=== PATIENT | male | born 1970 | race African-American/Black ===

== ENCOUNTER 2024-04-02 12:30 | Outpatient (RCR) | payer OTHER, MEDICAID, SELFPAY ==
--- NOTE | 2024-02-29 14:34 | OPREHPOC ---
Outpatient Therapy Plan of Care This is a Multidisciplinary Plan of Care that may contain components documented by all disciplines (PT, OT, and ST.) PT Problem 1 PT Problem #1 Knowledge Deficit PT Goal 1 Goal *pt and caregiver educated on HEP and correct transfer technique Target Visit 10 PT Problem 2 PT Problem #2 Pain PT Goal 1 Goal * monitor pain during sessions, multiple areas of pain Target Visit 10 PT Problem 3 PT Problem #3 Impaired Functional Mobility PT Goal 1 Goal 1* pt transfer w/c<> mat with minimal assist x1 2* pt transfer supine/sit with moderate assist x 1 3* pt roll R/L indep on mat 4* sitting balance at edge of mat without UE use and slight nudge without loss of balance Target Visit 10 PT Problem 4 PT Problem #4 Impaired Flexibility PT Goal 1 Goal * educate pt and caregiver on HEP for LE ROM and stretching Target Visit 10
--- NOTE | 2024-02-29 14:34 | PTOPEVAL1 ---
Assessment and note entered by Kenna Cintron PT Evaluation Information Assessment Status Evaluation Diagnosis multiple joint pain Subjective Information more issues with legs since sacral wounds and not able to stretch legs; still under wound care dr, going 2/wk for dressings; having problems getting in/out bed and in/out of car; had therapy at another facility, up to 2 weeks ago wrist, shoulder strength; car transfers, work on leg stretching at home. Activity: doing home exercises and stretching- have stretching strap; use wheel chair for mobility; have leg braces but have not used in about 2 years ; live alone with direct care worker assist; have trapeze bar on bed; have hand control car; Goal: stand with walker; Reported Pain Level Pain Score 7: Self Report Additional Pain Score Comments spine and wrists Assessment PT Clinical Summary Raphael has the diagnosis of mulitple joint pain. The history and activity history he gave was disjointed and difficult to obtain. He has a spinal cord injury and uses a wheel chair for mobility. Recently, to heal his sacral wound, he has not been able to move his hips and legs so that they are tighter. His goal is to stand with the leg braces that he has from over 2 years ago. With the evaluation: he does not have any active motion in R or L leg, with limited ROM of both hips, knees and ankles; poor transfer supine/sit and sit/w-c, with decreased sitting balance at edge of mat. Due to his changes with LE ROM, his W/C does not support him correctly. Discussed with pt to discuss the wheel chair with his provider and request a new wheel chair assessment. The current w/c is 3 years old and is from Provider [facility]. SKilled PT services are indicated to increase transfer skills, sitting balance and LE ROM, with education to pt and caregiver for HEP and correct transfer techniques. Plan of Care Interventions Neuro Re-education,Patient/Caregiver Education, Th
--- NOTE | 2024-04-04 13:03 | PCPTNOTE ---
No call no show, reason unknown. AKKim
--- NOTE | 2024-04-09 10:06 | PTOPDC ---
Assessment and note entered by Kenna Cintron, PT Discharge Report Assessment Status Discharge - Pt Not Present Diagnosis multiple joint pain Subjective Information pt called and left a message-- stated he is doing better and wants to cancel the PT appointments for now. Assessment PT Clinical Summary Raphael has received 7 PT sessions, from February 28 to April 02. He did not show for 1 appointment. Discharge PT per pt request. The goals were not assessed. Plan of Care PT Services Indicated No
== END 2024-04-09 12:44 | disposition home or self-care (01) ==
LOC: ANHPT 12:30
DX: M25.50 Pain in unspecified joint (principal)
CPT/HCPCS: 97110; 97140; 97162; 97530

== ENCOUNTER 2024-04-11 13:19 | Emergency (ER) | payer OTHER, SELFPAY ==
[2024-04-11] VITALS (10 sets, daily range): BP systolic 136–158; BP diastolic 67–94; PULSE 83–97; RESP 16–18; TEMP 36.2; O2SAT 97–100
--- NOTE | ~2024-04-11 | US_ITS ---
EXAMINATION: US venous doppler [facility] DATE: 04/11/2024 16:23 INDICATION: Left lower limb swelling TECHNIQUE: Grayscale ultrasound images without and with compression and Doppler ultrasound images of the left lower extremity veins were obtained. COMPARISON: None. FINDINGS: The visualized portions of left common femoral vein, profunda (deep) femoral vein, femoral vein, popl iteal vein, peroneal veins, posterior tibial veins, gastrocnemius vein and greater saphenous vein out flow are patent. IMPRESSION: 1. No deep venous thrombosis in the left lower limb. Reviewed, dictated and finalized at location A.
--- NOTE | ~2024-04-11 | XR_ITS ---
XR knee RT 3V 04/11/2024 14:17 Indication: Paraplegic. Patient felt a pop. Procedure: 3 views of the right knee Comparison: No prior studies Findings: There are transverse nondisplaced fractures of the proximal tibial metaphysis with mild sandy lukas angulation. There is a proximal fibular metaphyseal fracture. There is a joint effusion. There is osteoarthritis of the knee. Impression: 1: Nondisplaced fractures proximal aspect of the right tibia and fibula with mild dorsal angulation. Reviewed, dictated and finalized at location B. Impression: 1: Nondisplaced fractures proximal aspect of the right tibia and fibula with mi ld dorsal angulation.
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
[2024-04-11 16:08] LABS: Basophils Percent Auto 0.1 % (0.2-1.2); Eosinophils Percent Auto 0.4 % (0-4.4); Hematocrit 32.3 % (42.0-52.0); Hemoglobin 10.3 g/dL (14.0-18.0); Immature Granulocyte Absolute 0.04 K/mm3 (0.00-0.031); Immature Granulocyte Percent A 0.4 % (0-0.5); Lymphocytes Percent Auto 7.3 % (18.3-44.2); Mean Corpuscular HGB Conc 31.9 g/dl (32-36); Mean Corpuscular Hemoglobin 26.8 pg (26-34); Mean Corpuscular Volume 84.1 fl (80-100); Mean Platelet Volume 9.7 fl (7.4-10.4); Monocytes Absolute Auto 0.3 K/mm3 (0.1-0.6); Monocytes Percent Auto 2.8 % (2.6-8.5); Neutrophils Absolute Auto 9.7 K/mm3 (1.3-6.7); Platelet Count Result 367 k/mm3 (150-375); Red Blood Count 3.84 M/mm3 (4.6-6.20); White Blood Count 10.9 K/mm3 (4.5-10.0)
[2024-04-11 16:18] LABS: Anion Gap 10 mmol/L (4-12); Blood Urea Nitrogen 15 mg/dL (9-20); Calcium 8.9 mg/dL (8.4-10.2); Carbon Dioxide 27 mmol/L (22-30); Chloride 101 mmol/L (98-107); Estimated CRCL calculation 114 ml/min; Estimated Glomerular Filt Rate > 60; Glucose 84 mg/dL (65-110); Potassium 3.6 mmol/L (3.4-5.0); Sodium 138 mmol/L (137-145)
[2024-04-11 16:23] LABS: INR 1.1; Prothrombin Time 14.5 Seconds (11.1-14.7)
[2024-04-11 16:24] LABS: Partial Thromboplastin Time 31.4 Seconds (22.3-36.8)
[2024-04-11] MEDS: HYDROcodone/acetaminophen (*CRX) 5-325 MG TABLET 1 TAB PO (16:40)
--- NOTE | 2024-04-11 17:20 | PC.NURSE ---
care and report given to YORDAN Chawla. all questions answered.
== END 2024-04-11 18:28 | disposition home or self-care (01) ==
PROVIDERS: Emergency Provider Student in an Organized Health Care Education/Training Program
DX: S89.091A Other physeal fracture of upper end of right tibia, initial encounter for closed fracture (principal); S89.291A Other physeal fracture of upper end of right fibula, initial encounter for closed fracture; M25.461 Effusion, right knee; M17.11 Unilateral primary osteoarthritis, right knee; R22.42 Localized swelling, mass and lump, left lower limb; G82.20 Paraplegia, unspecified; S24.103S Unspecified injury at T7-T10 level of thoracic spinal cord, sequela; X58.XXXS Exposure to other specified factors, sequela; Z99.3 Dependence on wheelchair; X58.XXXA Exposure to other specified factors, initial encounter
CPT/HCPCS: 29505; 36415; 73562; 80048; 85025; 85610; 85730; 93971; 99284; A9270

== ENCOUNTER 2024-10-25 19:29 | Emergency (ER) | payer MEDICARE, MEDICAID, SELFPAY ==
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
[2024-10-25 19:33] VITALS: BP 159/84; PULSE 82; RESP 14; TEMP 36.6; O2SAT 100
--- NOTE | 2024-10-25 21:21 | PC.NURSE ---
pt here for recheck of the labs he had his primary care provider do last week. Pt is afraid that because he saw a slight amount of blood on his wound dressings, that is what is causing his iron to be low. Pt would not let this RN look at wound since you don't have the right medicine or bandages for it . All he wants is his blood work repeated.
--- OUTSIDE RECORDS SUMMARY | 2024-10-25 22:42 | XMS_ITS | Encounter Summary ---
Author Organization [facility] Address [address] [place] [address]. [place] [address] [place] [address] Care Team Providers Care [employer] Paver Name Role Phone Mary Marcus NP Primary Care Provider [phone] Lisa Ramírez [facility] Primary Care Provider + Lisa Ramírez [facility] Primary Care Provider + Jorje Ayala MD Unavailable Leroy Meraz DO Primary Care Provider + Encounter Details Date Type Department Care Team (Late st Contact Info) Description 05/31/2022 [employer] Message [facility] [address] [place] [address] Mary Marcus SELF DEFENSE INSTRUCTOR [address] [place] [address] ASKING FOR ANOTHER URINE CULTURE Social History Tobacco Use Types Packs/Day Years Used Date Smoking Tobacco: Never Smokeless Tobacco: Never Alcohol Use Standard Drinks/Week Comments Not Currently 0 (1 standard drink = 0.6 oz pur e alcohol) PHQ-2 Answer Date Recorded PHQ-2 Score - If the patient scores above 3, please move on to questions 3-9 0 05/16/2022 Sex and Gender Information Value Date Recorded Sex Assigned at Male 10/10/2024 12:08 PM SAMPLE TESTER Legal Sex Male 5:44 PM CDT Gender Identity Not on file Sexual Orientation Not on file COVID-19 Exposure Response Date Recorded In the last 10 days, have janet u been in contact with someone who was confirmed or suspected to have Coronavirus/COVID-19? No / Unsure 06/01/2022 10:32 AM CDT documented as of this encounter Functional Status * RETIRED Are you deaf or do you have serious difficulty hearing Answer Date of Assessment Author Status No 01/21/2022 2:05 PM CDT Activ e * RETIRED Are you blind or do you have serious difficulty seeing, even when wearing glasses? Answer Date of Assessment Author Status No 01/21/2022 2:05 PM CDT Activ e * Do you have serious difficulty walking or climbing stairs? Answer Date of Assessment Author Status Yes 01/21/2022 2:05 PM CDT Juliana Lewis RN Active * Do you have difficulty dressing or bathing? Answer Date of Assessment Author Status Yes 01/21/2022 2:05 PM CDT Juliana Lewis RN Active * Because of a physical, mental, or emotional condition, do you have difficulty doing errands alone such as visiting a doctor's office or shopping? Answer Date of Assessment Author Status Yes 01/21/2022 2:05 PM CDT Juliana Lewis RN Active documented as of this encounter Mental Status * Because of a physical, mental, or emotional condition, do you have serious difficulty concentrating, remembering, or making decisions? Answer Entry Date Author Status No 01/21/2022 2:05 PM CDT Juliana Lewis RN Active documented in this encounter Plan of Treatment Upcoming Encounters Date Type Department Care Team (Late st Contact Info) Description 11/11/2024 10:40 AM SAMPLE TESTER Telemedicine [facility] Family & Internal Medicine - [address] [address] Leroy Meraz DO [address] [place] [id number] documented as of this encounter Goals Goal Patient Goal Type Associated Problems Recent Progress Patient-Stated? Author Discharge ? Patient/family verbalizes understanding regarding the need for SNF placement Emilia Rivera RN Note: Pt will actively be involved in safe discharge destination plan. documented as of this encounter Visit Diagnoses Not on filedocumented in this encounter Additional Health Concerns Infection Onset Date Last Indicated Resolved Time MRSA Comment:08/18/20 Urine (SB) 11/18/2020 coccyx (KB) 11/19/2020 +MRSA Blood (MBK) 01/16/22 blood (JK) 01/16/22 left buttock wound (JK) 01/18/22 right thigh (JK) 10/04/22 urine (JK) 03/02/23 nares (JK) 03/02/23 urine (JK) 06/12/23 urine (JK) 05/29/24 left leg (JOSE) 09/02/24 Right Heel (RR) 08/24/2020 09/02/2024 MDR ? Other Comment:Added from external Infection- [facility] [employer] Collection Source- Urine 2020 06/25/2024 MDR-PATCH SANDER - Carbapenemase-Prod ucing Organisms Comment:Added from external infection. Source: [facility] [employer] Collection Source-Urine 08/04/2021 COVID-19 Rule Out 03/23/2024 03/23/2024 03/23/2024 1:17 PM CDT Assessment Noted Time PHQ-9 Depression Total Score: 0 12/04/19 1:13 PM SAMPLE TESTER documented as of this encounter Care Teams [employer] Pa[employer] Relationship Specialty Start Date End Date Mary Marcus, DONTE [address] [place] [address] PCP - General NURSE PRACTITIONER 11/30/21 08/28/22 Lisa Ramírez FNP-JUAN MANUEL [address] [place] [address] PCP - General NURSE PRACTITIONER 08/29/22 09/01/22 Lisa Ramírez FNP- [address] [place] [address] PCP - General NURSE PRACTITIONER 09/05/22 07/07/24 Leroy Meraz DO [address] [place], [place] [id number] PCP - General FAMILY PRACTICE 07/08/24 [place] [address] [phone] Surgeon SURGERY 11/03/23 documented as of this encounter
--- OUTSIDE RECORDS SUMMARY | 2024-10-25 22:43 | XMS_ITS | Patient Health Summary ---
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 This disclosure is being madepursuant to the Care Everywhere program and may not contain all information available regarding this patient. Last updated 18.[facility] Allergies * Diphenhydramine(Unknown) * Ciprofloxacin(Itching) * Diazepam(Unknown) * Zinc(Unknown) Medications * Be aware that medications may not be up to date on this document. Alwaysverify current medications with the patient. * ferrous sulfate 325 (65 FE) MG tablet Take 1 (one) tablet by mouth 2 times daily * Potassium 99 MG tablet Take 1 (one) tablet by mouth every evening * multivitamin daily tablet Take 1 (one) tablet by mouth daily with food * amLODIPine (NORVASC) 5 MG tablet(Started 05/05/2021) Take 1 (one) tablet by mouth once daily * metoprolol succinate XL 24hr (TOPROL XL) 25 MG tablet(Started 04/29/2021) Take 2 (two) tablets by mouth once daily * fluocinonide (Lidex) 0.05 % cream(Started 11/28/2022) Use as directed * lactulose (Chronulac) 10 GM/15ML solution(Started 12/08/2022) TAKE 15 ML BY MOUTH ONCE DAILY NEEDED FOR CONSTIPATION * biotin 300 MCG tablet(Started 02/04/2022) Take 1 (one) tablet by mouth at bedtime Active Problems Problem Noted Date Diagnosed Date Anemia 12/26/2020 Urinary tract infection asso ciated with indwelling urethral catheter 12/26/2020 Resolved Problems Problem Noted Date Diagnosed Date Resolved Date Fever 12/26/2020 12/27/2020 Social History Tobacco Use Types Packs/Day Years Used Date Smoking Tobacco: Never Smokeless Tobacco: Never Tobacco Cessation:Counseling Given: Not Answered Alcohol Use Standard Drinks/Week Comments Never 0 (1 standard drink = 0.6 oz pur e alcohol) AUDIT-C Answer Date Recorded Q1: How often do you have a drink containing alcohol? Never 10/07/2022 Q2: How many drinks containi ng alcohol do you have on a typical day when you are drinking? Patient does not drink Q3: How often do you have si x or more drinks on one occasion? Never 10/07/2022 Sex and Gender Information Value Date Recorded Sex Assigned at Not on file Gender Identity Not on file Sexual Orientation Not on file Last Filed Vital Signs Vital Sign Reading Time Taken Comments Blood Pressure 150/71 12/29/2022 5:29 PM CDT Pulse 80 12/29/2022 5:29 PM CDT Temperature 36.8 ??C (98.2 ??F) 12/29/2022 5:29 PM CD T Respiratory Rate 18 12/29/2022 5:29 PM CDT Oxygen Saturation 98% 12/29/2022 5:29 PM CDT Inhaled Oxygen Concentration - - Weight 63.5 kg (140 lb) 12/29/2022 3:25 PM CDT Height 198.1 cm (6' 6 ) 12/29/2022 3:25 PM CDT Body Mass Index 16.18 12/29/2022 3:25 PM CDT Procedures * URINE MICROSCOPIC ONLY(Performed 12/29/2022) * URINALYSIS REFLEX TO MICROSCOPIC NO CULTURE(Performed 12/29/2022) * CULTURE URINE(Performed 12/29/2022) * URINE MICROSCOPIC ONLY REFLEX TO CULTURE(Performed 10/07/2022) * URINALYSIS REFLEX MICROSCOPIC REFLEX CULTURE(Performed 10/07/2022) * CULTURE URINE(Performed 10/07/2022) * CT ABDOMEN PELVIS W CONTRAST(Performed 08/24/2021) Performed for Suprapubic catheter dysfunction, initial encounter (HCC), Abdominal pain, generalized * CULTURE WOUND+GRAM STAIN(Performed 08/24/2021) * URINE MICROSCOPIC ONLY REFLEX TO CULTURE(Performed 08/24/2021) * URINALYSIS REFLEX MICROSCOPIC REFLEX CULTURE(Performed 08/24/2021) * CULTURE URINE(Performed 08/24/2021) * CULTURE BLOOD(Performed 08/24/2021) * PROCALCITONIN LEVEL(Performed 08/24/2021) * COMPREHENSIVE METABOLIC PANEL(Performed 08/24/2021) * CBC W AUTO DIFFERENTIAL(Performed 08/24/2021) * LACTIC ACID BLOOD REFLEX TO REPEAT(Performed 08/24/2021) * CULTURE BLOOD(Performed 08/24/2021) * ED CRITICAL CARE(Performed 08/24/2021) Performed for Suprapubic catheter dysfunction, initial encounter (HCC), Abdominal pain, generalized * CARDIAC EKG ORDER(Performed 05/24/2021) * COMPREHENSIVE METABOLIC PANEL(Performed 05/20/2021) * CBC W AUTO DIFFERENTIAL(Performed 05/20/2021) * EKG 12-LEAD(Performed 05/20/2021) Performed for Essential hypertension * SLIDE SCAN HEMATOLOGY(Performed 12/27/2020) * CBC W AUTO DIFFERENTIAL(Performed 12/27/2020) * BASIC METABOLIC PANEL (CALCIUM TOTAL)(Performed 12/27/2020) * IRON + TRANSFERRIN PANEL(Performed 12/27/2020) * PLATELET COUNT AUTO(Performed 12/27/2020) * CREATININE BLOOD(Performed 12/27/2020) * XR CHEST 1VW PORTABLE(Performed 12/26/2020) Performed for Fever in other diseases * URINE MICROSCOPIC ONLY REFLEX TO CULTURE(Performed 12/25/2020) * URINALYSIS REFLEX MICROSCOPIC REFLEX CULTURE(Performed 12/25/2020) * CULTURE URINE(Performed 12/25/2020) * CULTURE BLOOD(Performed 12/25/2020) * CULTURE BLOOD(Performed 12/25/2020) * DIFFERENTIAL MANUAL(Performed 12/25/2020) * LACTIC ACID BLOOD REFLEX TO REPEAT(Performed 12/25/2020) * COMPREHENSIVE METABOLIC PANEL(Performed 12/25/2020) * CBC W AUTO DIFFERENTIAL(Performed 12/25/2020) * URINE MICROSCOPIC ONLY REFLEX TO CULTURE(Performed 2020) * URINALYSIS REFLEX MICROSCOPIC REFLEX CULTURE(Performed 2020) * CULTURE URINE(Performed 2020) * GROSS + MICRO EXAM(Performed 11/24/1998) Results * (ABNORMAL) URINALYSIS REFLEX TO MICROSCOPIC NO CULTURE (12/29/2022 3:36 PM CDT) Color UA Yellow Straw, Yellow, Dark Yellow 12/29/2022 4:[address] [facility] Clarity UA Slt Cloudy(A) Clear 12/29/2022 4:[address] [facility] Glucose UA Negative Negative 12/29/2022 4:[address] [facility] Bilirubin UA Negative Negative 12/29/2022 4:[address] [facility] Ketone UA 1+(A) Negative 12/29/2022 4:[address] [facility] Specific Wise UA 1.014 1.005 - 1.030 12/29/2022 4:[address] [facility] Blood UA 2+(A) Negative 12/29/2022 4:[address] [facility] pH UA 6.0 5.0 - 8.0 pH 12/29/2022 4:[address] [facility] Protein UA 2+(A) Negative 12/29/2022 4:[address] [facility] Urobilinogen UA Negative Negative mg/dL 12/29/2022 4:[address] [facility] Nitrite UA Positive(A) Negative 12/29/2022 4:[address] [facility] Leukocyte UA 3+(A) Negative 12/29/2022 4:[address] [facility] Urine Microscopy Urine microscopy to follow 12/29/2022 4:[address] [facility] Urine URINE SPECIMEN COLLECTION, CATHETERIZED / Unknown Collection / Unknown 12/29/2022 3:36 PM CDT 12/29/2022 3:[address] [facility] - 12/29/2022 4:00 PM CDT Ascorbic Acid can cause false negative urine strip tests for blood, glucose, nitrite, and bilirubin. Jessica Valles [facility] - URINALYSIS ORD ERABLES Performing Organization Address [facility] Co de Phone Number [facility] [address] * (ABNORMAL) URINE MICROSCOPIC ONLY (12/29/2022 3:36 PM CDT) RBC UA 11-20(A) 0 - 5 # /hpf 12/29/2022 4:[address] [facility] WBC UA 21-50(A) None Seen, 0-5 # /hpf 12/29/2022 4:[address] [facility] Budding Yeast Occasional (A) None seen /hpf 12/29/2022 4:[address] [facility] Hyaline Casts 0-2 None Seen, 0-2 /LPF 12/29/2022 4:[address] [facility] Bacteria UA 2+(A) None Seen 12/29/2022 4:[address] [facility] Squamous Epithelial Cells None Seen None Seen, 0-2, 3-5 /hpf 12/29/2022 4:[address] [facility] Mucus UA 1+ /LPF 12/29/2022 4:[address] [facility] Urine URINE SPECIMEN COLLECTION, CATHETERIZED / Unknown Collection / Unknown 12/29/2022 3:36 PM CDT 12/29/2022 3:[address] [facility] - 12/29/2022 4:00 PM CDT Jessica Valles [facility]ATION [facility] - URINALYSIS ORD ERABLES Performing Organization Address [facility] Co de Phone Number [facility] [address] [place] [address] * CULTURE URINE (12/29/2022 3:36 PM CDT) Only the most recent of5 resultswithin the time period is included. Culture Urine More than 2 organisms seen at >=50,000 CFU/mL. Recollect if clinically indicated. JONAS 12/31/2022 3:09 PM CDT [facility] Urine URINE SPECIMEN OBTAINED BY CLEAN CATCH PROCEDURE / Unknown Collection / Unknown 12/29/2022 3:36 PM CDT 12/29/2022 3:42 PM CDT Narrative [facility] - 12/31/2022 3:09 PM CDT Jessica BIRCH LAB - MICROBIOLOGY O RDERABLES [facility] [address] [place] [address], [facility] [phone] * (ABNORMAL) URINE MICROSCOPIC ONLY REFLEX TO CULTURE (10/07/2022 6:55 PM TOSSER) Only the most recent of4 resultswithin the time period is included. Reflex Status Culture to follow 10/07/2022 7:[address] [facility] RBC UA 11-20(A) 0 - 5 # /hpf 10/07/2022 7:11 PM [facility] WBC UA >100(A) None Seen, 0-5 # /hpf 10/07/2022 7:11 PM [facility] WBC Clumps UA Few(A) None Seen /HPF 10/07/2022 7:11 PM [facility] Bacteria UA 3+(A) None Seen 10/07/2022 7:11 PM [facility] Squamous Epithelial Cells 0-2 None Seen, 0-2, 3-5 /hpf 10/07/2022 7:11 PM [facility] Mucus UA 1+ /LPF 10/07/2022 7:11 PM [facility] Urine SUPRAPUBIC URINE SPECIMEN / Unknown Collection / Unknown 10/07/2022 6:55 PM TOSSER 10/07/2022 7:[address] [facility] - 10/07/2022 7:11 PM TOSSER Jermain Mcdaniels DO LAB - URINALYSIS ORD ERABLES [facility] [address] [address], [facility] * (ABNORMAL) URINALYSIS REFLEX MICROSCOPIC REFLEX CULTURE (10/07/2022 6:55 PM TOSSER) Only the most recent of4 resultswithin the time period is included. Color UA Yellow Straw, Yellow, Dark Yellow 10/07/2022 7:[address] [facility] Clarity UA Cloudy(A) Clear 10/07/2022 7:11 PM [facility] Glucose UA Negative Negative 10/07/2022 7:11 PM [facility] Bilirubin UA Negative Negative 10/07/2022 7:11 PM [facility] Ketone UA Trace(A) Negative 10/07/2022 7:11 PM [facility] Specific Wise UA 1.014 1.005 - 1.030 10/07/2022 7:11 PM [facility] Blood UA 1+(A) Negative 10/07/2022 7:11 PM [facility] pH UA 6.0 5.0 - 8.0 pH 10/07/2022 7:11 PM [facility] Protein UA 2+(A) Negative 10/07/2022 7:11 PM [facility] Urobilinogen UA Negative Negative mg/dL 10/07/2022 7:11 PM [facility] Nitrite UA Negative Negative 10/07/2022 7:11 PM [facility] Leukocyte UA 3+(A) Negative 10/07/2022 7:11 PM [facility] Urine Microscopy Urine microscopy to follow 10/07/2022 7:11 PM [facility] Urine SUPRAPUBIC URINE SPECIMEN / Unknown Collection / Unknown 10/07/2022 6:55 PM TOSSER 10/07/2022 7:02 PM [facility] Narrative [facility] - 10/07/2022 7:11 PM TOSSER Ascorbic Acid can cause false negative urine strip tests for blood, glucose, nitrite, and bilirubin. Jermain Mcdaniels DO LAB - URINALYSIS ORD ERABLES Performing Organization Address City/State/[facility] Co de Phone Number [facility] [address] * CT ABDOMEN AND PELVIS W IV CONTRAST [id number] (08/24/2021 12:00 PM TOSSER) Anatomical Region Laterality Modality Abdomen, Pelvis Computed Tomogra phy 08/24/2021 12:3 7 PM TOSSER Addenda Addendum by Greta Chatterjee MD on 08/24/2021 12:56 PM TOSSER Addendum should read as follows. Please disregard sentence pulmonary embolus. Instead it should read unremarkable adrenal glands. *Addending Radiologist: Greta Chatterjee on 08/24/2021 at 12:53 PM Impressions 08/24/2021 12:39 PM TOSSER As described above *Reading Radiologist: Greta Chatterjee on 08/24/2021 at 12:39 PM Narrative 08/24/2021 12:39 PM TOSSER PROCEDURE: CT ABDOMEN PELVIS W CONTRAST ??08/24/2021 12:37 PM HISTORY: Breakdown (mechanical) of cystostomy catheter, initial encounter. FINDINGS AND IMPRESSION: COMPARISON: No comparison. CONTRAST: 80 cc Isovue-300 IV. Radiation dose reduction technique was utilized. FINDINGS: Lung bases are clear. No intrahepatic ductal dilation or mass lesions. Spleen is normal. Significant cholelithiasis. Contracted gallbladder. Pulmonary embolus. Unremarkable pancreas. Redemonstration of bilateral renal cysts. Kidneys otherwise are unremarkable Catheter is noted in bladder. No free fluid or lymphadenopathy. No focal intra-abdominal pelvic mass. No evidence of small bowel obstruction. Constipation. Appendix is normal. Abdominal aortic atherosclerosis. No evidence of AAA. DJD spine. Deformities of hip joint space erosive changes. Procedure Note Greta Chatterjee MD - 08/24/2021 PROCEDURE: CT ABDOMEN PELVIS W CONTRAST 08/24/2021 12:37 PM HISTORY: Breakdown (mechanical) of cystostomy catheter, initial encounter. FINDINGS AND IMPRESSION: COMPARISON: No comparison. CONTRAST: 80 cc Isovue-300 IV. Radiation dose reduction technique was utilized. FINDINGS: Lung bases are clear. No intrahepatic ductal dilation or mass lesions. Spleen is normal. Significant cholelithiasis. Contracted gallbladder. Pulmonary embolus. Unremarkable pancreas. Redemonstration of bilateral renal cysts. Kidneys otherwise are unremarkable Catheter is noted in bladder. No free fluid or lymphadenopathy. No focal intra-abdominal pelvic mass. No evidence of small bowel obstruction. Constipation. Appendix is normal. Abdominal aortic atherosclerosis. No evidence of AAA. DJD spine. Deformities of hip joint space erosive changes. IMPRESSION As described above *Reading Radiologist: Greta Chatterjee on 08/24/2021 at 12:39 PM Helena Rosenberg MD CT ORDERABLES * (ABNORMAL) CULTURE WOUND+GRAM STAIN (08/24/2021 10:41 AM TOSSER) Culture Heavy Pseudomonas aeruginosa(A) JONAS 08/27/2021 11:11 PM TOSSER [facility] Culture Heavy Pseudomonas aeruginosa(A) JONAS 08/27/2021 11:11 PM [facility] Comment:Strain 2 Culture Heavy Klebsiella pneumoniae(A) JONAS 08/27/2021 11:11 PM [facility] Culture Heavy Corynebacterium species(A) JONAS 08/27/2021 11:11 PM [facility] Culture Moderate Staphylococcus aureus methicillin-resista nt (MRSA)(A) JONAS 08/27/2021 11:11 PM [facility] Comment:Staphylococcus aureu s methicillin-resistant (MRSA) detected by penicillin binding protein immunoassay. Contact precautions required. Conventional antibiotic susceptibility testing to follow. Gram Stain Moderate Polymorphonuclear cells 08/27/2021 11:11 PM [facility] Gram Stain Light Red blood cells 08/27/2021 11:11 PM [facility] Gram Stain Light Squamous epithelial cells 08/27/2021 11:11 PM [facility] Gram Stain Heavy Gram-positive bacilli 08/27/2021 11:11 PM [facility] Gram Stain Light Gram-positive cocci 08/27/2021 11:11 PM [facility] Microbiology ASSESSMENT OF CATHETER ENTRY SITE / Unknown Collection / Unknown 08/24/2021 10:41 AM TOSSER 08/24/2021 10:46 AM [facility] - 08/27/2021 11:11 PM [facility] Methicillin-resistant Staphylococci (MRSA) are resistant to all currently available beta-lactam antibiotics with the exception of the newer cephalosporins with anti-MRSA activity. Contact precautions required. Organism Antibiotic Method Susceptibility Pseudomonas aeruginosa Amikacin JONAS <=2 ug/mL: Susceptible Pseudomonas aeruginosa Cefepime JONAS 4 ug/mL: Susceptible Pseudomonas aeruginosa Ceftazidime JONAS 8 ug/mL: Susceptible Pseudomonas aeruginosa Ciprofloxacin JONAS 1 ug/mL: Intermediate Pseudomonas aeruginosa Gentamicin JONAS <=1 ug/mL: Susceptible Pseudomonas aeruginosa Meropenem JONAS 4 ug/mL: Intermediate Pseudomonas aeruginosa Tobramycin JONAS <=1 ug/mL: Susceptible Pseudomonas aeruginosa Piperacillin-tazobactam KB Susceptible Pseudomonas aeruginosa Amikacin JONAS <=2 ug/mL: Susceptible Pseudomonas aeruginosa Cefepime JONAS <=1 ug/mL: Susceptible Pseudomonas aeruginosa Ceftazidime JONAS 2 ug/mL: Susceptible Pseudomonas aeruginosa Ciprofloxacin JONAS 1 ug/mL: Intermediate Pseudomonas aeruginosa Gentamicin JONAS <=1 ug/mL: Susceptible Pseudomonas aeruginosa Meropenem JONAS 2 ug/mL: Susceptible Pseudomonas aeruginosa Piperacillin-tazobactam JONAS <=4 ug/mL: Susceptible Pseudomonas aeruginosa Tobramycin JONAS <=1 ug/mL: Susceptible Klebsiella pneumoniae Amikacin JONAS <=2 ug/mL: Susceptible Klebsiella pneumoniae Ampicillin-sulbactam JONAS 16 ug/mL: Intermediate Klebsiella pneumoniae Cefepime JONAS <=1 ug/mL: Susceptible Klebsiella pneumoniae Ceftriaxone JONAS <=1 ug/mL: Susceptible Klebsiella pneumoniae Ciprofloxacin JONAS 1 ug/mL: Resistant Klebsiella pneumoniae Extended-Spectrum Beta-Lactamase JONAS NEG ug/mL: Neg Klebsiella pneumoniae Gentamicin JONAS <=1 ug/mL: Susceptible Klebsiella pneumoniae Meropenem JONAS <=0.25 ug/mL: Susceptible Klebsiella pneumoniae Piperacillin-tazobactam JONAS 8 ug/mL: Susceptible Klebsiella pneumoniae Tobramycin JONAS <=1 ug/mL: Susceptible Klebsiella pneumoniae Trimethoprim-sulfa methox azole JONAS <=20 ug/mL: Susceptible Comment: Automated methods are unable to differentiate between susceptible and intermediate results for cefazolin in Enterobacteriaceae from sources other than urine. Therefore, results are only reported when resistance is detected. If cefazolin susceptibility testing is needed but not reported, please call microbiology lab to request manual [phone]. Staphylococcus aureus methicillin-resistant (MRSA) Clindamycin JONAS 0.25 ug/mL: Susceptible Staphylococcus aureus methicillin-resistant (MRSA) Doxycycline JONAS 1 ug/mL: Susceptible Staphylococcus aureus methicillin-resistant (MRSA) Gentamicin JONAS <=0.5 ug/mL: Susceptible Staphylococcus aureus methicillin-resistant (MRSA) Inducible Clindamycin Resistance JONAS NEG ug/mL: Neg Staphylococcus aureus methicillin-resistant (MRSA) Linezolid JONAS 2 ug/mL: Susceptible Staphylococcus aureus methicillin-resistant (MRSA) Oxacillin JONAS >=4 ug/mL: Resistant Staphylococcus aureus methicillin-resistant (MRSA) Tetracycline JONAS <=1 ug/mL: Susceptible Staphylococcus aureus methicillin-resistant (MRSA) Trimethoprim-sulfamethox azole JONAS <=10 ug/mL: Susceptible Staphylococcus aureus methicillin-resistant (MRSA) Vancomycin JONAS <=0.5 ug/mL: Susceptible Helena Rosenberg MD LAB - MICROBIOLOGY O RDERABLES [facility] [address] [place] [address], [facility] [phone] * CULTURE BLOOD (08/24/2021 10:36 AM TOSSER) Only the most recent of4 resultswithin the time period is included. Culture No growth day 5 JONAS 08/30/2021 12:00 AM TOSSER [facility] Blood PERIPHERAL BLOOD / Unknown Venipuncture / Unknown 08/24/2021 10:36 AM TOSSER 08/24/2021 10:46 AM TOSSER Helena Rosenberg MD LAB - MICROBIOLOGY O RDERABLES [facility] [address] [place] [address], [facility] [phone] * LACTIC ACID BLOOD REFLEX TO REPEAT (08/24/2021 10:31 AM TOSSER) Only the most recent of2 resultswithin the time period is included. Pathologist [facility] Lactic Acid 1.76 0.5 - 2 mmol/L 08/24/2021 11:[address] [facility] Comment:3+ hemolysis Blood BLOOD SPECIMEN / Unknown Venipuncture / Unknown 08/24/2021 10:31 AM TOSSER 08/24/2021 10:46 AM TOSSER Helena Rosenberg MD LAB - CHEMISTRY ORDMadison [facility] [address] * PROCALCITONIN LEVEL (08/24/2021 10:31 AM TOSSER) Procalcitonin 0.07 <=0.10 ng/mL 08/24/2021 11:[address] [facility] Comment:2+ hemolysis Blood BLOOD SPECIMEN / Unknown Venipuncture / Unknown 08/24/2021 10:31 AM TOSSER 08/24/2021 10:[address] [facility] - 08/24/2021 11:32 AM TOSSER If baseline PCT is - >2.0 ng/mL: ??A PCT level above 2.0 ng/mL on the first day of ICU admission is associated with a high risk for progression to severe sepsis and/or septic shock. - <0.5 ng/mL: ??A PCT level below 0.5 ng/mL on the first day of ICU admission is associated with a low risk for progression to severe sepsis and/or septic shock. If the Procalcitonin measurement is performed shortly after systemic infection process has started (usually less than 6 hours), these values may still be low. ??As various non-infectious conditions are known to induce procalcitonin as well, Procalcitonin levels between 0.50 ng/mL and 2.00 ng/mL should be reviewed carefully to take into account the specific clinical background and condition(s) of the individual patient. ? The change in procalcitonin (PCT) concentration over time provides support in decision making on antibiotic discontinuation for suspected or confirmed septic patients and for suspected or confirmed lower respiratory tract infection (LRTI). Follow-up samples should be tested once every 1-2 days based upon physician discretion taking into account the patient's evolution and progress. Discontinuation of antibiotic therapy may be considered ??for suspected or confirmed septic patients if the current PCT is <= 0.5 ng/mL or <= 0.25 ng/mL for confirmed LRTI. ??If the PCT delta drop is > 80% in either condition, discontinuation of antibiotic therapy may be indicated. Duration of antibiotics should not be determined solely on PCT; established guidelines for the indication should be followed. ??Results should be interpreted in the context of a patient's clinical status and other laboratory tests. ? PCT peak: ??Highest observed PCT concentration ? PCT current: ??Most recent PCT concentration ? Calculate delta PCT using the following equation: ?Delta PCT ??= ?? PCT Peak - PCT current ??X 100% ? PCT Peak The Change in Procalcitonin Calculator is available at [email or web address] ?? If clinical picture has not improved and PCT remains high, reevaluate and consider treatment failure or other causes. Helena Rosenberg MD LAB - CHEMISTRY [facility] Performing Organization Address City/State/[facility] Co de Phone Number [facility] [address] * (ABNORMAL) CBC W AUTO DIFFERENTIAL (08/24/2021 10:31 AM [facility]) Only the most recent of4 resultswithin the time period is included. [facility] Signature WBC 7.4 4.0 - 10.0 x10E9/L 08/24/2021 10:50 AM [facility] RBC 3.70(L) 4.40 - 6.10 x10E12/L 08/24/2021 10:50 AM [facility] Hemoglobin 9.6(L) 13.7 - 17.5 gm/dL 08/24/2021 10:50 AM [facility] Hematocrit 29.3(L) 40.1 - 51.0 % 08/24/2021 10:50 AM [facility] MCV 79.2 78.0 - 100.0 fl 08/24/2021 10:50 AM [facility] MCH 25.9 25.6 - 34.0 pg 08/24/2021 10:50 AM [facility] MCHC 32.8 32.3 - 36.5 gm/dL 08/24/2021 10:50 AM [facility] LABORATORY RDW 17.7(H) 11.6 - 14.4 % 08/24/2021 10:50 AM [facility] MPV 9.8 9.4 - 12.4 fl 08/24/2021 10:50 AM [facility] Platelet Count 396(H) 163 - 369 x10E9/L 08/24/2021 10:50 AM [facility] Neutrophils % 66.6 40.0 - 75.0 % 08/24/2021 10:50 AM [facility] Lymphocytes % 14.5(L) 19.3 - 53.1 % 08/24/2021 10:50 AM [facility] Monocytes % 16.5(H) 4.7 - 12.5 % 08/24/2021 10:50 AM [facility] Eosinophils % 1.8 0.7 - 7.0 % 08/24/2021 10:50 AM [facility] Basophils % 0.3 0.1 - 1.2 % 08/24/2021 10:50 AM [facility] Immature Granulocytes 0.3 0 - 0.5 % 08/24/2021 10:50 AM [facility] Neutrophil Absolute 4.94 1.56 - 6.13 x10E9/L 08/24/2021 10:50 AM [facility] Lymphocytes Absolute 1.07(L) 1.18 - 3.74 x10E9/L 08/24/2021 10:50 AM [facility] Monocytes Absolute 1.22(H) 0.24 - 0.86 x10E9/L 08/24/2021 10:50 AM [facility] Eosinophils Absolute 0.13 0.04 - 0.54 x10E9/L 08/24/2021 10:50 AM [facility] Basophils Absolute 0.02 0.01 - 0.08 x10E9/L 08/24/2021 10:50 AM [facility] Immature Granulocytes Absolute 0.02 0 - 0.03 x10E9/L 08/24/2021 10:50 AM [facility] nRBC Auto 0 <=0 /100 WBC 08/24/2021 10:50 AM [facility] nRBC Absolute 0.00 <=0 x10E9/L 08/24/2021 10:50 AM [facility] Blood BLOOD SPECIMEN / Unknown Venipuncture / Unknown 08/24/2021 10:31 AM TOSSER 08/24/2021 10:46 AM [facility] Helena Rosenberg MD LAB - HEMATOLOGY ORD ERABLES Performing Organization Address City/State/[facility] Co de Phone Number [facility] [address] * (ABNORMAL) COMPREHENSIVE METABOLIC PANEL (08/24/2021 10:31 AM [facility]) Only the most recent of3 resultswithin the time period is included. Glucose 100 70 - 125 mg/dL 08/24/2021 11:13 AM [facility] Sodium 138 136 - 145 mmol/L 08/24/2021 11:13 AM [facility] Potassium 4.0 3.4 - 4.5 mmol/L 08/24/2021 11:13 AM [facility] Comment:2+ hemolysis Chloride 104 98 - 107 mmol/L 08/24/2021 11:13 AM [facility] CO2 23 22 - 29 mmol/L 08/24/2021 11:13 AM [facility] Calcium 9.3 8.4 - 10.2 mg/dL 08/24/2021 11:13 AM [facility] Anion Gap 15 10 - 20 mmol/L 08/24/2021 11:13 AM [facility] BUN 13.1 8.4 - 25.7 mg/dL 08/24/2021 11:13 AM [facility] Creatinine 0.70(L) 0.72 - 1.25 mg/dL 08/24/2021 11:13 AM [facility] eGFR by MDRD >60 >60 mL/min/1.7 3m2 08/24/2021 11:13 AM [facility] eGFR by MDRD >60 >60 mL/min/1.7 3m2 08/24/2021 11:13 AM [facility] Alkaline Phosphatase 107 40 - 150 U/L 08/24/2021 11:13 AM [facility] ALT 14 5 - 55 U/L 08/24/2021 11:13 AM [facility] AST 27 5 - 34 U/L 08/24/2021 11:13 AM [facility] Protein Total 8.5(H) 6.4 - 8.3 gm/dL 08/24/2021 11:13 AM [facility] Albumin 2.1(L) 3.5 - 5.0 gm/dL 08/24/2021 11:13 AM [facility] Globulin Total 6.4(H) 2.6 - 4.0 gm/dL 08/24/2021 11:13 AM [facility] Albumin/Globulin Ratio 0.3(L) 0.9 - 1.6 08/24/2021 11:13 AM [facility] Bilirubin Total 0.2 0.2 - 1.2 mg/dL 08/24/2021 11:13 AM [facility] Blood BLOOD SPECIMEN / Unknown Venipuncture / Unknown 08/24/2021 10:31 AM TOSSER 08/24/2021 10:46 AM TOSSER Helena Rosenberg MD LAB - CHEMISTRY YANNA BARTLETT [facility] [address] * Critical Care (08/24/2021 9:57 AM TOSSER) Narrative Helena Rosenberg MD - 08/24/2021 9:57 AM TOSSER Helena Rosenberg MD ? 08/24/2021 ??1:09 PM Critical Care Performed by: Helena Rosenberg MD Authorized by: Helena Rosenberg MD Critical care provider statement: ??Critical care time (minutes): ??31 ??Critical care was necessary to treat or prevent imminent or life-threatening deterioration of the following conditions: ??Sepsis ??Critical care was time spent personally by me on the following activities: ??Ordering and performing treatments and interventions, ordering and review of laboratory studies, ordering and review of radiographic studies, pulse oximetry, re-evaluation of patient's condition, review of old charts, examination of patient, evaluation of patient's response to treatment, discussions with primary provider, discussions with consultants, development of treatment plan with patient or surrogate and blood draw for specimens Helena Rosenberg MD PROCEDURE/MINOR SURG ICAL ORDERABLES * CARDIAC EKG ORDER (05/24/2021 6:00 AM CDT) Narrative 05/24/2021 6:00 AM CDT Ordered by an unspecified provider. Scanned Document CARDIAC SERVICES ORD ERABLES * EKG 12-LEAD (05/20/2021 8:39 AM CDT) Ventricular Rate 62 BPM [facility] Atrial Rate 62 BPM [facility] P-R Interval 118 ms [facility] QRS Duration ms 94 ms [facility] Q-T Interval ms 412 ms [facility] QTC Calculation (Bezet) 418 ms [facility] Calculated P Kidder 49 degrees [facility] Calculated R Kidder 68 degrees [facility] Calculated T Kidder 47 degrees [facility] Interpretation EKG NORMAL SINUS RHYTHM NONSPECIFIC T WAVE ABNORMALITY ABNORMAL ECG CONFIRMED ??BY DR ARITA ON 05/20/2021 Confirmed by KARL ARITA MD ([id number]), video editor FRANKY SHRESTHA ([id number]) on 05/28/2021 9:25:[address] [facility] M[facility] 05/20/2021 8:39 AM CDT 05/28/2021 9:25 AM CDT Rae De La Paz MD ECG ORDERABLES Performing Organization Address [facility] Co de Phone Number [facility] MUSE * (ABNORMAL) SLIDE SCAN HEMATOLOGY (12/27/2020 10:33 AM CDT) Pathologist [facility] Platelet Estimation Increased( A) Normal, Adequate platelets 12/27/2020 12:[address] [facility] WBC Morph Normal 12/27/2020 12:[address] [facility] Anisocytosis 2+(A) None 12/27/2020 12:[address] [facility] Hypochromia 2+(A) None 12/27/2020 12:[address] [facility] Large Platelets 1+(A) None 12:[address] [facility] Blood BLOOD SPECIMEN / Unknown Lab Venipuncture / Unknown 12/27/2020 10:33 AM CDT 12/27/2020 10:36 AM CDT Sushma Brunson MD LAB - HEMATOLOG Y ORDERABLES Performing Organization Address City/[facility]/ZIP Co de Phone Number [facility] [address] * BASIC METABOLIC PANEL (CALCIUM TOTAL) (12/27/2020 10:33 AM CDT) Pathologist [facility] Glucose 87 70 - 125 mg/dL 12/27/2020 10:[address] [facility] Sodium 139 136 - 145 mmol/L 12/27/2020 10:[address] [facility] Potassium 3.6 3.4 - 4.5 mmol/L 12/27/2020 10:[address] [facility] Chloride 106 98 - 107 mmol/L 12/27/2020 10:[address] [facility] CO2 23 22 - 29 mmol/L 12/27/2020 10:[address] [facility] Calcium 8.5 8.4 - 10.2 mg/dL 12/27/2020 10:[address] [facility] Anion Gap 14 10 - 20 mmol/L 12/27/2020 10:[address] [facility] BUN 9.5 8.4 - 25.7 mg/dL 12/27/2020 10:[address] [facility] Creatinine 0.79 0.72 - 1.25 mg/dL 12/27/2020 10:[address] [facility] eGFR by MDRD >60 >60 mL/min/1.7 3m2 12/27/2020 10:[address] [facility] eGFR by MDRD >60 >60 mL/min/1.7 3m2 12/27/2020 10:[address] [facility] Blood BLOOD SPECIMEN / Unknown Lab Venipuncture / Unknown 12/27/2020 10:33 AM CDT 12/27/2020 10:36 AM CDT Sushma Brunson MD LAB - CHEMISTRY ORDERABLES Performing Organization Address City/[facility]/ZIP Co de Phone Number [facility] [address] * (ABNORMAL) PLATELET COUNT AUTO (12/27/2020 3:21 AM CDT) Platelet Count 568(H) 163 - 369 x10E9/L 12/27/2020 3:[address] [facility] Blood BLOOD SPECIMEN / Unknown Lab Venipuncture / Unknown 12/27/2020 3:21 AM CDT 12/27/2020 3:49 AM CDT Ayden Arora MD LAB - HEMATOLOGY ORD ERABLES Performing Organization Address City/[facility]/ZIP Co de Phone Number [facility] [address] * CREATININE BLOOD (12/27/2020 3:21 AM CDT) Creatinine 0.73 0.72 - 1.25 mg/dL 12/27/2020 4:[address] [facility] eGFR by MDRD >60 >60 mL/min/1.7 3m2 12/27/2020 4:[address] [facility] eGFR by MDRD >60 >60 mL/min/1.7 3m2 12/27/2020 4:[address] [facility] Blood BLOOD SPECIMEN / Unknown Lab Venipuncture / Unknown 12/27/2020 3:21 AM CDT 12/27/2020 3:49 AM CDT Ayden Arora MD LAB - CHEMISTRY YANNA BARTLETT Performing Organization Address [facility] Co de Phone Number [facility] [address] * (ABNORMAL) IRON + TRANSFERRIN PANEL (12/27/2020 3:21 AM CDT) Iron 24(L) 65 - 175 ug/dL 12/27/2020 4:[address] [facility] Transferrin 109(L) 174 - 364 mg/dL 12/27/2020 4:[address] [facility] TIBC Calculated 136(L) 261 - 497 ug/dL 12/27/2020 4:[address] [facility] Iron Saturation % 18 11 - 45 % 12/27/2020 4:[address] [facility] Blood BLOOD SPECIMEN / Unknown Lab Venipuncture / Unknown 12/27/2020 3:21 AM CDT 12/27/2020 3:49 AM CDT Ayden Arora MD LAB - CHEMISTRY YANNA BARTLETT Performing Organization Address [facility]/ZIP Co de Phone Number [facility] [address] * XR CHEST 1VW PORTABLE (12/26/2020 1:16 AM CDT) Anatomical Region Laterality Modality Chest Radiographic Joanie ging 12/26/2020 6:56 AM CDT Impressions 12/26/2020 6:56 AM CDT No acute pathology or change Narrative 12/26/2020 6:56 AM CDT PROCEDURE: XR CHEST 1VW PORTABLE 12/26/2020 6:56 AM HISTORY: Fever presenting with conditions classified elsewhere. FINDINGS AND IMPRESSION: COMPARISON: No comparison. FINDINGS: Portable chest x-ray was obtained and compared to prior study. Clear lungs allowing for portable technique. The heart and vessels are radiographically normal. No soft tissue or bone abnormality is seen. Procedure Note Andrew Montejo MD - 12/26/2020 PROCEDURE: XR CHEST 1VW PORTABLE 12/26/2020 6:56 AM HISTORY: Fever presenting with conditions classified elsewhere. FINDINGS AND IMPRESSION: COMPARISON: No comparison. FINDINGS: Portable chest x-ray was obtained and compared to prior study. Clear lungs allowing for portable technique. The heart and vessels are radiographically normal. No soft tissue or bone abnormality is seen. IMPRESSION No acute pathology or change Jose E Junito DO DIAGNOSTIC IMAGING O RDERABLES * (ABNORMAL) DIFFERENTIAL MANUAL (12/25/2020 8:59 PM CDT) WBC Auto 9.7 4.0 - 10.0 x10E9/L 12/25/2020 9:[address] [facility] Neutrophils % Manual 69 40 - 75 % 12/25/2020 9:[address] [facility] Lymphocytes % Manual 14(L) 19 - 53 % 12/25/2020 9:[address] [facility] Monocytes % Manual 14(H) 5 - 13 % 12/25/2020 9:[address] [facility] Eosinophils % Manual 3 1 - 7 % 12/25/2020 9:[address] [facility] Neutrophils Absolute Manual 6.7(H) 1.6 - 6.1 x10E3/uL 12/25/2020 9:[address] [facility] Lymphocytes Absolute Manual 1.4 1.2 - 3.7 x10E3/uL 12/25/2020 9:[address] [facility] Monocytes Absolute Manual 1.4(H) 0.2 - 0.9 x10E3/uL 12/25/2020 9:[address] [facility] Eosinophils Absolute Manual 0.3 0.0 - 0.5 x10E3/uL 12/25/2020 9:[address] [facility] Cells Counted 100 # cells 12/25/2020 9:[address] [facility] Platelet Estimation Increased( A) Normal, Adequate platelets 12/25/2020 9:[address] [facility] WBC Morph Normal 12/25/2020 9:[address] [facility] Anisocytosis 1+(A) None 12/25/2020 9:[address] [facility] Hypochromia 1+(A) None 12/25/2020 9:[address] [facility] Microcytosis Occasional (A) None 12/25/2020 9:[address] [facility] Large Platelets Occasional (A) None 12/25/2020 9:[address] [facility] Blood BLOOD SPECIMEN / Unknown Venipuncture / Unknown 12/25/2020 8:59 PM CDT 12/25/2020 9:11 PM CDT Jose Wild DO LAB - HEMATOLOGY ORD ERABLES Performing Organization Address [facility] Co de Phone Number [facility] [address] * GROSS + MICRO EXAM (11/24/1998 9:17 AM TOSSER) Result CASE NUMBER [id number] Comment: ORDERING PHYSICIAN ??MATI MELCHOR SPECIMEN TYPE ?Decubitus Date ? 11/24/1998 Physician ?Ney Gross Description ? The specimen is received in a single formalin-filled container, labeled with the patient's name and decubitus ulcer, left buttock . ??It contains a single rubbery, white and brown-gutierrez, irregularly-shaped tissue fragment measuring 2.5 x 2.7 x 2.2 cm in greatest dimension. ?? The cut surface is white-gutierrez with areas of hemorrhage and central necrosis. ??A electroplating sales representative section is submitted in a single cassette. ?? JS/lmj Microscopic Exam ? The left buttock decubitus ulcer debridement shows soft tissue with ulcer and acute and chronic inflammation and young granulation tissue. ?? No malignancy is identified. Diagnosis ?I. ??Left buttock, decubitus ulcer, debridement ?A. ??Chronic ulcer. Loss Prevention Guard ? bk Pathologist ?Lele Davies M.D. Snomed. ?11/25/1998 1544 <1> CPT code ? 17533/46715 MISCELLANEOUS SAMPLES / Unknown 11/24/1998 9:17 AM TOSSER 11/24/1998 9:17 AM TOSSER Historical Provider MD LAB - PATHOLOGY/C YTOLOGY ORDERABLES Care Teams Gsa Coordinator Relationship Specialty Start Date End Date Lisa Ramírez, IMMIGRATION ATTORNEY-SHADE MAKER [address] [place] [address] PCP - General Life Trainer 10/07/22
--- OUTSIDE RECORDS SUMMARY | 2024-10-25 22:43 | XMS_ITS | Encounter Summary ---
Author Organization [facility] Address [address] [place] [address] [place] [address] Care Team Providers Care Management Professionals Name Role Phone Lisa Ramírez [facility] Primary Care Provider + Jorje Ayala MD Unavailable Leroy Meraz DO Primary Care Provider + Encounter Details Date Type Department Care Team (Late st Contact Info) Description 11/14/2023 Therapy Plan [facility] [address] [place] [address] [place] [id number] [facility] [address] [place] [address] Social History Tobacco Use Types Packs/Day Years Used Date Smoking Tobacco: Never Smokeless Tobacco: Never Comments:never smoke Alcohol Use Standard Drinks/Week Comments Not Currently 0 (1 standard drink = 0.6 oz pur e alcohol) OASIS D0700: Social Isolation Answer Da te Recorded Frequency of experiencing loneliness or isolatio n Never 09/01/2023 OASIS A1250: Transportation Answer Date Recorded Lack of Transportation (Medical) No 09/01/2023 Lack of Transportation (Non-Medical) No 09/01/2023 Patient Unable or Declines to Respond No 09/01/2023 OASIS B1300: Health Literacy Answer Cecilio e Recorded Frequency of needing help to read materials from doctor or pharmacy Never 09/01/2023 PHQ-2 Answer Date Recorded Patient Health Questionnaire-2 Score 0 03/09/2023 Sex and Gender Information Value Date Recorded Sex Assigned at Male 10/10/2024 12:08 PM HOSE FINISHER Legal Sex Male 5:44 PM CDT Gender Identity Not on file Sexual Orientation Not on file documented as of this encounter Functional Status [...] Assessment Author Status Yes 01/21/2022 2:05 PM MENAT Juliana Lewis RN Active * Do you have difficulty dressing or bathing? Answer Date of Assessment Author Status Yes 01/21/2022 2:05 PM MENAT Juliana Lewis RN Active * Because of a physical, mental, or emotional condition, do you have difficulty doing errands alone such as visiting a doctor's office or shopping? Answer Date of Assessment Author Status Yes 01/21/2022 2:05 PM Juliana Lyman RN Active documented as of this encounter Mental Status * Because of a physical, mental, or emotional condition, do you have serious difficulty concentrating, remembering, or making decisions? Answer Entry Date Author Status No 01/21/2022 2:05 PM Juliana Lyman RN Active documented in this encounter Plan of Treatment Upcoming Encounters Date Type Department Care Team (Late st Contact Info) Description 11/11/2024 10:40 AM HOSE FINISHER Telemedicine [facility] Family & Internal Medicine [facility] [address] [place] [address] Leroy Meraz DO [address] [place] [address] documented as of this encounter Goals Goal Patient Goal Type Associated Problems Recent Progress Patient-Stated? Author Discharge ? Patient/family verbalizes understanding regarding the need for SNF placement Emilia Rivera, RN Note: Pt will actively be involved in safe discharge destination plan. documented as of this encounter Visit Diagnoses Diagnosis 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 ([facility])- Primary Neurogenic bladder Neurogenic bladder, NOS Suprapubic catheter ([facility]) Other cystostomy status documented in this encounter Additional Health Concerns Infection [...] MDR ? Other Comment:Added from external Infection- [facility] [employer] Collection Source- Urine 2020 06/25/2024 MDR-COIL PLACER - Carbapenemase-Prod ucing Organisms Comment:Added from external infection. Source: [facility] [employer] Collection Source-Urine 08/04/2021 COVID-19 Rule Out 03/23/2024 03/23/2024 03/23/2024 1:17 PM CDT Assessment Noted Time PHQ-9 Depression Total Score: 0 12/04/19 1:13 PM HOSE FINISHER documented as of this encounter Care Teams Management Professionals Relationship Specialty Start Date End Date Lisa Ramírez, JOURNEYMAN SHEET METAL WORKER- [address] [place] [address] PCP - General NURSE PRACTITIONER 09/05/22 07/07/24 Leroy Meraz DO [address] [place] [address] PCP - General FAMILY PRACTICE 07/08/24 [place] [address] [place] [address] Surgeon SURGERY 11/03/23 documented as of this encounter
--- OUTSIDE RECORDS SUMMARY | 2024-10-25 22:43 | XMS_ITS | Encounter Summary ---
Author Organization [facility] Address [address] [place] [address]. [place] [address] [place] [address] Care Team Providers Care Waste Chopper Name Role Phone Lisa Ramírez [facility] Primary Care Provider + Jorje Ayala MD Unavailable Leroy Meraz DO Primary Care Provider + Encounter Details Date Type Department Care Team (Latest Contact Info) Description 09/02/[address] [facility] [address] [place] [address] Lisa Ramírez, [facility] [address] [place] [address] Prescription for prosthetic form Social History Tobacco Use Types Packs/Day Years [...] Sex Assigned at Male 10/10/2024 12:08 PM NEWS PHOTOGRAPHER Legal Sex Male 5:44 PM CDT Gender Identity Not on file Sexual Orientation Not on file COVID-19 Exposure Response Date Recorded In the last 10 days, have janet celestin been in contact with someone who was confirmed or suspected to have Coronavirus/COVID-19? No / Unsure 08/31/2022 10:37 AM NEWS PHOTOGRAPHER documented as of this encounter Functional Status [...] 01/21/2022 2:05 PM Juliana Lyman RN Active * Do you have difficulty dressing or bathing? Answer Date of Assessment Author Status Yes 01/21/2022 2:05 PM Juliana Lyman RN Active * Because of a physical, [...] st Contact Info) Description 11/11/2024 10:40 AM NEWS PHOTOGRAPHER Telemedicine [facility] Family & Internal Medicine [place] [id number] [place] [address] Leroy Meraz, [address] [place] [address] documented as of this encounter Goals Goal Patient Goal Type Associated Problems Recent Progress Patient-Stated? Author Discharge ? Patient/family verbalizes understanding regarding the need for SNF placement General No Emilia Bryant, RN Note: Pt will actively be involved [...] MDR ? Other Comment:Added from external Infection- [facility] [employer] Collection Source- Urine 2020 06/25/2024 MDR-FORMING PROCESS WORKER - Carbapenemase-Prod ucing Organisms Comment:Added from external infection. Source: [facility] [employer]. Collection Source-Urine 08/04/2021 COVID-19 Rule Out 03/23/2024 03/23/2024 03/23/2024 1:17 PM CDT Assessment Noted Time PHQ-9 Depression Total Score: 0 12/04/19 22 1:13 PM NEWS PHOTOGRAPHER documented as of this encounter Care Teams Waste Chopper Relationship Specialty Start Date End Date Lisa Ramírez, SEAFOOD MANAGER- [address] [place] [address] PCP - General NURSE PRACTITIONER 09/05/22 07/07/24 Leroy Meraz DO [address] [place] [address] PCP - General FAMILY PRACTICE 07/08/24 [place] [id number] [address] Surgeon SURGERY 11/03/23 documented as of this encounter
--- OUTSIDE RECORDS SUMMARY | 2024-10-25 22:43 | XMS_ITS | Encounter Summary ---
Author Organization [facility] Address [facility] [place] [address] [place] [address] Care Team Providers Care Fruit Sorter Name Role Phone Lisa Ramírez [facility] Primary Care Provider + Jorje Ayala MD Unavailable Leroy Meraz DO Primary Care Provider + Encounter Details Date Type Department Care Team (Late st Contact Info) Description 12/25/2023 [employer] Message [facility] [address] [place] [address] Lisa Ramírez, [facility] [address] [place] [address] referral Social History Tobacco Use Types Packs/Day Years [...] Sex Assigned at Male 10/10/2024 12:08 PM CALENDER TENDER Legal Sex Male 5:44 PM CDT Gender [...] st Contact Info) Description 11/11/2024 10:40 AM CALENDER TENDER Telemedicine [facility] Medical [facility] Family & Internal Medicine - [address] [phone] Leroy Meraz DO [address] [place] [address] documented as of this encounter Goals Goal Patient Goal Type Associated Problems Recent Progress Patient-Stated? Author Discharge ? Patient/family verbalizes understanding regarding the need for SNF placement General Emilia Marcial, RN Note: Pt will actively be involved [...] MDR ? Other Comment:Added from external Infection- [facility] Health Collection Source- Urine 2020 06/25/2024 MDR-TRASH COLLECTOR - Carbapenemase-Prod ucing Organisms Comment:Added from external infection. Source: [facility] [employer] Collection Source-Urine 08/04/2021 COVID-19 Rule Out 03/23/2024 03/23/2024 03/23/2024 1:17 PM CDT Assessment Noted Time PHQ-9 Depression Total Score: 0 12/04/19 1:13 PM CALENDER TENDER documented as of this encounter Care Teams Fruit Sorter Relationship Specialty Start Date End Date Lisa Ramírez, NEERAJ- [address] [place] [address] PCP - General NURSE PRACTITIONER 09/05/22 07/07/24 Leroy Meraz DO [address] [place] [address] PCP - General FAMILY PRACTICE 07/08/24 [place] [id number] [address] Surgeon SURGERY 11/03/23 documented as of this encounter
--- OUTSIDE RECORDS SUMMARY | 2024-10-25 22:43 | XMS_ITS | Encounter Summary ---
Author Organization [facility] Address [address] [place] [address]. [place] [address] [place] [address] Care Team Providers Care Medicaid Business Analyst Name Role Phone Sherman Cartagena MD Primary Care Provider Angella Mary Guidry NP Primary Care Provider [phone] Lisa Ramírez [facility] Primary Care Provider + Lisa Ramírez [facility] Primary Care Provider + Jorje Ayala MD Unavailable Leroy Meraz DO Primary Care Provider + Encounter Details Date Type Department Care Team (Late st Contact Info) Description 05/15/2021 [employer] Message [facility] [address] [place] [address] Sherman Cartagena MD RE: Other Social History Tobacco Use Types Packs/Day Years Used Date Smoking Tobacco: Never Smokeless Tobacco: Never Alcohol Use Standard Drinks/Week Comments Not Currently 0 (1 standard drink = 0.6 oz pur e alcohol) PHQ-2 Answer Date Recorded PHQ-2 Score - If the patient scores above 3, please move on to questions 3-9 0 04/22/2021 Sex and Gender Information Value Date Recorded Sex Assigned at Male 10/10/2024 12:08 PM ELECTRICAL HIGH TENSION TESTER Legal Sex Male 5:44 PM CDT Gender Identity Not on file Sexual Orientation Not on file COVID-19 Exposure Response Date Recorded In the last month, have you been in contact with someone who was confirmed or suspected to have Coronavirus / COVID-19? No / Unsure 05/12/2021 9:24 AM CDT documented as of this encounter Functional Status * RETIRED Are you deaf or do you have serious difficulty hearing Answer Date of Assessment Author Status No 11/26/2020 1:38 PM ELECTRICAL HIGH TENSION TESTER Activ e * RETIRED Are you blind or do you have serious difficulty seeing, even when wearing glasses? Answer Date of Assessment Author Status No 11/26/2020 1:38 PM ELECTRICAL HIGH TENSION TESTER Activ e * Do you have serious difficulty walking or climbing stairs? Answer Date of Assessment Author Status Yes 11/26/2020 1:38 PM Yoly Isaac RN Active * Do you have difficulty dressing or bathing? Answer Date of Assessment Author Status Yes 11/26/2020 1:38 PM Yoly Isaac RN Active * Because of a physical, mental, or emotional condition, do you have difficulty doing errands alone such as visiting a doctor's office or shopping? Answer Date of Assessment Author Status Yes 11/26/2020 1:38 PM Yoly Isaac RN Active documented as of this encounter Mental Status * Because of a physical, mental, or emotional condition, do you have serious difficulty concentrating, remembering, or making decisions? Answer Entry Date Author Status No 11/26/2020 1:38 PM Yoly Isaac RN Active documented in this encounter Progress Notes * Sherman Cartagena MD - 05/17/2021 12:37 PM CDT Ok for DME order. Thanks. documented in this encounter Plan of Treatment Upcoming Encounters Date Type Department Care Team (Late st Contact Info) Description 11/11/2024 10:40 AM ELECTRICAL HIGH TENSION TESTER Telemedicine [facility] Family & Internal Medicine - [address] [address] Leroy Meraz, DO [facility] [place] [address] documented as of this encounter Goals Goal [...] MDR ? Other Comment:Added from external Infection- [facility] Collection Source- Urine 2020 06/25/2024 MDR-INDUSTRIAL HEALTH AND SAFETY PROFESSOR - Carbapenemase-Prod ucing Organisms Comment:Added from external infection. Source: [facility]. Collection Source-Urine 08/04/2021 COVID-19 Rule Out 09/28/2021 09/28/2021 10/05/2021 12:34 AM ELECTRICAL HIGH TENSION TESTER COVID-19 Rule Out 03/23/2024 03/23/2024 03/23/2024 1:17 PM CDT Assessment Noted Time PHQ-9 Depression Total Score: 0 04/22/20 21 2:39 PM CDT documented as of this encounter Care Teams Medicaid Business Analyst Relationship Specialty Start Date End Date Sherman Cartagena MD PCP - General FAMILY PRACTICE 08/25/20 11/29/21 Mary Marcus, COUNTY ASSESSOR [address] [place] [address] PCP - General NURSE PRACTITIONER 11/30/21 08/28/22 Lisa Ramírez, [facility] [address] [place] [address] PCP - General NURSE PRACTITIONER 08/29/22 09/01/22 Lisa Ramírez, [facility] [address] [place] [address] PCP - General NURSE PRACTITIONER 09/05/22 07/07/24 Leroy Meraz DO [address] [place] [address] PCP - General FAMILY PRACTICE 07/08/24 [place] [id number] [address] Surgeon SURGERY 11/03/23 documented as of this encounter
--- OUTSIDE RECORDS SUMMARY | 2024-10-25 22:43 | XMS_ITS | Encounter Summary ---
Author Organization [facility] Address [address] [place] [address]. [place] [address] [place] [address] Care Team Providers Care Retail Sales Professional Name Role Phone Sherman Cartagena MD Primary Care Provider Angella Mary Guidry NP Primary Care Provider [phone] Lisa Ramírez [facility] Primary Care Provider + Lisa Ramírez [facility] Primary Care Provider + Jorje Ayala MD Unavailable Leroy Meraz DO Primary Care Provider + Encounter Details Date Type Department Care Team (Late st Contact Info) Description 06/01/2021 [employer] Message [facility] [address] [place] [address] Sherman Cartagena MD RE: Other [...] Sex Assigned at Male 10/10/2024 12:08 PM DATA MANAGEMENT ANALYST Legal Sex Male 5:44 PM CDT Gender Identity Not on file Sexual Orientation Not on file COVID-19 Exposure Response Date Recorded In the last month, have you been in contact with someone who was confirmed or suspected to have Coronavirus / COVID-19? No / Unsure 06/02/2021 9:29 AM CDT documented as of this encounter Functional Status * RETIRED Are you deaf or do you have serious difficulty hearing Answer Date of Assessment Author Status No 11/26/2020 1:38 PM DATA MANAGEMENT ANALYST Activ e * RETIRED Are you blind or do you have serious difficulty seeing, even when wearing glasses? Answer Date of Assessment Author Status No 11/26/2020 1:38 PM DATA MANAGEMENT ANALYST Activ e * Do you have serious [...] Progress Notes * Sherman Cartagena MD - 06/03/2021 12:05 PM CDT Ok for letter. documented in this encounter Plan of Treatment Upcoming Encounters Date Type Department Care Team (Late st Contact Info) Description 11/11/2024 10:40 AM DATA MANAGEMENT ANALYST Telemedicine [facility] Medical Group Family & Internal Medicine - [address] [phone] Leroy Meraz, [address] [place] [address] documented as of this encounter Goals Goal [...] MDR ? Other Comment:Added from external Infection- [facility] Collection Source- Urine 2020 06/25/2024 MDR-TEXTILE CONVERSION MANAGER - Carbapenemase-Prod ucing Organisms Comment:Added from external infection. Source: [facility] [employer] Collection Source-Urine 08/04/2021 COVID-19 Rule Out 09/28/2021 09/28/2021 10/05/2021 12:34 AM DATA MANAGEMENT ANALYST COVID-19 Rule Out 03/23/2024 03/23/2024 03/23/2024 1:17 PM CDT Assessment Noted Time PHQ-9 Depression Total Score: 0 04/22/20 21 2:39 PM CDT documented as of this encounter Care Teams Retail Sales Professional Relationship Specialty Start Date End Date Sherman Cartagena MD PCP - General FAMILY PRACTICE 08/25/20 11/29/21 Mary Marcus, STUDENT SERVICES REP [address] [place] [address] PCP - General NURSE PRACTITIONER 11/30/21 08/28/22 Lisa Ramírez, [facility] [address] [place] [address] PCP - General NURSE PRACTITIONER 08/29/22 09/01/22 Lisa Ramírez, [facility] [address] [place] [address] PCP - General NURSE PRACTITIONER 09/05/22 07/07/24 Lreoy Meraz DO [facility] [place] [address] PCP - General FAMILY PRACTICE 07/08/24 [place] [id number] [address] Surgeon SURGERY 11/03/23 documented as of this encounter
--- OUTSIDE RECORDS SUMMARY | 2024-10-25 22:43 | XMS_ITS | Encounter Summary ---
Author Organization [facility] Address [facility] [place] [address] [place] [address] Care Team Providers Care Women'S Apparel Salesperson Name Role Phone [facility] Primary Care Provider + Jorje Ayala MD Unavailable Leroy Meraz DO Primary Care Provider + Encounter Details Date Type Department Care Team (Late st Contact Info) Description 08/30/2023 [employer] Message [facility] [address] [place] [address] Mychart, [facility] Provider results Social History Tobacco Use Types Packs/Day Years [...] Sex Assigned at Male 10/10/2024 12:08 PM PSYCHOLOGIST SOCIAL Legal Sex Male 5:44 PM CDT Gender [...] st Contact Info) Description 11/11/2024 10:40 AM PSYCHOLOGIST SOCIAL Telemedicine [facility] Medical Group Family & Internal Medicine [facility] [address] [place] [address] Leroy Meraz, [address] [place] [address] documented as of this encounter Goals Goal [...] ? Other Comment:Added from external Infection- [facility] [employer] Collection Source- Urine 2020 06/25/2024 MDR-CHARGE AUTHORIZER - Carbapenemase-Prod ucing Organisms Comment:Added from external infection. Source: [facility] [employer] Collection Source-Urine 08/04/2021 COVID-19 Rule Out 03/23/2024 03/23/2024 03/23/2024 1:17 PM CDT Assessment Noted Time PHQ-9 Depression Total Score: 0 12/04/19 1:13 PM PSYCHOLOGIST SOCIAL documented as of this encounter Care Teams Women'S Apparel Salesperson Relationship Specialty Start Date End Date Lisa Ramírez, CARDIAC EXERCISE PHYSIOLOGIST- [address] [place] [address] PCP - General NURSE PRACTITIONER 09/05/22 07/07/24 Leroy Meraz DO [address] [place] [address] PCP - General FAMILY PRACTICE 07/08/24 [place] [address] [address] Surgeon SURGERY 11/03/23 documented as of this encounter
--- OUTSIDE RECORDS SUMMARY | 2024-10-25 22:43 | XMS_ITS | Encounter Summary ---
Author Organization [facility] Address [address] [place] [address]. [place] [address] [place] [address] Care Team Providers Care Manager Of Training Name Role Phone Sherman Cartagena MD Primary Care Provider Angella Mary Guidry NP Primary Care Provider [phone] Lisa Ramírez [facility] Primary Care Provider + Lisa Ramírez [facility] Primary Care Provider + Jorje Ayala MD Unavailable Leroy Meraz DO Primary Care Provider + Encounter Details Date Type Department Care Team (Late st Contact Info) Description 05/15/2021 [employer] Message [facility] [address] [place] [address] Sherman Cartagena MD RE: Other [...] Sex Assigned at Male 10/10/2024 12:08 PM FEATURE WRITER Legal Sex Male 5:44 PM CDT Gender [...] Assessment Author Status No 11/26/2020 1:38 PM FEATURE WRITER Activ e * RETIRED Are you blind or do you have serious difficulty seeing, even when wearing glasses? Answer Date of Assessment Author Status No 11/26/2020 1:38 PM FEATURE WRITER Activ e * Do you have serious difficulty walking or climbing stairs? Answer Date of Assessment Author Status Yes 11/26/2020 1:38 PM FEATURE WRITER Yoly Larson RN Active * Do you have difficulty [...] Notes * Sherman Cartagena MD - 05/17/2021 12:39 PM CDT Im not getting involved in any legal affairs. I would have him ask his legal contracts representative to helphim in this regard. I dont see any medical reason to postpone a hearing. Thanks. documented in this encounter Plan of Treatment Upcoming Encounters Date Type Department Care Team (Late st Contact Info) Description 11/11/2024 10:40 AM FEATURE WRITER Telemedicine [facility] Medical Group Family & Internal Medicine - [address] [address] Leroy Meraz, [address] [place] [address] documented as of this encounter Goals Goal [...] MDR ? Other Comment:Added from external Infection- [facility] Collection Source- Urine 2020 06/25/2024 MDR-ESTATE ADMINISTRATOR - Carbapenemase-Prod ucing Organisms Comment:Added from external infection. Source: [facility] [employer] Collection Source-Urine 08/04/2021 COVID-19 Rule Out 09/28/2021 09/28/2021 10/05/2021 12:34 AM FEATURE WRITER COVID-19 Rule Out 03/23/2024 03/23/2024 03/23/2024 1:17 PM CDT Assessment Noted Time PHQ-9 Depression Total Score: 0 04/22/20 21 2:39 PM CDT documented as of this encounter Care Teams Manager Of Training Relationship Specialty Start Date End Date Sherman Cartagena MD PCP - General FAMILY PRACTICE 08/25/20 11/29/21 Mary Marcus NP [address] [place] [address] PCP - General NURSE PRACTITIONER 11/30/21 08/28/22 Lisa Ramírez, [facility] [address] [place] [address] PCP - General NURSE PRACTITIONER 08/29/22 09/01/22 Lisa Ramírez, [facility] [address] [place] [address] PCP - General NURSE PRACTITIONER 09/05/22 07/07/24 Leroy Meraz DO [facility] [place], [place] [id number] PCP - General FAMILY PRACTICE 07/08/24 [place] [address] [address] Surgeon SURGERY 11/03/23 documented as of this encounter
--- OUTSIDE RECORDS SUMMARY | 2024-10-25 22:43 | XMS_ITS | Encounter Summary ---
Author Organization [facility] Address [facility] [place] [address] [place] [address] Care Team Providers Care Rental Manager Name Role Phone Jorje Ayala MD Unavailable Leroy Meraz DO Primary Care Provider + Reason for Referral * Consultation (Routine) - New Request Specialty Diagnoses / Procedures Referred By Beulah ramos Referred To Contact UROLOGY Diagnoses Suprapubic catheter ([facility]) Neurogenic bladder Procedures OFFICE/OUTPATIENT NEW LOW MDM 30-44 MINUTES OFFICE/OUTPT VISIT,NEW,LEVL IV OFFICE/OUTPT VISIT,NEW,LEVL V OFFICE/OUTPT VISIT,EST,LEVL III OFFICE/OUTPT VISIT,EST,LEVL IV OFFICE/OUTPT VISIT,EST,LEVL V Leroy Meraz DO [address] [place] [address] Phone: tel: fax: Referral ID Status Reason Start Date Expiration Date Visits Requested Visits Authorized [id number] New Request Specialty Services 10/22/2024 10/22/2025 1 1 Scheduling Instructions Patient would like to see someone in [place] if possible. BI DEVELOPER Reason for Visit * Reason Onset Date Comments Urine 10/18/2024 Medical supply i n Encounter Details Date Type Department Care Team ([facility] st Contact Info) Description 10/18/2024 Telephone [facility] Medical Group Family & Internal Medicine [facility] [address] [place] [address] Leroy Meraz DO [address] [place] [address] Urine (Medical supply in) Social History Tobacco Use Types Packs/Day Years [...] materials from doctor or pharmacy Never 09/01/2023 [id number] Health Literacy Answer Date Recor ded How often do you need to hav e someone help you when you read instructions, pamphlets, or other written material from your doctor or pharmacy? Never 06/24/2024 [facility] Utilities Answer Date Recorded In the past 12 months has e [employer], gas, oil, or water [employer] threatened to shut off services in your home? No 06/28/2024 Humiliation, Afraid, Rape, and Kick questionnair e Answer Date Recorded Within the last year, have y ou been afraid of your partner or ex-partner? No 06/28/2024 Within the last year, have y ou been humiliated or emotionally abused in other ways by your partner or ex-partner? No Within the last year, have y ou been kicked, hit, slapped, or otherwise physically hurt by your partner or ex-partner? No 06/28/2024 Within the last year, have y ou been raped or forced to have any kind of sexual activity by your partner or ex-partner? No 06/28/2024 Social Connection and Isolation Panel [NHANES] A nswer Date Recorded In a typical week, how many times do you talk on the phone with family, friends, or neighbors? Twice a week 06/28/2024 How often do you get together with friends or re latives? Never 06/28/2024 How often do you attend hoahaoism or yarsanism serv ices? Never 06/28/2024 Do you belong to any clubs o r organizations such as hoahaoism groups, unions, fraternal or athletic groups, or school groups? No 06/28/2024 How often do you attend meet ings of the clubs or organizations you belong to? Never 06/28/2024 Are you , , di vorced, , never , or living with a partner? Never 06/28/2024 AUDIT-C Answer Date Recorded Q1: How often do you have a drink containing alcohol? Never 06/28/2024 Q2: How many drinks containi ng alcohol do you have on a typical day when you are drinking? Patient does not drink Q3: How often do you have si x or more drinks on one occasion? Never 06/28/2024 Overall Financial Resource Strain (CARDIA) Answe r Date Recorded How hard is it for you to pa y for the very basics like food, housing, medical care, and heating? Not very hard 06/28/2024 PHQ-2 Answer Date Recorded Patient Health Questionnaire-2 Score 0 07/08/2024 [facility] - Occupational Stress Questionnaire Answer Date Recorded Do you feel stress - tense, restless, nervous, or anxious, or unable to sleep at night because your mind is troubled all the time - these days? To some extent 06/28/2024 Exercise Vital Sign Answer Date Recorde d On average, how many days pe r week do you engage in moderate to strenuous exercise (like a brisk walk)? 0 days 06/28/2024 On average, how many minutes do you engage in exercise at this level? 0 min 06/28/2024 Hunger Vital Sign Answer Date Recorded Within the past 12 months, y ou worried that your food would run out before you got the money to buy more. Never true 06/28/20 24 Within the past 12 months, t he food you bought just didn't last and you didn't have money to get more. Never true 06/28/2024 PRAPARE - Transportation Answer Date Re corded In the past 12 months, has l ack of transportation kept you from medical appointments or from getting medications? No 12/2023 In the past 12 months, has l ack of transportation kept you from meetings, work, or from getting things needed for daily living? No 06/28/2024 Housing Stability Vital Sign Answer Cecilio e Recorded In the last 12 months, was t here a time when you were not able to pay the mortgage or rent on time? No 06/28/2024 In the past 12 months, how m any times have you moved where you were living? 1 06/28/2024 At any time in the past 12 m [facility], were you homeless or living in a snf (including now)? No 06/28/2024 Sex and Gender Information Value Date Recorded Sex Assigned at Male 10/10/2024 12:08 PM SQL BI DEVELOPER Legal Sex Male 5:44 PM CDT Gender Identity Not on file Sexual Orientation Not on file documented as of this encounter Functional Status * Are you deaf or do you have serious difficulty hearing Answer Date of Assessment Author Status No 06/28/2024 5:50 PM CDT Erica Hughes R N Active * Are you blind or do you have serious difficulty seeing, even when wearing glasses? Answer Date of Assessment Author Status No 06/28/2024 5:50 PM CDT Erica Hughes R N Active * Do you have serious difficulty walking or climbing stairs? Answer Date of Assessment Author Status Yes 06/28/2024 5:50 PM CDT Erica Hughes R N Active * Do you have difficulty dressing or bathing? Answer Date of Assessment Author Status Yes 06/28/2024 5:50 PM CDT Erica Hughes R N Active * Because of a physical, mental, or emotional condition, do you have difficulty doing errands alone such as visiting a doctor's office or shopping? Answer Date of Assessment Author Status Yes 06/28/2024 5:50 PM CDT Erica Hughes R N Active documented as of this encounter Mental Status * Because of a physical, mental, or emotional condition, do you have serious difficulty concentrating, remembering, or making decisions? Answer Entry Date Author Status No 06/28/2024 5:50 PM CDT Erica Hughes R N Active documented in this encounter Progress Notes * Keren Moser RN - 10/24/2024 10:14 AM CST Called and informed patient that this office has received the fax for his supplies. However, they are requesting an office visit within 14 days of submitting the order. This nurse scheduled a VV to discuss further. Opportunity given for all questions to be answered, no further needs voiced at this time. LL-10/24/24 BI DEVELOPER * Keren Moser RN - 10/22/2024 4:58 PM CSTAddended by: KEREN MOSER on: 10/22/2024 04:58 PM Modules accepted: Orders BI DEVELOPER * Keren Moser RN - 10/22/2024 4:52 PM CST Called and spoke with [facility] and they will refax. Will also reach out to PCP and urology or to see if we can get someone out to change davis cathter. Opportunity given for all questions to beanswered, no further needs voiced at this time. LL-10/22/24 BI DEVELOPER * Brandi Jacobs - 10/22/2024 9:46 AM CST Pt is asking for someone to give him a call. He says that his insurance won't pay to go [place]. He is needing davis changed. He says he discussed this with someone last week. BI DEVELOPER * Keren Moser RN - 10/18/2024 9:12 AM CST Patient called in asking that this office reach out to his medical [employer] at . This office call and updated his PCP information. They will fax over all the information needed to help reorder supplies. Patient is aware and will contact him when this office has more information. Opportunity given for all questions to be answered, no further needs voiced atthis time. LL-10/18/24 BI DEVELOPER documented in this encounter Plan of Treatment Upcoming Encounters Date Type Department Care Team (Late st Contact Info) Description 11/11/2024 10:40 AM SQL BI DEVELOPER Telemedicine [facility] Medical Group Family & Internal Medicine [place] [address] [place] [address] Leroy Meraz, [address] [place] [address] Scheduled Referrals Name Type Priority Associated Diagnoses Orde r Schedule Ambulatory referral to Urology (OTHER) Referral Routine Suprapubic catheter ([facility]) Neurogenic bladder Ordered: 10/22/2024 documented as of this encounter Goals Goal Patient Goal Type Associated Problems Recent Progress Patient-Stated? Author Discharge ? Patient/family verbalizes understanding regarding the need for SNF placement Emilia Rivera, RN Note: Pt will actively be involved in safe discharge destination plan. documented as of this encounter Visit Diagnoses Diagnosis Suprapubic catheter ([facility])- Primary Other cystostomy status Neurogenic bladder Neurogenic bladder, NOS documented in this encounter Additional Health Concerns [...] MDR ? Other Comment:Added from external Infection- [facility] Collection Source- Urine 2020 06/25/2024 MDR-HOSIERY BAGGER - Carbapenemase-Prod ucing Organisms Comment:Added from external infection. Source: [facility] [employer]. Collection Source-Urine 08/04/2021 Assessment Noted Time PHQ-9 Depression Total Score: 0 12/04/19 22 1:13 PM SQL BI DEVELOPER documented as of this encounter Care Teams Rental Manager Relationship Specialty Start Date End Date Leroy Meraz DO [address] [place] [address] PCP - General FAMILY PRACTICE 07/08/24 [place] [address] [address] Surgeon SURGERY 11/03/23 documented as of this encounter
--- OUTSIDE RECORDS SUMMARY | 2024-10-25 22:43 | XMS_ITS | Encounter Summary ---
Author Organization [facility] Address [address] [place] [address]. [place] [address] [place] [address] Care Team Providers Care Beeswax Bleacher Name Role Phone Jorje Ayala MD Unavailable Leroy Meraz DO Primary Care Provider + Reason for Visit * Reason Comments Balance Problem * Physical Therapy (Routine) - Closed Specialty Diagnoses / Procedures Referred By Contac t Referred To Contact PHYSICAL THERAPY / [facility] Physical Therapy Diagnoses manual wheelchair eval Procedures EVAL Leroy Meraz DO [address] [place] [address] Phone: tel: fax: [facility] [address] [place] [address] Phone: tel: fax: Referral ID Status Reason Start Date Expiration Date V isits Requested Visits Authorized [id number] Closed Physical Therapy 10/24/2024 10/24/2024 1 1 Encounter Details Date Type Department Care Team (Latest Contact Info) Description 10/24/2024 2:39 PM ORACLE ADF CONSULTANT Hospital Encounter [facility] [address] [place] [address] [place] [address] [place] [address] RobertaClarissa solanovan Ritchie, DO [address] [place] [address] Balance Problem Social History Tobacco Use Types Packs/Day Years [...] from your doctor or pharmacy? Never 06/24/2024 [facility] Utilities Answer Date Recorded In the past 12 months has [facility] [employer], gas, oil, or water [employer] threatened to shut off services in your [...] Never 06/28/2024 How often do you attend religious or roman catholic serv ices? Never 06/28/2024 Do you belong to any clubs o r organizations such as religious groups, unions, fraternal or athletic groups, or [...] Recorded Patient Health Questionnaire-2 Score 0 07/08/2024 [facility] - Occupational Stress Questionnaire Answer [...] any time in the past 12 m [facility], were you homeless or living in a long-term (including now)? No 06/28/2024 Sex and Gender Information Value Date Recorded Sex Assigned at Male 10/10/2024 12:08 PM ORACLE ADF CONSULTANT Legal Sex Male 5:44 PM CDT Gender [...] Assessment Author Status No 06/28/2024 5:50 PM MENAT Erica Hughes R N Active * Do [...] Assessment Author Status Yes 06/28/2024 5:50 PM Erica Richard R N Active documented as of this encounter Mental Status * Because of a physical, mental, or emotional condition, do you have serious difficulty concentrating, remembering, or making decisions? Answer Entry Date Author Status No 06/28/2024 5:50 PM CDT Ellen, Erica I, R N Active documented in this encounter Progress Notes * Alma Ernst, PT - 10/24/2024 2:45 PM CST Wheelchair evaluation completed today with Mark joyner Nosto. Full evaluation scanned into media page. LE ADF CONSULTANT documented in this encounter Plan of Treatment Upcoming Encounters Date Type Department Care Team (Late st Contact Info) Description 11/11/2024 10:40 AM ORACLE ADF CONSULTANT Telemedicine [facility] Medical Group Family & Internal Medicine - [address] [address] Leroy Meraz, [address] [place] [address] documented as of this encounter Goals Goal Patient Goal Type Associated Problems Recent Progress Patient-Stated? Author Discharge ? Patient/family verbalizes understanding regarding the need for SNF placement Emilia Rivera, RN Note: Pt will actively be involved in safe discharge destination plan. documented as of this encounter Visit Diagnoses Diagnosis 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 ([facility])- Primary documented in this encounter Additional Health Concerns [...] MDR ? Other Comment:Added from external Infection- [facility] [employer] Collection Source- Urine 2020 06/25/2024 MDR-DIRECTOR OF PHYSICIAN PRACTICES - Carbapenemase-Prod ucing Organisms Comment:Added from external infection. Source: [facility] [employer]. Collection Source-Urine 08/04/2021 Assessment Noted Time PHQ-9 Depression Total Score: 0 12/04/19 22 1:13 PM ORACLE ADF CONSULTANT documented as of this encounter Care Teams Beeswax Bleacher Relationship Specialty Start Date End Date Leroy Meraz DO [address] [place] [address] PCP - General FAMILY PRACTICE 07/08/24 [place] [address] [address] Surgeon SURGERY 11/03/23 documented as of this encounter
--- OUTSIDE RECORDS SUMMARY | 2024-10-25 22:43 | XMS_ITS | Encounter Summary ---
Author Organization [facility] Address [address] [facility] [place] [address] [place] [address] Care Team Providers Care Shear Setter Name Role Phone Lisa Ramírez [facility] Primary Care Provider + Jorje Ayala MD Unavailable Leroy Meraz DO Primary Care Provider + Encounter Details Date Type Department Care Team (Late st Contact Info) Description 06/04/2024 [facility] Message Enc [facility] [address] [place] [address] [place] [address] [facility] [address] [place] [address] WHEELCHAIR Social History Tobacco Use Types Packs/Day Years [...] Sex Assigned at Male 10/10/2024 12:08 PM BEAN ROASTER Legal Sex Male 5:44 PM CDT Gender [...] st Contact Info) Description 11/11/2024 10:40 AM BEAN ROASTER Telemedicine [facility] Medical Group Family & Internal Medicine - [place] [address] [place] [address] Leroy Meraz DO [address] [place] [address] documented as of this encounter Goals Goal [...] from external Infection- [facility] Health Collection Source- Urine 2020 06/25/2024 MDR-CIGARETTE BOOK MAKER - Carbapenemase-Prod ucing Organisms Comment:Added from external infection. Source: [facility] [employer]. Collection Source-Urine 08/04/2021 Assessment Noted Time PHQ-9 Depression Total Score: 0 12/04/19 1:13 PM BEAN ROASTER documented as of this encounter Care Teams Shear Setter Relationship Specialty Start Date End Date Lisa Ramírez, RADIATION THERAPY TECHNICIAN- [address] [place] [address] PCP - General NURSE PRACTITIONER 09/05/22 07/07/24 Leroy Meraz DO [address] [place] [address] PCP - General FAMILY PRACTICE 07/08/24 [place] [address] [address] Surgeon SURGERY 11/03/23 documented as of this encounter
--- OUTSIDE RECORDS SUMMARY | 2024-10-25 22:43 | XMS_ITS | Encounter Summary ---
Author Organization [facility] Address [facility] [place] [address] [place] [address] Care Team Providers Care Air Control/Anti Air Warfare Officer Name Role Phone Jorje Ayala MD Unavailable Leroy Meraz DO Primary Care Provider + Reason for Visit * Reason Onset Date Comments Information 10/14/2024 Encounter Details Date Type Department Care Team (Late st Contact Info) Description 10/14/[address] [facility] Medical Group Family & Internal Medicine [address] [address] Leroy Meraz DO [facility] [place] [address] Information Social History Tobacco Use Types Packs/Day Years [...] from your doctor or pharmacy? Never 06/24/2024 [facility] Utilities Answer Date Recorded In the past 12 months has th e [employer], gas, oil, or water company threatened to shut off services in your [...] Never 06/28/2024 How often do you attend mormonism or mormonism serv ices? Never 06/28/2024 Do you belong to any clubs o r organizations such as mormonism groups, unions, fraternal or athletic groups, or [...] Recorded Patient Health Questionnaire-2 Score 0 07/08/2024 [facility] - Occupational [...] any time in the past 12 m [facility], were you homeless or living in a jail (including now)? No 06/28/2024 Sex and Gender Information Value Date Recorded Sex Assigned at Male 10/10/2024 12:08 PM DIE INSPECTOR Legal Sex Male 5:44 PM CDT Gender [...] No 06/28/2024 5:50 PM CDT Erica Hughes I R N Active * Do you have serious difficulty walking or climbing stairs? Answer Date of Assessment Author Status Yes 06/28/2024 5:50 PM CDT Erica Hughes I R N Active * Do you have difficulty dressing or bathing? Answer Date of Assessment Author Status Yes 06/28/2024 5:50 PM CDT Erica Hughes I R N Active * Because of a physical, mental, or emotional condition, do you have difficulty doing errands alone such as visiting a doctor's office or shopping? Answer Date of Assessment Author Status Yes 06/28/2024 5:50 PM CDT Erica Hughes I R N Active documented as of this encounter Mental Status * Because of a physical, mental, or emotional condition, do you have serious difficulty concentrating, remembering, or making decisions? Answer Entry Date Author Status No 06/28/2024 5:50 PM CDT Erica Hughes I R N Active documented in this encounter Progress Notes * Mely Almanza - 10/14/2024 1:20 PM CST Patient is wanting to know what insurance to choose due to nobody accepting his current insurance for davis changes. INSPECTOR documented in this encounter Plan of Treatment Upcoming Encounters Date Type Department Care Team (Late st Contact Info) Description 11/11/2024 10:40 AM DIE INSPECTOR Telemedicine [facility] Medical Group Family & Internal Medicine - [place] [address] [place] [address] Leroy Meraz DO [address] [place] [address] documented as of this encounter Goals Goal [...] MDR ? Other Comment:Added from external Infection- [facility] Health Collection Source- Urine 2020 06/25/2024 MDR-PIPING DESIGNER - Carbapenemase-Prod ucing Organisms Comment:Added from external infection. Source: [facility] [employer]. Collection Source-Urine 08/04/2021 Assessment Noted Time PHQ-9 Depression Total Score: 0 12/04/19 1:13 PM DIE INSPECTOR documented as of this encounter Care Teams Air Control/Anti Air Warfare Officer Relationship Specialty Start Date End Date Leroy Meraz DO [address] [place] [address] PCP - General FAMILY PRACTICE 07/08/24 [place] [address] [facility] [address] [place] [address] Surgeon SURGERY 11/03/23 documented as of this encounter
--- OUTSIDE RECORDS SUMMARY | 2024-10-25 22:43 | XMS_ITS | Encounter Summary ---
Author Organization [facility] Address [address] [place] [address]. [place] [address] [place] [address] Care Team Providers Care Hat Model Name Role Phone None, Provider Primary Care Provider UnavailSherman Ross MD Primary Care Provider Angella Mary Guidry NP Primary Care Provider [phone] Lisa Ramírez [facility] Primary Care Provider + Lisa Ramírez [facility] Primary Care Provider + Jorje Ayala MD Unavailable Leroy Meraz DO Primary Care Provider + Encounter Details Date Type Department Care Team (Late Contact Info) Description 04/26/2009 Abstract [facility] Conversion , Generic Conversion, Social History Tobacco Use Types Packs/Day Years Used Date Smoking Tobacco: Never Assessed Sex and Gender Information Value Date Recorded Sex Assigned at Male 10/10/2024 12:08 PM BASKETBALL COACH Legal Sex Male 5:44 PM CDT Gender Identity Not on file Sexual Orientation Not on file documented as of this encounter Plan of Treatment Upcoming Encounters Date Type Department Care Team (Late Contact Info) Description 11/11/2024 10:40 AM BASKETBALL COACH Telemedicine [facility] Medical Group Family & Internal Medicine [address] [address] Leroy Meraz P, DO [address] [place] [address] documented as of this encounter Visit Diagnoses [...] (JOSE) 09/02/24 Right Heel (RR) 08/24/2020 09/02/2024 COVID-19 Rule Out 10/06/2020 10/06/2020 10/07/2020 11:13 AM BASKETBALL COACH COVID-19 Rule Out 11/21/2020 11/21/2020 11/21/2020 6:39 PM BASKETBALL COACH COVID-19 Rule Out 11/21/2020 11/21/2020 11/21/2020 7:35 PM BASKETBALL COACH MDR ? Other Comment:Added from external Infection- [facility] Collection Source- Urine 2020 06/25/2024 MDR-CORPORATE SAFETY DIRECTOR - Carbapenemase-Prod ucing Organisms Comment:Added from external infection. Source: [facility]. Collection Source-Urine 08/04/2021 COVID-19 Rule Out 09/28/2021 09/28/2021 10/05/2021 12:34 AM BASKETBALL COACH COVID-19 Rule Out 03/23/2024 03/23/2024 03/23/2024 1:17 PM CDT documented as of this encounter Care Teams Hat Model Relationship Specialty Start Date End Date None, Provider, PCP - General 08/21/20 08/24/20 Sherman Cartagena MD PCP - General FAMILY PRACTICE 08/25/20 11/29/21 Mary Marcus NP [address] [place] [address] PCP - General NURSE PRACTITIONER 11/30/21 08/28/22 Lisa Ramírez, [facility] [address] [place] [address] PCP - General NURSE PRACTITIONER 08/29/22 09/01/22 Lisa Ramírez, [facility] [address] [place] [address] PCP - General NURSE PRACTITIONER 09/05/22 07/07/24 Leroy Meraz DO [facility]note 2][address] [place] [address] PCP - General FAMILY PRACTICE 07/08/24 [place] [address] [id number] Surgeon SURGERY 11/03/23 documented as of this encounter
--- OUTSIDE RECORDS SUMMARY | 2024-10-25 22:43 | XMS_ITS | Encounter Summary ---
Author Organization [facility] Address [address] [place] [address]. [place] [address] [place] [address] Care Team Providers Care Specialty Finishing Utility Person Name Role Phone [facility] Primary Care Provider + Jorje Ayala MD Unavailable Leroy Meraz DO Primary Care Provider + Encounter Details Date Type Department Care Team (Late st Contact Info) Description 09/29/[address] [facility] [address] [place] [address] Mychart, [facility] Provider Braces Social History Tobacco Use Types Packs/Day Years Used Date Smoking Tobacco: Never Smokeless Tobacco: Never Alcohol Use Standard Drinks/Week Comments Not Currently 0 (1 standard drink = 0.6 oz pur e alcohol) PHQ-2 Answer Date Recorded Patient Health Questionnaire-2 Score 0 09/07/2022 Sex and Gender Information Value Date Recorded Sex Assigned at Male 10/10/2024 12:08 PM GRAIN FARMER Legal Sex Male 5:44 PM CDT Gender Identity Not on file Sexual Orientation Not on file COVID-19 Exposure Response Date Recorded In the last 10 days, have yo u been in contact with someone who was confirmed or suspected to have Coronavirus/COVID-19? No / Unsure 09/28/2022 11:02 AM GRAIN FARMER documented as of this encounter Functional Status [...] st Contact Info) Description 11/11/2024 10:40 AM GRAIN FARMER Telemedicine [facility] Family & Internal Medicine [address] [address] Leroy Meraz, [address] [place] [id number] documented as of this encounter Goals Goal [...] MDR ? Other Comment:Added from external Infection- [facility] Collection Source- Urine 2020 06/25/2024 MDR-INSTRUMENT MAKER - Carbapenemase-Prod ucing Organisms Comment:Added from external infection. Source: [facility] [employer]. Collection Source-Urine 08/04/2021 COVID-19 Rule Out 03/23/2024 03/23/2024 03/23/2024 1:17 PM CDT Assessment Noted Time PHQ-9 Depression Total Score: 0 12/04/19 1:13 PM GRAIN FARMER documented as of this encounter Care Teams Specialty Finishing Utility Person Relationship Specialty Start Date End Date Lisa Ramírez, PUBLIC RELATIONS DIRECTOR- [address] [place] [address] PCP - General NURSE PRACTITIONER 09/05/22 07/07/24 Leroy Meraz DO [facility] [place] [address] PCP - General FAMILY PRACTICE 07/08/24 [place] [address] [address] Surgeon SURGERY 11/03/23 documented as of this encounter
--- OUTSIDE RECORDS SUMMARY | 2024-10-25 22:43 | XMS_ITS | Encounter Summary ---
Author Organization [facility] Address [address] [place] [address]. [place] [address] [place] [address] Care Team Providers Care Aircraft Assembler Name Role Phone Sherman Cartagena MD Primary Care Provider Angella Mary Guidry NP Primary Care Provider [phone] [facility] Primary Care Provider + Lisa Ramíerz [facility] Primary Care Provider + Jorje Ayala MD Unavailable Leroy Meraz DO Primary Care Provider + Encounter Details Date Type Department Care Team (Late st Contact Info) Description 04/26/2021 Splyst Message [facility] [address] [place] [address] Sherman Cartagena MD RE: Other [...] Sex Assigned at Male 10/10/2024 12:08 PM SPECIAL EDUCATION SCIENCE TEACHER Legal Sex Male 5:44 PM CDT Gender Identity Not on file Sexual Orientation Not on file COVID-19 Exposure Response Date Recorded In the last month, have you been in contact with someone who was confirmed or suspected to have Coronavirus / COVID-19? No / Unsure 04/27/2021 6:40 PM CDT documented as of this encounter Functional Status * RETIRED Are you deaf or do you have serious difficulty hearing Answer Date of Assessment Author Status No 11/26/2020 1:38 PM SPECIAL EDUCATION SCIENCE TEACHER Activ e * RETIRED Are you blind or do you have serious difficulty seeing, even when wearing glasses? Answer Date of Assessment Author Status No 11/26/2020 1:38 PM SPECIAL EDUCATION SCIENCE TEACHER Activ e * Do you have serious [...] Isaac RN Active documented in this encounter Plan of Treatment Upcoming Encounters Date Type Department Care Team (Late st Contact Info) Description 11/11/2024 10:40 AM SPECIAL EDUCATION SCIENCE TEACHER Telemedicine [facility] Family & Internal Medicine [id number] [place] [address] Leroy Meraz DO [address] [place] [address] documented as of this encounter Goals Goal [...] MDR ? Other Comment:Added from external Infection- [facility] [employer] Collection Source- Urine 2020 06/25/2024 MDR-PURCHASING/RECEIVING - Carbapenemase-Prod ucing Organisms Comment:Added from external infection. Source: [facility] [employer]. Collection Source-Urine 08/04/2021 COVID-19 Rule Out 09/28/2021 09/28/2021 10/05/2021 12:34 AM SPECIAL EDUCATION SCIENCE TEACHER COVID-19 Rule Out 03/23/2024 03/23/2024 03/23/2024 1:17 PM CDT Assessment Noted Time PHQ-9 Depression Total Score: 0 04/22/20 21 2:39 PM CDT documented as of this encounter Care Teams Aircraft Assembler Relationship Specialty Start Date End Date Sherman Cartagena MD PCP - General FAMILY PRACTICE 08/25/20 11/29/21 Mary Marcus NP [address] [place] [address] PCP - General NURSE PRACTITIONER 11/30/21 08/28/22 Lisa Ramírez, ASSEMBLER MUSICAL EQUIPMENT- [address] [address] PCP - General NURSE PRACTITIONER 08/29/22 09/01/22 Lisa Ramírez, ASSEMBLER MUSICAL EQUIPMENT- [address] [place] [address] PCP - General NURSE PRACTITIONER 09/05/22 07/07/24 Leroy Meraz DO [address] [place] [address] PCP - General FAMILY PRACTICE 07/08/24 [place] [address] [address] Surgeon SURGERY 11/03/23 documented as of this encounter
--- OUTSIDE RECORDS SUMMARY | 2024-10-25 22:43 | XMS_ITS | Referral Summary ---
Author Organization [facility] Address [address] [place] [place] [address] Care Team Providers Care Spanish Lecturer Name Role Phone Lisa Ramírez Renan GARCIA-BLIND EYELETTER Primary Care Provider Source Comments [facility],non-owned Affiliates and Associated Physician Practices is amultiple site organization consisting of ambulatory clinics and hospital sitesin [place], [place], [place] and [place]. This disclosure is being madepursuant to the Care Everywhere program and may not contain all information available regarding this patient. Last updated 18.[facility] Allergies Active Allergy Reactions Criticality Noted Date Comments Diphenhydramine Unknown 12/25/2020 Ciprofloxacin Itching 06/13/2022 Diazepam Unknown 12/25/2020 Zinc Unknown 12/25/2020 Medications * Be aware that medications may not be up to date on this document. Alwaysverify current medications with the patient. Medication Sig Dispensed Refills Start Date End Date Status ferrous sulfate 325 (65 FE) MG tablet Take 1 (one) tablet by mouth 2 times daily Active Potassium 99 MG tablet Take 1 (one) tablet by mouth every evening Active multivitamin daily tablet Take 1 (one) tablet by mouth daily with food Active amLODIPine (NORVASC) 5 MG tablet Take 1 (one) tablet by mouth once daily 05/05/2021 Active metoprolol succinate XL 24hr (TOPROL XL) 25 MG tablet Take 2 (two) tablets by mouth once daily 04/29/2021 Active fluocinonide (Lidex) 0.05 % cream Use as directed 11/28/2022 Active lactulose (Chronulac) 10 GM/15ML solution TAKE 15 ML BY MOUTH ONCE DAILY NEEDED FOR CONSTIPATION 12/08/2022 Active biotin 300 MCG tablet Take 1 (one) tablet by mouth at bedtime 02/04/2022 Active Active Problems Problem Noted Date Diagnosed Date [...] Mass Index 16.18 12/29/2022 3:25 PM CDT Functional Status Functional Status Response Date of Assess ment Is person deaf or have serious hearing difficult y? No 12/27/2020 Is person blind or have serious difficulty seein g? No 12/27/2020 Does person have serious dif ficulty walking/climbing stairs? Yes 12/27/2020 Does person have difficulty dressing/bathing? Ye s 12/27/2020 Does person have difficulty doing errands alone? Yes 12/27/2020 Cognitive Status Response Date of Assessm ent Does person have difficulty concentrating/remembering/making decisions? 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
--- OUTSIDE RECORDS SUMMARY | 2024-10-25 22:43 | XMS_ITS | Encounter Summary ---
Author Organization [facility] Address [address] [place] [address]. [place] [address] [place] [address] Care Team Providers Care Instructional Support Technician Name Role Phone Sherman Cartagena MD Primary Care Provider Angella Mary Guidry NP Primary Care Provider [phone] Lisa Ramírez [facility] Primary Care Provider + Lisa Ramírez [facility] Primary Care Provider + Jorje Ayala MD Unavailable Leroy Meraz DO Primary Care Provider + Encounter Details Date Type Department Care Team (Late st Contact Info) Description 05/20/2021 MILI Message [facility] [address] [place] [address] Sherman Cartagena MD RE: Other [...] Assigned at Male 10/10/2024 12:08 PM BASKETBALL REFEREE Legal Sex Male 5:44 PM CDT Gender Identity Not on file Sexual Orientation Not on file COVID-19 Exposure Response Date Recorded In the last month, have you been in contact with someone who was confirmed or suspected to have Coronavirus / COVID-19? No / Unsure 05/19/2021 8:35 AM CDT documented as of this encounter Functional Status * RETIRED Are you deaf or do you have serious difficulty hearing Answer Date of Assessment Author Status No 11/26/2020 1:38 PM BASKETBALL REFEREE Activ e * RETIRED Are you blind or do you have serious difficulty seeing, even when wearing glasses? Answer Date of Assessment Author Status No 11/26/2020 1:38 PM BASKETBALL REFEREE Activ e * Do you have serious [...] Progress Notes * Sherman Cartagena MD - 05/20/2021 11:29 AM CDT Those are good numbers. Ok to continue to monitor, 1-2 times per week. documented in this encounter Plan of Treatment Upcoming Encounters Date Type Department Care Team (Late st Contact Info) Description 11/11/2024 10:40 AM BASKETBALL REFEREE Telemedicine [facility] Family & Internal Medicine [address] [address] Leroy Meraz, DO [address] [place] [address] documented as of this encounter Goals Goal [...] MDR ? Other Comment:Added from external Infection- [facility] Collection Source- Urine 2020 06/25/2024 MDR-CREW MANAGER - Carbapenemase-Prod ucing Organisms Comment:Added from external infection. Source: [facility]. Collection Source-Urine 08/04/2021 COVID-19 Rule Out 09/28/2021 09/28/2021 10/05/2021 12:34 AM BASKETBALL REFEREE COVID-19 Rule Out 03/23/2024 03/23/2024 03/23/2024 1:17 PM CDT Assessment Noted Time PHQ-9 Depression Total Score: 0 04/22/20 21 2:39 PM CDT documented as of this encounter Care Teams Instructional Support Technician Relationship Specialty Start Date End Date Sherman Cartagena MD PCP - General FAMILY PRACTICE 08/25/20 11/29/21 Mary Marcus NP [address] [place] [address] PCP - General NURSE PRACTITIONER 11/30/21 08/28/22 Lisa Ramírez, [facility] [address] [place] [address] PCP - General NURSE PRACTITIONER 08/29/22 09/01/22 Lisa Ramírez, [facility] [address] [place] [address] PCP - General NURSE PRACTITIONER 09/05/22 07/07/24 Leroy Meraz DO [address] [place] [id number] PCP - General FAMILY PRACTICE 07/08/24 [place] [address] [id number] Surgeon SURGERY 11/03/23 documented as of this encounter
--- OUTSIDE RECORDS SUMMARY | 2024-10-25 22:43 | XMS_ITS | Encounter Summary ---
Author Organization [facility] Address [address] [place] [address]. [place] [address] [place] [address] Care Team Providers Care Licensed Occupational Therapist Name Role Phone Sherman Cartagena MD Primary Care Provider Angella Mary Guidry NP Primary Care Provider [phone] Lisa Ramírez [facility] Primary Care Provider + Lisa Ramírez [facility] Primary Care Provider + Jorje Ayala MD Unavailable Leroy Meraz DO Primary Care Provider + Encounter Details Date Type Department Care Team (Late st Contact Info) Description 10/01/2020 Prep for Procedure [facility] [address] [place] [address] [place] [address] [place] [address] Social History Tobacco Use Types Packs/Day Years Used Date Smoking Tobacco: Never Smokeless Tobacco: Never Alcohol Use Standard Drinks/Week Comments Not Currently 0 (1 standard drink = 0.6 oz pur e alcohol) PHQ-2 Answer Date Recorded PHQ-2 Score 0 09/01/2020 Sex and Gender Information Value Date Recorded Sex Assigned at Male 10/10/2024 12:08 PM GENERAL SERVICE OFFICER Legal Sex Male 5:44 PM CDT Gender Identity Not on file Sexual Orientation Not on file COVID-19 Exposure Response Date Recorded In the last month, have you been in contact with someone who was confirmed or suspected to have Coronavirus / COVID-19? No / Unsure 10/04/2020 12:29 PM GENERAL SERVICE OFFICER documented as of this encounter Functional Status * Question Answer Date of Assessment Author Status Do you have serious difficulty walking or climbing stairs? Yes 10/02/2020 3:45 PM GENERAL SERVICE OFFICER Yoly Lasron RN Ac tive * Question Answer Date of Assessment Author Status Do you have difficulty dressing or bathing? Yes 10/02/2020 3:45 PM GENERAL SERVICE OFFICER Yoly Larson R N Active Because of a physical, mental, or emotional condition, do you have difficulty doing errands alone such as visiting a doctor's office or shopping? No 10/02/2020 3:45 PM Yoly Isaac RN Act luz marina * RETIRED Are you deaf or do you have serious difficulty hearing Answer Date of Assessment Author Status No 09/04/2020 1:15 AM GENERAL SERVICE OFFICER Activ e * RETIRED Are you blind or do you have serious difficulty seeing, even when wearing glasses? Answer Date of Assessment Author Status No 09/04/2020 1:15 AM GENERAL SERVICE OFFICER Activ e * Do you have serious difficulty walking or climbing stairs? Answer Date of Assessment Author Status Yes 09/04/2020 1:15 AM Soledad Gage [place] SE COMPUTER INFORMATION SYSTEMS PROFESSOR Active * Do you have difficulty dressing or bathing? Answer Date of Assessment Author Status Yes 09/04/2020 1:15 AM Soledad Gage CA SE COMPUTER INFORMATION SYSTEMS PROFESSOR Active * Because of a physical, mental, or emotional condition, do you have difficulty doing errands alone such as visiting a doctor's office or shopping? Answer Date of Assessment Author Status Yes 09/04/2020 1:15 AM Soledad Gage CA SE COMPUTER INFORMATION SYSTEMS PROFESSOR Active documented as of this encounter Mental Status * Question Answer Entry Date Author Status Because of a physical, mental, or emotional condition, do you have serious difficulty concentrating, remembering, or making decisions? No 10/02/2020 3:45 PM Yoly Isaac R N Active * Because of a physical, mental, or emotional condition, do you have serious difficulty concentrating, remembering, or making decisions? Answer Entry Date Author Status No 09/04/2020 1:15 AM GENERAL SERVICE OFFICER Soledad Bryan CA SE COMPUTER INFORMATION SYSTEMS PROFESSOR Active documented in this encounter Plan of Treatment Upcoming Encounters Date Type Department Care Team (Late st Contact Info) Description 11/11/2024 10:40 AM GENERAL SERVICE OFFICER Telemedicine [facility] Family & Internal Medicine - [address] [place] [address] Leroy Meraz DO [address] [place] [address] documented as of this encounter Visit Diagnoses Diagnosis Pre-op testing- Primary Preoperative examination, unspecified documented in this encounter Additional Health Concerns [...] Rule Out 10/06/2020 10/06/2020 10/07/2020 11:13 AM GENERAL SERVICE OFFICER COVID-19 Rule Out 11/21/2020 11/21/2020 11/21/2020 6:39 PM GENERAL SERVICE OFFICER COVID-19 Rule Out 11/21/2020 11/21/2020 11/21/2020 7:35 PM GENERAL SERVICE OFFICER MDR ? Other Comment:Added from external Infection- [facility] Collection Source- Urine 2020 06/25/2024 MDR-JANITOR AND CLEANER - Carbapenemase-Prod ucing Organisms Comment:Added from external infection. Source: [facility]. Collection Source-Urine 08/04/2021 COVID-19 Rule Out 09/28/2021 09/28/2021 10/05/2021 12:34 AM GENERAL SERVICE OFFICER COVID-19 Rule Out 03/23/2024 03/23/2024 03/23/2024 1:17 PM CDT documented as of this encounter Care Teams Licensed Occupational Therapist Relationship Specialty Start Date End Date Sherman Cartagena MD PCP - General FAMILY PRACTICE 08/25/20 11/29/21 Mary Marcus, HUMAN RESOURCES OFFICE MANAGER [address] [place] [address] PCP - General NURSE PRACTITIONER 11/30/21 08/28/22 Lisa Ramírez [facility] [address] [place] [address] PCP - General NURSE PRACTITIONER 08/29/22 09/01/22 Lisa Ramírez [facility] [address] [place] [address] PCP - General NURSE PRACTITIONER 09/05/22 07/07/24 Leroy Meraz DO [address] [place] [address] PCP - General FAMILY PRACTICE 07/08/24 [place] [address] [facility] [address] [place] [address] Surgeon SURGERY 11/03/23 documented as of this encounter
--- OUTSIDE RECORDS SUMMARY | 2024-10-25 22:43 | XMS_ITS | Encounter Summary ---
Author Organization [facility] Address [address] [place] [address]. [place] [address] [place] [address] Care Team Providers Care Supervisor Alteration Workroom Name Role Phone Sherman Cartagena MD Primary Care Provider Angella Mary Guidry NP Primary Care Provider [phone] Lisa Ramírez [facility] Primary Care Provider + Lisa Ramírez [facility] Primary Care Provider + Jorje Ayala MD Unavailable Leroy Meraz DO Primary Care Provider + Encounter Details Date Type Department Care Team (Late st Contact Info) Description 05/15/2021 Zayo Message [address] [place] [address] Sherman Cartagena MD Other Social History Tobacco Use Types Packs/Day [...] Sex Assigned at Male 10/10/2024 12:08 PM LEAD ELECTRICAL CONTROLS ENGINEER Legal Sex Male 5:44 PM CDT Gender [...] Assessment Author Status No 11/26/2020 1:38 PM LEAD ELECTRICAL CONTROLS ENGINEER Activ e * RETIRED Are you blind or do you have serious difficulty seeing, even when wearing glasses? Answer Date of Assessment Author Status No 11/26/2020 1:38 PM LEAD ELECTRICAL CONTROLS ENGINEER Activ e * Do you have serious [...] st Contact Info) Description 11/11/2024 10:40 AM LEAD ELECTRICAL CONTROLS ENGINEER Telemedicine [facility] Medical Group Family & Internal Medicine [address] [address] Leroy Meraz DO [address] [place] [address] documented as of this encounter Goals Goal [...] ? Other Comment:Added from external Infection- [facility] [employer] Collection Source- Urine 2020 06/25/2024 MDR-FINGERPRINT CLERK - Carbapenemase-Prod ucing Organisms Comment:Added from external infection. Source: [facility] [employer]. Collection Source-Urine 08/04/2021 COVID-19 Rule Out 09/28/2021 09/28/2021 10/05/2021 12:34 AM LEAD ELECTRICAL CONTROLS ENGINEER COVID-19 Rule Out 03/23/2024 03/23/2024 03/23/2024 1:17 PM CDT Assessment Noted Time PHQ-9 Depression Total Score: 0 04/22/20 21 2:39 PM CDT documented as of this encounter Care Teams Supervisor Alteration Workroom Relationship Specialty Start Date End Date Sherman Cartagena MD PCP - General FAMILY PRACTICE 08/25/20 11/29/21 Mary Marcus NP [address] [place] [address] PCP - General NURSE PRACTITIONER 11/30/21 08/28/22 Lisa Ramírez, [facility]- [address] [place] [address] PCP - General NURSE PRACTITIONER 08/29/22 09/01/22 Lisa Ramírez, TRANSFORMER COIL WINDER- [address] [place] [address] PCP - General NURSE PRACTITIONER 09/05/22 07/07/24 Leroy Meraz DO [facility] [place] [address] PCP - General FAMILY PRACTICE 07/08/24 [place] [address] [address] Surgeon SURGERY 11/03/23 documented as of this encounter
--- OUTSIDE RECORDS SUMMARY | 2024-10-25 22:43 | XMS_ITS | Clinical Summary ---
Author Organization [facility] Address [address] [place] [address] Care Team Providers Care Evaporator Operator Molasses Name Role Phone Lisa Ramírez JOSE-DATA CONTROL CLERK SUPERVISOR Primary Care Provider Source Comments [facility],non-owned Affiliates and Associated Physician Practices is amultiple site organization consisting of ambulatory clinics and hospital sitesin [place], [place]. This disclosure is being madepursuant to the Care Everywhere program and may not contain all information available regarding this patient. Last updated 18.[facility] [employer] Allergies Active Allergy Reactions Criticality Noted Date [...] Mass Index 16.18 12/29/2022 3:25 PM CDT Plan of Treatment Health Maintenance Due Date Last Done Comments COLOGUARD (AGES 45-75) - COL ON CA SCREENING 1968 COLON MONITORING 1968 COLONOSCOPY - COLON CA SCREENING 1968 CT COLONOGRAPHY - COLON CA SCREENING 1968 Colorectal Cancer Screening 1968 FIT - COLON CA SCREENING 1968 FLEX SIG - COLON CA SCREENING 1968 LIPID TESTING 1968 HIV SCREENING 12/21/1983 HEPATITIS C SCREENING 12/16/1986 DTAP/TDAP/TD VACCINES (1 - Tdap) 12/21/1987 HEPATITIS B VACCINE (1 of 3 - 19+ 3-dose series) 12/21/1987 PNEUMOCOCCAL VACCINE 50+ (1 of 1 - PCV) 2018 ZOSTER VACCINE (1 of 2) 2018 COVID-19 VACCINE (4 - 2023-2 5 season) 2024 10/08/2021, 11/16/2020, 10/26/2020 INFLUENZA VACCINE (#1) 2024 , 10/08/2021 DEPRESSION SCREENING 09/25/2024 MEDICARE AWV ? 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
--- OUTSIDE RECORDS SUMMARY | 2024-10-25 22:43 | XMS_ITS | Encounter Summary ---
Author Organization [facility] Address [address] [facility] [place] [address] [place] [address] Care Team Providers Care News Videotape Editor Name Role Phone Jorje Ayala MD Unavailable Leroy Meraz DO Primary Care Provider + Encounter Details Date Type Department Care Team (Latest Contact Info) Description 10/24/2024 Travel Social History Tobacco Use Types Packs/Day Years [...] from your doctor or pharmacy? Never 06/24/2024 [facility] Utilities Answer Date Recorded In the past 12 months has th e electric, gas, oil, or water company threatened to [...] Never 06/28/2024 How often do you attend quaker or sikhism serv ices? Never 06/28/2024 Do you belong to any clubs o r organizations such as quaker groups, unions, fraternal or athletic groups, or [...] Recorded Patient Health Questionnaire-2 Score 0 07/08/2024 [facility] - Occupational Stress [...] any time in the past 12 m [facility], were you homeless or living in a [place] health care facility (including now)? No 06/28/2024 Sex and Gender Information Value Date Recorded Sex Assigned at Male 10/10/2024 12:08 PM MEDIA RELATIONS DIRECTOR Legal Sex Male 5:44 PM CDT Gender [...] Assessment Author Status Yes 06/28/2024 5:50 PM CDErica Hood R N Active * Do you have [...] Date Author Status No 06/28/2024 5:50 PM Erica Richard R N Active documented in this encounter Plan of Treatment Upcoming Encounters Date Type Department Care Team (Late st Contact Info) Description 11/11/2024 10:40 AM MEDIA RELATIONS DIRECTOR Telemedicine [facility] [place] [id number] [place] [address] Leroy Meraz, [address] [place] [address] [phone] documented as of this encounter Goals Goal [...] ? Other Comment:Added from external Infection- [facility] Health Collection Source- Urine 2020 06/25/2024 MDR-ZYGLO INSPECTOR - Carbapenemase-Prod ucing Organisms Comment:Added from external infection. Source: [facility]. Collection Source-Urine 08/04/2021 Assessment Noted Time PHQ-9 Depression Total Score: 0 12/04/19 22 1:13 PM MEDIA RELATIONS DIRECTOR documented as of this encounter Care Teams News Videotape Editor Relationship Specialty Start Date End Date Leroy Meraz DO [address] [place] [id number] PCP - General FAMILY PRACTICE 07/08/24 [place] [id number] [facility] [address] [place] [id number] Surgeon SURGERY 11/03/23 documented as of this encounter
--- OUTSIDE RECORDS SUMMARY | 2024-10-25 22:43 | XMS_ITS | Clinical Summary ---
Author Organization [facility] Address [facility] [place] [address] [place] [address] Care Team Providers Care Pattern Puncher Name Role Phone Jorje Ayala MD Unavailable Leroy Meraz DO Primary Care Provider + Allergies Active Allergy Reactions Criticality Noted Date Comments Tape Redness 06/25/2024 Plastic tape Diphenhydramine Rash Low 08/18/2020 Ciprofloxacin Itching 06/13/2022 Diazepam Rash,Hives Low 08/18/2020 Zinc Acetate Rash Low 08/18/2020 Only pink zinc he is allergic to. Zinc Oxide Itching 08/17/2019 Medications multi vitamin/minerals tabletIndications: Nutritional Support Take 1 tablet by mouth daily. Indications: Nutritional Support 02/05/20 22 Active Ostomy PowderIndications: Tracheostomy Care Apply as directed as needed. 25 g 08/20/20 21 Active Misc. Devices (WALKER) MiscIndications:Pa raplegia at T9 level (CMS/HCC HHS/HCC) 1 Device by Does not apply route continuous prn. Height 6'6 1 each 09/07/20 22 Active KNEE BRACE MISC, DME,Indications:Os teomyelitis, pelvis (CMS/HCC HHS/HCC),Paraplegi a at T9 level (CMS/HCC HHS/HCC) Apply 1 Device topically daily. B KAFO custom braces with locking knee joints 2 Device 09/20/20 22 Active Ostomy Supplies Pouch MiscIndications:Co lostomy in place ([facility]) Jurgen 2in 51 mm one-piece colostomy bag. Patient would like 2 boxes. 2 each 3 04/03/20 23 Active Misc. Devices (TRANSFER BOARD) MiscIndications:Pa raplegia at T9 level ([facility]) 1 Device by Does not apply route continuous prn. Slide board for transfer from wheelchair to bed and back. 1 each 06/22/20 23 Active lactulose (CONSTULOSE) 10 GM/15ML solutionIndication s:Constipation Indications: Constipation TAKE 15 ML BY MOUTH 2-3 TIMES DAILY NEEDED FOR CONSTIPATION 3784 mL 1 10/19/19 24 Active Ostomy Supplies (PREMIER COLOSTOMY/ILEOSTOM Y) KitIndications:Col ostomy in place ([facility]),Paraplegi c immobility syndrome 2 boxes of 30 #[id number] Premier One - Piece Closed End Transparent Colostomy pouch 2 kit 1 02/29/20 24 Active Misc. Devices MiscIndications:Co lostomy in place ([facility]),Paraplegi c immobility syndrome Safe and Simple Barrier ARC, 2 boxes. #[id number] 60 each 1 02/29/20 24 Active GLOVES LATEX EXAM MISC, DME,Indications:Co lostomy in place ([facility]),Paraplegi c immobility syndrome 1 Package by Does not apply route as needed. 2 Package 1 02/29/20 24 Active DRESSING GAUZE 4 X4 PADS, DME,Indications:Co lostomy in place ([facility]),Paraplegi c immobility syndrome Apply 1 Package topically as needed. Use as needed for cleaning 2 Package 1 02/29/20 24 Active Diapers & Supplies MiscIndications:Co lostomy in place ([facility]),Paraplegi c immobility syndrome Adult Diapers- briefs with straps size Large qty 90 90 each 1 03/14/20 24 Active acetaminophen (TYLENOL) 500 MG tablet Take 1 tablet (500 mg total) by mouth every 6 (six) hours as needed for Pain. Active ferrous sulfate EC 324 (65 Fe) MG tablet Take 1 tablet (324 mg total) by mouth daily with breakfast. Active vitamin D3 (CHOLECALCIFEROL) 25 mcg tablet Take 1 tablet (1,000 Units total) by mouth daily. 30 tablet 08/09/20 24 Active HYDROcodone-acetam inophen (NORCO) 5-325 MG tabletIndications: Acute Pain < 7 Day Supply Take 1 tablet by mouth every 4 (four) hours as needed. Indications: Acute Pain < 7 Day Supply 15 tablet 08/09/20 24 Active hydrocortisone (CORTIZONE) 1 % cream Apply topically 2 (two) times daily as needed (itching). 1.5 g 08/09/20 24 Active nystatin (MYCOSTATIN) powder Apply topically 3 (three) times daily. 15 g 08/09/20 24 Active Senna (SENOKOT) 8.6 MG tablet Take 1 tablet (8.6 mg total) by mouth daily as needed for Constipation. 08/09/20 Active metoprolol succinate ER (TOPROL-XL) 25 MG 24 hr tabletIndications: Essential hypertension Take 2 tablets (50 mg total) by mouth daily. 180 tablet 08/12/20 Active potassium chloride CR (K-TAB) 20 MEQ tabletIndications: Hypokalemia Take 1 tablet by mouth twice daily 180 tablet 08/12/20 24 Active gentamicin (GARAMYCIN) 0.1 % ointmentIndication s:Infection of wound due to methicillin resistant Staphylococcus aureus (MRSA) Apply topically daily. 30 g 2 09/05/20 24 Active amLODIPine (NORVASC) 10 MG tabletIndications: Essential hypertension Take 1 tablet (10 mg total) by mouth daily. 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, buttock and hip, stage 4 ([facility]) 12/23/2022 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 ([facility]) 12/23/[address] ([facility] HHS/HCC) 09/07/2022 Suprapubic catheter ([facility] HHS/HCC) 09/07/2022 Moderate protein-calorie malnutrition ([facility]) 12/18/2020 Anemia 09/04/2020 Essential hypertension 09/01/2020 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 ([facility]) 020 Osteomyelitis, pelvis ([facility]) 10/02/19 20 Neurogenic bladder 08/27/2019 Sacral decubitus ulcer Resolved Problems Problem Noted Date Diagnosed Date Resolved Date MRSA bacteremia 01/21/2022 09/07/2022 Sepsis ([facility]) 01/16/2022 Lack of follow-up after hospitalization 12/18/2020 12/18/2020 Sacral wound 11/19/2020 09/07/2022 Wound infection 10/02/2020 09/07/2022 Screening for malignant neoplasm 09/24/2020 09/07/2022 Overview (09/24/2020): Added automatically from request for surgery [id number] Bacteremia due to Escherichia coli 08/10/2019 09/07/2022 Encounters Date Type Department Care Team Description 10/24/2024 2:39 PM [facility] Hospital Encounter [facility] [address] [place] [address] Alma Ernst, PT Leroy Meraz, DO Balance Problem 10/24/2024 Travel 10/18/2024 Telephone [facility] Family Internal [address] [phone] eLroy Meraz, DO Urine (Medical supply in) 10/15/2024 8:33 AM [facility] - 10/15/2024 11:59 PM [facility] Hospital Encounter [facility] W[facility] [address] [place] [address] Jorje Ayala MD Discharge Disposition: Home or Self Care (Routine Discharge) 10/15/2024 Travel 10/14/2024 Telephone [facility] Family Internal [address] [phone] Leroy Meraz, DO Information 10/10/2024 12:08 PM [facility] - 10/10/2024 11:59 PM [facility] Hospital Encounter [facility] [address] [facility] [place] [address] Jazlyn Jackson FNP-BC Discharge Disposition: Home or Self Care (Routine Discharge) 10/10/2024 Travel 10/07/2024 1:00 PM [facility] - 10/07/2024 11:59 PM [facility] Hospital Encounter [facility] [address] [place] [address] Jorje Ayala MD Discharge Disposition: Home or Self Care (Routine Discharge) 10/07/2024 Travel 10/03/2024 12:53 PM [facility] - 10/03/2024 11:59 PM [facility] Hospital Encounter [facility] [address] [place] [address] Jazlyn Jackson FNP-BC Discharge Disposition: Home or Self Care (Routine Discharge) 10/03/2024 Travel 10/02/2024 Telephone [facility] Family & Internal Medicine [address] [phone] Leroy Meraz, Referral 10/01/2024 11:00 AM [facility] - 10/01/2024 11:59 PM [facility] Hospital Encounter [facility] [address] [place] [address] Jorje Ayala MD Discharge Disposition: Home or Self Care (Routine Discharge) 10/01/2024 Travel 09/26/2024 1:32 PM [facility] - 09/26/2024 11:59 PM [facility] Hospital Encounter [facility] [address] [place] [address] Leroy Meraz DO Discharge Disposition: Home or Self Care (Routine Discharge) 09/26/2024 12:45 PM [facility] - 09/26/2024 1:31 PM [facility] Hospital Encounter [facility] [address] [place] [address] Renetta, Jazlyn R, MANAGER INFUSION-BC Discharge Disposition: Home or Self Care (Routine Discharge) 09/26/2024 Travel 09/24/2024 Telephone [facility] Internal [address] [phone] Leroy Meraz, DO Referral 09/24/[address] [phone] Leroy Meraz, DO Referral 09/23/2024 11:15 AM [facility] - 09/23/2024 11:59 PM [facility] Hospital Encounter [facility] [address] [place] [address] Jorje Ayala MD Discharge Disposition: Home or Self Care (Routine Discharge) 09/23/[address] [phone] Leroy Meraz, DO Information; Lab Order 09/23/2024 Travel 09/19/2024 12:52 PM [facility] - 09/19/2024 11:59 PM [facility] Hospital Encounter [facility] [address] [place] [address] Jazlyn Jackson FNP-BC Discharge Disposition: Home or Self Care (Routine Discharge) 09/19/2024 Travel 09/16/2024 10:46 AM [facility] - 09/16/2024 11:59 PM [facility] Hospital Encounter [facility] [address] [place] [address] Jorje Ayala MD Discharge Disposition: Home or Self Care (Routine Discharge) 09/16/2024 Travel 09/12/2024 1:00 PM [facility] - 09/12/2024 11:59 PM [facility] Hospital Encounter [facility] [address] [place] [address] Jazlyn Jackson, MANAGER INFUSION-BC Discharge Disposition: Home or Self Care (Routine Discharge) 09/12/2024 Travel 09/09/2024 11:10 AM [facility] - 09/09/2024 11:59 PM [facility] Hospital Encounter [facility] [address] [place] [address] Tracy Perez NP Discharge Disposition: Home or Self Care (Routine Discharge) 09/09/2024 Travel 09/05/2024 11:54 AM [facility] - 09/05/2024 11:59 PM [facility] Hospital Encounter [facility] [place] [address] Jazlyn Jackson FNP-JUAN MANUEL Discharge Disposition: Home or Self Care (Routine Discharge) 09/05/2024 Orders Only [facility] [place] [address] Tracy Perez NP 09/05/2024 Travel 09/02/2024 11:15 AM [facility] - 09/02/2024 11:59 PM [facility] Hospital [facility] [address] [facility] [place] [address] Tracy Perez, DONTE Discharge Disposition: Home or Self Care (Routine Discharge) 09/02/2024 Travel 08/29/2024 12:12 PM [facility] - 08/29/2024 11:59 PM [facility] Hospital Encounter [facility] [address] [facility] [place] [address] Jazlyn Jackson FNP-JUAN MANUEL Discharge Disposition: Home or Self Care (Routine Discharge) 08/29/2024 Travel 08/27/2024 Scan [employer] INFO SRVCS Scanned, [facility] 08/26/2024 11:00 AM [facility] - 08/26/2024 11:59 PM [facility] Hospital Encounter [facility] [address] [place] [address] Jorje Ayala MD Discharge Disposition: Home or Self Care (Routine Discharge) 08/26/2024 Telephone [facility] Family [facility] Internal Medicine [address] [phone] Leroy Meraz, DO Question (Wound care ) 08/26/2024 Travel 08/23/2024 11:21 AM [facility] - 08/23/2024 12:24 PM [facility] Emergency [facility] Emergency Room [address] [place] [phone] Zara Rosales MD Wound Discharge Disposition: Home or Self Care (Routine Discharge) 08/23/2024 Travel 08/19/2024 11:05 AM [facility] - 08/19/2024 11:59 PM [facility] Hospital Encounter [facility] [address] [place] [address] Jorje Ayala MD Discharge Disposition: Home or Self Care (Routine Discharge) 08/19/2024 Telephone [facility] Internal [address] [phone] Leroy Meraz, Other 08/19/2024 Travel 08/15/2024 2:39 PM [facility] - 08/15/2024 4:05 PM [facility] Emergency [facility] Emergency Room [address] [place] [address] Iam Ortiz MD Wound Recheck Discharge Disposition: Home or Self Care (Routine Discharge) 08/15/2024 Travel 08/12/2024 11:11 AM [facility] - 08/12/2024 11:59 PM [facility] Hospital Encounter [facility] [address] [place] [address] Tracy Perez, DONTE Discharge Disposition: Home or Self Care (Routine Discharge) 08/12/2024 Scan HEALTH INFO SRVCS Scanned, [facility] 08/12/2024 Hospital Follow-up Call [facility] [address] [place] [phone] Mary Grace Sanderson LPN Follow Up Call ([facility] 06/28-08/09/24) 08/12/2024 Travel 08/09/2024 Telephone [facility] Internal [address] [address] Leroy Meraz, DO Information 08/05/2024 11:08 AM [facility] - 08/05/2024 11:59 PM [facility] Hospital Encounter [facility] [address] [place] [address] Jorje Ayala MD Mahtani, Andrew, MD Discharge Disposition: Home or Self Care (Routine Discharge) 08/05/2024 Travel 07/31/2024 10:40 AM [facility] Office Visit [facility] Family [facility] Internal Medicine [address] [phone] Leroy Meraz, TCM (The patient is planning for d/c from swing bed on 08/10/2024. The patient is states he is wanting to discuss plan of care for going home. The patient is wanting an order for bed lift. The patient is also needing help finding home health for suprapubic, davis, and wound dressing changes. ) 07/31/2024 Travel 07/29/2024 11:15 AM [facility] - 07/29/2024 11:59 PM [facility] Hospital Encounter [facility] [address] [place] [address] Tracy Perez, Buck Ramirez MD Discharge Disposition: Home or Self Care (Routine Discharge) 07/29/2024 Travel 06/28/2024 5:35 PM CDT - 08/09/2024 1:25 PM [facility] Hospital Encounter [facility] [address] [place] [address] Buck Johns MD Rodenberg, Deanna L, APRN Wolf, Brittany, PA-C Conti, John R, Shaquille Glover MD Dodt, JOSE Lanier Mary C, ROBERT Discharge Disposition: Home or Self Care (Routine Discharge) from Last 3 Months Immunizations Name Administration Dates Next Due Fluzone (IIV3, Trivalent, 0. 5 ML Prefilled Syringe) 08/09/2024,07/06/2024(Deferred: - give at discharge),06/26/2024(Deferred: Other - wait until discharge) Influenza Adult (Generic) 08/23/2022,10/08/2021 MODERNA COVID-19 (SIDE DOOR MAN LEXA MELQUIADES), MRNA, LNP-S, PF, 50 MCG/ 0.25 ML DOSE 10/08/2021 PFIZER COVID-19 (ZAFAR CAP), MRNA, LNP-S, PF, 30 MCG/0.3 ML DARRELL-SUCROSE, IM 04/20/2022 PFIZER COVID-19 (ORIGINAL FORMULATION, PURPLE CAP) mRNA, LNP-S, PF, 30 MCG/0.3 ML DOSE 10/08/2021,11/16/2020,10/26/2020 Pneumococcal (Prevnar 13) 10/08/2021 Family History Medical History Relation Comments No Known Problems Father No Known Problems Mother Relation Status Comments Father Mother Social History Tobacco Use Types Packs/Day Years Used Date Smoking Tobacco: Never Smokeless Tobacco: Never Tobacco Cessation:Counseling Given: No Comments:never smoke Alcohol Use Standard Drinks/Week Comments [...] from your doctor or pharmacy? Never 06/24/2024 [facility] Utilities Answer Date Recorded In the past 12 months has th e [employer], oil, or water [employer] threatened to shut off services in your [...] Never 06/28/2024 How often do you attend confucianist or amish serv ices? Never 06/28/2024 Do you belong to any clubs o r organizations such as confucianist groups, unions, fraternal or athletic groups, or [...] Recorded Patient Health Questionnaire-2 Score 0 07/08/2024 [facility] of Occupat ional Health - Occupational Stress [...] any time in the past 12 m [facility], were you homeless or living in a senior living (including now)? No 06/28/2024 Sex and Gender Information Value Date Recorded Sex Assigned at Male 10/10/2024 12:08 PM [facility] Legal Sex Male 5:44 PM CDT Gender Identity Not on file Sexual Orientation Not on file Last Filed Vital Signs Vital Sign Reading Time Taken Comments Blood Pressure 145/75 08/23/2024 12:20 PM [facility] Pulse 76 08/23/2024 12:20 PM [facility] Temperature 36.7 ??C (98 ??F) 08/23/2024 12:20 PM [facility] Respiratory Rate 18 08/23/2024 12:20 PM [facility] Oxygen Saturation 99% 08/23/2024 12:20 PM [facility] Inhaled Oxygen Concentration - - Weight 72.6 kg (160 lb) 08/23/2024 11:21 AM [facility] Height 198.1 cm (6' 6 ) 08/23/2024 11:21 AM [facility] Body Mass Index 18.49 08/23/2024 11:21 AM [facility] Plan of Treatment Upcoming Encounters Date Type Department Care Team (Late st Contact Info) Description 11/11/2024 10:40 AM [facility] Telemedicine [facility] Family & Internal Medicine - [id number] [place] [phone] Leroy Meraz DO [address] [place] [address] Health Maintenance Due Date Last Done Comments ASCVD Statin 1970 Colorectal Cancer Screening Colonoscopy (10 Years) 1968 DTaP, Tdap and Td Vaccines (1 - Tdap) 12/21/1987 Hepatitis B Vaccines (1 of 3 - 19+ 3-dose series) 12/21/1987 Zoster Vaccines (1 of 2) 2018 Annual Physical 03/09/2024 03/09/2023 COVID-19 Vaccine ( season) 2024 08/23/2022, 04/20/2022, 10/08/2021, Additional history exists PHQ-2 (Physician [place]) 09/25/2024 07/08/2024 Colorectal Cancer Screening FIT/FOBT (1 Year) Discontinued 09/03/2020 Pneumococcal Vaccine: Pediatrics (0 to 5 Years) and At-Risk Patients (6 to 64 Years) Aged Out 10/08/2021 No longer eligible based on patient's age to complete this topic Hepatitis C Completed 03/09/2023 Influenza Adult Completed 08/09/2024, 07/27, 10/08/2021 Meningococcal B Vaccine Aged Out No l onger eligible based on patient's age to complete this topic Meningococcal Vaccine Aged Out No denise mary eligible based on patient's age to complete this topic RSV Immunizations Under 20 Months Aged Out No longer eligible based on patient's age to complete this topic Goals Goal Patient Goal Type Associated Problems Recent Progress Patient-Stated? Author Discharge ? Patient/family verbalizes understanding regarding the need for SNF placement General Emilia Marcial, RN Note: Pt will actively be involved in safe discharge destination plan. Procedures Procedure Name Priority Date/Time Associated Diagnosis Comments VITAMIN D, 25 OH Routine 09/26/2024 1:37 PM [facility] Essential hypertension Vitamin D deficiency LIPID PANEL Routine 09/26/2024 1:37 PM [facility] Essential hypertension TSH W/REFLEX Routine 09/26/2024 1:37 PM [facility] Essential hypertension COMPREHENSIVE METABOLIC PANEL Routine 09/26/2024 1:37 PM [facility] Essential hypertension CBC W/DIFF AUTOMATED Routine 09/26/2024 1:37 PM [facility] Essential hypertension HC SMEAR GRAM/GIEMSA Routine 09/02/2024 11:40 AM [facility] Wound drainage BASIC METABOLIC PANEL Routine 08/07/2024 10:10 AM [facility] CBC W/DIFF AUTOMATED Routine 08/07/2024 10:10 AM [facility] HEPATIC FUNCTION PANEL Routine 08/04/2024 6:20 AM [facility] CBC W/DIFF AUTOMATED TIMED 08/04/2024 6:20 AM [facility] BASIC METABOLIC PANEL TIMED 08/04/2024 6:20 AM [facility] CK (CPK) Routine 08/03/2024 7:23 AM [facility] CBC W/DIFF AUTOMATED Routine 08/01/2024 5:40 AM [facility] BASIC METABOLIC PANEL Routine 08/01/2024 5:40 AM [facility] BASIC METABOLIC PANEL TIMED 07/29/2024 5:45 AM [facility] CBC W/DIFF AUTOMATED TIMED 07/29/2024 5:45 AM [facility] CK (CPK) Routine 07/27/2024 8:15 AM CDT BASIC METABOLIC PANEL TIMED 07/26/2024 5:54 AM CDT CBC W/DIFF AUTOMATED TIMED 07/26/2024 5:54 AM CDT HEPATITIS C ANTIBODY Routine 03/09/2023 11:44 AM CDT Need for hepatitis C screening test OCCULT BLOOD, FECES STAT 09/03/2020 7 :10 PM [facility] from Last 3 Months or Most Recently Relevant to Health Maintenance Results * TSH W/REFLEX (09/26/2024 1:37 PM [facility]) TSH 1.560 0.358 - 3.74 uIU/ML 09/26/2024 2:33 PM [facility] Comment: HIGH DOSES OF BIOTIN MAY INTERFERE WITH THIS TEST RESULT. CORRELATION TO CLINICAL HISTORY AND PRESENTATION RECOMMENDED. FREE T4 NOT INDICATED 09/26/2024 1:37 PM [facility] Leroy Meraz DO LABORATORY Final Re sult [facility] [address] [place] [address], [place] [phone] * (ABNORMAL) COMPREHENSIVE METABOLIC PANEL (09/26/2024 1:37 PM [facility]) GLUCOSE 95 70 - 99 MG/DL 09/26/2024 2:33 PM [facility] BUN 12 7 - 18 MG/DL 09/26/2024 2:33 PM [facility] CREATININE S/P/B 0.90 0.7 - 1.3 MG/DL 09/26/2024 2:33 PM [facility] SODIUM S/P/B 139 136 - 145 MMOL/L 09/26/2024 2:33 PM [facility] POTASSIUM S/P/B 3.9 3.5 - 5.1 MMOL/L 09/26/2024 2:33 PM [facility] CHLORIDE S/P/B 103 100 - 108 MMOL/L 09/26/2024 2:33 PM [facility] CO2 29.6 21 - 32 MMOL/L 09/26/2024 2:33 PM [facility] CALCIUM S/P/B 9.5 8.5 - 10.1 MG/DL 09/26/2024 2:33 PM [facility] BILIRUBIN TOTAL S/P/B 0.2 0.2 - 1.2 MG/DL 09/26/2024 2:33 PM [facility] TOTAL PROTEIN S/P/B 9.3(H) 6.4 - 8.2 G/DL 09/26/2024 2:33 PM [facility] ALBUMIN S/P/B 2.6(L) 3.4 - 5.0 G/DL 09/26/2024 2:33 PM [facility] AST 17 15 - 37 U/L 09/26/2024 2:33 PM [facility] ALT 19 16 - 60 U/L 09/26/2024 2:33 PM [facility] ALKALINE PHOSPHATASE S/P/B 113 50 - 136 U/L 09/26/2024 2:33 PM [facility] ANION GAP 6.4 5 - 15 MMOL/L 09/26/2024 2:33 PM [facility] BUN CREATININE RATIO 13.3 6 - 26 09/26/2024 2:33 PM [facility] A/G RATIO 0.4(L) 1.0 - 2.0 RATIO 09/26/2024 2:33 PM [facility] GFR ESTIMATE >90 >90 ML/MIN/1.7 3 M2 09/26/2024 2:33 PM [facility] Comment: NOTE: eGFR is not calculated for patients <18 years of age. This is an estimated GFR calculation using the new CKD EPI creatinine equation without race and so does not require a correction factor for race. This estimated GFR should not be used for calculating drug doses. 09/26/2024 1:37 PM [facility] Leroy Meraz DO LABORATORY Final Re sult [facility] [address] [place] [address], * (ABNORMAL) LIPID PANEL (09/26/2024 1:37 PM [facility]) CHOLESTEROL 226(H) <200.0 MG/DL 09/26/2024 2:33 PM [facility] TRIGLYCERIDES 98 <150 MG/DL 09/26/2024 2:33 PM [facility] HDL 58 >40.0 MG/DL 09/26/2024 2:33 PM [facility] LDL (CALCULATED) 148(H) <100 MG/DL 09/26/2024 2:33 PM [facility] NON HDL CHOLESTEROL 168(H) <130 MG/DL 09/26/2024 2:33 PM [facility] CHOL/HDL RATIO 3.9 0.0 - 4.5 09/26/2024 2:33 PM [facility] VLDL CALCULATION 20 5 - 55 MG/DL 09/26/2024 2:33 PM [facility] LIPID INTERPRETATION 09/26/2024 2:33 PM [facility] Comment: [facility] REPORT RECOMMENDATIONS: ?ADULT ?CHILD ??LOW RISK: ?CHOLESTEROL ? <200 ? <170 ?TRIGLYCERIDE ?<150 ?--- ?HDL ? >=60 ?--- ?LDL ? <100 ? <110 ??BORDERLINE: ?CHOLESTEROL ? 200-239 ?? 170-199 ?TRIGLYCERIDE ?150-199 ? --- ?HDL ?40-59 ?--- ?LDL ? 100-159 ?? 110-129 ??HIGH RISK: ?CHOLESTEROL ? >=240 ?>=200 ?TRIGLYCERIDE ?>=200 ? --- ?HDL ?<40 ?--- ?LDL ? >=160 ?>=130 09/26/2024 1:37 PM [facility] us Leroy Meraz DO LABORATORY Final Re sult [facility] (H) [facility] [address] [place] [address], * (ABNORMAL) CBC W/DIFF AUTOMATED (09/26/2024 1:37 PM [facility]) Only the most recent of6 resultswithin the time period is included. WBC 5.33 4.4 - 11.0 x10'3/uL 09/26/2024 2:06 PM [facility] RBC 4.44(L) 4.50 - 5.90 x10'6/uL 09/26/2024 2:06 PM [facility] HGB 11.4(L) 14.0 - 17.5 G/DL 09/26/2024 2:06 PM [facility] HCT 35.2(L) 41.5 - 50.4 % 09/26/2024 2:06 PM [facility] MCV 79.3(L) 80.0 - 96.0 FL 09/26/2024 2:06 PM [facility] LAB MCH 25.7(L) 26.5 - 31.4 PG 09/26/2024 2:06 PM [facility] MCHC 32.4 31.9 - 34.8 G/DL 09/26/2024 2:06 PM [facility] RDW 18.9(H) 12.3 - 14.3 % 09/26/2024 2:06 PM [facility] PLT 262 151 - 353 x10'3/uL 09/26/2024 2:06 PM [facility] MPV 9.3(L) 9.7 - 11.9 FL 09/26/2024 2:06 PM [facility] RBC MORPHOLOGY NORMAL 09/26/2024 2:06 PM [facility] PLT MORPH. NORMAL 09/26/2024 2:06 PM [facility] WBC MORPHOLOGY NORMAL 09/26/2024 2:06 PM [facility] LYMPHOCYTES % 23.6 15.8 - 45.0 % 09/26/2024 2:06 PM [facility] NEUTROPHILS % 57.4 42.1 - 71.9 % 09/26/2024 2:06 PM [facility] MONOCYTES % 13.5(H) 5.7 - 12.5 % 09/26/2024 2:06 PM [facility] EOSINOPHILS 4.7 0.0 - 5.6 % 09/26/2024 2:06 PM [facility] BASOPHILS 0.4 0.0 - 1.3 % 09/26/2024 2:06 PM [facility] ABS. NEUTROPHILS 3.06 1.40 - 6.00 x10'3/uL 09/26/2024 2:06 PM [facility] IMMATURE GRANS % 0.4 0.0 - 0.5 % 09/26/2024 2:06 PM [facility] ABS. LYMPHOCYTES 1.26 0.80 - 4.70 x10'3/uL 09/26/2024 2:06 PM [facility] 09/26/2024 1:37 PM [facility] us Leroy Meraz DO LABORATORY Final Re sult [facility] [address] [place] [address], * (ABNORMAL) VITAMIN D, 25 [place] (09/26/2024 1:37 PM [facility]) Pathologist [facility] VITAMIN D 25 HYDROXY S/P/B 20(L) 30 - 100 NG/ML 09/26/2024 2:45 PM [facility] Comment: ? INTERPRETATION ? DEFICIENT ??<20 ? INSUFFICIENT 20-29 ?SUFFICIENT 30-100 09/26/2024 1:37 PM [facility] Leroy Meraz DO LABORATORY Final Re sult [facility] [address] [place] [address], * (ABNORMAL) CULTURE, WOUND, W/GRAM STAIN (09/02/2024 11:40 AM [facility]) SPEC DESCRIPTION HEEL, RIGHT 09/02/2024 11:42 AM [facility] SPECIAL REQUESTS NO SPECIAL REQUEST 09/02/2024 11:42 AM [facility] GRAM STAIN RESULT MANY WHITE BLOOD CELLS SEEN 09/03/2024 10:46 AM [facility] GRAM STAIN RESULT FEW EPITHELIAL CELLS SEEN 09/03/2024 10:46 AM [facility] GRAM STAIN RESULT FEW GRAM POSITIVE COCCI 09/03/2024 10:46 AM [facility] GRAM STAIN RESULT RARE GRAM NEGATIVE RODS 09/03/2024 10:46 AM [facility] CULTURE RESULT SPARSE GROWTH OF PROTEUS MIRABILIS (A) 09/04/2024 7:55 AM [facility] CULTURE RESULT SPARSE GROWTH OF METHICILLIN RESISTANT STAPHYLOCOCCUS AUREUS FOLLOW ISOLATION PROTOCOL. (AA) 09/04/2024 7:55 AM [facility] RIGHT HEEL STRUCTURE / Unknown 09/02/2024 11:40 AM [facility] 09/02/2024 12:45 PM [facility] Narrative Organism Antibiotic Method Susceptibility Proteus mirabilis AMPICILLIN JONAS (VITEK) <=2: Sensitive Proteus mirabilis AMPICILLIN/SULBACTAM JONAS (VITEK) <=2: Sensitive Proteus mirabilis CEFTRIAXONE JONAS (VITEK) <=1: Sensitive Proteus mirabilis CEFTAZIDIME JONAS (VITEK) <=1: Sensitive Proteus mirabilis CEFAZOLIN JONAS (VITEK) <=4: Sensitive Proteus mirabilis GENTAMICIN JONAS (VITEK) <=1: Sensitive Proteus mirabilis LEVOFLOXACIN JONAS (VITEK) <=0.12: Sensitive Proteus mirabilis PIPRACIL/TAZO JONAS (VITEK) <=4: Sensitive Proteus mirabilis TRIMETH-SULFAMETH. JONAS (VITEK) <=20: Sensitive Methicillin resistant staphylococcus aureus CLINDAMYCIN JONAS (VITEK) <=0.25: Sensitive Methicillin resistant staphylococcus aureus ERYTHROMYCIN JONAS (VITEK) >=8: Resistant Methicillin resistant staphylococcus aureus OXACILLIN JONAS (VITEK) >=4: Resistant Methicillin resistant staphylococcus aureus TRIMETH-SULFAMETH. JONAS (VITEK) <=10: Sensitive Methicillin resistant staphylococcus aureus TETRACYCLINE JONAS (VITEK) 2: Sensitive Methicillin resistant staphylococcus aureus VANCOMYCIN JONAS (VITEK) 1: Sensitive Tracy Perez NP MICROBIOLOGY - GENERAL ORDER SANDEE Final Result [facility] [address] [place] [address], [place] [phone] [facility] [address] [place] [address], [place] [phone] * (ABNORMAL) BASIC METABOLIC PANEL (08/07/2024 10:10 AM [facility]) Only the most recent of5 resultswithin the time period is included. [facility] GLUCOSE 102(H) 70 - 99 MG/DL 08/07/2024 11:02 AM [facility] BUN 31(H) 7 - 18 MG/DL 08/07/2024 11:02 AM [facility] CREATININE S/P/B 0.83 0.7 - 1.3 MG/DL 08/07/2024 11:02 AM [facility] SODIUM S/P/B 141 136 - 145 MMOL/L 08/07/2024 11:02 AM [facility] POTASSIUM S/P/B 3.5 3.5 - 5.1 MMOL/L 08/07/2024 11:02 AM [facility] CHLORIDE S/P/B 105 100 - 108 MMOL/L 08/07/2024 11:02 AM [facility] CO2 28.2 21 - 32 MMOL/L 08/07/2024 11:02 AM [facility] CALCIUM S/P/B 9.3 8.5 - 10.1 MG/DL 08/07/2024 11:02 AM [facility] ANION GAP 7.8 5 - 15 MMOL/L 08/07/2024 11:02 AM [facility] BUN CREATININE RATIO 37.3(H) 6 - 26 08/07/2024 11:02 AM [facility] GFR ESTIMATE >90 >90 ML/MIN/1.7 3 M2 08/07/2024 11:02 AM [facility] Comment: NOTE: eGFR is not calculated for patients <18 years of age. This is an estimated GFR calculation using the new CKD EPI creatinine equation without race and so does not require a correction factor for race. This estimated GFR should not be used for calculating drug doses. 08/07/2024 10:1 0 AM [facility] Melyssa Boateng APRN LABORATORY Final Result [facility] [address] [place] [address], * (ABNORMAL) HEPATIC FUNCTION PANEL (08/04/2024 6:20 AM [facility]) TOTAL PROTEIN S/P/B 9.3(H) 6.4 - 8.2 G/DL 08/04/2024 4:32 PM [facility] ALBUMIN S/P/B 2.2(L) 3.4 - 5.0 G/DL 08/04/2024 4:32 PM [facility] BILIRUBIN TOTAL S/P/B 0.2 0.2 - 1.2 MG/DL 08/04/2024 4:32 PM [facility] BILIRUBIN DIRECT S/P/B 0.1 0.0 - 0.20 MG/DL 08/04/2024 4:32 PM [facility] BILIRUBIN INDIRECT S/P/B 0.1 0.0 - 0.9 MG/DL 08/04/2024 4:32 PM [facility] ALKALINE PHOSPHATASE S/P/B 104 50 - 136 U/L 08/04/2024 4:32 PM [facility] AST 31 15 - 37 U/L 08/04/2024 4:32 PM [facility] ALT 40 16 - 60 U/L 08/04/2024 4:32 PM [facility] A/G RATIO 0.3(L) 1.0 - 2.0 RATIO 08/04/2024 4:32 PM [facility] 08/04/2024 6:20 AM [facility] Shaquille Vides MD LABORATORY Final Result [facility] [address] [place] [address], * CK (CPK) (08/03/2024 7:23 AM [facility]) Only the most recent of2 resultswithin the time period is included. CPK 96 39 - 308 U/L 08/03/2024 8:07 AM [facility] 08/03/2024 7:23 AM [facility] us Shreidan LEENP LABORATORY Final Res ult [facility] () [facility] [address] [place] [address], [place] [phone] * HEPATITIS C AB ([facility] ONLY) (03/09/2023 11:44 AM CDT) HEPATITIS C AB NON-REACTI VE NON-REACTI VE 03/09/2023 7:30 PM CDT [facility] 03/09/2023 11:4 4 AM CDT us Lisa Ramírez MANAGER INFUSION-BC LABORATORY Final Re sult Performing Organization Address [facility]/ZIP Co de Phone Number [facility] [address] [place] [address], [place] [phone] * (ABNORMAL) OCCULT BLOOD, FECES (09/03/2020 7:10 PM [facility]) OCCULT BLOOD FECAL POSITIVE(A ) NEGATIVE 09/03/2020 7:50 PM [facility] () [facility] STOOL SPECIMEN / Unknown 09/03/2020 7:10 PM [facility] Hilton Aggarwal MD BODY FLUIDS AND STOOLS ORDERABLES Final Result [facility] ([facility] [address] [place] [address], [place] [phone] from Last 3 Months or Most Recently Relevant to Health Maintenance Additional Health Concerns Infection Onset Date Last Indicated MRSA Comment:08/18/20 Urine (SB) 11/18/2020 coccyx (KB) 11/19/2020 +MRSA Blood (MBK) 01/16/22 blood (JK) 01/16/22 left buttock wound (JK) 01/18/22 right thigh (JK) 10/04/22 urine (JK) 03/02/23 nares (JK) 03/02/23 urine (JK) 06/12/23 urine (JK) 05/29/24 left leg (JOSE) 09/02/24 Right Heel (RR) 08/24/2020 09/02/2024 MDR ? Other Comment:Added from external Infection- [facility] Health Collection Source- Urine 2020 06/25/2024 MDR-OCCUPATIONAL THERAPIST ASSISTANTS - Carbapenemase-Prod ucing Organisms Comment:Added from external infection. Source: [facility] [employer]. Collection Source-Urine 08/04/[address] [place] [address] Advance Directives * Full Code (Latest Code Status on File) Date Activated Date Inactivated Comments 06/28/2024 6:24 PM 08/09/2024 3:26 PM * Full Code Date Activated Date Inactivated Comments 06/24/2024 7:20 PM 06/28/2024 5:35 PM * Full Code Date Activated Date Inactivated Comments 04/05/2023 3:01 PM 10/28/2023 11:19 AM * Full Code Date Activated Date Inactivated Comments 11/30/2022 2:56 PM 03/02/2023 9:50 AM * Full Code Date Activated Date Inactivated Comments 06/05/2022 8:38 PM 11/30/2022 2:56 PM Care Teams Pattern Puncher Relationship Specialty Start Date End Date Leroy Meraz DO [address] [place] [id number] PCP - General FAMILY PRACTICE 07/08/24 [place] [id number] [address] Surgeon SURGERY 11/03/23
--- OUTSIDE RECORDS SUMMARY | 2024-10-25 22:44 | XMS_ITS | Encounter Summary ---
Author Organization [facility] Address Formerly [facility], [facility] [place] [address] [place] [address] Care Team Providers Care School Manager Name Role Phone Mary Marcus NP Primary Care Provider [phone] Lisa Ramírez [facility] Primary Care Provider + Lisa Ramírez [facility] Primary Care Provider + Jorje Ayala MD Unavailable Leroy Meraz DO Primary Care Provider + Reason for Referral * Surgical (Routine) - Closed Specialty Diagnoses / Procedures Referred By Contrita t Referred To Contact SURGERY Diagnoses Sepsis Procedures Case request operating room: INCISION AND DRAINAGE ABSCESS anterior of right thigh US guided I&D abscess anterior right thigh Jack Lewis MD Phone: tel: fax: [facility] Medical [facility] General Surgery - [place] [address] [facility], [address] [place] [address] Phone: tel: fax: Referral ID Status Reason Start Date Expiration Date Visits Re quested Visits Authorized [id number] Closed 01/17/2022 02/16/2023 1 1 Encounter Details Date Type Department Care Team (Late st Contact Info) Description 01/17/2022 Prep for Procedure [facility] General Surgery - [place] [address], [address] [place] [address] [place] [address] [place] [address] Social History Tobacco Use Types Packs/Day Years Used Date Smoking Tobacco: Never Smokeless Tobacco: Never Alcohol Use Standard Drinks/Week Comments Not Currently 0 (1 standard drink = 0.6 oz pur e alcohol) PHQ-2 Answer Date Recorded PHQ-2 Score - If the patient scores above 3, please move on to questions 3-9 0 12/03/2021 Sex and Gender Information Value Date Recorded Sex Assigned at Male 10/10/2024 12:08 PM DIRECTOR OF NEIGHBORHOOD SERVICE CENTER Legal Sex Male 5:44 PM CDT Gender Identity Not on file Sexual Orientation Not on file COVID-19 Exposure Response Date Recorded In the last 10 days, have yo u been in contact with someone who was confirmed or suspected to have Coronavirus/COVID-19? No / Unsure 01/16/2022 4:11 PM CDT documented as of this encounter Functional Status * RETIRED Are you deaf or do you have serious difficulty hearing Answer Date of Assessment Author Status No 01/16/2022 11:55 PM CDT Acti ve * RETIRED Are you blind or do you have serious difficulty seeing, even when wearing glasses? Answer Date of Assessment Author Status No 01/16/2022 11:55 PM CDT Acti ve * Do you have serious difficulty walking or climbing stairs? Answer Date of Assessment Author Status Yes 01/16/2022 11:55 PM CDT Teri Carvaajl RN Active * Do you have difficulty dressing or bathing? Answer Date of Assessment Author Status No 01/16/2022 11:55 PM CDT Teri Carvajal RN Active * Because of a physical, mental, or emotional condition, do you have difficulty doing errands alone such as visiting a doctor's office or shopping? Answer Date of Assessment Author Status No 01/16/2022 11:55 PM MENAT Teri Carvajal, RN Active documented as of this encounter Mental Status * Because of a physical, mental, or emotional condition, do you have serious difficulty concentrating, remembering, or making decisions? Answer Entry Date Author Status No 01/16/2022 11:55 PM MENAT Teri Carvajal RN Active documented in this encounter Plan of Treatment Upcoming Encounters Date Type Department Care Team (Late st Contact Info) Description 11/11/2024 10:40 AM DIRECTOR OF NEIGHBORHOOD SERVICE CENTER Telemedicine [facility] Medical [facility] Family & Internal Medicine [facility] [address] [place] [address] Leroy Meraz DO [address] [place] [address] Scheduled Orders Name Type Priority Associated Diagnoses Orde r Schedule Case request operating room: INCISION AND DRAINAGE ABSCESS anterior of right thigh Case Request Routine Once for 1 Occur rences starting 01/17/2022 until 01/17/2022 documented as of this encounter Goals Goal Patient Goal Type Associated Problems Recent Progress Patient-Stated? Author Discharge ? Patient/family verbalizes understanding regarding the need for SNF placement General No Emilia Bryant RN Note: Pt will actively be involved in safe discharge destination plan. documented as of this encounter Visit Diagnoses Diagnosis Abscess of thigh- Primary Cellulitis and abscess of leg, except foot documented in this encounter Additional Health Concerns [...] MDR ? Other Comment:Added from external Infection- [facility] Collection Source- Urine 2020 06/25/2024 MDR-WEIGH AND CHARGE WORKER - Carbapenemase-Prod ucing Organisms Comment:Added from external infection. Source: [facility]. Collection Source-Urine 08/04/2021 COVID-19 Rule Out 03/23/2024 03/23/2024 03/23/2024 1:17 PM CDT Assessment Noted Time PHQ-9 Depression Total Score: 0 12/04/19 1:13 PM DIRECTOR OF NE[facility]HB[facility]HOOD [facility]ICE [facility] documented as of this encounter Care Teams School Manager Relationship Specialty Start Date End Date Mary Marcus, HOISTER [address] [place] [address] PCP - General NURSE PRACTITIONER 11/30/21 08/28/22 Lisa Ramírez [facility] [address] [place] [address] PCP - General NURSE PRACTITIONER 08/29/22 09/01/22 Lisa Ramírez [facility] [address] [place] [address] PCP - General NURSE PRACTITIONER 09/05/22 07/07/24 Leroy Meraz DO [address] [place] [address] PCP - General FAMILY PRACTICE 07/08/24 [place] [address] [id number] Surgeon SURGERY 11/03/23 documented as of this encounter
--- OUTSIDE RECORDS SUMMARY | 2024-10-25 22:44 | XMS_ITS | Encounter Summary ---
Author Organization [facility] Address [address] [place] [address]. [place] [address] [place] [address] Care Team Providers Care Career Technical Counselor Name Role Phone [facility] Primary Care Provider + Jorje Ayala MD Unavailable Leroy Meraz DO Primary Care Provider + Encounter Details Date Type Department Care Team (Late st Contact Info) Description 03/02/2023 Prep for Procedure [facility] [address] [place], [place] [address] Jermain Fuentes MD [address] [facility] [address] [place] [address] Social History Tobacco Use Types Packs/Day Years Used Date Smoking Tobacco: Never Smokeless Tobacco: Never Alcohol Use Standard Drinks/Week Comments Not Currently 0 (1 standard drink = 0.6 oz pur e alcohol) PHQ-2 Answer Date Recorded Patient Health Questionnaire-2 Score 0 09/07/2022 Sex and Gender Information Value Date Recorded Sex Assigned at Male 10/10/2024 12:08 PM SPECIFICATIONS WRITER Legal Sex Male 5:44 PM CDT Gender Identity Not on file Sexual Orientation Not on file COVID-19 Exposure Response Date Recorded In the last 10 days, have yo u been in contact with someone who was confirmed or suspected to have Coronavirus/COVID-19? No / Unsure 03/01/2023 11:09 AM CDT documented as of this encounter [...] Date Author Status No 01/21/2022 2:05 PM MENAT Juliana Lewis RN Active documented in this encounter Plan of Treatment Upcoming Encounters Date Type Department Care Team (Late st Contact Info) Description 11/11/2024 10:40 AM SPECIFICATIONS WRITER Telemedicine [facility] Medical Group Family & Internal Medicine [facility] [address] [place] [address] Leroy Meraz DO [address] [place] [address] Scheduled Orders Name Type Priority Associated Diagnoses Orde r Schedule URINALYSIS WI REFLEX TO CULTURE Lab Routine Neurogenic bladder 1 Occurrences starting 03/02/2023 until 03/01/2024 documented as of this encounter Goals Goal Patient Goal Type Associated Problems Recent Progress Patient-Stated? Author Discharge ? Patient/family verbalizes understanding regarding the need for SNF placement General No Emilia Bryant RN Note: Pt will actively be involved in safe discharge destination plan. documented as of this encounter Visit Diagnoses Diagnosis Neurogenic bladder- Primary Neurogenic bladder, NOS documented in this encounter [...] ? Other Comment:Added from external Infection- [facility] Collection Source- Urine 2020 06/25/2024 MDR-ART DEALER - Carbapenemase-Prod ucing Organisms Comment:Added from external infection. Source: [facility]. Collection Source-Urine 08/04/2021 COVID-19 Rule Out 03/23/2024 03/23/2024 03/23/2024 1:17 PM CDT Assessment Noted Time PHQ-9 Depression Total Score: 0 12/04/19 1:13 PM SPECIFICATIONS WRITER documented as of this encounter Care Teams Career Technical Counselor Relationship Specialty Start Date End Date Lisa Ramírez, BED AND BREAKFAST COOK- [address] [place] [address] PCP - General NURSE PRACTITIONER 09/05/22 07/07/24 Leroy Meraz DO [address] [place] [address] PCP - General FAMILY PRACTICE 07/08/24 [place] [address] [address] Surgeon SURGERY 11/03/23 documented as of this encounter
--- OUTSIDE RECORDS SUMMARY | 2024-10-25 22:44 | XMS_ITS | Encounter Summary ---
Author Organization [facility] Address [address] [place] [address]. [place] [address] [place] [address] Care Team Providers Care Supervisor Pumping Station Name Role Phone Sherman Cartagena MD Primary Care Provider Angella Mary Guidry NP Primary Care Provider [phone] Lisa Ramírez [facility] Primary Care Provider + Lisa Ramírez [facility] Primary Care Provider + Jorej Ayala MD Unavailable Leroy Meraz DO Primary Care Provider + Encounter Details Date Type Department Care Team (Late st Contact Info) Description 08/03/2021 [employer] Message [facility] [address] [place] [address] Sherman Cartagena MD Other Social [...] Sex Assigned at Male 10/10/2024 12:08 PM HOSTAGE NEGOTIATOR Legal Sex Male 5:44 PM CDT Gender Identity Not on file Sexual Orientation Not on file COVID-19 Exposure Response Date Recorded In the last month, have you been in contact with someone who was confirmed or suspected to have Coronavirus / COVID-19? No / Unsure 08/04/2021 8:26 AM HOSTAGE NEGOTIATOR documented as of this encounter Functional Status * RETIRED Are you deaf or do you have serious difficulty hearing Answer Date of Assessment Author Status No 11/26/2020 1:38 PM HOSTAGE NEGOTIATOR Activ e * RETIRED Are you blind or do you have serious difficulty seeing, even when wearing glasses? Answer Date of Assessment Author Status No 11/26/2020 1:38 PM HOSTAGE NEGOTIATOR Activ e * Do you have serious [...] st Contact Info) Description 11/11/2024 10:40 AM HOSTAGE NEGOTIATOR Telemedicine [facility] Medical Group Family & Internal Medicine [address] [address] Leroy Meraz DO [address] [place] [address] documented as of this encounter Goals Goal [...] MDR ? Other Comment:Added from external Infection- [facility] Collection Source- Urine 2020 06/25/2024 MDR-TILE AND MARBLE SETTER - Carbapenemase-Prod ucing Organisms Comment:Added from external infection. Source: [facility] [employer] Collection Source-Urine 08/04/2021 COVID-19 Rule Out 09/28/2021 09/28/2021 10/05/2021 12:34 AM HOSTAGE NEGOTIATOR COVID-19 Rule Out 03/23/2024 03/23/2024 03/23/2024 1:17 PM CDT Assessment Noted Time PHQ-9 Depression Total Score: 0 04/22/20 21 2:39 PM CDT documented as of this encounter Care Teams Supervisor Pumping Station Relationship Specialty Start Date End Date Sherman Cartagena MD PCP - General FAMILY PRACTICE 08/25/20 11/29/21 Mary Marcus NP [address] [place] [address] PCP - General NURSE PRACTITIONER 11/30/21 08/28/22 Lisa Ramírez, BUILDING CONSTRUCTION SUPERVISOR- [address] [place] [address] PCP - General NURSE PRACTITIONER 08/29/22 09/01/22 Lisa Ramírez, BUILDING CONSTRUCTION SUPERVISOR- [address] [place] [address] PCP - General NURSE PRACTITIONER 09/05/22 07/07/24 Leroy Meraz DO [address] [place] [address] PCP - General FAMILY PRACTICE 07/08/24 [place] [address] [address] Surgeon SURGERY 11/03/23 documented as of this encounter
--- OUTSIDE RECORDS SUMMARY | 2024-10-25 22:44 | XMS_ITS | Encounter Summary ---
Author Organization [facility] Address [address] [place] [address]. [place] [address] [place] [address] Care Team Providers Care Clinical Trial Assistant Name Role Phone Sherman Cartagena MD Primary Care Provider Angella Mary Guidry NP Primary Care Provider [phone] Lisa Ramírez [facility] Primary Care Provider + Lisa Ramírez [facility] Primary Care Provider + Jorje Ayala MD Unavailable Leroy Meraz DO Primary Care Provider + Encounter Details Date Type Department Care Team (Late st Contact Info) Description 06/04/2021 WizeHive Message [facility] [address] [place] [address] Sherman Cartagena MD RE: Other [...] Sex Assigned at Male 10/10/2024 12:08 PM TOP LIFTER Legal Sex Male 5:44 PM CDT Gender [...] Assessment Author Status No 11/26/2020 1:38 PM TOP LIFTER Activ e * RETIRED Are you blind or do you have serious difficulty seeing, even when wearing glasses? Answer Date of Assessment Author Status No 11/26/2020 1:38 PM TOP LIFTER Activ e * Do you have serious [...] Progress Notes * Sherman Cartagena MD - 06/04/2021 12:04 PM CDT Why is he taking his BP so frequently. Stress that 1-2 times a day is fine and since he has been under control can take 2-3 times per week. Thanks. * Marjorie Mehta RN - 06/04/2021 11:25 AM CDT FYI documented in this encounter Plan of Treatment Upcoming Encounters Date Type Department Care Team (Late st Contact Info) Description 11/11/2024 10:40 AM TOP LIFTER Telemedicine [facility] Medical Group Family & Internal Medicine - [place] [address] [place] [address] Kt Leroy Ritchie, [address] [place] [address] documented as of this encounter Goals Goal [...] MDR ? Other Comment:Added from external Infection- [facility] [employer] Collection Source- Urine 2020 06/25/2024 MDR-ICE RINK ATTENDANT - Carbapenemase-Prod ucing Organisms Comment:Added from external infection. Source: [facility] [employer]. Collection Source-Urine 08/04/2021 COVID-19 Rule Out 09/28/2021 09/28/2021 10/05/2021 12:34 AM TOP LIFTER COVID-19 Rule Out 03/23/2024 03/23/2024 03/23/2024 1:17 PM CDT Assessment Noted Time PHQ-9 Depression Total Score: 0 04/22/20 21 2:39 PM CDT documented as of this encounter Care Teams Clinical Trial Assistant Relationship Specialty Start Date End Date Sherman Cartagena MD PCP - General FAMILY PRACTICE 08/25/20 11/29/21 Mary Marcus, DONTE [address] [place] [address] PCP - General NURSE PRACTITIONER 11/30/21 08/28/22 Lisa Ramírez, [facility] [address] [place] [address] PCP - General NURSE PRACTITIONER 08/29/22 09/01/22 Lisa Ramírez [facility] [address] [place] [address] PCP - General NURSE PRACTITIONER 09/05/22 07/07/24 Leroy Meraz DO [address] [place] [address] [id number] PCP - General FAMILY PRACTICE 07/08/24 [place] [id number] [id number] Surgeon SURGERY 11/03/23 documented as of this encounter
--- OUTSIDE RECORDS SUMMARY | 2024-10-25 22:44 | XMS_ITS | Encounter Summary ---
Author Organization [facility] Address [address] [place] [address]. [place] [address] [place] [address] Care Team Providers Care Applications Support Analyst Name Role Phone Mary Marcus NP Primary Care Provider Lisa Ramírez [facility] Primary Care Provider + Lisa Ramírez [facility] Primary Care Provider + Jorje Ayala MD Unavailable Leroy Meraz DO Primary Care Provider + Encounter Details Date Type Department Care Team (Late st Contact Info) Description 01/03/2022 MaidSafe Message [facility] [address] [place] [address] Mary Marcus PROFESSOR OF ENVIRONMENTAL ENGINEERING [address] [place] [address] the antibiotics Social History Tobacco Use Types Packs/Day Years [...] Sex Assigned at Male 10/10/2024 12:08 PM DIGITAL STRATEGY MANAGER Legal Sex Male 5:44 PM CDT Gender Identity Not on file Sexual Orientation Not on file COVID-19 Exposure Response Date Recorded In the last 10 days, have janet celestin been in contact with someone who was confirmed or suspected to have Coronavirus/COVID-19? No / Unsure 01/05/2022 10:49 AM CDT documented as of this encounter Functional Status * RETIRED Are you deaf or do you have serious difficulty hearing Answer Date of Assessment Author Status No 11/26/2020 1:38 PM DIGITAL STRATEGY MANAGER Activ e * RETIRED Are you blind or do you have serious difficulty seeing, even when wearing glasses? Answer Date of Assessment Author Status No 11/26/2020 1:38 PM DIGITAL STRATEGY MANAGER Activ e * Do you have serious [...] st Contact Info) Description 11/11/2024 10:40 AM DIGITAL STRATEGY MANAGER Telemedicine [facility] Medical Group Family & Internal Medicine - [place] [address] [place] [address] Leroy Meraz DO [address] [place] [address] documented as of this encounter Goals Goal [...] MDR ? Other Comment:Added from external Infection- [facility] Collection Source- Urine 2020 06/25/2024 MDR-SIGN LANGUAGE INSTRUCTOR - Carbapenemase-Prod ucing Organisms Comment:Added from external infection. Source: [facility] [employer]. Collection Source-Urine 08/04/2021 COVID-19 Rule Out 03/23/2024 03/23/2024 03/23/2024 1:17 PM CDT Assessment Noted Time PHQ-9 Depression Total Score: 0 12/04/19 1:13 PM DIGITAL STRATEGY MANAGER documented as of this encounter Care Teams Applications Support Analyst Relationship Specialty Start Date End Date Mary Marcus, DONTE [address] [place] [address] PCP - General NURSE PRACTITIONER 11/30/21 08/28/22 Lisa Ramírez FNP-JUAN MANUEL [address] [place] [address] PCP - General NURSE PRACTITIONER 08/29/22 09/01/22 Lisa Ramírez FNP- [address] [place] [address] PCP - General NURSE PRACTITIONER 09/05/22 07/07/24 Leroy Meraz DO [address] [place] [address] PCP - General FAMILY PRACTICE 07/08/24 [place] [address] [address] Surgeon SURGERY 11/03/23 documented as of this encounter
--- OUTSIDE RECORDS SUMMARY | 2024-10-25 22:44 | XMS_ITS | Encounter Summary ---
Author Organization [facility] Address [address] [place] [address]. [place] [address] [place] [address] Care Team Providers Care Alum Mixer Name Role Phone Sherman Cartagena MD Primary Care Provider Angella Mary Guidry NP Primary Care Provider [phone] Lisa Ramírez [facility] Primary Care Provider + Lisa Ramírez [facility] Primary Care Provider + Jorje Ayala MD Unavailable Leroy Meraz DO Primary Care Provider + Encounter Details Date Type Department Care Team (Late st Contact Info) Description 06/04/2021 BuzzStream Message Enc [facility] [address] [place] [address] [place] [address] [facility] [address] [place] [address] Follow Up/Update Social History Tobacco Use Types Packs/Day Years [...] Sex Assigned at Male 10/10/2024 12:08 PM WAITER AND CASHIER Legal Sex Male 5:44 PM CDT Gender [...] Assessment Author Status No 11/26/2020 1:38 PM WAITER AND CASHIER Activ e * RETIRED Are you blind or do you have serious difficulty seeing, even when wearing glasses? Answer Date of Assessment Author Status No 11/26/2020 1:38 PM WAITER AND CASHIER Activ e * Do you have serious [...] st Contact Info) Description 11/11/2024 10:40 AM WAITER AND CASHIER Telemedicine [facility] Medical Group Family & Internal Medicine [address] [address] Leroy Meraz DO [facility] [place] [address] documented as of this encounter Goals Goal [...] MDR ? Other Comment:Added from external Infection- [facility] [employer] Collection Source- Urine 2020 06/25/2024 MDR-CUSTOMS COMPLIANCE MANAGER - Carbapenemase-Prod ucing Organisms Comment:Added from external infection. Source: [facility] [employer]. Collection Source-Urine 08/04/2021 COVID-19 Rule Out 09/28/2021 09/28/2021 10/05/2021 12:34 AM WAITER AND CASHIER COVID-19 Rule Out 03/23/2024 03/23/2024 03/23/2024 1:17 PM CDT Assessment Noted Time PHQ-9 Depression Total Score: 0 04/22/20 21 2:39 PM CDT documented as of this encounter Care Teams Alum Mixer Relationship Specialty Start Date End Date Sherman Cartagena MD PCP - General FAMILY PRACTICE 08/25/20 11/29/21 Mary Marcus NP [address] [place] [address] PCP - General NURSE PRACTITIONER 11/30/21 08/28/22 [facility] [address] [place] [address] PCP - General NURSE PRACTITIONER 08/29/22 09/01/22 Lisa Ramírez [facility] [address] [place] [address] PCP - General NURSE PRACTITIONER 09/05/22 07/07/24 Leroy Meraz DO [address] [place] [address] PCP - General FAMILY PRACTICE 07/08/24 [place] [address] [address] Surgeon SURGERY 11/03/23 documented as of this encounter
--- OUTSIDE RECORDS SUMMARY | 2024-10-25 22:44 | XMS_ITS | Encounter Summary ---
Author Organization [facility] Address [address] [place] [address]. [place] [address] [place] [address] Care Team Providers Care Machine Slat Basket Maker Name Role Phone [facility] Primary Care Provider + Jorje Ayala MD Unavailable Leroy Meraz DO Primary Care Provider + Encounter Details Date Type Department Care Team (Late st Contact Info) Description 02/24/2023 Thinktwice Message Enc [address] [address] [facility] Provider arrival time Social History Tobacco Use Types Packs/Day Years Used Date Smoking Tobacco: Never Smokeless Tobacco: Never Alcohol Use Standard Drinks/Week Comments Not Currently 0 (1 standard drink = 0.6 oz pur e alcohol) PHQ-2 Answer Date Recorded Patient Health Questionnaire-2 Score 0 09/07/2022 Sex and Gender Information Value Date Recorded Sex Assigned at Male 10/10/2024 12:08 PM SCANNING CLERK Legal Sex Male 5:44 PM CDT Gender Identity Not on file Sexual Orientation Not on file COVID-19 Exposure Response Date Recorded In the last 10 days, have yo u been in contact with someone who was confirmed or suspected to have Coronavirus/COVID-19? No / Unsure 02/27/2023 4:25 PM CDT documented as of this encounter [...] st Contact Info) Description 11/11/2024 10:40 AM SCANNING CLERK Telemedicine [facility] Medical Group Family & Internal Medicine [address] [address] Leroy Meraz, [address] [place] [address] [phone] documented as of this encounter Goals Goal Patient Goal Type Associated Problems Recent Progress Patient-Stated? Author Discharge ? Patient/family verbalizes understanding regarding the need for SNF placement General Emilia Marcial RN Note: Pt will actively be involved [...] MDR ? Other Comment:Added from external Infection- [facility] Collection Source- Urine 2020 06/25/2024 MDR-HIGH DENSITY PRESS OPERATOR - Carbapenemase-Prod ucing Organisms Comment:Added from external infection. Source: [facility] [employer]. Collection Source-Urine 08/04/2021 COVID-19 Rule Out 03/23/2024 03/23/2024 03/23/2024 1:17 PM CDT Assessment Noted Time PHQ-9 Depression Total Score: 0 12/04/19 1:13 PM SCANNING CLERK documented as of this encounter Care Teams Machine Slat Basket Maker Relationship Specialty Start Date End Date Lisa Ramírez, MUCKER OPERATOR- [address] [place] [address] PCP - General NURSE PRACTITIONER 09/05/22 07/07/24 Leroy Meraz DO [facility] [place] [address] PCP - General FAMILY PRACTICE 07/08/24 [place] [address] [address] Surgeon SURGERY 11/03/23 documented as of this encounter
--- OUTSIDE RECORDS SUMMARY | 2024-10-25 22:44 | XMS_ITS | Encounter Summary ---
Author Organization [facility] Address [address] [place] [address]. [place] [address] [place] [address] Care Team Providers Care Marking Clerk Name Role Phone Sherman Cartagena MD Primary Care Provider Angella Mary Guidry NP Primary Care Provider [phone] Lisa Ramírez [facility] Primary Care Provider + Lisa Ramírez [facility] Primary Care Provider + Jorje Ayala MD Unavailable Leroy Meraz DO Primary Care Provider + Encounter Details Date Type Department Care Team (Late st Contact Info) Description 08/03/2021 GOintegro Message [facility] [address] [place] [address] Sherman Cartagena MD Other Social [...] Sex Assigned at Male 10/10/2024 12:08 PM PACKER SAUSAGE AND WIENER Legal Sex Male 5:44 PM CDT Gender Identity Not on file Sexual Orientation Not on file COVID-19 Exposure Response Date Recorded In the last month, have you been in contact with someone who was confirmed or suspected to have Coronavirus / COVID-19? No / Unsure 08/04/2021 8:26 AM PACKER SAUSAGE AND WIENER documented as of this encounter Functional Status * RETIRED Are you deaf or do you have serious difficulty hearing Answer Date of Assessment Author Status No 11/26/2020 1:38 PM PACKER SAUSAGE AND WIENER Activ e * RETIRED Are you blind or do you have serious difficulty seeing, even when wearing glasses? Answer Date of Assessment Author Status No 11/26/2020 1:38 PM PACKER SAUSAGE AND WIENER Activ e * Do you have serious difficulty walking or climbing stairs? Answer Date of Assessment Author Status Yes 11/26/2020 1:38 PM PACKER SAUSAGE AND WIENER Yoly Larson RN Active * Do you have difficulty dressing or bathing? Answer Date of Assessment Author Status Yes 11/26/2020 1:38 PM PACKER SAUSAGE AND WIENER Yoly Larson RN Active * Because of a physical, mental, or emotional condition, do you have difficulty doing errands alone such as visiting a doctor's office or shopping? Answer Date of Assessment Author Status Yes 11/26/2020 1:38 PM PACKER SAUSAGE AND WIENER Yoly Larson RN Active documented as of this encounter Mental Status * Because of a physical, mental, or emotional condition, do you have serious difficulty concentrating, remembering, or making decisions? Answer Entry Date Author Status No 11/26/2020 1:38 PM PACKER SAUSAGE AND WIENER Yoly Larson RN Active documented in this encounter Progress Notes * Keny Jung MD - 08/04/2021 10:47 AM CST Contact the person he is talking about. I've never met him and would have nothing that I could tellher. Also send Dr. Cartagena letter in his chart to her . ER SAUSAGE AND WIENER * Keny Jung MD - 08/04/2021 8:08 AM CST Not sure I an answer this issue. Please see what the real issue is and send someone this letter of necessity he is talking about. ER SAUSAGE AND WIENER documented in this encounter Plan of Treatment Upcoming Encounters Date Type Department Care Team (Late st Contact Info) Description 11/11/2024 10:40 AM PACKER SAUSAGE AND WIENER Telemedicine [facility] Medical Group Family & Internal Medicine [place] [address] [place] [address] Leroy Meraz, [address] [place] [address] documented as of this encounter Goals Goal [...] Comment:Added from external Infection- [facility] [employer] Collection Source- Urine 2020 06/25/2024 MDR-ACID PUMPER - Carbapenemase-Prod ucing Organisms Comment:Added from external infection. Source: [facility] [employer]. Collection Source-Urine 08/04/2021 COVID-19 Rule Out 09/28/2021 09/28/2021 10/05/2021 12:34 AM PACKER SAUSAGE AND WIENER COVID-19 Rule Out 03/23/2024 03/23/2024 03/23/2024 1:17 PM CDT Assessment Noted Time PHQ-9 Depression Total Score: 0 04/22/20 21 2:39 PM CDT documented as of this encounter Care Teams Marking Clerk Relationship Specialty Start Date End Date Sherman Cartagena MD PCP - General FAMILY PRACTICE 08/25/20 11/29/21 Mary Marcus, DONTE [address] [place] [address] PCP - General NURSE PRACTITIONER 11/30/21 08/28/22 Lisa Ramírez, [facility] [address] [place] [address] PCP - General NURSE PRACTITIONER 08/29/22 09/01/22 Lisa Ramírez [facility] [address] [place] [address] PCP - General NURSE PRACTITIONER 09/05/22 07/07/24 Leroy Meraz DO [address] [place] [address] [phone] PCP - General FAMILY PRACTICE 07/08/24 [place] [address] [address] Surgeon SURGERY 11/03/23 documented as of this encounter
--- OUTSIDE RECORDS SUMMARY | 2024-10-25 22:44 | XMS_ITS | Encounter Summary ---
Author Organization [facility] Address [address] [place] [address]. [place] [address] [place] [address] Care Team Providers Care Hot Dog Vender Name Role Phone Lisa Ramírez [facility] Primary Care Provider + Jorje Ayala MD Unavailable Leroy Meraz DO Primary Care Provider + Encounter Details Date Type Department Care Team (Late st Contact Info) Description 03/23/2023 Ther[employer] Message [facility] [address] [place] [address] Lisa Ramírez, [facility] [address] [place] [address] Potassium Social History Tobacco Use Types Packs/Day Years Used Date Smoking Tobacco: Never Smokeless Tobacco: Never Comments:never smoke Alcohol Use Standard Drinks/Week Comments Not Currently 0 (1 standard drink = 0.6 oz pur e alcohol) PHQ-2 Answer Date Recorded Patient Health Questionnaire-2 Score 0 03/09/2023 Sex and Gender Information Value Date Recorded Sex Assigned at Male 10/10/2024 12:08 PM SENIOR ENGINEERING ASSOCIATE Legal Sex Male 5:44 PM CDT Gender Identity Not on file Sexual Orientation Not on file COVID-19 Exposure Response Date Recorded In the last 10 days, have yo u been in contact with someone who was confirmed or suspected to have Coronavirus/COVID-19? No / Unsure 03/09/2023 11:31 AM CDT documented as of this encounter [...] st Contact Info) Description 11/11/2024 10:40 AM SENIOR ENGINEERING ASSOCIATE Telemedicine [facility] Medical Group Family & Internal Medicine [facility] [address] [place] [address] Leroy Meraz DO [address] [place], [place] [phone] documented as of this encounter Goals Goal [...] HOSPITAL Health Collection Source- Urine 2020 06/25/2024 MDR-SECONDARY SCHOOL TEACHER - Carbapenemase-Prod ucing Organisms Comment:Added from external infection. Source: [facility] [employer]. Collection Source-Urine 08/04/2021 COVID-19 Rule Out 03/23/2024 03/23/2024 03/23/2024 1:17 PM CDT Assessment Noted Time PHQ-9 Depression Total Score: 0 12/04/19 1:13 PM SENIOR ENGINEERING ASSOCIATE documented as of this encounter Care Teams Hot Dog Vender Relationship Specialty Start Date End Date Lisa Ramírez, ENERAJ- [address] [place] [address] PCP - General NURSE PRACTITIONER 09/05/22 07/07/24 Leroy Meraz DO [address] [place] [address] PCP - General FAMILY PRACTICE 07/08/24 [place] [address] [address] Surgeon SURGERY 11/03/23 documented as of this encounter
--- OUTSIDE RECORDS SUMMARY | 2024-10-25 22:44 | XMS_ITS | Encounter Summary ---
Author Organization [facility] Address [address] [place] [address]. [place] [address] [place] [address] Care Team Providers Care Mooner Name Role Phone Lisa Ramírez [facility] Primary Care Provider + Jorje Ayala MD Unavailable Leroy Meraz DO Primary Care Provider + Encounter Details Date Type Department Care Team (Latest Contact Info) Description 02/26/2023 Claim Maps Message [facility] [address] [place] [address] Lisa Ramírez, [facility] [address] [place] [address] can you right a prescription Social History Tobacco Use Types Packs/Day Years Used Date Smoking Tobacco: Never Smokeless Tobacco: Never Alcohol Use Standard Drinks/Week Comments Not Currently 0 (1 standard drink = 0.6 oz pur e alcohol) PHQ-2 Answer Date Recorded Patient Health Questionnaire-2 Score 0 09/07/2022 Sex and Gender Information Value Date Recorded Sex Assigned at Male 10/10/2024 12:08 PM IN SERVICE EDUCATION TEACHER Legal Sex Male 5:44 PM CDT [...] st Contact Info) Description 11/11/2024 10:40 AM IN SERVICE EDUCATION TEACHER Telemedicine [facility] Medical Group Family & Internal Medicine [facility] [address] [place] [address] Leroy Meraz DO [address] [place], [place] [phone] documented as of this encounter Goals Goal [...] ? Other Comment:Added from external Infection- [facility] Collection Source- Urine 2020 06/25/2024 MDR-KILN LOADER - Carbapenemase-Prod ucing Organisms Comment:Added from external infection. Source: [facility] [employer]. Collection Source-Urine 08/04/2021 COVID-19 Rule Out 03/23/2024 03/23/2024 03/23/2024 1:17 PM CDT Assessment Noted Time PHQ-9 Depression Total Score: 0 12/04/19 1:13 PM IN SERVICE EDUCATION TEACHER documented as of this encounter Care Teams Mooner Relationship Specialty Start Date End Date Lisa Ramírez, RAILROAD SWITCHMAN- [address] [place] [address] PCP - General NURSE PRACTITIONER 09/05/22 07/07/24 Leroy Meraz DO [address] [place] [address] PCP - General FAMILY PRACTICE 07/08/24 [place] [address] [address] Surgeon SURGERY 11/03/23 documented as of this encounter
--- OUTSIDE RECORDS SUMMARY | 2024-10-25 22:44 | XMS_ITS | Encounter Summary ---
Author Organization [facility] Address [address] [place] [address]. [place] [address] [place] [address] Care Team Providers Care Stitch Cleaner Name Role Phone [facility] Primary Care Provider + Jorje Ayala MD Unavailable Leroy Meraz DO Primary Care Provider + Encounter Details Date Type Department Care Team (Late st Contact Info) Description 12/23/2022 MoneyMent[employer] Message [facility] [address] [place] [address] My[facility] Provider results Social History Tobacco Use Types Packs/Day Years Used Date Smoking Tobacco: Never Smokeless Tobacco: Never Alcohol Use Standard Drinks/Week Comments Not Currently 0 (1 standard drink = 0.6 oz pur e alcohol) PHQ-2 Answer Date Recorded Patient Health Questionnaire-2 Score 0 09/07/2022 Sex and Gender Information Value Date Recorded Sex Assigned at Male 10/10/2024 12:08 PM SERGEANT OF OFFICERS Legal Sex Male 5:44 PM CDT Gender Identity Not on file Sexual Orientation Not on file COVID-19 Exposure Response Date Recorded In the last 10 days, have yo u been in contact with someone who was confirmed or suspected to have Coronavirus/COVID-19? No / Unsure 12/22/2022 12:04 PM CDT documented as of this encounter [...] st Contact Info) Description 11/11/2024 10:40 AM SERGEANT OF OFFICERS Telemedicine [facility] Medical Group Family & Internal Medicine [address] [address] Leroy Meraz, [address] [place] [address] [phone] documented as of this encounter Goals Goal [...] ? Other Comment:Added from external Infection- [facility] Collection Source- Urine 2020 06/25/2024 MDR-CARDING MACHINE FEEDER - Carbapenemase-Prod ucing Organisms Comment:Added from external infection. Source: [facility] [employer] Collection Source-Urine 08/04/2021 COVID-19 Rule Out 03/23/2024 03/23/2024 03/23/2024 1:17 PM CDT Assessment Noted Time PHQ-9 Depression Total Score: 0 12/04/19 1:13 PM SERGEANT OF OFFICERS documented as of this encounter Care Teams Stitch Cleaner Relationship Specialty Start Date End Date Lisa Ramírez, DIRECTOR OF UNDERGRADUATE ADMISSIONS- [address] [place] [address] PCP - General NURSE PRACTITIONER 09/05/22 07/07/24 Leroy Meraz DO [facility] [place] [address] PCP - General FAMILY PRACTICE 07/08/24 [place] [address] [address] Surgeon SURGERY 11/03/23 documented as of this encounter"
--- OUTSIDE RECORDS SUMMARY | 2024-10-25 22:44 | XMS_ITS | Encounter Summary ---
Author Organization [facility] Address [address] [place] [address]. [place] [address] [place] [address] Care Team Providers Care Hand Coke Drawer Name Role Phone Sherman Cartagena MD Primary Care Provider Angella Mary Guidry NP Primary Care Provider [phone] Lisa Ramírez [facility] Primary Care Provider + Lisa Ramírez [facility] Primary Care Provider + Jorje Ayala MD Unavailable Leroy Meraz DO Primary Care Provider + Encounter Details Date Type Department Care Team (Late st Contact Info) Description 06/04/2021 SessionM Message [facility] [address] [place] [address] Sherman Cartagena MD Other Social [...] Sex Assigned at Male 10/10/2024 12:08 PM PARA EDUCATOR Legal Sex Male 5:44 PM CDT Gender [...] Assessment Author Status No 11/26/2020 1:38 PM PARA EDUCATOR Activ e * RETIRED Are you blind or do you have serious difficulty seeing, even when wearing glasses? Answer Date of Assessment Author Status No 11/26/2020 1:38 PM PARA EDUCATOR Activ e * Do you have serious [...] documented in this encounter Progress Notes * Marjorie Mehta RN - 06/04/2021 11:56 AM CDT FYI documented in this encounter Plan of Treatment Upcoming Encounters Date Type Department Care Team (Late st Contact Info) Description 11/11/2024 10:40 AM PARA EDUCATOR Telemedicine [facility] Medical Group Family & Internal Medicine - [address] [address] Leroy Meraz, [address] [place] [address] documented as of this encounter Goals Goal [...] MDR ? Other Comment:Added from external Infection- [facility] Health Collection Source- Urine 2020 06/25/2024 MDR-DIE GRINDER - Carbapenemase-Prod ucing Organisms Comment:Added from external infection. Source: [facility] [employer]. Collection Source-Urine 08/04/2021 COVID-19 Rule Out 09/28/2021 09/28/2021 10/05/2021 12:34 AM PARA EDUCATOR COVID-19 Rule Out 03/23/2024 03/23/2024 03/23/2024 1:17 PM CDT Assessment Noted Time PHQ-9 Depression Total Score: 0 04/22/20 21 2:39 PM CDT documented as of this encounter Care Teams Hand Coke Drawer Relationship Specialty Start Date End Date Sherman Cartagena MD PCP - General FAMILY PRACTICE 08/25/20 11/29/21 Mary Marcus PLAQUE MAKER [address] [place] [address] PCP - General NURSE PRACTITIONER 11/30/21 08/28/22 Lisa Ramírez, [facility] [address] [place] [address] PCP - General NURSE PRACTITIONER 08/29/22 09/01/22 Lisa Ramírez [facility] [address] [place] [address] PCP - General NURSE PRACTITIONER 09/05/22 07/07/24 Leroy Meraz DO [address] [place] [address] PCP - General FAMILY PRACTICE 07/08/24 [place] [address] [address] Surgeon SURGERY 11/03/23 documented as of this encounter
--- OUTSIDE RECORDS SUMMARY | 2024-10-25 22:44 | XMS_ITS | Encounter Summary ---
Author Organization [facility] Address [address] [place] [address]. [place] [address] [place] [address] Care Team Providers Care Weathercaster Name Role Phone Sherman Cartagena MD Primary Care Provider Angella Mary Guidry NP Primary Care Provider [phone] Lisa Ramírez [facility] Primary Care Provider + Lisa Ramírez [facility] Primary Care Provider + Jorje Ayala MD Unavailable Leroy Meraz DO Primary Care Provider + Encounter Details Date Type Department Care Team (Late st Contact Info) Description 10/08/[address] [facility] [address] [place] [address] Sherman Cartagena MD Pneumonia shot Social History Tobacco Use Types Packs/Day Years [...] Sex Assigned at Male 10/10/2024 12:08 PM CORKING MACHINE OPERATOR Legal Sex Male 5:44 PM CDT Gender Identity Not on file Sexual Orientation Not on file COVID-19 Exposure Response Date Recorded In the last month, have you been in contact with someone who was confirmed or suspected to have Coronavirus / COVID-19? No / Unsure 10/11/2021 10:23 AM CORKING MACHINE OPERATOR documented as of this encounter Functional Status * RETIRED Are you deaf or do you have serious difficulty hearing Answer Date of Assessment Author Status No 11/26/2020 1:38 PM CORKING MACHINE OPERATOR Activ e * RETIRED Are you blind or do you have serious difficulty seeing, even when wearing glasses? Answer Date of Assessment Author Status No 11/26/2020 1:38 PM CORKING MACHINE OPERATOR Activ e * Do you have serious difficulty walking or climbing stairs? Answer Date of Assessment Author Status Yes 11/26/2020 1:38 PM CORKING MACHINE OPERATOR Yoly Larson RN Active * Do you have difficulty dressing or bathing? Answer Date of Assessment Author Status Yes 11/26/2020 1:38 PM CORKING MACHINE OPERATOR Yoly Larson RN Active * Because of a physical, mental, or emotional condition, do you have difficulty doing errands alone such as visiting a doctor's office or shopping? Answer Date of Assessment Author Status Yes 11/26/2020 1:38 PM CORKING MACHINE OPERATOR Yoly Larson RN Active documented as of this encounter Mental Status * Because of a physical, mental, or emotional condition, do you have serious difficulty concentrating, remembering, or making decisions? Answer Entry Date Author Status No 11/26/2020 1:38 PM Yoly Isaac RN Active documented in this encounter Progress Notes * Emilia Peralta RN - 10/08/2021 11:49 AM CST Spoke with patient who states he already got Flu, Covid booster, and pneumonia pneumovax. ING MACHINE OPERATOR documented in this encounter Plan of Treatment Upcoming Encounters Date Type Department Care Team (Late st Contact Info) Description 11/11/2024 10:40 AM CORKING MACHINE OPERATOR Telemedicine [facility] Medical Group Family & Internal Medicine [address] [address] Leroy Meraz P, DO [address] [place] [address] documented as of this encounter Goals Goal [...] HOSPITAL Health Collection Source- Urine 2020 06/25/2024 MDR-LANDSCAPE MAINTENANCE INTERNSHIP - Carbapenemase-Prod ucing Organisms Comment:Added from external infection. Source: [facility]. Collection Source-Urine 08/04/2021 COVID-19 Rule Out 03/23/2024 03/23/2024 03/23/2024 1:17 PM CDT Assessment Noted Time PHQ-9 Depression Total Score: 0 04/22/20 21 2:39 PM CDT documented as of this encounter Care Teams Weathercaster Relationship Specialty Start Date End Date Sherman Cartagena MD PCP - General FAMILY PRACTICE 08/25/20 11/29/21 Mary Marcus NP [address] [place] [address] PCP - General NURSE PRACTITIONER 11/30/21 08/28/22 Lisa Ramírez, [facility] [address] [place] [address] PCP - General NURSE PRACTITIONER 08/29/22 09/01/22 Lisa Ramírez, [facility] [address] [place] [address] PCP - General NURSE PRACTITIONER 09/05/22 07/07/24 Leroy Meraz DO [address] [place] [address] PCP - General FAMILY PRACTICE 07/08/24 [place] [id number] [address] Surgeon SURGERY 11/03/23 documented as of this encounter
--- OUTSIDE RECORDS SUMMARY | 2024-10-25 22:44 | XMS_ITS | Encounter Summary ---
Author Organization [facility] Address [address] [place] [address]. [place] [address] [place] [address] Care Team Providers Care Recruiting Associate Name Role Phone [facility] Primary Care Provider + Jorje Ayala MD Unavailable Leroy Meraz DO Primary Care Provider + Encounter Details Date Type Department Care Team (Late st Contact Info) Description 03/02/2023 Therapy Plan [facility] [address] [place] [address] Jermain Fuentes MD [address] [facility] [address] [place] [address] Social History Tobacco Use Types Packs/Day Years Used Date Smoking Tobacco: Never Smokeless Tobacco: Never Alcohol Use Standard Drinks/Week Comments Not Currently 0 (1 standard drink = 0.6 oz pur e alcohol) PHQ-2 Answer Date Recorded Patient Health Questionnaire-2 Score 0 09/07/2022 Sex and Gender Information Value Date Recorded Sex Assigned at Male 10/10/2024 12:08 PM GLASS TECHNOLOGIST Legal Sex Male 5:44 PM CDT Gender [...] st Contact Info) Description 11/11/2024 10:40 AM GLASS TECHNOLOGIST Telemedicine [facility] Medical Group Family & Internal Medicine [facility] [address] [place] [address] Leroy Meraz DO [address] [place] [address] documented as of this encounter Goals Goal Patient Goal Type Associated Problems Recent Progress Patient-Stated? Author Discharge ? Patient/family verbalizes understanding regarding the need for SNF placement General No Emilia Bryant RN Note: Pt will actively be involved in safe discharge destination plan. 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 Other Comment:Added from external Infection- [facility] [employer] Collection Source- Urine 2020 06/25/2024 MDR-CLINICAL DIETITIAN - Carbapenemase-Prod ucing Organisms Comment:Added from external infection. Source: [facility] [employer]. Collection Source-Urine 08/04/2021 COVID-19 Rule Out 03/23/2024 03/23/2024 03/23/2024 1:17 PM CDT Assessment Noted Time PHQ-9 Depression Total Score: 0 12/04/19 1:13 PM GLASS TECHNOLOGIST documented as of this encounter Care Teams Recruiting Associate Relationship Specialty Start Date End Date Lisa Ramírez, [facility]- [address] [place] [address] PCP - General NURSE PRACTITIONER 09/05/22 07/07/24 Leroy Meraz DO [address] [place] [id number] PCP - General FAMILY PRACTICE 07/08/24 [place] [address] [address] Surgeon SURGERY 11/03/23 documented as of this encounter
--- NOTE | 2024-10-25 23:01 | ED.RECABL ---
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 Patient states week ago he had his labs drawn by his PCP and was notified yesterday that his iron was low. States he took 2 iron pills last night but did not take any this morning and came to the ED to get his labs checked. He has a history of low iron for which he takes ferrous sulfate. He also notes that he was told his cholesterol is high so he began fasting today in hopes that this would help his cholesterol. Upon EMS arrival patient had a blood glucose of 67 and was given oral glucose. Patient denies blood in his ostomy. Related Data Home Medications ?Medication ?Instructions ?Recorded ?Confirmed ?Last Taken ?Type amlodipine PO 04/16/24 05/28/24 Unknown History ferrous sulfate [Iron (ferrous PO 04/16/24 05/28/24 Unknown History sulfate)] metoprolol succinate PO 04/16/24 05/28/24 Unknown History potassium chloride PO 04/16/24 05/28/24 Unknown History Allergies Allergy/AdvReac Type Severity Reaction Status Date / Time ciprofloxacin (From Cipro) AdvReac Mild Hives Verified 06/25/24 10:14 diazepam (From Valium) AdvReac Mild Hives Verified 06/25/24 10:14 diphenhydramine (From AdvReac Mild Hives Verified 06/25/24 10:14 Benadryl) adhesive tape AdvReac Unknown Verified 06/25/24 10:14 pink zinc AdvReac Mild Hives Uncoded 06/25/24 10:14 Review of Systems Review of Systems: All systems reviewed & are unremarkable except as noted in HPI and below PMFSH Past Medical History Medical History 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 Wheelchair dependent to ambulate. Smoking status: Never smoker Exam Narrative: GENERAL: Well-appearing, well-nourished, and in no acute distress. HEAD: Normocephalic, atraumatic. EYES: EOMI. ENT: Nares clear, no rhinorrhea or epistaxis. Mucous membranes moist. NECK: Supple. CHEST: Clear to auscultation. No respiratory distress. HEART: Regular rate and rhythm. No murmur heard. Normal peripheral pulses. ABDOMEN: Soft, nontender, nondistended, normal active bowel sounds. Ostomy present in the left abdomen with no surrounding erythema, drainage, induration, tenderness, no blood or stool in ostomy bag. Indwelling Blair catheter draining clear yellow urine EXTREMITIES: Muscle wasting to BLE SKIN: Warm, dry, no rash. NEURO: No focal deficits. Alert and oriented x3 Course Vital Signs Vital signs: Vital Signs Temperature 98 F 10/25/24 19:33 Pulse Rate 82 10/25/24 19:33 Respiratory Rate 14 10/25/24 19:33 Blood Pressure 159/84 H 10/25/24 19:33 Pulse Oximetry 100 10/25/24 19:33 Oxygen Delivery Room Air 10/25/24 19:33 Temperature 98 F 10/25/24 19:33 Pulse Rate 82 10/25/24 19:33 Respiratory Rate 14 10/25/24 19:33 Blood Pressure 159/84 H 10/25/24 19:33 Pulse Oximetry 100 10/25/24 19:33 Oxygen Delivery Room Air 10/25/24 19:33 MDM - Recheck/Abnormal Lab/Rx MDM Narrative Medical decision making narrative: 53-year-old male history of paraplegia secondary to T9/T10 injury presents to the ED with reports of low iron after having blood drawn 1 week ago by his PCP. Vitals stable. Pt denies signs/sx of GI bleed. He has no other complaints but was found to have a blood glucose of 60s by EMS, likely due to patient fasting in reported attempt to help his cholesterol. He is given oral glucose. His lab work shows no leukocytosis. Hemoglobin is 12.7, most recent comparison was March 2024 at 10.3. Chemistries consistent with dehydration with a bicarb of 20 anion gap 15, glucose is normal at 94. He is tolerating p.o. intake and ate a sandwich and apple juice in the ED. Advised follow-up with PCP, advised increased fluid intake and well rounded diet. Advised against fasting. Return precautions discussed. He is agreeable with the plan verbalized understanding. Discharged in stable condition. Lab Data 10/25/24 23:11 10/25/24 23:11 Labs: Lab Results 10/25/24 Range/Units 23:11 WBC 5.7 (4.5-10.0) K/mm3 RBC 4.84 (4.6-6.20) M/mm3 Hgb 12.7 L (14.0-18.0) g/dL Hct 39.3 L (42.0-52.0) % MCV 81.2 (80-100) fl MCH 26.2 (26-34) pg MCHC 32.3 (32-36) g/dl RDW 17.8 H (11.5-14.5) % Plt Count 259 (150-375) k/mm3 MPV 9.7 (7.4-10.4) fl Immature Gran % (Auto) 0.3 (0-0.5) % Neut % (Auto) 56.2 (45.5-73.1) % Lymph % (Auto) 25.7 (18.3-44.2) % Bacon % (Auto) 13.1 H (2.6-8.5) % Eos % (Auto) 4.2 (0-4.4) % Baso % (Auto) 0.5 (0.2-1.2) % Lymph # (Auto) 1.47 (0.9-3.2) K/mm3 Bacon # (Auto) 0.8 H (0.1-0.6) K/mm3 Eos # (Auto) 0.2 (0-0.3) K/mm3 Baso # (Auto) 0.0 (0.0-0.1) K/mm3 Abs Immat Gran (auto) 0.02 (0.00-0.031) K/mm3 Absolute Neuts (auto) 3.2 (1.3-6.7) K/mm3 Absolute Nucleated RBC 0.000 (0.0-0.012) K/mm3 Nucleated RBC % 0.0 (0.0-0.2) % Sodium 137 (137-145) mmol/L Potassium 3.9 (3.4-5.0) mmol/L Chloride 102 (98-107) mmol/L Carbon Dioxide 20 L (22-30) mmol/L Anion Gap 15 H (4-12) mmol/L BUN 11 (9-20) mg/dL Creatinine 0.52 L (0.7-1.3) mg/dL Estim Creat Clear Calc 134 ml/min Estimated GFR > 60 (59 - ) Glucose 94 (65-110) mg/dL Calcium 9.8 (8.4-10.2) mg/dL Total Bilirubin 0.5 (0.2-1.3) mg/dL AST 24 (17-59) U/L ALT 18 (6-50) U/L Alkaline Phosphatase 128 H (38-126) U/L Total Protein 10.0 H (6.3-8.2) g/dL Albumin 4.1 (3.5-5.1) g/dL Discharge Plan Discharge Clinical Impression: Anemia, normocytic normochromic Patient Disposition: Home, Self-Care Condition: Stable Instructions: Antibiotic Form, Anemia (ED) Additional Instructions: Your evaluated in the emergency department for reported low iron. He did were found have anemia in the ER but it is improved from her most recent labs in March. Please continue taking her iron supplements follow-up with her primary care provider. Please make sure to drink plenty of fluids including water, Gatorade and Pedialyte need a well-rounded diet. Return to the emergency department if you develop any new or worsening symptoms. Patient Language: Bangladeshi Prescriptions: No Action metoprolol succinate PO amlodipine PO ferrous sulfate [Iron (ferrous sulfate)] PO potassium chloride PO ibuprofen 600 mg tablet 600 mg PO TID PRN (Reason: pain) Qty: 20 0RF acetaminophen 500 mg capsule 1,000 mg PO Q6H PRN (Reason: pain) Qty: 20 0RF hydrocodone-acetaminophen 5-325 mg tablet 1 tablet PO Q8H PRN (Reason: pain) Qty: 12 0RF psyllium husk [Metamucil] 0.4 gram capsule 0.4 g PO DAILY PRN (Reason: constipation) Qty: 14 0RF Follow-up/Referrals: PHYSICIAN,DESIZING MACHINE OPERATOR [Primary Care Provider] -
[2024-10-25 23:16] LABS: Basophils Percent Auto 0.5 % (0.2-1.2); Eosinophils Absolute Auto 0.2 K/mm3 (0-0.3); Eosinophils Percent Auto 4.2 % (0-4.4); Hematocrit 39.3 % (42.0-52.0); Hemoglobin 12.7 g/dL (14.0-18.0); Immature Granulocyte Absolute 0.02 K/mm3 (0.00-0.031); Immature Granulocyte Percent A 0.3 % (0-0.5); Lymphocytes Absolute Auto 1.47 K/mm3 (0.9-3.2); Lymphocytes Percent Auto 25.7 % (18.3-44.2); Mean Corpuscular HGB Conc 32.3 g/dl (32-36); Mean Corpuscular Hemoglobin 26.2 pg (26-34); Mean Corpuscular Volume 81.2 fl (80-100); Mean Platelet Volume 9.7 fl (7.4-10.4); Monocytes Absolute Auto 0.8 K/mm3 (0.1-0.6); Monocytes Percent Auto 13.1 % (2.6-8.5); Neutrophils Absolute Auto 3.2 K/mm3 (1.3-6.7); Neutrophils Percent Auto 56.2 % (45.5-73.1); Platelet Count Result 259 k/mm3 (150-375); Red Blood Count 4.84 M/mm3 (4.6-6.20); Red Cell Distribution Width 17.8 % (11.5-14.5); White Blood Count 5.7 K/mm3 (4.5-10.0)
--- NOTE | 2024-10-25 23:24 | PC.NURSE ---
report given to Georgina FARR
[2024-10-25 23:26] LABS: Alanine Aminotransferase 18 U/L (6-50); Albumin Level 4.1 g/dL (3.5-5.1); Alkaline Phosphatase 128 U/L (38-126); Anion Gap 15 mmol/L (4-12); Aspartate Amino Transferase 24 U/L (17-59); Bilirubin,Total 0.5 mg/dL (0.2-1.3); Blood Urea Nitrogen 11 mg/dL (9-20); Calcium 9.8 mg/dL (8.4-10.2); Carbon Dioxide 20 mmol/L (22-30); Chloride 102 mmol/L (98-107); Estimated CRCL calculation 134 ml/min; Estimated Glomerular Filt Rate > 60; Glucose 94 mg/dL (65-110); Potassium 3.9 mmol/L (3.4-5.0); Sodium 137 mmol/L (137-145)
[2024-10-26 00:51] VITALS: BP 148/62; PULSE 84; RESP 14; O2SAT 98
== END 2024-10-26 06:17 | disposition home or self-care (01) ==
PROVIDERS: Emergency Provider Physician Assistant
DX: D64.9 Anemia, unspecified (principal); G82.20 Paraplegia, unspecified; Z90.49 Acquired absence of other specified parts of digestive tract
CPT/HCPCS: 36415; 80053; 85025; 99283

== ENCOUNTER 2024-11-16 04:35 | Emergency (ER) | payer MEDICARE, MEDICAID, SELFPAY ==
[2024-11-16] VITALS (16 sets, daily range): BP systolic 123–159; BP diastolic 60–78; PULSE 92–105; RESP 10–20; TEMP 37; O2SAT 100
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
--- OUTSIDE RECORDS SUMMARY | 2024-11-16 04:40 | XMS_ITS | Encounter Summary ---
Author Organization [facility] Address [facility] [place] [address] Care Team Providers Care Utility System Repairer Name Role Phone Mary Marcus NP Primary Care Provider [phone] Lisa Ramírez [facility] Primary Care Provider + Lisa Ramírez [facility] Primary Care Provider + Jorje Ayala MD Unavailable Leroy Meraz DO Primary Care Provider + Encounter Details Date Type Department Care Team (Late st Contact Info) Description 05/31/2022 EvntLive Message [facility] [address] [place] [address] Mary Marcus PLATFORM LOADER [address] [place] [address] ASKING FOR ANOTHER URINE CULTURE [...] Sex Assigned at Male 10/10/2024 12:08 PM FAMILY SERVICE COUNSELOR Legal Sex Male 5:44 PM CDT Gender Identity Male 11/11/2024 10:55 AM FAMILY SERVICE COUNSELOR Sexual Orientation Not on file COVID-19 Exposure [...] documented in this encounter Plan of Treatment Not on file documented as of this encounter Goals Goal Patient Goal Type Associated Problems Recent Progress Patient-Stated? Author Discharge Patient/family verbalizes understanding regarding the need for [...] 09/02/24 Right Heel (RR) 08/24/2020 09/02/2024 MDR Other Comment:Added from external Infection- [facility] Collection Source- Urine 2020 06/25/2024 MDR-SYSTEMS NAVIGATOR - Carbapenemase-Prod ucing Organisms Comment:Added from external infection. Source: [facility]. Collection Source-Urine 08/04/2021 COVID-19 Rule Out 03/23/2024 03/23/2024 03/23/2024 1:17 PM CDT Assessment Noted Time PHQ-9 Depression Total Score: 0 12/04/19 1:13 PM FAMILY SERVICE COUNSELOR documented as of this encounter Care Teams Utility System Repairer Relationship Specialty Start Date End Date Mary Marcus NP [address] [place] [address] PCP - General NURSE PRACTITIONER 11/30/21 08/28/22 Lisa Ramírez, [facility] [address] [place] [address] PCP - General NURSE PRACTITIONER 08/29/22 09/01/22 Lisa Ramírez, [facility]- [address] [place] [address] PCP - General NURSE PRACTITIONER 09/05/22 07/07/24 Leroy Meraz DO [address] [place] [id number] PCP - General FAMILY PRACTICE 07/08/24 [place] [address] [place] [address] Surgeon SURGERY 11/03/23 documented as of this encounter
--- OUTSIDE RECORDS SUMMARY | 2024-11-16 04:40 | XMS_ITS | Encounter Summary ---
Author Organization [facility] Address [facility] [place] [address] Care Team Providers Care Administrative Support Technician Name Role Phone None, Provider Primary Care Provider Unavaila Sherman Calderon MD Primary Care Provider Angella Mary Guidry NP Primary Care Provider [phone] [facility] Primary Care Provider + Lisa Ramírez [facility] Primary Care Provider + Jorje Ayala MD Unavailable Leroy Meraz DO Primary Care Provider + Encounter Details Date Type Department Care Team (Late st Contact Info) Description 04/26/2009 Abstract [facility] Conversion , Generic Conversion, Social History Tobacco Use Types Packs/Day Years Used Date Smoking Tobacco: Never Assessed Sex and Gender Information Value Date Recorded Sex Assigned at Male 10/10/2024 12:08 PM MULTI LINE CLAIMS ADJUSTER Legal Sex Male 5:44 PM CDT Gender Identity Male 11/11/2024 10:55 AM MULTI LINE CLAIMS ADJUSTER Sexual Orientation Not on file documented as of this encounter Plan of Treatment Not on file documented as of this encounter Visit Diagnoses [...] Rule Out 10/06/2020 10/06/2020 10/07/2020 11:13 AM MULTI LINE CLAIMS ADJUSTER COVID-19 Rule Out 11/21/2020 11/21/2020 11/21/2020 6:39 PM MULTI LINE CLAIMS ADJUSTER COVID-19 Rule Out 11/21/2020 11/21/2020 11/21/2020 7:35 PM MULTI LINE CLAIMS ADJUSTER MDR Other Comment:Added from external Infection- [facility] Collection Source- Urine 2020 06/25/2024 MDR-PICKLING SOLUTION MAKER - Carbapenemase-Prod ucing Organisms Comment:Added from external infection. Source: [facility]. Collection Source-Urine 08/04/2021 COVID-19 Rule Out 09/28/2021 09/28/2021 10/05/2021 12:34 AM MULTI LINE CLAIMS ADJUSTER COVID-19 Rule Out 03/23/2024 03/23/2024 03/23/2024 1:17 PM CDT documented as of this encounter Care Teams Administrative Support Technician Relationship Specialty Start Date End Date None, Provider, PCP - General 08/21/20 08/24/20 Sherman Cartagena MD PCP - General FAMILY PRACTICE 08/25/20 11/29/21 Mary Marcus NP [address] [place] [address] PCP - General NURSE PRACTITIONER 11/30/21 08/28/22 Lisa Ramírez, SLUDGE FILTRATION OPERATOR- [address] [place] [address] PCP - General NURSE PRACTITIONER 08/29/22 09/01/22 Lisa Ramírez, SLUDGE FILTRATION OPERATOR- [address] [place] [address] PCP - General NURSE PRACTITIONER 09/05/22 07/07/24 Leroy Meraz DO [address] [place] [address] PCP - General FAMILY PRACTICE 07/08/24 [place] [address] [address] Surgeon SURGERY 11/03/23 documented as of this encounter
--- OUTSIDE RECORDS SUMMARY | 2024-11-16 04:40 | XMS_ITS | Clinical Summary ---
Author Organization [facility] Address [address] [place] [address] Care Team Providers Care Mechanical Laboratory Technician Name Role Phone Jorje Ayala MD Unavailable [...] Ostomy Supplies Pouch MiscIndications:Co lostomy in place ([facility]) Jurgen 2in 51 mm one-piece colostomy bag. Patient would like 2 boxes. 2 each 3 04/03/20 23 Active Misc. Devices (TRANSFER BOARD) MiscIndications:Pa raplegia at T9 level ([facility]) 1 Device by Does not apply route continuous prn. Slide board for transfer from wheelchair to bed and back. 1 each 06/22/20 23 Active lactulose (CONSTULOSE) 10 GM/15ML solutionIndication s:Constipation Indications: Constipation TAKE 15 ML BY MOUTH 2-3 TIMES DAILY NEEDED FOR CONSTIPATION 3784 mL 1 10/19/19 24 Active Ostomy Supplies (PREMIER COLOSTOMY/ILEOSTOM Y) KitIndications:Col ostomy in place ([facility]),Paraplegi c immobility syndrome 2 boxes of 30 #[id number] Premier One - Piece Closed End Transparent Colostomy pouch 2 kit 1 02/29/20 24 Active Misc. 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 #[id number] 60 each 1 02/29/20 24 Active GLOVES LATEX EXAM MISC, DME,Indications:Co lostomy in place ([facility]),Paraplegi c immobility syndrome 1 Package by Does not apply route as needed. 2 Package 1 02/29/20 24 Active DRESSING GAUZE 4 X4 PADS, DME,Indications:Co lostomy in place ([facility]),Paraplegi c immobility syndrome Apply 1 Package topically as needed. Use as needed for cleaning 2 Package 1 02/29/20 24 Active Diapers & Supplies MiscIndications:Co lostomy in place ([facility]),Paraplegi c immobility syndrome Adult Diapers- briefs with [...] mouth daily as needed for Constipation. 08/09/20 24 Active metoprolol succinate ER (TOPROL-XL) 25 MG 24 hr tabletIndications: Essential hypertension Take 2 tablets (50 mg total) by mouth daily. 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, buttock and hip, stage 4 ([facility]) 12/23/2022 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 ([facility]) 12/23/[address] ([facility]) 09/07/2022 Suprapubic catheter ([facility]) 09/07/2022 Moderate protein-calorie malnutrition ([facility]) 12/18/2020 Anemia 09/04/2020 Essential hypertension 09/01/2020 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 ([facility]) 020 Osteomyelitis, pelvis ([facility]) 10/02/19 20 Neurogenic bladder 08/27/2019 Sacral decubitus ulcer Resolved Problems Problem Noted Date Diagnosed Date Resolved Date MRSA bacteremia 01/21/2022 09/07/2022 Sepsis ([facility]) 01/16/2022 Lack of follow-up after hospitalization 12/18/2020 12/18/2020 Sacral wound 11/19/2020 09/07/2022 Wound infection 10/02/2020 09/07/2022 Screening for malignant neoplasm 09/24/2020 09/07/2022 Overview (09/24/2020): Added automatically from request for surgery [id number] Bacteremia due to Escherichia coli 08/10/2019 09/07/2022 Encounters Date Type Department Care Team Description 11/15/2024 Telephone [facility] Internal [address] [address] Leroy Meraz, DO Information 11/13/[address] [address] Leroy Meraz, DO Information 11/11/2024 10:40 AM MILL FEEDER Telemedicine [address] [address] Leroy Meraz, DO Catheter (The patient is needing davis changes and is unable to get HH to help. ) 11/11/[address] [address] Leroy Meraz, DO Information 11/11/2024 Travel 11/08/[address] [place], [place] [phone] Leroy Meraz, DO Advise 11/06/2024 Telephone [facility] Internal [address] [address] Leroy Meraz, DO Information 10/24/2024 2:39 PM MILL FEEDER - 10/24/2024 11:59 PM MILL FEEDER Hospital Encounter [facility] [address] [place] [address] Alma Ernst, PT Leroy Meraz, DO Balance Problem Discharge Disposition: Home or Self Care (Routine Discharge) 10/24/2024 Travel 10/18/[address] [address] Leroy Meraz, DO Urine (Medical supply in) 10/15/2024 8:33 AM MILL FEEDER - 10/15/2024 11:59 PM MILL FEEDER Hospital Encounter [facility] [address] [place] [address] Jorje Ayala MD Discharge Disposition: Home or Self Care (Routine Discharge) 10/15/2024 Travel 10/14/[address] [address] Leroy Meraz, DO Information 10/10/2024 12:08 PM MILL FEEDER - 10/10/2024 11:59 PM MILL FEEDER Hospital Encounter [facility] [address] [place] [address] Jazlyn Jackson, SOLE MOLDING MACHINE OPERATOR- Discharge Disposition: Home or Self Care (Routine Discharge) 10/10/2024 Travel 10/07/2024 1:00 PM MILL FEEDER - 10/07/2024 11:59 PM MILL FEEDER Hospital Encounter [facility] [address] [place] [address] Jorje Ayala MD Discharge Disposition: Home or Self Care (Routine Discharge) 10/07/2024 Travel 10/03/2024 12:53 PM MILL FEEDER - 10/03/2024 11:59 PM MILL FEEDER Hospital Encounter [facility] [address] [place] [address] Jazlyn Jackson FNP-BC Discharge Disposition: Home or Self Care (Routine Discharge) 10/03/2024 Travel 10/02/2024 Telephone [facility] Family Internal [place] [address] [place] [address] Leroy Meraz, DO Referral 10/01/2024 11:00 AM MILL FEEDER - 10/01/2024 11:59 PM MILL FEEDER Hospital Encounter [facility] [address] [place] [address] Jorje Ayala MD Discharge Disposition: Home or Self Care (Routine Discharge) 10/01/2024 Travel 09/26/2024 1:32 PM MILL FEEDER - 09/26/2024 11:59 PM MILL FEEDER Hospital Encounter [facility] [address] [place] [address] Leroy Meraz, DO Discharge Disposition: Home or Self Care (Routine Discharge) 09/26/2024 12:45 PM MILL FEEDER - 09/26/2024 1:31 PM MILL FEEDER Hospital Encounter [facility] [address] [place] [address] Jazlyn Jackson FNP-JUAN MANUEL Discharge Disposition: Home or Self Care (Routine Discharge) 09/26/2024 Travel 09/24/2024 Telephone [facility] Family & Internal [place] [address] [place] [address] Leroy Meraz, DO Referral 09/24/2024 Telephone [facility] Internal [address] [place] [address] Leroy Meraz, DO Referral 09/23/2024 11:15 AM MILL FEEDER - 09/23/2024 11:59 PM MILL FEEDER Hospital Encounter [facility] [address] [place] [address] Jorje Ayala MD Discharge Disposition: Home or Self Care (Routine Discharge) 09/23/2024 Telephone [facility] Family & Internal Medicine [address] [phone] Leroy Meraz, DO Information; Lab Order 09/23/2024 Travel 09/19/2024 12:52 PM MILL FEEDER - 09/19/2024 11:59 PM MILL FEEDER Hospital En[facility] [address] [place] [address] Jazlyn Jackson FNP-JUAN MANUEL Discharge Disposition: Home or Self Care (Routine Discharge) 09/19/2024 Travel 09/16/2024 10:46 AM MILL FEEDER - 09/16/2024 11:59 PM MILL FEEDER Hospital En[facility] [address] [place] [address] Jorje Ayala MD Discharge Disposition: Home or Self Care (Routine Discharge) 09/16/2024 Travel 09/12/2024 1:00 PM MILL FEEDER - 09/12/2024 11:59 PM MILL FEEDER Hospital Encounter [facility] [address] [place] [address] Jazlyn Jackson FNP-JUAN MANUEL Discharge Disposition: Home or Self Care (Routine Discharge) 09/12/2024 Travel 09/09/2024 11:10 AM MILL FEEDER - 09/09/2024 11:59 PM MILL FEEDER Hospital En[facility] [address] [place] [address] Tracy Perez NP Discharge Disposition: Home or Self Care (Routine Discharge) 09/09/2024 Travel 09/05/2024 11:54 AM MILL FEEDER - 09/05/2024 11:59 PM MILL FEEDER Hospital En[facility] [address] [place] [address] Jazlyn Jackson FNP-JUAN MANUEL Discharge Disposition: Home or Self Care (Routine Discharge) 09/05/[address] [facility] [address] [place] [address] Tracy Perez NP 09/05/2024 Travel 09/02/2024 11:15 AM MILL FEEDER - 09/02/2024 11:59 PM MILL FEEDER Hospital En[facility] [address] [place] [address] Tracy Perez NP Discharge Disposition: Home or Self Care (Routine Discharge) 09/02/2024 Travel 08/29/2024 12:12 PM MILL FEEDER - 08/29/2024 11:59 PM MILL FEEDER Hospital En[facility] [address] [place] [address] Jazlyn Jackson, SOLE MOLDING MACHINE OPERATOR- Discharge Disposition: Home or Self Care (Routine Discharge) 08/29/2024 Travel 08/27/2024 Scan [employer] INFO SRVCS Scanned, [facility] 08/26/2024 11:00 AM MILL FEEDER - 08/26/2024 11:59 PM MILL FEEDER Hospital Encounter [facility] [address] [place] [address] Jorje Ayala MD Discharge Disposition: Home or Self Care (Routine Discharge) 08/26/2024 [facility] Family & Internal Medicine [address] [address] Leroy Meraz, DO Question (Wound care ) 08/26/2024 Travel 08/23/2024 11:21 AM MILL FEEDER - 08/23/2024 12:24 PM MILL FEEDER Emergency [facility] Emergency Room [address] [place] [address] Zara Rosales MD Wound Discharge Disposition: Home or Self Care (Routine Discharge) 08/23/2024 Travel 08/19/2024 11:05 AM MILL FEEDER - 08/19/2024 11:59 PM MILL FEEDER Hospital Encounter [facility] [address] [place] [address] Jorje Ayala MD Discharge Disposition: Home or Self Care (Routine Discharge) 08/19/2024 Telephone [facility] Family & Internal Medicine [address] [address] Leroy Meraz, DO Other 08/19/2024 Travel from Last 3 Months Immunizations Name Administration Dates Next Due Fluzone (IIV3, Trivalent, 0. 5 ML Prefilled Syringe) 08/09/2024,07/06/2024(Deferred: - give at discharge),06/26/2024(Deferred: Other - wait until discharge) Influenza Adult (Generic) 08/23/2022,10/08/2021 [facility]ERNA COVID-19 (VICE PRESIDENT AND [employer] MANAGER LEXA MELQUIADES), MRNA, LNP-S, PF, 50 MCG/ [...] from your doctor or pharmacy? Never 06/24/2024 [facility] Utilities Answer Date Recorded In the [...] Never 06/28/2024 How often do you attend taoism or jehovah's witness serv ices? Never 06/28/2024 Do you belong to any clubs o r organizations such as taoism groups, unions, fraternal or athletic groups, or [...] Date Recorded Patient Health Questionnaire-2 Score 0 11/11/2024 [facility] [place] [facility] ional [facility] - Occupational Stress Questionnaire Answer Date Recorded [...] any time in the past 12 [facility], were you homeless or living in a usp (including now)? No 06/28/2024 Sex and Gender Information Value Date Recorded Sex Assigned at Male 10/10/2024 12:08 PM MILL FEEDER Legal Sex Male 5:44 PM CDT Gender Identity Male 11/11/2024 10:55 AM MILL FEEDER Sexual Orientation Not on file Last Filed Vital Signs Vital Sign Reading Time Taken Comments Blood Pressure 145/75 08/23/2024 12:20 PM MILL FEEDER Pulse 76 08/23/2024 12:20 PM MILL FEEDER Temperature 36.7 C (98 F) 08/23/2024 12:20 PM MILL FEEDER Respiratory Rate 18 08/23/2024 12:20 PM MILL FEEDER Oxygen Saturation 99% 08/23/2024 12:20 PM MILL FEEDER Inhaled Oxygen Concentration - - Weight 72.6 kg (160 lb) 08/23/2024 11:21 AM MILL FEEDER Height 198.1 cm (6' 6 ) 08/23/2024 11:21 AM MILL FEEDER Body Mass Index 18.49 08/23/2024 11:21 AM MILL FEEDER Plan of Treatment Health Maintenance Due Date Last Done Comments ASCVD Statin 1970 Colorectal Cancer Screening Colonoscopy (10 Years) 1970 Annual Physical 03/09/2024 03/09/2023 COVID-19 Vaccine ( season) 2024 08/23/2022, 04/20/2022, 10/08/2021, Additional history exists Postponed from 05/26/2024 (Going to Outside Clinic) Zoster Vaccines (1 of 2) 11/24/2024 Pos tponed from 2018 (Future Appointment) Hepatitis B Vaccines (1 of 3 - 19+ 3-dose series) 12/09/2024 Postponed from 12/21/1987 (Future Appointment) DTaP, Tdap and Td Vaccines (1 - Tdap) 12/31/2024 Postponed from 12/21/1987 (Future Appointment) Colorectal Cancer Screening FIT/FOBT (1 Year) Discontinued 09/03/2020 Pneumococcal Vaccine: Pediatrics (0 to 5 Years) and At-Risk Patients (6 to 64 Years) Aged Out 10/08/2021 No longer eligible based on patient's age to complete this topic Hepatitis C Completed 03/09/2023 Influenza Adult Completed 08/09/2024, 07/27, 10/08/2021 PHQ-2 (Physician [place]) Completed 11/11/2024 Meningococcal B Vaccine Aged Out No l [...] D, 25 OH Routine 09/26/2024 1:37 PM MILL FEEDER Essential hypertension Vitamin D deficiency LIPID PANEL Routine 09/26/2024 1:37 PM MILL FEEDER Essential hypertension TSH W/REFLEX Routine 09/26/2024 1:37 PM MILL FEEDER Essential hypertension COMPREHENSIVE METABOLIC PANEL Routine 09/26/2024 1:37 PM MILL FEEDER Essential hypertension CBC W/DIFF AUTOMATED Routine 09/26/2024 1:37 PM MILL FEEDER Essential hypertension HC SMEAR GRAM/GIEMSA Routine 09/02/2024 11:40 AM MILL FEEDER Wound drainage HEPATITIS C ANTIBODY Routine 03/09/2023 11:44 AM CDT Need for hepatitis C screening test OCCULT BLOOD, FECES STAT 09/03/2020 7 :10 PM MILL FEEDER from Last 3 Months or Most Recently Relevant to Health Maintenance Results * TSH W/REFLEX (09/26/2024 1:37 PM MILL FEEDER) TSH 1.560 0.358 - 3.74 uIU/ML 09/26/2024 2:33 PM MILL FEEDER [facility] Comment: HIGH DOSES OF BIOTIN MAY INTERFERE WITH THIS TEST RESULT. CORRELATION TO CLINICAL HISTORY AND PRESENTATION RECOMMENDED. FREE T4 NOT INDICATED 09/26/2024 1:37 PM MILL FEEDER Leroy Meraz DO LABORATORY Final Re sult [facility] [address] [place] [address], [place] [phone] * (ABNORMAL) COMPREHENSIVE METABOLIC PANEL (09/26/2024 1:37 PM [facility]) [facility] GLUCOSE 95 70 - 99 MG/DL 09/26/2024 2:33 PM [facility] BUN 12 7 - 18 MG/DL 09/26/2024 2:33 PM [facility] CREATININE S/P/B 0.90 0.7 - 1.3 MG/DL 09/26/2024 2:33 PM [facility] SODIUM S/P/B 139 136 - 145 MMOL/L 09/26/2024 2:33 PM [facility] POTASSIUM S/P/B 3.9 3.5 - 5.1 MMOL/L 09/26/2024 2:33 PM [facility] CHLORIDE S/P/B 103 100 - 108 MMOL/L 09/26/2024 2:33 PM [facility] CO2 29.6 21 - 32 MMOL/L 09/26/2024 2:33 PM [facility] CALCIUM S/P/B 9.5 8.5 - 10.1 MG/DL 09/26/2024 2:33 PM [facility] BILIRUBIN TOTAL S/P/B 0.2 0.2 - 1.2 MG/DL 09/26/2024 2:33 PM [facility] TOTAL PROTEIN S/P/B 9.3(H) 6.4 - 8.2 G/DL 09/26/2024 2:33 PM [facility] ALBUMIN S/P/B 2.6(L) 3.4 - 5.0 G/DL 09/26/2024 2:33 PM [facility] AST 17 15 - 37 U/L 09/26/2024 2:33 PM [facility] ALT 19 16 - 60 U/L 09/26/2024 2:33 PM MILL FEEDER [facility] ALKALINE PHOSPHATASE S/P/B 113 50 - 136 U/L 09/26/2024 2:33 PM [facility] ANION GAP 6.4 5 - 15 MMOL/L 09/26/2024 2:33 PM [facility] BUN CREATININE RATIO 13.3 6 - 26 09/26/2024 2:33 PM [facility] A/G RATIO 0.4(L) 1.0 - 2.0 RATIO 09/26/2024 2:33 PM [facility] GFR ESTIMATE >90 >90 ML/MIN/1.7 3 M2 09/26/2024 2:33 PM [facility] Comment: NOTE: eGFR is not calculated for patients <18 years of age. This is an estimated GFR calculation using the new CKD EPI creatinine equation without race and so does not require a correction factor for race. This estimated GFR should not be used for calculating drug doses. 09/26/2024 1:37 PM MILL FEEDER us Leroy Meraz DO LABORATORY Final Re sult [facility] [address] [place] [address], * (ABNORMAL) LIPID PANEL (09/26/2024 1:37 PM MILL FEEDER) CHOLESTEROL 226(H) <200.0 MG/DL 09/26/2024 2:33 PM MILL FEEDER [facility] TRIGLYCERIDES 98 <150 MG/DL 09/26/2024 2:33 PM [facility] HDL 58 >40.0 MG/DL 09/26/2024 2:33 PM [facility] LDL (CALCULATED) 148(H) <100 MG/DL 09/26/2024 2:33 PM MILL FEEDER [facility] NON HDL CHOLESTEROL 168(H) <130 MG/DL 09/26/2024 2:33 PM [facility] CHOL/HDL RATIO 3.9 0.0 - 4.5 09/26/2024 2:33 PM [facility] VLDL CALCULATION 20 5 - 55 MG/DL 09/26/2024 2:33 PM [facility] LIPID INTERPRETATION 09/26/2024 2:33 PM [facility] Comment: [facility] CONCENSUS REPORT RECOMMENDATIONS: ADULT CHILD LOW RISK: CHOLESTEROL <200 <170 TRIGLYCERIDE <150 --- HDL >=60 --- LDL <100 <110 BORDERLINE: CHOLESTEROL 200-239 170-199 TRIGLYCERIDE 150-199 --- HDL 40-59 --- LDL 100-159 110-129 HIGH RISK: CHOLESTEROL >=240 >=200 TRIGLYCERIDE >=200 --- HDL <40 --- LDL >=160 >=130 09/26/2024 1:37 PM MILL FEEDER us Leroy Meraz DO LABORATORY Final Re sult [facility] [address] [place] [address], [place] [phone] * (ABNORMAL) CBC W/DIFF AUTOMATED (09/26/2024 1:37 PM MILL FEEDER) WBC 5.33 4.4 - 11.0 x10'3/uL 09/26/2024 2:06 PM [facility] RBC 4.44(L) 4.50 - 5.90 x10'6/uL 09/26/2024 2:06 PM [facility] HGB 11.4(L) 14.0 - 17.5 G/DL 09/26/2024 2:06 PM [facility] HCT 35.2(L) 41.5 - 50.4 % 09/26/2024 2:06 PM [facility] MCV 79.3(L) 80.0 - 96.0 FL 09/26/2024 2:06 PM [facility] MCH 25.7(L) 26.5 - 31.4 PG 09/26/2024 2:06 PM [facility] MCHC 32.4 31.9 - 34.8 G/DL 09/26/2024 2:06 PM [facility] RDW 18.9(H) 12.3 - 14.3 % 09/26/2024 2:06 PM [facility] PLT 262 151 - 353 x10'3/uL 09/26/2024 2:06 PM [facility] MPV 9.3(L) 9.7 - 11.9 FL 09/26/2024 2:06 PM [facility] RBC MORPHOLOGY NORMAL 09/26/2024 2:06 PM [facility] PLT MORPH. NORMAL 09/26/2024 2:06 PM [facility] WBC MORPHOLOGY NORMAL 09/26/2024 2:06 PM [facility] LYMPHOCYTES % 23.6 15.8 - 45.0 % 09/26/2024 2:06 PM [facility] NEUTROPHILS % 57.4 42.1 - 71.9 % 09/26/2024 2:06 PM [facility] MONOCYTES % 13.5(H) 5.7 - 12.5 % 09/26/2024 2:06 PM [facility] EOSINOPHILS 4.7 0.0 - 5.6 % 09/26/2024 2:06 PM [facility] BASOPHILS 0.4 0.0 - 1.3 % 09/26/2024 2:06 PM MILL FEEDER [facility] ABS. NEUTROPHILS 3.06 1.40 - 6.00 x10'3/uL 09/26/2024 2:06 PM MILL FEEDER [facility] IMMATURE GRANS % 0.4 0.0 - 0.5 % 09/26/2024 2:06 PM MILL FEEDER [facility] ABS. LYMPHOCYTES 1.26 0.80 - 4.70 x10'3/uL 09/26/2024 2:06 PM MILL FEEDER [facility] 09/26/2024 1:37 PM MILL FEEDER [facility] LABORATORY Final Re sult Performing Organization Address [facility] Co de Phone Number [facility] [address] [place] [address], [place] [phone] * (ABNORMAL) VITAMIN D, 25 OH (09/26/2024 1:37 PM MILL FEEDER) VITAMIN D 25 HYDROXY S/P/B 20(L) 30 - 100 NG/ML 09/26/2024 2:45 PM MILL FEEDER [facility] Comment: INTERPRETATION DEFICIENT <20 INSUFFICIENT 20-29 SUFFICIENT 30-100 09/26/2024 1:37 PM MILL FEEDER [facility] LABORATORY Final Re sult Performing Organization Address [facility]/ZIP Co de Phone Number [facility] [address] [place] [address], [place] [phone] * (ABNORMAL) CULTURE, WOUND, W/GRAM STAIN (09/02/2024 11:40 AM MILL FEEDER) SPEC DESCRIPTION HEEL, RIGHT 09/02/2024 11:42 AM MILL FEEDER [facility] SPECIAL REQUESTS NO SPECIAL REQUEST 09/02/2024 11:42 AM [facility] GRAM STAIN RESULT MANY WHITE BLOOD CELLS SEEN 09/03/2024 10:46 AM [facility] GRAM STAIN RESULT FEW EPITHELIAL CELLS SEEN 09/03/2024 10:46 AM [facility] GRAM STAIN RESULT FEW GRAM POSITIVE COCCI 09/03/2024 10:46 AM MILL FEEDER [facility] GRAM STAIN RESULT RARE GRAM NEGATIVE RODS 09/03/2024 10:46 AM [facility] CULTURE RESULT SPARSE GROWTH OF PROTEUS MIRABILIS (A) 09/04/2024 7:55 AM [facility] CULTURE RESULT SPARSE GROWTH OF METHICILLIN RESISTANT STAPHYLOCOCCUS AUREUS FOLLOW ISOLATION PROTOCOL. (AA) 09/04/2024 7:55 AM [facility] RIGHT HEEL STRUCTURE / Unknown 09/02/2024 11:40 AM MILL FEEDER 09/02/2024 12:45 PM MILL FEEDER Narrative Organism Antibiotic Method Susceptibility Proteus mirabilis [...] MICROBIOLOGY - GENERAL ORDER SANDEE Final Result [facility] [address] [place] [address], [place] [phone] [facility] [address] [place] [address], [place] [phone] * HEPATITIS C AB ([facility] ONLY) (03/09/2023 11:44 AM CDT) Pathologist [facility] HEPATITIS C AB NON-REACTI VE NON-REACTI VE 03/09/2023 7:30 PM CDT [facility] 03/09/2023 11:4 4 AM CDT Lisa Ramírez [facility]- LABORATORY Final Re sult [facility] [address] [place] [address], [place] [phone] * (ABNORMAL) OCCULT BLOOD, FECES (09/03/2020 7:10 PM MILL FEEDER) Pathologist [facility] OCCULT BLOOD FECAL POSITIVE(A ) NEGATIVE 09/03/2020 7:50 PM MILL FEEDER [facility] STOOL SPECIMEN / Unknown 09/03/2020 7:10 PM MILL FEEDER Hilton Aggarwal MD BODY FLUIDS AND STOOLS ORDERABLES Final Result [facility] [address] [place] [address], [place] [phone] from Last 3 Months or Most Recently [...] 09/02/2024 MDR Other Comment:Added from external Infection- [facility] Health Collection Source- Urine 2020 06/25/2024 MDR-WIRE STEWARD - Carbapenemase-Prod ucing Organisms Comment:Added from external infection. Source: [facility] [employer] Collection Source-Urine 08/04/2021 Insurance MEDICAID DEPT OF [address] Advance Directives * Full Code (Latest Code [...] 8:38 PM 11/30/2022 2:56 PM Care Teams Mechanical Laboratory Technician Relationship Specialty Start Date End Date Leroy Meraz DO [address] [place] [id number] PCP - General FAMILY PRACTICE 07/08/24 [place] [id number] [address] Surgeon SURGERY 11/03/23
--- OUTSIDE RECORDS SUMMARY | 2024-11-16 04:40 | XMS_ITS | Encounter Summary ---
Author Organization [facility] Address [facility] [place] [address] Care Team Providers Care Dispersion Mixer Name Role Phone Lisa Ramírez [facility] Primary Care Provider + Jorje Ayala MD Unavailable Leroy Meraz DO Primary Care Provider + Encounter Details Date Type Department Care Team (Late st Contact Info) Description 08/30/[address] [facility] [address] [place] [phone] [employer], [facility] Provider results Social History Tobacco Use [...] Sex Assigned at Male 10/10/2024 12:08 PM VACUUM REPAIRER Legal Sex Male 5:44 PM CDT Gender Identity Male 11/11/2024 10:55 AM VACUUM REPAIRER Sexual Orientation Not on file documented as [...] buttock wound (JK) 01/18/22 right thigh (JK) 1/10/23 urine (JK) 03/02/23 nares (JK) 03/02/23 urine (JK) 06/12/23 urine (JK) 05/29/24 left leg (JOSE) 09/02/24 Right Heel (RR) 08/24/2020 09/02/2024 MDR Other Comment:Added from external Infection- [facility] Health Collection Source- Urine 2020 06/25/2024 MDR-LASER SYSTEMS ENGINEER - Carbapenemase-Prod ucing Organisms Comment:Added from external infection. Source: [facility]. Collection Source-Urine 08/04/2021 COVID-19 Rule Out 03/23/2024 03/23/2024 03/23/2024 1:17 PM CDT Assessment Noted Time PHQ-9 Depression Total Score: 0 12/04/19 1:13 PM VACUUM REPAIRER documented as of this encounter Care Teams Dispersion Mixer Relationship Specialty Start Date End Date Lisa Ramírez, BODY TRIMMER UPHOLSTERER- [address] [place] [address] PCP - General NURSE PRACTITIONER 09/05/22 07/07/24 Leroy Meraz DO [address] [place] [id number] PCP - General FAMILY PRACTICE 07/08/24 [place] [id number] [address] Surgeon SURGERY 11/03/23 documented as of this encounter
--- OUTSIDE RECORDS SUMMARY | 2024-11-16 04:40 | XMS_ITS | Referral Summary ---
Author Organization [facility] Address [address] [facility] [place] [address] Care Team Providers Care Take Away Man Name Role Phone Lisa Ramírez JOSE-YIELD LOSS INSPECTOR Primary Care Provider Source Comments [facility],non-owned Affiliates and Associated Physician Practices is amultiple site organization consisting of ambulatory clinics and hospital sitesin [place] and [place]. This disclosure is being madepursuant to the Care Everywhere program and may not contain all information available regarding this patient. Last updated 18.[facility] Allergies Active Allergy Reactions Criticality Noted Date [...] 80 12/29/2022 5:29 PM CDT Temperature 36.8 C (98.2 F) 12/29/2022 5:29 PM CDT Respiratory Rate 18 12/29/2022 5:29 PM CDT [...] 4:22 AM 12/27/2020 2:34 PM Care Teams Take Away Man Relationship Specialty Start Date End Date Lisa Ramírez, VACUUM PAN TENDER-YIELD LOSS INSPECTOR [address] [place] [address] PCP - General Telegraph Operator 10/07/22
--- OUTSIDE RECORDS SUMMARY | 2024-11-16 04:40 | XMS_ITS | Encounter Summary ---
Author Organization [facility] Address [facility] [place] [address] Care Team Providers Care Licensed Architect Name Role Phone Lisa Ramírez [facility] Primary Care Provider + Jorje Ayala MD Unavailable Leroy Meraz DO Primary Care Provider + Encounter Details Date Type Department Care Team (Late st Contact Info) Description 06/04/2024 Live Shuttle Message [facility] [address] [place] [address] [place] [address] [facility] [address] [place] [address] WHEELCHAIR Social History Tobacco Use [...] Sex Assigned at Male 10/10/2024 12:08 PM PICK UP TRUCK DRIVER Legal Sex Male 5:44 PM CDT Gender Identity Male 11/11/2024 10:55 AM PICK UP TRUCK DRIVER Sexual Orientation Not on file documented as [...] 09/02/2024 MDR Other Comment:Added from external Infection- [facility] Collection Source- Urine 2020 06/25/2024 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 Source: [facility] [employer]. 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- [address] [place] [address] PCP - General NURSE PRACTITIONER 09/05/22 07/07/24 Leroy Meraz DO [address] [place] [address] PCP - General FAMILY PRACTICE 07/08/24 [place] [id number] [address] Surgeon SURGERY 11/03/23 documented as of this encounter
--- OUTSIDE RECORDS SUMMARY | 2024-11-16 04:40 | XMS_ITS | Encounter Summary ---
Author Organization [facility] Address [facility] [place] [address] Care Team Providers Care Dental Service Chief Name Role Phone Lisa Ramírez [facility] Primary Care Provider + Jorje Ayala MD Unavailable Leroy Meraz DO Primary Care Provider + Encounter Details Date Type Department Care Team (Late st Contact Info) Description 11/14/2023 Therapy Plan [facility] [id number] [place] [address] [place] [address] [facility] [address] [place] [address] Social History Tobacco Use Types [...] Sex Assigned at Male 10/10/2024 12:08 PM WOMEN'S STUDIES LECTURER Legal Sex Male 5:44 PM CDT Gender Identity Male 11/11/2024 10:55 AM WOMEN'S STUDIES LECTURER Sexual Orientation Not on file documented as [...] Visit Diagnoses Diagnosis 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 ([facility])- Primary Neurogenic bladder Neurogenic bladder, NOS Suprapubic catheter ([facility]) Other cystostomy status documented in this encounter [...] 09/02/2024 MDR Other Comment:Added from external Infection- [facility] Health Collection Source- Urine 2020 06/25/2024 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 Source: [facility] [employer]. Collection Source-Urine 08/04/2021 COVID-19 Rule Out 03/23/2024 03/23/2024 03/23/2024 1:17 PM CDT Assessment Noted Time PHQ-9 Depression Total Score: 0 12/04/19 1:13 PM WOMEN'S STUDIES LECTURER documented as of this encounter Care Teams Dental Service Chief Relationship Specialty Start Date End Date Lisa Ramírez, HOT WIRE GLASS TUBE CUTTER- [address] [place] [address] PCP - General NURSE PRACTITIONER 09/05/22 07/07/24 Leroy Meraz DO [address] [place] [address] PCP - General FAMILY PRACTICE 07/08/24 [place] [id number] [address] Surgeon SURGERY 11/03/23 documented as of this encounter
--- OUTSIDE RECORDS SUMMARY | 2024-11-16 04:40 | XMS_ITS | Patient Health Summary ---
Author Organization [facility] Address [address] [place] [address] Care Team Providers Care Director Metabolism Name Role Phone Lisa Ramírez SOFTWARE SPECIALIST-WELDING PROCESS SPECIALIST Primary Care Provider Note from [facility],non-owned Affiliates and Associated Physician Practices is amultiple site organization consisting of ambulatory clinics and hospital sitesin [place], [place], [place] and [place]. This disclosure is being madepursuant to the Care Everywhere program and may not contain all information available regarding this patient. Last updated 18.[facility] Allergies * Diphenhydramine(Unknown) * Ciprofloxacin(Itching) [...] Yellow, Dark Yellow 12/29/2022 4:00 PM CDT [facility] Clarity UA Slt Cloudy(A) Clear 12/29/2022 4:00 PM CDT [facility] Glucose UA Negative Negative 12/29/2022 4:00 PM CDT [facility] Bilirubin UA Negative Negative 12/29/2022 4:00 PM CDT [facility] Ketone UA 1+(A) Negative 12/29/2022 4:00 PM CDT [facility] Specific [place] UA 1.014 1.005 - 1.030 12/29/2022 4:00 PM CDT [facility] Blood UA 2+(A) Negative 12/29/2022 4:00 PM CDT [facility] pH UA 6.0 5.0 - 8.0 pH 12/29/2022 4:00 PM CDT [facility] Protein UA 2+(A) Negative 12/29/2022 4:00 PM CDT [facility] Urobilinogen UA Negative Negative mg/dL 12/29/2022 4:00 PM CDT [facility] Nitrite UA Positive(A) Negative 12/29/2022 4:00 PM CDT [facility] Leukocyte UA 3+(A) Negative 12/29/2022 4:00 PM CDT [facility] Urine Microscopy Urine microscopy to follow 12/29/2022 4:00 PM CDT [facility] Urine URINE SPECIMEN COLLECTION, CATHETERIZED / Unknown Collection / Unknown 12/29/2022 3:36 PM CDT 12/29/2022 3:42 PM CDT Narrative [facility] - 12/29/2022 4:00 PM CDT Ascorbic Acid can cause false negative urine strip tests for blood, glucose, nitrite, and bilirubin. Jessica Valles APRN-WELDING PROCESS SPECIALIST LAB - URINALYSIS ORD ERABLES Performing Organization Address [facility]/ZIP Co de Phone Number [facility] [address] * (ABNORMAL) URINE MICROSCOPIC ONLY (12/29/2022 3:36 PM CDT) Pathologist [facility] RBC UA 11-20(A) 0 - 5 # /hpf 12/29/2022 4:00 PM CDT [facility] WBC UA 21-50(A) None Seen, 0-5 # /hpf 12/29/2022 4:00 PM CDT [facility] Budding Yeast Occasional (A) None seen /hpf 12/29/2022 4:00 PM CDT [facility] Hyaline Casts 0-2 None Seen, 0-2 /LPF 12/29/2022 4:00 PM CDT [facility] Bacteria UA 2+(A) None Seen 12/29/2022 4:00 PM CDT [facility] Squamous Epithelial Cells None Seen None Seen, 0-2, 3-5 /hpf 12/29/2022 4:00 PM CDT [facility] Mucus UA 1+ /LPF 12/29/2022 4:00 PM CDT [facility] Urine URINE SPECIMEN COLLECTION, CATHETERIZED / Unknown Collection / Unknown 12/29/2022 3:36 PM CDT 12/29/2022 3:42 PM CDT Narrative [facility] - 12/29/2022 4:00 PM CDT Jessica Valles SOFTWARE SPECIALIST-WELDING PROCESS SPECIALIST LAB - URINALYSIS ORD ERABLES Performing Organization Address [facility] Co de Phone Number [facility] [address] * CULTURE URINE (12/29/2022 3:36 PM CDT) Only the most recent of5 resultswithin the time period is included. Pathologist [facility] Culture Urine More than 2 organisms seen at >=50,000 CFU/mL. Recollect if clinically indicated. JONAS 12/31/2022 3:09 PM CDT [facility] Urine URINE SPECIMEN OBTAINED BY CLEAN CATCH PROCEDURE / Unknown Collection / Unknown 12/29/2022 3:36 PM CDT 12/29/2022 3:42 PM CDT Narrative [facility] - 12/31/2022 3:09 PM CDT Jessica BIRCH LAB - MICROBIOLOGY O RDERABLES [facility] [address] [place] [address], [facility] [phone] * (ABNORMAL) URINE MICROSCOPIC ONLY REFLEX TO CULTURE (10/07/2022 6:55 PM PIPE FITTER) Only the most recent of4 resultswithin the time period is included. Reflex Status Culture to follow 10/07/2022 7:11 PM PIPE FITTER [facility] RBC UA 11-20(A) 0 - 5 # /hpf 10/07/2022 7:11 PM [facility] WBC UA >100(A) None Seen, 0-5 # /hpf 10/07/2022 7:11 PM [facility] WBC Clumps UA Few(A) None Seen /HPF 10/07/2022 7:11 PM [facility] Bacteria UA 3+(A) None Seen 10/07/2022 7:11 PM [facility] Squamous Epithelial Cells 0-2 None Seen, 0-2, 3-5 /hpf 10/07/2022 7:11 PM [facility] Mucus UA 1+ /LPF 10/07/2022 7:11 PM [facility] Urine SUPRAPUBIC URINE SPECIMEN / Unknown Collection / Unknown 10/07/2022 6:55 PM PIPE FITTER 10/07/2022 7:02 PM PIPE FITTER Narrative [facility] - 10/07/2022 7:11 PM PIPE FITTER Jermain Mcdaniels DO LAB - URINALYSIS ORD ERABLES [facility] [address] [place], [place] [id number] [place] [address] * (ABNORMAL) URINALYSIS REFLEX MICROSCOPIC REFLEX CULTURE (10/07/2022 6:55 PM PIPE FITTER) Only the most recent of4 resultswithin the time period is included. Color UA Yellow Straw, Yellow, Dark Yellow 10/07/2022 7:11 PM [facility] Clarity UA Cloudy(A) Clear 10/07/2022 7:11 PM PIPE FITTER [facility] Glucose UA Negative Negative 10/07/2022 7:11 PM [facility] Bilirubin UA Negative Negative 10/07/2022 7:11 PM [facility] Ketone UA Trace(A) Negative 10/07/2022 7:11 PM [facility] Specific [place] UA 1.014 1.005 - 1.030 10/07/2022 7:11 PM [facility] Blood UA 1+(A) Negative 10/07/2022 7:11 PM [facility] pH UA 6.0 5.0 - 8.0 pH 10/07/2022 7:11 PM [facility] Protein UA 2+(A) Negative 10/07/2022 7:11 PM [facility] Urobilinogen UA Negative Negative mg/dL 10/07/2022 7:11 PM [facility] Nitrite UA Negative Negative 10/07/2022 7:11 PM [facility] Leukocyte UA 3+(A) Negative 10/07/2022 7:11 PM [facility] Urine Microscopy Urine microscopy to follow 10/07/2022 7:11 PM [facility] Urine SUPRAPUBIC URINE SPECIMEN / Unknown Collection / Unknown 10/07/2022 6:55 PM PIPE FITTER 10/07/2022 7:02 PM [facility] Narrative [facility] - 10/07/2022 7:11 PM [facility] Ascorbic Acid can cause false negative urine strip tests for blood, glucose, nitrite, and bilirubin. Jermain Mcdaniels DO LAB - URINALYSIS ORD ERABLES Performing Organization Address City/State/[facility] Co de Phone Number [facility] [address] * CT ABDOMEN AND PELVIS W IV CONTRAST [id number] (08/24/2021 12:00 PM PIPE FITTER) Anatomical Region Laterality Modality Abdomen, Pelvis Computed Tomogra phy 08/24/2021 12:3 7 PM PIPE FITTER Addenda Addendum by Greta Chatterjee MD on 08/24/2021 12:56 PM PIPE FITTER Addendum should read as follows. Please disregard sentence pulmonary embolus. Instead it should read unremarkable adrenal glands. *Addending Radiologist: Greta Chatterjee on 08/24/2021 at 12:53 PM Impressions 08/24/2021 12:39 PM PIPE FITTER As described above *Reading Radiologist: Greta Chatterjee on 08/24/2021 at 12:39 PM Narrative 08/24/2021 12:39 PM PIPE FITTER PROCEDURE: CT ABDOMEN PELVIS W CONTRAST 08/24/2021 [...] (ABNORMAL) CULTURE WOUND+GRAM STAIN (08/24/2021 10:41 AM PIPE FITTER) Culture Heavy Pseudomonas aeruginosa(A) JONAS 08/27/2021 11:11 PM PIPE FITTER [facility] Culture Heavy Pseudomonas aeruginosa(A) JONAS 08/27/2021 11:11 PM [facility] Comment:Strain 2 Culture Heavy Klebsiella pneumoniae(A) JONAS 08/27/2021 11:11 PM [facility] Culture Heavy Corynebacterium species(A) JONAS 08/27/2021 11:11 PM [facility] Culture Moderate Staphylococcus aureus methicillin-resista nt (MRSA)(A) JONAS 08/27/2021 11:11 PM [facility] Comment:Staphylococcus aureu s methicillin-resistant (MRSA) detected by penicillin binding protein immunoassay. Contact precautions required. Conventional antibiotic susceptibility testing to follow. Gram Stain Moderate Polymorphonuclear cells 08/27/2021 11:11 PM [facility] Gram Stain Light Red blood cells 08/27/2021 11:11 PM [facility] Gram Stain Light Squamous epithelial cells 08/27/2021 11:11 PM [facility] Gram Stain Heavy Gram-positive bacilli 08/27/2021 11:11 PM [facility] Gram Stain Light Gram-positive cocci 08/27/2021 11:11 PM [facility] Microbiology ASSESSMENT OF CATHETER ENTRY SITE / Unknown Collection / Unknown 08/24/2021 10:41 AM PIPE FITTER 08/24/2021 10:46 AM [facility] - 08/27/2021 11:11 PM [facility] Methicillin-resistant Staphylococci (MRSA) are resistant to all [...] please call microbiology lab to request manual [phone]. Staphylococcus aureus methicillin-resistant (MRSA) Clindamycin JONAS 0.25 [...] Rosenberg MD LAB - MICROBIOLOGY O RDERABLES [facility] [address] [place], [place] [address] [phone] * CULTURE BLOOD (08/24/2021 10:36 AM PIPE FITTER) Only the most recent of4 resultswithin the time period is included. Culture No growth day 5 JONAS 08/30/2021 12:00 AM PIPE FITTER [facility] Blood PERIPHERAL BLOOD / Unknown Venipuncture / Unknown 08/24/2021 10:36 AM PIPE FITTER 08/24/2021 10:46 AM PIPE FITTER Helena Rosenberg MD LAB - MICROBIOLOGY O RDERABLES [facility] [address] [place] [address], [facility] [phone] * LACTIC ACID BLOOD REFLEX TO REPEAT (08/24/2021 10:31 AM PIPE FITTER) Only the most recent of2 resultswithin the time period is included. Lactic Acid 1.76 0.5 - 2 mmol/L 08/24/2021 11:05 AM PIPE FITTER [facility] Comment:3+ hemolysis Blood BLOOD SPECIMEN / Unknown Venipuncture / Unknown 08/24/2021 10:31 AM PIPE FITTER 08/24/2021 10:46 AM PIPE FITTER Helena Rosenberg MD LAB - CHEMISTRY ORDE [facility] [address] * PROCALCITONIN LEVEL (08/24/2021 10:31 AM PIPE FITTER) Procalcitonin 0.07 <=0.10 ng/mL 08/24/2021 11:32 AM PIPE FITTER [facility] Comment:2+ hemolysis Blood BLOOD SPECIMEN / Unknown Venipuncture / Unknown 08/24/2021 10:31 AM PIPE FITTER 08/24/2021 10:46 AM PIPE FITTER Narrative [facility] - 08/24/2021 11:32 AM PIPE FITTER If baseline PCT is - >2.0 ng/mL: A PCT level above 2.0 ng/mL on the first day of ICU admission is associated with a high risk for progression to severe sepsis and/or septic shock. - <0.5 ng/mL: A PCT level below 0.5 ng/mL on the first day of ICU admission is associated with a low risk for progression to severe sepsis and/or septic shock. If the Procalcitonin measurement is performed shortly after systemic infection process has started (usually less than 6 hours), these values may still be low. As various non-infectious conditions are known to induce procalcitonin as well, Procalcitonin levels between 0.50 ng/mL and 2.00 ng/mL should be reviewed carefully to take into account the specific clinical background and condition(s) of the individual patient. The change in procalcitonin (PCT) concentration over time provides support in decision making on antibiotic discontinuation for suspected or confirmed septic patients and for suspected or confirmed lower respiratory tract infection (LRTI). Follow-up samples should be tested once every 1-2 days based upon physician discretion taking into account the patient's evolution and progress. Discontinuation of antibiotic therapy may be considered for suspected or confirmed septic patients if the current PCT is <= 0.5 ng/mL or <= 0.25 ng/mL for confirmed LRTI. If the PCT delta drop is > 80% in either condition, discontinuation of antibiotic therapy may be indicated. Duration of antibiotics should not be determined solely on PCT; established guidelines for the indication should be followed. Results should be interpreted in the context of a patient's clinical status and other laboratory tests. PCT peak: Highest observed PCT concentration PCT current: Most recent PCT concentration Calculate delta PCT using the following equation: Delta PCT = PCT Peak - PCT current X 100% PCT Peak The Change in Procalcitonin Calculator is available at [email or web address] If clinical picture has not improved and PCT remains high, reevaluate and consider treatment failure or other causes. Helena Rosenberg MD LAB - CHEMISTRY YANNA BARTLETT [facility] Organization Address City/State/ZIP Co de Phone Number [facility] [address] * (ABNORMAL) CBC W AUTO DIFFERENTIAL (08/24/2021 10:31 AM PIPE FITTER) Only the most recent of4 resultswithin the time period is included. [facility] Signature WBC 7.4 4.0 - 10.0 x10E9/L 08/24/2021 10:50 AM [facility] RBC 3.70(L) 4.40 - 6.10 x10E12/L 08/24/2021 10:50 AM [facility] Hemoglobin 9.6(L) 13.7 - 17.5 gm/dL 08/24/2021 10:50 AM [facility] Hematocrit 29.3(L) 40.1 - 51.0 % 08/24/2021 10:50 AM [facility] MCV 79.2 78.0 - 100.0 fl 08/24/2021 10:50 AM [facility] MCH 25.9 25.6 - 34.0 pg 08/24/2021 10:50 AM [facility] MCHC 32.8 32.3 - 36.5 gm/dL 08/24/2021 10:50 AM [facility] RDW 17.7(H) 11.6 - 14.4 % 08/24/2021 10:50 AM [facility] MPV 9.8 9.4 - 12.4 fl 08/24/2021 10:50 AM [facility] Platelet Count 396(H) 163 - 369 x10E9/L 08/24/2021 10:50 AM [facility] Neutrophils % 66.6 40.0 - 75.0 % 08/24/2021 10:50 AM [facility] Lymphocytes % 14.5(L) 19.3 - 53.1 % 08/24/2021 10:50 AM [facility] Monocytes % 16.5(H) 4.7 - 12.5 % 08/24/2021 10:50 AM [facility] Eosinophils % 1.8 0.7 - 7.0 % 08/24/2021 10:50 AM [facility] Basophils % 0.3 0.1 - 1.2 % 08/24/2021 10:50 AM [facility] Immature Granulocytes 0.3 0 - 0.5 % 08/24/2021 10:50 AM [facility] Neutrophil Absolute 4.94 1.56 - 6.13 x10E9/L 08/24/2021 10:50 AM [facility] Lymphocytes Absolute 1.07(L) 1.18 - 3.74 x10E9/L 08/24/2021 10:50 AM [facility] Monocytes Absolute 1.22(H) 0.24 - 0.86 x10E9/L 08/24/2021 10:50 AM [facility] Eosinophils Absolute 0.13 0.04 - 0.54 x10E9/L 08/24/2021 10:50 AM [facility] Basophils Absolute 0.02 0.01 - 0.08 x10E9/L 08/24/2021 10:50 AM [facility] Immature Granulocytes Absolute 0.02 0 - 0.03 x10E9/L 08/24/2021 10:50 AM [facility] nRBC Auto 0 <=0 /100 WBC 08/24/2021 10:50 AM [facility] nRBC Absolute 0.00 <=0 x10E9/L 08/24/2021 10:50 AM [facility] Blood BLOOD SPECIMEN / Unknown Venipuncture / Unknown 08/24/2021 10:31 AM PIPE FITTER 08/24/2021 10:46 AM [facility] Helena Rosenberg MD LAB - HEMATOLOGY ORD ERABLES Performing Organization Address City/State/[facility] Co de Phone Number [facility] [address] * (ABNORMAL) COMPREHENSIVE METABOLIC PANEL (08/24/2021 10:31 AM [facility]) Only the most recent of3 resultswithin the time period is included. [facility] Signature Glucose 100 70 - 125 mg/dL 08/24/2021 11:13 AM [facility] Sodium 138 136 - 145 mmol/L 08/24/2021 11:13 AM [facility] Potassium 4.0 3.4 - 4.5 mmol/L 08/24/2021 11:13 AM [facility] Comment:2+ hemolysis Chloride 104 98 - 107 mmol/L 08/24/2021 11:13 AM [facility] CO2 23 22 - 29 mmol/L 08/24/2021 11:13 AM [facility] Calcium 9.3 8.4 - 10.2 mg/dL 08/24/2021 11:13 AM [facility] Anion Gap 15 10 - 20 mmol/L 08/24/2021 11:13 AM [facility] BUN 13.1 8.4 - 25.7 mg/dL 08/24/2021 11:13 AM [facility] Creatinine 0.70(L) 0.72 - 1.25 mg/dL 08/24/2021 11:13 AM [facility] eGFR by MDRD >60 >60 mL/min/1.7 3m2 08/24/2021 11:13 AM [facility] eGFR by MDRD >60 >60 mL/min/1.7 3m2 08/24/2021 11:13 AM [facility] Alkaline Phosphatase 107 40 - 150 U/L 08/24/2021 11:13 AM [facility] ALT 14 5 - 55 U/L 08/24/2021 11:13 AM [facility] AST 27 5 - 34 U/L 08/24/2021 11:13 AM [facility] Protein Total 8.5(H) 6.4 - 8.3 gm/dL 08/24/2021 11:13 AM [facility] Albumin 2.1(L) 3.5 - 5.0 gm/dL 08/24/2021 11:13 AM [facility] Globulin Total 6.4(H) 2.6 - 4.0 gm/dL 08/24/2021 11:13 AM [facility] Albumin/Globulin Ratio 0.3(L) 0.9 - 1.6 08/24/2021 11:13 AM [facility] Bilirubin Total 0.2 0.2 - 1.2 mg/dL 08/24/2021 11:13 AM [facility] Blood BLOOD SPECIMEN / Unknown Venipuncture / Unknown 08/24/2021 10:31 AM PIPE FITTER 08/24/2021 10:46 AM [facility] Helena Rosenberg MD LAB - CHEMISTRY KURTISE TRI [facility] Organization Address City/State/[facility] Co de Phone Number [facility] [address] * Critical Care (08/24/2021 9:57 AM PIPE FITTER) Narrative Helena Rosenberg MD - 08/24/2021 9:57 AM PIPE FITTER Helena Rosenberg MD 08/24/2021 1:09 PM Critical Care Performed by: Helena Rosenberg MD Authorized by: Helnea Rosenberg MD Critical care provider statement: Critical care time (minutes): 31 Critical care was necessary to treat or prevent imminent or life-threatening deterioration of the following conditions: Sepsis Critical care was time spent personally by me on the following activities: Ordering and performing treatments and interventions, ordering and [...] (Bezet) 418 ms [facility] MUSE Calculated P [place] 49 degrees [facility] MUSE Calculated R [place] 68 degrees [facility] MUSE Calculated T [place] 47 degrees [facility] Interpretation EKG NORMAL SINUS RHYTHM NONSPECIFIC T WAVE ABNORMALITY ABNORMAL ECG CONFIRMED BY DR ARITA ON 05/20/2021 Confirmed by KARL ARITA MD ([id number]), mapping editor FRANKY SHRESTHA ([id number]) on 05/28/2021 9:25:42 AM [facility] 05/20/2021 8:39 AM CDT 05/28/2021 9:25 AM CDT Rae De La Paz MD ECG ORDERABLES [facility] * (ABNORMAL) SLIDE SCAN HEMATOLOGY (12/27/2020 10:33 AM CDT) [facility] Platelet Estimation Increased( A) Normal, Adequate platelets 12/27/2020 12:14 PM CDT [facility] WBC Morph Normal 12/27/2020 12:14 PM CDT [facility] Anisocytosis 2+(A) None 12/27/2020 12:14 PM CDT [facility] Hypochromia 2+(A) None 12/27/2020 12:14 PM CDT [facility] Large Platelets 1+(A) None 12:14 PM CDT [facility] Blood BLOOD SPECIMEN / Unknown Lab Venipuncture / Unknown 12/27/2020 10:33 AM CDT 12/27/2020 10:36 AM CDT Sushma Brunson MD LAB - HEMATOLOG Y ORDERABLES Performing Organization Address City/[facility] de Phone Number [facility] [address] * BASIC METABOLIC PANEL (CALCIUM TOTAL) (12/27/2020 10:33 AM CDT) [facility] Glucose 87 70 - 125 mg/dL 12/27/2020 10:57 AM CDT [facility] Sodium 139 136 - 145 mmol/L 12/27/2020 10:57 AM CDT [facility] Potassium 3.6 3.4 - 4.5 mmol/L 12/27/2020 10:57 AM CDT [facility] Chloride 106 98 - 107 mmol/L 12/27/2020 10:57 AM CDT [facility] CO2 23 22 - 29 mmol/L 12/27/2020 10:57 AM CDT [facility] Calcium 8.5 8.4 - 10.2 mg/dL 12/27/2020 10:57 AM CDT [facility] Anion Gap 14 10 - 20 mmol/L 12/27/2020 10:57 AM CDT [facility] BUN 9.5 8.4 - 25.7 mg/dL 12/27/2020 10:57 AM CDT [facility] Creatinine 0.79 0.72 - 1.25 mg/dL 12/27/2020 10:57 AM CDT [facility] eGFR by MDRD >60 >60 mL/min/1.7 3m2 12/27/2020 10:57 AM CDT [facility] eGFR by MDRD >60 >60 mL/min/1.7 3m2 12/27/2020 10:57 AM CDT [facility] Blood BLOOD SPECIMEN / Unknown Lab Venipuncture / Unknown 12/27/2020 10:33 AM CDT 12/27/2020 10:36 AM CDT Sushma Brunson MD LAB - CHEMISTRY ORDERABLES Performing Organization Address [facility] Co de Phone Number [facility] [address] * (ABNORMAL) PLATELET COUNT AUTO (12/27/2020 3:21 AM CDT) Platelet Count 568(H) 163 - 369 x10E9/L 12/27/2020 3:53 AM CDT [facility] Blood BLOOD SPECIMEN / Unknown Lab Venipuncture / Unknown 12/27/2020 3:21 AM CDT 12/27/2020 3:49 AM CDT Ayden Arora MD LAB - HEMATOLOGY ORD ERABLES Performing Organization Address [facility] Co de Phone Number [facility] [address] [place] [address] * CREATININE BLOOD (12/27/2020 3:21 AM CDT) Creatinine 0.73 0.72 - 1.25 mg/dL 12/27/2020 4:12 AM CDT [facility] eGFR by MDRD >60 >60 mL/min/1.7 3m2 12/27/2020 4:12 AM CDT [facility] eGFR by MDRD >60 >60 mL/min/1.7 3m2 12/27/2020 4:12 AM CDT [facility] Blood BLOOD SPECIMEN / Unknown Lab Venipuncture / Unknown 12/27/2020 3:21 AM CDT 12/27/2020 3:49 AM CDT Ayden Arora MD LAB - CHEMISTRY ORDE TRI Performing Organization Address [facility] de Phone Number [facility] [address] * (ABNORMAL) IRON + TRANSFERRIN PANEL (12/27/2020 3:21 AM CDT) [facility] Signature Iron 24(L) 65 - 175 ug/dL 12/27/2020 4:12 AM CDT [facility] Transferrin 109(L) 174 - 364 mg/dL 12/27/2020 4:12 AM CDT [facility] TIBC Calculated 136(L) 261 - 497 ug/dL 12/27/2020 4:12 AM CDT [facility] Iron Saturation % 18 11 - 45 % 12/27/2020 4:12 AM CDT [facility] Blood BLOOD SPECIMEN / Unknown Lab Venipuncture / Unknown 12/27/2020 3:21 AM CDT 12/27/2020 3:49 AM CDT Ayden Arora MD LAB - CHEMISTRY YANNA BARTLETT Performing Organization Address [facility] de Phone Number [facility] [address] * XR CHEST 1VW PORTABLE (12/26/2020 [...] No acute pathology or change Jose E Long DO DIAGNOSTIC IMAGING O RDERABLES * (ABNORMAL) DIFFERENTIAL MANUAL (12/25/2020 8:59 PM CDT) WBC Auto 9.7 4.0 - 10.0 x10E9/L 12/25/2020 9:54 PM CDT [facility] Neutrophils % Manual 69 40 - 75 % 12/25/2020 9:54 PM CDT [facility] Lymphocytes % Manual 14(L) 19 - 53 % 12/25/2020 9:54 PM CDT [facility] Monocytes % Manual 14(H) 5 - 13 % 12/25/2020 9:54 PM CDT [facility] Eosinophils % Manual 3 1 - 7 % 12/25/2020 9:54 PM CDT [facility] Neutrophils Absolute Manual 6.7(H) 1.6 - 6.1 x10E3/uL 12/25/2020 9:54 PM CDT [facility] Lymphocytes Absolute Manual 1.4 1.2 - 3.7 x10E3/uL 12/25/2020 9:54 PM CDT [facility] Monocytes Absolute Manual 1.4(H) 0.2 - 0.9 x10E3/uL 12/25/2020 9:54 PM CDT [facility] Eosinophils Absolute Manual 0.3 0.0 - 0.5 x10E3/uL 12/25/2020 9:54 PM CDT [facility] Cells Counted 100 # cells 12/25/2020 9:54 PM CDT [facility] Platelet Estimation Increased( A) Normal, Adequate platelets 12/25/2020 9:54 PM CDT [facility] WBC Morph Normal 12/25/2020 9:54 PM CDT [facility] Anisocytosis 1+(A) None 12/25/2020 9:54 PM CDT [facility] Hypochromia 1+(A) None 12/25/2020 9:54 PM CDT [facility] Microcytosis Occasional (A) None 12/25/2020 9:54 PM CDT [facility] Large Platelets Occasional (A) None 12/25/2020 9:54 PM CDT [facility] Blood BLOOD SPECIMEN / Unknown Venipuncture / Unknown 12/25/2020 8:59 PM CDT 12/25/2020 9:11 PM CDT Jose Wallace Junito DO LAB - HEMATOLOGY ORD ERABLES [facility] [address] * GROSS + MICRO EXAM (11/24/1998 9:17 AM PIPE FITTER) Result CASE NUMBER [id number] Comment: ORDERING PHYSICIAN MATI MELCHOR SPECIMEN TYPE Decubitus Date 11/24/1998 Physician Ney Gross Description The specimen is received in a single formalin-filled container, labeled with the patient's name and decubitus ulcer, left buttock . It contains a single rubbery, white and brown-gutierrez, irregularly-shaped tissue fragment measuring 2.5 x 2.7 x 2.2 cm in greatest dimension. The cut surface is white-gutierrez with areas of hemorrhage and central necrosis. A territory service representative section is submitted in a single cassette. JS/lmj Microscopic Exam The left buttock decubitus ulcer debridement shows soft tissue with ulcer and acute and chronic inflammation and young granulation tissue. No malignancy is identified. Diagnosis I. Left buttock, decubitus ulcer, debridement A. Chronic ulcer. Lcac Operator bk Pathologist Lele Davies M.D. Snomed. 11/25/1998 1544 <1> CPT code 54177/84022 MISCELLANEOUS SAMPLES / Unknown 11/24/1998 9:17 AM PIPE FITTER 11/24/1998 9:17 AM PIPE FITTER Historical Provider LAB - PATHOLOGY/C YTOLOGY ORDERABLES Care Teams Director Metabolism Relationship Specialty Start Date End Date Lisa Ramírez, SOFTWARE SPECIALIST-WELDING PROCESS SPECIALIST [address] [place] [address] PCP - General Peer Financial Counselor 10/07/22
--- OUTSIDE RECORDS SUMMARY | 2024-11-16 04:40 | XMS_ITS | Encounter Summary ---
Author Organization [facility] Address [facility] [place] [address] Care Team Providers Care Imaging Assistant Name Role Phone Sherman Cartagena MD Primary Care Provider Angella Mary Guidry NP Primary Care Provider [phone] Lisa Ramírez [facility] Primary Care Provider + Lisa Ramírez [facility] Primary Care Provider + Jorje Ayala MD Unavailable Leroy Meraz DO Primary Care Provider + Encounter Details Date Type Department Care Team (Late st Contact Info) Description 10/01/2020 Prep for Procedure [facility] [address] [place] [address] [place] [address] [place] [address] Social History Tobacco Use Types Packs/Day Years Used Date Smoking Tobacco: Never Smokeless Tobacco: Never Alcohol Use Standard Drinks/Week Comments Not Currently 0 (1 standard drink = 0.6 oz pur e alcohol) PHQ-2 Answer Date Recorded PHQ-2 Score 0 09/01/2020 Sex and Gender Information Value Date Recorded Sex Assigned at Male 10/10/2024 12:08 PM DRAWING MACHINE OPERATOR Legal Sex Male 5:44 PM CDT Gender Identity Male 11/11/2024 10:55 AM DRAWING MACHINE OPERATOR Sexual Orientation Not on file COVID-19 Exposure Response Date Recorded In the last month, have you been in contact with someone who was confirmed or suspected to have Coronavirus / COVID-19? No / Unsure 10/04/2020 12:29 PM DRAWING MACHINE OPERATOR documented as of this encounter Functional Status * Question Answer Date of Assessment Author Status Do you have serious difficulty walking or climbing stairs? Yes 10/02/2020 3:45 PM DRAWING MACHINE OPERATOR Yoly Larson RN Ac tive * Question Answer Date of Assessment Author Status Do you have difficulty dressing or bathing? Yes 10/02/2020 3:45 PM DRAWING MACHINE OPERATOR Yoly Larson R N Active Because of a physical, mental, or emotional condition, do you have difficulty doing errands alone such as visiting a doctor's office or shopping? No 10/02/2020 3:45 PM DRAWING MACHINE OPERATOR Yoly Larson RN Act luz marina * RETIRED Are you deaf or do you have serious difficulty hearing Answer Date of Assessment Author Status No 09/04/2020 1:15 AM DRAWING MACHINE OPERATOR Activ e * RETIRED Are you blind or do you have serious difficulty seeing, even when wearing glasses? Answer Date of Assessment Author Status No 09/04/2020 1:15 AM DRAWING MACHINE OPERATOR Activ e * Do you have serious difficulty walking or climbing stairs? Answer Date of Assessment Author Status Yes 09/04/2020 1:15 AM Soledad Gage CA SE LABOR DELIVERY RN Active * Do you have difficulty dressing or bathing? Answer Date of Assessment Author Status Yes 09/04/2020 1:15 AM Soledad Gage CA SE LABOR DELIVERY RN Active * Because of a physical, mental, or emotional condition, do you have difficulty doing errands alone such as visiting a doctor's office or shopping? Answer Date of Assessment Author Status Yes 09/04/2020 1:15 AM Soledad Gage CA SE LABOR DELIVERY RN Active documented as of this encounter Mental Status * Question Answer Entry Date Author Status Because of a physical, mental, or emotional condition, do you have serious difficulty concentrating, remembering, or making decisions? No 10/02/2020 3:45 PM DRAWING MACHINE OPERATOR Yoly Larson R N Active * Because of a physical, mental, or emotional condition, do you have serious difficulty concentrating, remembering, or making decisions? Answer Entry Date Author Status No 09/04/2020 1:15 AM DRAWING MACHINE OPERATOR Soledad Bryan CA SE LABOR DELIVERY RN Active documented in this encounter Plan [...] Rule Out 10/06/2020 10/06/2020 10/07/2020 11:13 AM DRAWING MACHINE OPERATOR COVID-19 Rule Out 11/21/2020 11/21/2020 11/21/2020 6:39 PM DRAWING MACHINE OPERATOR COVID-19 Rule Out 11/21/2020 11/21/2020 11/21/2020 7:35 PM DRAWING MACHINE OPERATOR MDR Other Comment:Added from external Infection- [facility] Collection Source- Urine 2020 06/25/2024 MDR-BOWL TURNER - Carbapenemase-Prod ucing Organisms Comment:Added from external infection. Source: [facility] [employer]. Collection Source-Urine 08/04/2021 COVID-19 Rule Out 09/28/2021 09/28/2021 10/05/2021 12:34 AM DRAWING MACHINE OPERATOR COVID-19 Rule Out 03/23/2024 03/23/2024 03/23/2024 1:17 PM CDT documented as of this encounter Care Teams Imaging Assistant Relationship Specialty Start Date End Date Sherman Cartagena MD PCP - General FAMILY PRACTICE 08/25/20 11/29/21 Mary Marcus, LOUVER MORTISER OPERATOR [address] [place] [address] PCP - General NURSE PRACTITIONER 11/30/21 08/28/22 Lisa Ramírez, [facility] [address] [place] [address] PCP - General NURSE PRACTITIONER 08/29/22 09/01/22 Lisa Ramírez, [facility] [address] [place] [address] PCP - General NURSE PRACTITIONER 09/05/22 07/07/24 Leroy Meraz DO [address] [place] [address] PCP - General FAMILY PRACTICE 07/08/24 [place] [address] [id number] Surgeon SURGERY 11/03/23 documented as of this encounter
--- OUTSIDE RECORDS SUMMARY | 2024-11-16 04:40 | XMS_ITS | Clinical Summary ---
Author Organization [facility] Address [address] [place] [address] Care Team Providers Care Uncrater Name Role Phone Lisa Ramírez JOSE-NUTS AND BOLTS ASSEMBLER Primary Care Provider Source Comments [facility],non-owned Affiliates and Associated Physician Practices is amultiple site organization consisting of ambulatory clinics and hospital sitesin [place], [place], [place] and [place]. This disclosure is being madepursuant to the Care Everywhere program and may not contain all information available regarding this patient. Last updated 18.[facility] Gotcha Ninjas Allergies Active Allergy Reactions Criticality Noted Date [...] , 10/08/2021 DEPRESSION SCREENING 09/25/2024 MEDICARE AWV CALENDAR YEAR 2024 HIB VACCINE Aged Out [...] 4:22 AM 12/27/2020 2:34 PM Care Teams Uncrater Relationship Specialty Start Date End Date Lisa Ramírez, FRANCHISE CONSULTANT-NUTS AND BOLTS ASSEMBLER [address] [place] [address] PCP - General Investigative Shopper 10/07/22
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
--- OUTSIDE RECORDS SUMMARY | 2024-11-16 04:40 | XMS_ITS | Encounter Summary ---
Author Organization [facility] Address [facility] [place] [address] Care Team Providers Care Boomswing Operator Name Role Phone Lisa Ramírez [facility] Primary Care Provider + Jorje Ayala MD Unavailable Leroy Meraz DO Primary Care Provider + Encounter Details Date Type Department Care Team (Late st Contact Info) Description 12/25/2023 Jobvite Message [facility] [address] [place] [address] Lisa Ramírez, [facility] [address] [place] [address] referral Social History Tobacco Use [...] Sex Assigned at Male 10/10/2024 12:08 PM ELECTRONICS MECHANIC APPRENTICE Legal Sex Male 5:44 PM CDT Gender Identity Male 11/11/2024 10:55 AM ELECTRONICS MECHANIC APPRENTICE Sexual Orientation Not on file documented as [...] 09/02/2024 MDR Other Comment:Added from external Infection- [facility] Collection Source- Urine 2020 06/25/2024 MDR-STANDARDS ENGINEER - Carbapenemase-Prod ucing Organisms Comment:Added from external infection. Source: [facility] [employer]. Collection Source-Urine 08/04/2021 COVID-19 Rule Out 03/23/2024 03/23/2024 03/23/2024 1:17 PM CDT Assessment Noted Time PHQ-9 Depression Total Score: 0 12/04/19 1:13 PM ELECTRONICS MECHANIC APPRENTICE documented as of this encounter Care Teams Boomswing Operator Relationship Specialty Start Date End Date Lisa Ramírez, NEURO PSYCH SALES SPECIALIST- [address] [place] [address] PCP - General NURSE PRACTITIONER 09/05/22 07/07/24 Leroy Meraz DO [address] [place] [address] PCP - General FAMILY PRACTICE 07/08/24 [place] [address] [address] Surgeon SURGERY 11/03/23 documented as of this encounter
--- OUTSIDE RECORDS SUMMARY | 2024-11-16 04:41 | XMS_ITS | Encounter Summary ---
Author Organization [facility] Address [address] [place] [address] Care Team Providers Care Geologist Name Role Phone Mary Marcus NP Primary Care Provider [phone] Lisa Ramírez [facility] Primary Care Provider + Lisa Ramírez [facility] Primary Care Provider + Jorje Ayala MD Unavailable Leroy Meraz DO Primary Care Provider + Encounter Details Date Type Department Care Team (Late st Contact Info) Description 01/03/2022 Printio.rut Message [facility] [address] [place] [address] Mary Marcus AGRICULTURAL MECHANIC [address] [place] [address] the antibiotics Social History Tobacco [...] Sex Assigned at Male 10/10/2024 12:08 PM DRAIN CLEANER Legal Sex Male 5:44 PM CDT Gender Identity Male 11/11/2024 10:55 AM DRAIN CLEANER Sexual Orientation Not on file COVID-19 Exposure [...] Assessment Author Status No 11/26/2020 1:38 PM DRAIN CLEANER Activ e * RETIRED Are you blind or do you have serious difficulty seeing, even when wearing glasses? Answer Date of Assessment Author Status No 11/26/2020 1:38 PM DRAIN CLEANER Acti ve * Do you have serious difficulty walking or climbing stairs? Answer Date of Assessment Author Status Yes 11/26/2020 1:38 PM DRAIN CLEANER Yoly Larson RN Active * Do you have difficulty dressing or bathing? Answer Date of Assessment Author Status Yes 11/26/2020 1:38 PM DRAIN CLEANER Yoly Larson RN Active * Because of a physical, mental, or emotional condition, do you have difficulty doing errands alone such as visiting a doctor's office or shopping? Answer Date of Assessment Author Status Yes 11/26/2020 1:38 PM DRAIN CLEANER Yoly Larson RN Active documented as of [...] 09/02/2024 MDR Other Comment:Added from external Infection- [facility] Collection Source- Urine 2020 06/25/2024 MDR-OPERATING SYSTEMS PROGRAMMER - Carbapenemase-Prod ucing Organisms Comment:Added from external infection. Source: [facility]. Collection Source-Urine 08/04/2021 COVID-19 Rule Out 03/23/2024 03/23/2024 03/23/2024 1:17 PM CDT Assessment Noted Time PHQ-9 Depression Total Score: 0 12/04/19 1:13 PM DRAIN CLEANER documented as of this encounter Care Teams Geologist Relationship Specialty Start Date End Date Mary Marcus, AGRICULTURAL MECHANIC [address] [place] [address] PCP - General NURSE PRACTITIONER 11/30/21 08/28/22 Lisa Ramírez, [facility] [address] [place] [address] PCP - General NURSE PRACTITIONER 08/29/22 09/01/22 Lisa Ramírez, [facility] [address] [place] [address] PCP - General NURSE PRACTITIONER 09/05/22 07/07/24 Leroy Meraz DO [address] [place] [address] PCP - General FAMILY PRACTICE 07/08/24 [place] [address] [place] [address] Surgeon SURGERY 11/03/23 documented as of this encounter
--- OUTSIDE RECORDS SUMMARY | 2024-11-16 04:41 | XMS_ITS | Encounter Summary ---
Author Organization [facility] Address [facility] [place] [address] Care Team Providers Care Frothing Machine Operator Name Role Phone Sherman Cartagena MD Primary Care Provider Angella Mary Guidry NP Primary Care Provider [phone] Lisa Ramírez [facility] Primary Care Provider + Lisa Ramírez [facility] Primary Care Provider + Jorje Ayala MD Unavailable Leroy Meraz DO Primary Care Provider + Encounter Details Date Type Department Care Team (Late st Contact Info) Description 08/03/2021 One[employer]itt Message [address] [place] [address] Sherman Cartagena MD Other Social History [...] Sex Assigned at Male 10/10/2024 12:08 PM LCPC Legal Sex Male 5:44 PM CDT Gender Identity Male 11/11/2024 10:55 AM LCPC Sexual Orientation Not on file COVID-19 Exposure Response Date Recorded In the last month, have you been in contact with someone who was confirmed or suspected to have Coronavirus / COVID-19? No / Unsure 08/04/2021 8:26 AM LCPC documented as of this encounter Functional Status * RETIRED Are you deaf or do you have serious difficulty hearing Answer Date of Assessment Author Status No 11/26/2020 1:38 PM LCPC Activ e * RETIRED Are you blind or do you have serious difficulty seeing, even when wearing glasses? Answer Date of Assessment Author Status No 11/26/2020 1:38 PM LCPC Activ e * Do you have serious difficulty walking or climbing stairs? Answer Date of Assessment Author Status Yes 11/26/2020 1:38 PM LCPC Yoly Larson RN Active * Do you have difficulty dressing or bathing? Answer Date of Assessment Author Status Yes 11/26/2020 1:38 PM LCPC Yoly Larson RN Active * Because of a physical, mental, or emotional condition, do you have difficulty doing errands alone such as visiting a doctor's office or shopping? Answer Date of Assessment Author Status Yes 11/26/2020 1:38 PM LCPC Yoly Larson RN Active documented as of this encounter Mental Status * Because of a physical, mental, or emotional condition, do you have serious difficulty concentrating, remembering, or making decisions? Answer Entry Date Author Status No 11/26/2020 1:38 PM LCPC Yoly Larson RN Active documented in this encounter Progress Notes * Keny Jung MD - 08/04/2021 10:47 AM CST Contact the person he is talking about. I've never met him and would have nothing that I could tellher. Also send Dr. Cartagena letter in his chart to her . * Keny Jung MD - 08/04/2021 8:08 AM CST Not sure I an answer this issue. Please see what the real issue is and send someone this letter of necessity he is talking about. documented in this encounter Plan of Treatment [...] 09/02/2024 MDR Other Comment:Added from external Infection- [facility] [employer] Collection Source- Urine 2020 06/25/2024 MDR-ART THERAPIST - Carbapenemase-Prod ucing Organisms Comment:Added from external infection. Source: [facility] [employer]. Collection Source-Urine 08/04/2021 COVID-19 Rule Out 09/28/2021 09/28/2021 10/05/2021 12:34 AM LCPC COVID-19 Rule Out 03/23/2024 03/23/2024 03/23/2024 1:17 PM CDT Assessment Noted Time PHQ-9 Depression Total Score: 0 04/22/20 21 2:39 PM CDT documented as of this encounter Care Teams Frothing Machine Operator Relationship Specialty Start Date End Date Sherman Cartagena MD PCP - General FAMILY PRACTICE 08/25/20 11/29/21 Mary Marcus, SAUSAGE INSPECTOR [address] [place] [address] PCP - General NURSE PRACTITIONER 11/30/21 08/28/22 Lisa Ramírez, [facility] [address] [place] [address] PCP - General NURSE PRACTITIONER 08/29/22 09/01/22 Lisa Ramírez, [facility] [address] [place] [address] PCP - General NURSE PRACTITIONER 09/05/22 07/07/24 Leroy Meraz DO [facility] [place] [address] PCP - General FAMILY PRACTICE 07/08/24 [place] [address] [address] Surgeon SURGERY 11/03/23 documented as of this encounter
--- OUTSIDE RECORDS SUMMARY | 2024-11-16 04:41 | XMS_ITS | Encounter Summary ---
Author Organization [facility] Address [facility] [place] [address] Care Team Providers Care Pool Hall Inspector Name Role Phone Lisa Ramírez [facility] Primary Care Provider + Jorje Ayala MD Unavailable Leroy Meraz DO Primary Care Provider + Encounter Details Date Type Department Care Team (Late st Contact Info) Description 03/23/[address] [facility] [address] [place] [address] Lisa Ramírez, [facility] [address] [place] [address] Potassium Social History Tobacco Use Types Packs/Day Years Used Date Smoking Tobacco: Never Smokeless Tobacco: Never Comments:never smoke Alcohol Use Standard Drinks/Week Comments Not Currently 0 (1 standard drink = 0.6 oz pur e alcohol) PHQ-2 Answer Date Recorded Patient Health Questionnaire-2 Score 0 03/09/2023 Sex and Gender Information Value Date Recorded Sex Assigned at Male 10/10/2024 12:08 PM CASING MAN Legal Sex Male 5:44 PM CDT Gender Identity Male 11/11/2024 10:55 AM CASING MAN Sexual Orientation Not on file COVID-19 Exposure [...] MDR Other Comment:Added from external Infection- [facility] Collection Source- Urine 2020 06/25/2024 MDR-MACHINE HOOP MAKER - Carbapenemase-Prod ucing Organisms Comment:Added from external infection. Source: [facility] [employer]. Collection Source-Urine 08/04/2021 COVID-19 Rule Out 03/23/2024 03/23/2024 03/23/2024 1:17 PM CDT Assessment Noted Time PHQ-9 Depression Total Score: 0 12/04/19 1:13 PM CASING MAN documented as of this encounter Care Teams Pool Hall Inspector Relationship Specialty Start Date End Date Lisa Ramírez, [facility]- [address] [place] [address] PCP - General NURSE PRACTITIONER 09/05/22 07/07/24 Leroy Meraz DO [address] [place] [id number] PCP - General FAMILY PRACTICE 07/08/24 [place] [id number] [address] Surgeon SURGERY 11/03/23 documented as of this encounter
--- OUTSIDE RECORDS SUMMARY | 2024-11-16 04:41 | XMS_ITS | Encounter Summary ---
Author Organization [facility] Address [facility] [place] [address] Care Team Providers Care Advertising Production Manager Name Role Phone Sherman Cartagena MD Primary Care Provider Angella Mary Guidry NP Primary Care Provider [phone] Lisa Ramírez [facility] Primary Care Provider + Lisa Ramírez [facility] Primary Care Provider + Jorje Ayala MD Unavailable Leroy Meraz DO Primary Care Provider + Encounter Details Date Type Department Care Team (Late st Contact Info) Description 04/26/2021 [employer] Message [address] [address] Sherman Cartagena MD RE: Other Social [...] Sex Assigned at Male 10/10/2024 12:08 PM PULLMAN CONDUCTOR Legal Sex Male 5:44 PM CDT Gender Identity Male 11/11/2024 10:55 AM PULLMAN CONDUCTOR Sexual Orientation Not on file COVID-19 Exposure [...] Assessment Author Status No 11/26/2020 1:38 PM PULLMAN CONDUCTOR Activ e * RETIRED Are you blind or do you have serious difficulty seeing, even when wearing glasses? Answer Date of Assessment Author Status No 11/26/2020 1:38 PM PULLMAN CONDUCTOR Activ e * Do you have serious [...] 09/02/2024 MDR Other Comment:Added from external Infection- [facility] Collection Source- Urine 2020 06/25/2024 MDR-COOLING TOWER TECHNICIAN - Carbapenemase-Prod ucing Organisms Comment:Added from external infection. Source: [facility]. Collection Source-Urine 08/04/2021 COVID-19 Rule Out 09/28/2021 09/28/2021 10/05/2021 12:34 AM PULLMAN CONDUCTOR COVID-19 Rule Out 03/23/2024 03/23/2024 03/23/2024 1:17 PM CDT Assessment Noted Time PHQ-9 Depression Total Score: 0 04/22/20 21 2:39 PM CDT documented as of this encounter Care Teams Advertising Production Manager Relationship Specialty Start Date End Date Sherman Cartagena MD PCP - General FAMILY PRACTICE 08/25/20 11/29/21 Mary aMrcus NP [address] [place] [address] PCP - General NURSE PRACTITIONER 11/30/21 08/28/22 Lisa Ramírez [facility]- [address] [place] [address] PCP - General NURSE PRACTITIONER 08/29/22 09/01/22 Lisa Ramírez [facility]- [address] [place] [address] PCP - General NURSE PRACTITIONER 09/05/22 07/07/24 Lreoy Meraz DO [facility] [place] [address] PCP - General FAMILY PRACTICE 07/08/24 [place] [id number] [id number] Surgeon SURGERY 11/03/23 documented as of this encounter
--- OUTSIDE RECORDS SUMMARY | 2024-11-16 04:41 | XMS_ITS | Encounter Summary ---
Author Organization [facility] Address [facility] [place] [address] Care Team Providers Care [place] Dental Lab Technician Name Role Phone Sherman Cartagena MD Primary Care Provider Angella Mary Guidry NP Primary Care Provider [phone] Lisa Ramírez [facility] Primary Care Provider + Lisa Ramírez [facility] Primary Care Provider + Jorje Ayala MD Unavailable Leroy Meraz DO Primary Care Provider + Encounter Details Date Type Department Care Team (Late st Contact Info) Description 10/08/2021 CohBart Message [facility] [address] [place] [address] Sherman Cartagena MD Pneumonia shot Social [...] Sex Assigned at Male 10/10/2024 12:08 PM ADVERTISING DISPATCH CLERKS SUPERVISOR Legal Sex Male 5:44 PM CDT Gender Identity Male 11/11/2024 10:55 AM ADVERTISING DISPATCH CLERKS SUPERVISOR Sexual Orientation Not on file COVID-19 Exposure Response Date Recorded In the last month, have you been in contact with someone who was confirmed or suspected to have Coronavirus / COVID-19? No / Unsure 10/11/2021 10:23 AM ADVERTISING DISPATCH CLERKS SUPERVISOR documented as of this encounter Functional Status * RETIRED Are you deaf or do you have serious difficulty hearing Answer Date of Assessment Author Status No 11/26/2020 1:38 PM ADVERTISING DISPATCH CLERKS SUPERVISOR Activ e * RETIRED Are you blind or do you have serious difficulty seeing, even when wearing glasses? Answer Date of Assessment Author Status No 11/26/2020 1:38 PM ADVERTISING DISPATCH CLERKS SUPERVISOR Activ e * Do you have serious difficulty walking or climbing stairs? Answer Date of Assessment Author Status Yes 11/26/2020 1:38 PM ADVERTISING DISPATCH CLERKS SUPERVISOR Yoly Larson RN Active * Do you have difficulty dressing or bathing? Answer Date of Assessment Author Status Yes 11/26/2020 1:38 PM ADVERTISING DISPATCH CLERKS SUPERVISOR Yoly Larson RN Active * Because of a physical, mental, or emotional condition, do you have difficulty doing errands alone such as visiting a doctor's office or shopping? Answer Date of Assessment Author Status Yes 11/26/2020 1:38 PM ADVERTISING DISPATCH CLERKS SUPERVISOR Yoly Larson RN Active documented as of this encounter Mental Status * Because of a physical, mental, or emotional condition, do you have serious difficulty concentrating, remembering, or making decisions? Answer Entry Date Author Status No 11/26/2020 1:38 PM ADVERTISING DISPATCH CLERKS SUPERVISOR Yoly Larson RN Active documented in this encounter Progress Notes * Emilia Peralta RN - 10/08/2021 11:49 AM CST Spoke with patient who states he already got Flu, Covid booster, and pneumonia pneumovax. RTISING DISPATCH CLERKS SUPERVISOR documented in this encounter Plan of Treatment [...] 09/02/2024 MDR Other Comment:Added from external Infection- [facility] [employer] Collection Source- Urine 2020 06/25/2024 MDR-AUTOMOTIVE MECHANIC - Carbapenemase-Prod ucing Organisms Comment:Added from external infection. Source: [facility] [employer]. Collection Source-Urine 08/04/2021 COVID-19 Rule Out 03/23/2024 03/23/2024 03/23/2024 1:17 PM CDT Assessment Noted Time PHQ-9 Depression Total Score: 0 04/22/20 2:39 PM CDT documented as of this encounter Care Teams [place] Dental Lab Technician Relationship Specialty Start Date End Date Sherman Cartagena MD PCP - General FAMILY PRACTICE 08/25/20 11/29/21 Mary Marcus SEPTIC CLEANER [address] [place] [address] PCP - General NURSE PRACTITIONER 11/30/21 08/28/22 Lisa Ramírez FNP- [address] [place] [address] PCP - General NURSE PRACTITIONER 08/29/22 09/01/22 Lisa Ramírez, ELECTRONIC NEWS GATHERING EDITOR- [address] [place] [address] PCP - General NURSE PRACTITIONER 09/05/22 07/07/24 Leroy Meraz DO [address] [place] [address] PCP - General FAMILY PRACTICE 07/08/24 [place] [id number] [address] Surgeon SURGERY 11/03/23 documented as of this encounter
--- OUTSIDE RECORDS SUMMARY | 2024-11-16 04:41 | XMS_ITS | Encounter Summary ---
Author Organization [facility] Address [facility] [place] [address] Care Team Providers Care Candy Roller Name Role Phone Sherman Cartagena MD Primary Care Provider Angella Mary Guidry NP Primary Care Provider [phone] Lisa Ramírez [facility] Primary Care Provider + Lisa Ramírez [facility] Primary Care Provider + Jorje Ayala MD Unavailable Leroy Meraz DO Primary Care Provider + Encounter Details Date Type Department Care Team (Late st Contact Info) Description 05/15/2021 Appvancet Message [address] [address] Sherman Cartagena MD Other Social History [...] Sex Assigned at Male 10/10/2024 12:08 PM PACKING ROOM SUPERVISOR Legal Sex Male 5:44 PM CDT Gender Identity Male 11/11/2024 10:55 AM PACKING ROOM SUPERVISOR Sexual Orientation Not on file COVID-19 [...] Assessment Author Status No 11/26/2020 1:38 PM PACKING ROOM SUPERVISOR Activ e * RETIRED Are you blind or do you have serious difficulty seeing, even when wearing glasses? Answer Date of Assessment Author Status No 11/26/2020 1:38 PM PACKING ROOM SUPERVISOR Activ e * Do you have [...] 09/02/2024 MDR Other Comment:Added from external Infection- [facility] Collection Source- Urine 2020 06/25/2024 MDR-RETAIL MANAGEMENT TRAINEE - Carbapenemase-Prod ucing Organisms Comment:Added from external infection. Source: [facility]. Collection Source-Urine 08/04/2021 COVID-19 Rule Out 09/28/2021 09/28/2021 10/05/2021 12:34 AM PACKING ROOM SUPERVISOR COVID-19 Rule Out 03/23/2024 03/23/2024 03/23/2024 1:17 PM CDT Assessment Noted Time PHQ-9 Depression Total Score: 0 04/22/20 21 2:39 PM CDT documented as of this encounter Care Teams Candy Roller Relationship Specialty Start Date End Date Sherman Cartagena MD PCP - General FAMILY PRACTICE 08/25/20 11/29/21 Mary Marcus NP [address] [place] [address] PCP - General NURSE PRACTITIONER 11/30/21 08/28/22 Lisa Ramírez [facility]- [address] [place] [address] PCP - General NURSE PRACTITIONER 08/29/22 09/01/22 Lisa Ramírez [facility]- [address] [place] [address] PCP - General NURSE PRACTITIONER 09/05/22 07/07/24 Leroy Meraz DO [address] [place] [address] PCP - General FAMILY PRACTICE 07/08/24 [place] [address] [address] Surgeon SURGERY 11/03/23 documented as of this encounter
--- OUTSIDE RECORDS SUMMARY | 2024-11-16 04:41 | XMS_ITS | Encounter Summary ---
Author Organization [facility] Address [facility] [place] [address] Care Team Providers Care Crm Coordinator Name Role Phone Lisa Ramírez [facility] Primary Care Provider + Jorje Ayala MD Unavailable Leroy Meraz DO Primary Care Provider + Encounter Details Date Type Department Care Team (Late st Contact Info) Description 02/24/2023 Zuse Message Enc [address] [address] Advanced [employer], [facility] Provider arrival time Social History Tobacco Use Types Packs/Day Years Used Date Smoking Tobacco: Never Smokeless Tobacco: Never Alcohol Use Standard Drinks/Week Comments Not Currently 0 (1 standard drink = 0.6 oz pur e alcohol) PHQ-2 Answer Date Recorded Patient Health Questionnaire-2 Score 0 09/07/2022 Sex and Gender Information Value Date Recorded Sex Assigned at Male 10/10/2024 12:08 PM SLIP COVER SEAMSTRESS Legal Sex Male 5:44 PM CDT Gender Identity Male 11/11/2024 10:55 AM SLIP COVER SEAMSTRESS Sexual Orientation Not on file COVID-19 Exposure [...] HOSPITAL Health Collection Source- Urine 2020 06/25/2024 MDR-SINKER WINDER - Carbapenemase-Prod ucing Organisms Comment:Added from external infection. Source: [facility]. Collection Source-Urine 08/04/2021 COVID-19 Rule Out 03/23/2024 03/23/2024 03/23/2024 1:17 PM CDT Assessment Noted Time PHQ-9 Depression Total Score: 0 12/04/19 1:13 PM SLIP COVER SEAMSTRESS documented as of this encounter Care Teams Crm Coordinator Relationship Specialty Start Date End Date Lisa Ramírez, ADVENTURE CHALLENGE INSTRUCTOR- [address] [place] [address] PCP - General NURSE PRACTITIONER 09/05/22 07/07/24 Leroy Meraz DO [address] [place] [address] PCP - General FAMILY PRACTICE 07/08/24 [place] [address] [address] Surgeon SURGERY 11/03/23 documented as of this encounter
--- OUTSIDE RECORDS SUMMARY | 2024-11-16 04:41 | XMS_ITS | Encounter Summary ---
Author Organization [facility] Address [facility] [place] [address] Care Team Providers Care Event Planning Intern Name Role Phone Jorje Ayala MD Unavailable Leroy Meraz DO Primary Care Provider + Reason for Visit * Reason Onset Date Comments Information 11/15/2024 Encounter Details Date Type Department Care Team (Late st Contact Info) Description 11/15/2024 Telephone [facility] Family & Internal Medicine [address] [address] Leroy Meraz DO [address] [place] [address] Information Social History Tobacco Use [...] from your doctor or pharmacy? Never 06/24/2024 [facility] Utilities Answer Date Recorded In [...] Never 06/28/2024 How often do you attend uatsdin or denominational serv ices? Never 06/28/2024 Do you belong to any clubs o r organizations such as uatsdin groups, unions, fraternal or athletic groups, or [...] Recorded Patient Health Questionnaire-2 Score 0 11/11/2024 [facility] - Occupational Stress Questionnaire [...] any time in the past 12 m [facility], were you homeless or living in a penitentiary (including now)? No 06/28/2024 Sex and Gender Information Value Date Recorded Sex Assigned at Male 10/10/2024 12:08 PM LIGHT OIL OPERATOR Legal Sex Male 5:44 PM CDT Gender Identity Male 11/11/2024 10:55 AM LIGHT OIL OPERATOR Sexual Orientation Not on file documented as of this encounter Functional Status * Are you deaf or do you have serious difficulty hearing Answer Date of Assessment Author Status No 06/28/2024 5:50 PM CDT Erica Hughes I R N Active * Are you blind [...] documented in this encounter Progress Notes * Emily Staples - 11/15/2024 1:27 PM CST [facility] called in stating unable to accept pt as they are out of network with insurance. T OIL OPERATOR documented in this encounter Plan of [...] 09/02/2024 MDR Other Comment:Added from external Infection- [facility] Collection Source- Urine 2020 06/25/2024 MDR-AIRLINE STEWARDESS - Carbapenemase-Prod ucing Organisms Comment:Added from external infection. Source: [facility] [employer]. Collection Source-Urine 08/04/2021 Assessment Noted Time PHQ-9 Depression Total Score: 0 12/04/19 1:13 PM LIGHT OIL OPERATOR documented as of this encounter Care Teams Event Planning Intern Relationship Specialty Start Date End Date Leroy Meraz DO [address] [place] [address] PCP - General FAMILY PRACTICE 07/08/24 [place] [address] [address] Surgeon SURGERY 11/03/23 documented as of this encounter
--- OUTSIDE RECORDS SUMMARY | 2024-11-16 04:41 | XMS_ITS | Encounter Summary ---
Author Organization [facility] Address [facility] [place] [address] Care Team Providers Care Pressure Steamer Tender Name Role Phone Sherman Cartagena MD Primary Care Provider Angella Mary Guidry NP Primary Care Provider [phone] Lisa Ramírez [facility] Primary Care Provider + Lisa Ramírez [facility] Primary Care Provider + Jorje Ayala MD Unavailable Leroy Meraz DO Primary Care Provider + Encounter Details Date Type Department Care Team (Late st Contact Info) Description 05/15/2021 [employer] Message [address] [address] Sherman Cartagena MD RE: Other [...] Sex Assigned at Male 10/10/2024 12:08 PM POLISHING WHEEL REPAIRER Legal Sex Male 5:44 PM CDT Gender Identity Male 11/11/2024 10:55 AM POLISHING WHEEL REPAIRER Sexual Orientation Not on file COVID-19 Exposure [...] Assessment Author Status No 11/26/2020 1:38 PM POLISHING WHEEL REPAIRER Activ e * RETIRED Are you blind or do you have serious difficulty seeing, even when wearing glasses? Answer Date of Assessment Author Status No 11/26/2020 1:38 PM POLISHING WHEEL REPAIRER Activ e * Do you have serious difficulty walking or climbing stairs? Answer Date of Assessment Author Status Yes 11/26/2020 1:38 PM POLISHING WHEEL REPAIRER Yoly Larson RN Active * Do you [...] I would have him ask his legal medical device sales representative to helphim in this regard. I dont see any medical reason to postpone a hearing. Thanks. documented in this encounter Plan of Treatment Not on file documented as of this encounter Goals Goal Patient Goal Type Associated Problems Recent Progress Patient-Stated? Author Discharge Patient/family verbalizes understanding regarding the need for SNF placement General Emilia Marcial J, RN Note: Pt will actively be involved [...] MDR Other Comment:Added from external Infection- [facility] Health Collection Source- Urine 2020 06/25/2024 MDR-GLASS SMOOTHER - Carbapenemase-Prod ucing Organisms Comment:Added from external infection. Source: [facility] [employer]. Collection Source-Urine 08/04/2021 COVID-19 Rule Out 09/28/2021 09/28/2021 10/05/2021 12:34 AM POLISHING WHEEL REPAIRER COVID-19 Rule Out 03/23/2024 03/23/2024 03/23/2024 1:17 PM CDT Assessment Noted Time PHQ-9 Depression Total Score: 0 04/22/20 21 2:39 PM CDT documented as of this encounter Care Teams Pressure Steamer Tender Relationship Specialty Start Date End Date Sherman Cartagena MD PCP - General FAMILY PRACTICE 08/25/20 11/29/21 Mary Marcus NP [address] [place] [address] PCP - General NURSE PRACTITIONER 11/30/21 08/28/22 Lisa Ramírez, NOVELTY WORKER- [address] [place] [address] PCP - General NURSE PRACTITIONER 08/29/22 09/01/22 Lisa Ramírez, [facility]- [address] [place] [address] PCP - General NURSE PRACTITIONER 09/05/22 07/07/24 Leroy Meraz DO [facility] [place] [address] PCP - General FAMILY PRACTICE 07/08/24 [place] [id number] [address] Surgeon SURGERY 11/03/23 documented as of this encounter
--- OUTSIDE RECORDS SUMMARY | 2024-11-16 04:41 | XMS_ITS | Encounter Summary ---
Author Organization [facility] Address [facility] [place] [address] Care Team Providers Care Transformation Architect Name Role Phone Sherman Cartagena MD Primary Care Provider Angella Mary Guidry NP Primary Care Provider [phone] [facility] Primary Care Provider + Lisa Ramírez [facility] Primary Care Provider + Jorje Ayala MD Unavailable Leroy Meraz DO Primary Care Provider + Encounter Details Date Type Department Care Team (Late st Contact Info) Description 08/03/[address] [facility] [address] [place] [address] Sherman Cartagena MD Other Social History [...] Sex Assigned at Male 10/10/2024 12:08 PM FINANCIAL AID DIRECTOR Legal Sex Male 5:44 PM CDT Gender Identity Male 11/11/2024 10:55 AM FINANCIAL AID DIRECTOR Sexual Orientation Not on file COVID-19 Exposure Response Date Recorded In the last month, have you been in contact with someone who was confirmed or suspected to have Coronavirus / COVID-19? No / Unsure 08/04/2021 8:26 AM FINANCIAL AID DIRECTOR documented as of this encounter Functional Status * RETIRED Are you deaf or do you have serious difficulty hearing Answer Date of Assessment Author Status No 11/26/2020 1:38 PM FINANCIAL AID DIRECTOR Activ e * RETIRED Are you blind or do you have serious difficulty seeing, even when wearing glasses? Answer Date of Assessment Author Status No 11/26/2020 1:38 PM FINANCIAL AID DIRECTOR Activ e * Do you have serious [...] 09/02/2024 MDR Other Comment:Added from external Infection- [facility] Health Collection Source- Urine 2020 06/25/2024 MDR-TRACTOR ENGINE MECHANIC - Carbapenemase-Prod ucing Organisms Comment:Added from external infection. Source: [facility]. Collection Source-Urine 08/04/2021 COVID-19 Rule Out 09/28/2021 09/28/2021 10/05/2021 12:34 AM FINANCIAL AID DIRECTOR COVID-19 Rule Out 03/23/2024 03/23/2024 03/23/2024 1:17 PM CDT Assessment Noted Time PHQ-9 Depression Total Score: 0 04/22/20 21 2:39 PM CDT documented as of this encounter Care Teams Transformation Architect Relationship Specialty Start Date End Date Sherman Cartagena MD PCP - General FAMILY PRACTICE 08/25/20 11/29/21 Mary Marcus NP [address] [place] [address] PCP - General NURSE PRACTITIONER 11/30/21 08/28/[address] [facility] [address] [place] [address] PCP - General NURSE PRACTITIONER 08/29/22 09/01/22 Lisa Ramírez [facility]- [address] [place] [address] PCP - General NURSE PRACTITIONER 09/05/22 07/07/24 Leroy Meraz DO [address] [place] [address] PCP - General FAMILY PRACTICE 07/08/24 [place] [address] [address] Surgeon SURGERY 11/03/23 documented as of this encounter
--- OUTSIDE RECORDS SUMMARY | 2024-11-16 04:41 | XMS_ITS | Encounter Summary ---
Author Organization [facility] Address [facility] [place] [address] Care Team Providers Care Associate Professor Name Role Phone Sherman Cartagena MD Primary Care Provider Angella Mary Guidry NP Primary Care Provider [phone] Lisa Ramírez [facility] Primary Care Provider + Lisa Ramírez [facility] Primary Care Provider + Jorje Ayala MD Unavailable Leroy Meraz DO Primary Care Provider + Encounter Details Date Type Department Care Team (Late st Contact Info) Description 06/04/2021 [employer] Message [address] [address] Sherman Cartagena MD Other Social [...] Sex Assigned at Male 10/10/2024 12:08 PM BARREL RIFLER OPERATOR Legal Sex Male 5:44 PM CDT Gender Identity Male 11/11/2024 10:55 AM BARREL RIFLER OPERATOR Sexual Orientation Not on file COVID-19 [...] Assessment Author Status No 11/26/2020 1:38 PM BARREL RIFLER OPERATOR Activ e * RETIRED Are you blind or do you have serious difficulty seeing, even when wearing glasses? Answer Date of Assessment Author Status No 11/26/2020 1:38 PM BARREL RIFLER OPERATOR Activ e * Do you have [...] 09/02/2024 MDR Other Comment:Added from external Infection- [facility] Health Collection Source- Urine 2020 06/25/2024 MDR-SECURITY TEST ENGINEER - Carbapenemase-Prod ucing Organisms Comment:Added from external infection. Source: [facility] [employer]. Collection Source-Urine 08/04/2021 COVID-19 Rule Out 09/28/2021 09/28/2021 10/05/2021 12:34 AM BARREL RIFLER OPERATOR COVID-19 Rule Out 03/23/2024 03/23/2024 03/23/2024 1:17 PM CDT Assessment Noted Time PHQ-9 Depression Total Score: 0 04/22/20 21 2:39 PM CDT documented as of this encounter Care Teams Associate Professor Relationship Specialty Start Date End Date Sherman Cartagena MD PCP - General FAMILY PRACTICE 08/25/20 11/29/21 Mary Marcus, DONTE [address] [place] [address] PCP - General NURSE PRACTITIONER 11/30/21 08/28/22 Lisa Ramírez FNP- [address] [place] [address] PCP - General NURSE PRACTITIONER 08/29/22 09/01/22 Lisa Ramírez [facility]- [address] [place] [address] PCP - General NURSE PRACTITIONER 09/05/22 07/07/24 Leroy Meraz DO [address] [place], [place] [id number] PCP - General FAMILY PRACTICE 07/08/24 [place] [id number] [id number] Surgeon SURGERY 11/03/23 documented as of this encounter
--- OUTSIDE RECORDS SUMMARY | 2024-11-16 04:41 | XMS_ITS | Encounter Summary ---
Author Organization [facility] Address [facility] [place] [address] Care Team Providers Care Superintendent Mechanical Name Role Phone Mary Marcus NP Primary Care Provider [phone] Lisa Ramírez [facility] Primary Care Provider + Lisa Ramírez [facility] Primary Care Provider + Jorje Ayala MD Unavailable Leroy Meraz DO Primary Care Provider + Reason for Referral * Surgical (Routine) - Closed Specialty Diagnoses / Procedures Referred By Beulah ramos Referred To Contact SURGERY Diagnoses Sepsis Procedures Case request operating room: INCISION AND DRAINAGE ABSCESS anterior of right thigh US guided I&D abscess anterior right thigh Jack Lewis MD Phone: tel: fax: [facility] General Surgery - [place] [address], [address] [place] [address] Phone: tel: fax: Referral ID Status Reason Start Date Expiration Date Visits Re quested Visits Authorized [id number] Closed 01/17/2022 02/16/2023 1 1 Encounter Details Date Type Department Care Team (Late st Contact Info) Description 01/17/2022 Prep for Procedure [facility] General Surgery - [place] [address], [address] [place] [address] [place] [address] [place] [address] Social History Tobacco Use Types Packs/Day Years [...] Sex Assigned at Male 10/10/2024 12:08 PM SOFTWARE ENGINEERING SPECIALIST Legal Sex Male 5:44 PM CDT Gender Identity Male 11/11/2024 10:55 AM SOFTWARE ENGINEERING SPECIALIST Sexual Orientation Not on file COVID-19 Exposure [...] Status Yes 01/16/2022 11:55 PM CDT Teri Carvajal RN Active * Do you have difficulty dressing or bathing? Answer Date of Assessment Author Status No 01/16/2022 11:55 PM CDT Trei Carvajal RN Active * Because of a physical, mental, or emotional condition, do you have difficulty doing errands alone such as visiting a doctor's office or shopping? Answer Date of Assessment Author Status No 01/16/2022 11:55 PM CDT Teri Carvajal RN Active documented as of this encounter Mental Status * Because of a physical, mental, or emotional condition, do you have serious difficulty concentrating, remembering, or making decisions? Answer Entry Date Author Status No 01/16/2022 11:55 PM CDT Teri Carvajal RN Active documented in this encounter Plan of Treatment Scheduled Orders Name Type Priority Associated Diagnoses [...] 09/02/2024 MDR Other Comment:Added from external [facility]fection- [facility] Collection Source- Urine 2020 06/25/2024 MDR-MILLINERY BLOCKER - Carbapenemase-Prod ucing Organisms Comment:Added from external infection. Source: [facility] [employer]. Collection Source-Urine 08/04/2021 COVID-19 Rule Out 03/23/2024 03/23/2024 03/23/2024 1:17 PM CDT Assessment Noted Time PHQ-9 Depression Total Score: 0 12/04/19 1:13 PM SOFTWARE ENGINEERING SPECIALIST documented as of this encounter Care Teams Superintendent Mechanical Relationship Specialty Start Date End Date Mary Marcus, DOCUMENT CLERK [address] [place] [address] PCP - General NURSE PRACTITIONER 11/30/21 08/28/22 Lisa Ramírez [facility] [address] [place] [address] PCP - General NURSE PRACTITIONER 08/29/22 09/01/22 Lisa Ramírez [facility] [address] [place] [address] PCP - General NURSE PRACTITIONER 09/05/22 07/07/24 Leroy Meraz DO [address] [place] [address] PCP - General FAMILY PRACTICE 07/08/24 [place] [address] [address] Surgeon SURGERY 11/03/23 documented as of this encounter
--- OUTSIDE RECORDS SUMMARY | 2024-11-16 04:41 | XMS_ITS | Encounter Summary ---
Author Organization [facility] Address [facility] [place] [address] Care Team Providers Care Aircraft Part Assembler Name Role Phone Sherman Cartagena MD Primary Care Provider Angella Mary Guidry NP Primary Care Provider [phone] Lisa Ramírez [facility] Primary Care Provider + Lisa Ramírez [facility] Primary Care Provider + Jorje Ayala MD Unavailable Leroy Meraz DO Primary Care Provider + Encounter Details Date Type Department Care Team (Late st Contact Info) Description 06/04/2021 [employer] Message [address] [address] Sherman Cartagena MD RE: Other [...] Sex Assigned at Male 10/10/2024 12:08 PM SANDING MACHINE OPERATOR Legal Sex Male 5:44 PM CDT Gender Identity Male 11/11/2024 10:55 AM SANDING MACHINE OPERATOR Sexual Orientation Not on file [...] Assessment Author Status No 11/26/2020 1:38 PM SANDING MACHINE OPERATOR Activ e * RETIRED Are you blind or do you have serious difficulty seeing, even when wearing glasses? Answer Date of Assessment Author Status No 11/26/2020 1:38 PM SANDING MACHINE OPERATOR Activ e * Do you have serious difficulty walking or climbing stairs? Answer Date of Assessment Author Status Yes 11/26/2020 1:38 PM SANDING MACHINE OPERATOR Yoly Larson RN Active * Do you have difficulty dressing or bathing? Answer Date of Assessment Author Status Yes 11/26/2020 1:38 PM SANDING MACHINE OPERATOR Yoly Larson RN Active * Because of a physical, mental, or emotional condition, do you have difficulty doing errands alone such as visiting a doctor's office or shopping? Answer Date of Assessment Author Status Yes 11/26/2020 1:38 PM SANDING MACHINE OPERATOR Yoly Larson RN Active documented as of this encounter Mental Status * Because of a physical, mental, or emotional condition, do you have serious difficulty concentrating, remembering, or making decisions? Answer Entry Date Author Status No 11/26/2020 1:38 PM SANDING MACHINE OPERATOR Yoly Larson RN Active documented in this [...] 09/02/2024 MDR Other Comment:Added from external Infection- [facility] Health Collection Source- Urine 2020 06/25/2024 MDR-LINE INSPECTOR - Carbapenemase-Prod ucing Organisms Comment:Added from external infection. Source: [facility] [employer]. Collection Source-Urine 08/04/2021 COVID-19 Rule Out 09/28/2021 09/28/2021 10/05/2021 12:34 AM SANDING MACHINE OPERATOR COVID-19 Rule Out 03/23/2024 03/23/2024 03/23/2024 1:17 PM CDT Assessment Noted Time PHQ-9 Depression Total Score: 0 04/22/20 21 2:39 PM CDT documented as of this encounter Care Teams Aircraft Part Assembler Relationship Specialty Start Date End Date Sherman Cartagena MD PCP - General FAMILY PRACTICE 08/25/20 11/29/21 Mary Marcus NP [address] [place] [address] PCP - General NURSE PRACTITIONER 11/30/21 08/28/22 Lisa Ramírez, [facility] [address] [place] [address] PCP - General NURSE PRACTITIONER 08/29/22 09/01/22 Lisa Ramírez [facility] [address] [place] [address] PCP - General NURSE PRACTITIONER 09/05/22 07/07/24 Leroy Meraz DO [address] [place] [address] PCP - General FAMILY PRACTICE 07/08/24 [place] [id number] [address] Surgeon SURGERY 11/03/23 documented as of this encounter
--- OUTSIDE RECORDS SUMMARY | 2024-11-16 04:41 | XMS_ITS | Data Portability ---
[facility] Address [address] [place] [address] Assessment No assessment recorded. Plan of Treatment Reminders Order Date Submit Date Provider Last Modified By Organization Details Last Modified Time Details Appointments None recorded. Lab unlisted lab - urinalysis w/reflex urine cult 2023 024 atatema Teofilo [facility] (Lab), [address] [place], [address], 13:04:47 Referral None recorded. Procedures None recorded. Surgeries None recorded. Imaging None recorded. Medication Orders None recorded. Patient TargetsNo targets recorded. Patient Instructions Encounter Date Encounter Id Patient Instructions Last Modified By Organization Details Last Modified Time 03/06/2024 [id number] davis catheter change* [email or web address] Not available 03/19/2024 10:06:06 Will arrange for monthly visiting nurse to see and change cath monthly Not available 03/06/2024 12:03:44 09/11/2024 [id number] urinary retention: care instructions Not available 09/11/2024 13:00:07 Return to the office in 1 month if he needs catheter change. Not available 09/11/2024 12:39:08 10/11/2024 [id number] spinal cord injury (paraplegic): care instructions Not available 10/11/2024 13:54:26 Reason for Referral None Reported. Results Created Date Observation Date Name Description Value Unit Range Abnormal Flag Note LastModifiedBy Organization Detail LastModifiedTime 03/06/20 24 03/06/2024 URINA LYSIS AND MICRO SCOPI C color urine YELLOW yellow normal Not Available [facility] (Lab) [address] [place], [address], 03/06/2024 18:14:56 03/06/20 24 03/06/2024 URINA LYSIS AND MICRO SCOPI C appearance urine SL CLOUDY clear abnormal Not Available [facility] (Lab) [address], [place], [address], 03/06/2024 18:14:56 03/06/20 24 03/06/2024 URINA LYSIS AND MICRO SCOPI C pH urine 6.0 5.0 - 7.0 normal Not Available [facility] (Lab) [address] [place], [address], 03/06/2024 18:14:56 03/06/20 24 03/06/2024 URINA LYSIS AND MICRO SCOPI C specific gravity urine 1.020 1.005- 1.030 normal Not Available [facility] (Lab) [address] [place], [address], 03/06/2024 18:14:56 03/06/20 24 03/06/2024 URINA LYSIS AND MICRO SCOPI C protein urine 30 mg/dL neg/tr sky abnormal Not Available [facility] (Lab) [address] [place], [address], 03/06/2024 18:14:56 03/06/20 24 03/06/2024 URINA LYSIS AND MICRO SCOPI C glucose urine UA NEGATI VE mg/dL negati ve normal Not Available [facility] (Lab) [address] [place], [address], 03/06/2024 18:14:56 03/06/20 24 03/06/2024 URINA LYSIS AND MICRO SCOPI C ketones urine NEGATI VE negati ve normal Not Available [facility] (Lab) [address] [place], [address], 03/06/2024 18:14:56 03/06/20 24 03/06/2024 URINA LYSIS AND MICRO SCOPI C occult blood urine MODERA TE tiana/u L negati ve abnormal Not Available [facility] (Lab) [address] [place], [address], 03/06/2024 18:14:56 03/06/20 24 03/06/2024 URINA LYSIS AND MICRO SCOPI C nitrite urine POSITI VE negati ve abnormal Not Available [facility] (Lab) [address] [facility], [place], [address], 03/06/2024 18:14:56 03/06/20 24 03/06/2024 URINA LYSIS AND MICRO SCOPI C bilirubin urine NEGATI VE negati ve normal Not Available [facility] (Lab) [address] [place], [address], 03/06/2024 18:14:56 03/06/20 24 03/06/2024 URINA LYSIS AND MICRO SCOPI C urobilinogen urine 0.2 eu/dL 0.2 - 1.0 normal Not Available [facility] (Lab) [address] [place], [address], 03/06/2024 18:14:56 03/06/20 24 03/06/2024 URINA LYSIS AND MICRO SCOPI C leukocyte esterase urine LARGE negati ve abnormal Not Available [facility] (Lab) [address] [facility], [place], [address], 03/06/2024 18:14:56 03/06/20 24 03/06/2024 URINA LYSIS AND MICRO SCOPI C RBC urine 0-2 /hpf 0-2 normal Not Available [facility] (Lab) [address] [place], [address], 03/06/2024 18:14:56 03/06/20 24 03/06/2024 URINA LYSIS AND MICRO SCOPI C WBC urine >50 /hpf 0-5 abnormal Not Available [facility] (Lab) [address] [place], [address], 03/06/2024 18:14:56 03/06/20 24 03/06/2024 URINA LYSIS AND MICRO SCOPI C WBC clumps urine FEW /hpf not estb. Not Available [facility] (Lab) [address] [facility], [place], [address], 03/06/2024 18:14:56 03/06/20 24 03/06/2024 URINA LYSIS AND MICRO SCOPI C squamous epithelial cell urine OCCASI ONAL not estb. Not Available [facility] (Lab) [address] [facility], [place], [address], 03/06/2024 18:14:56 03/06/20 24 03/06/2024 URINA LYSIS AND MICRO SCOPI C bacteria urine 1+ none/t race abnormal Not Available [facility] (Lab) [address] [facility], [place], [address], 03/06/2024 18:14:56 03/06/20 24 03/06/2024 URINA LYSIS AND MICRO SCOPI C urine culture indicated? Yes Not Available [facility] (Lab) [address] [facility], [place], [address], 03/06/2024 18:14:56 03/06/20 24 03/12/2024 URINE CULTU RE, ROUTI NE urine culture, routine Great er than 2 organ isms recov ered, none predo minan t. Pleas e submi t anoth er sampl e if clini hasmukh indic ated. Great er than 100,0 00 colon y formi ng units per mL Not appli cable Perfo rmed at: 01 - [facility] [place] [address] Lab Direc tor: Oscar alcala PhD, Phone : [phone] Not Available [facility] (Lab) [address] [place], [address], 03/12/2024 13:14:56 08/07/20 24 08/07/2024 Basic metab olic 2000 panel - Serum or Plasm a glucose [mass/volume ] in serum or plasma 102 text: 70 - 99 mg/dL high GLUCO SE 102 (H) 70 - 99 MG/DL 08/07 11:02 AM [facility] Not Available Not Available 11/07/2024 15:43:05 08/07/20 24 08/07/2024 Basic metab olic 2000 panel - Serum or Plasm a urea nitrogen [mass/volume ] in serum or plasma 31 text: 7 - 18 mg/dL high BUN 31 (H) 7 - 18 MG/DL 08/07 11:02 AM [facility] Not Available Not Available 11/07/2024 15:43:05 08/07/20 24 08/07/2024 Basic metab olic 2000 panel - Serum or Plasm a creatinine [mass/volume ] in serum or plasma 0.83 text: 0.7 - 1.3 mg/dL CREAT ININE S/P/B 0.83 0.7 - 1.3 MG/DL 08/07 11:02 AM [facility] Not Available Not Available 11/07/2024 15:43:05 08/07/20 24 08/07/2024 Basic metab olic 2000 panel - Serum or Plasm a sodium [moles/volum e] in serum or plasma 141 text: 136 - 145 mmol/L SODIU M S/P/B 141 136 - 145 MMOL/ L 08/07 11:02 AM [facility] Not Available Not Available 11/07/2024 15:43:05 08/07/20 24 08/07/2024 Basic metab olic 2000 panel - Serum or Plasm a potassium [moles/volum e] in serum or plasma 3.5 text: 3.5 - 5.1 mmol/L POTAS SIUM S/P/B 3.5 3.5 - 5.1 MMOL/ L 08/07 11:[address] [facility] Not Available Not Available 11/07/2024 15:43:05 08/07/20 24 08/07/2024 Basic metab olic 2000 panel - Serum or Plasm a chloride [moles/volum e] in serum or plasma 105 text: 100 - 108 mmol/L CHLOR GUILLE S/P/B 105 100 - 108 MMOL/ L 08/07 11:[address] [facility] Not Available Not Available 11/07/2024 15:43:05 08/07/20 24 08/07/2024 Basic metab olic 2000 panel - Serum or Plasm a carbon dioxide, total [moles/volum e] in serum or plasma 28.2 text: 21 - 32 mmol/L CO2 28.2 21 - 32 MMOL/ L 08/07 11:[address] [facility] Not Available Not Available 11/07/2024 15:43:05 08/07/2008/07/2024 Basic metab olic 2000 panel - Serum or Plasm a calcium [mass/volume ] in serum or plasma 9.3 text: 8.5 - 10.1 mg/dL CALCI UM S/P/B 9.3 8.5 - 10.1 MG/DL 08/07 11:[address] [facility] Not Available Not Available 11/07/2024 15:43:05 08/07/2008/07/2024 Basic metab olic 2000 panel - Serum or Plasm a anion gap in serum or plasma 7.8 text: 5 - 15 mmol/L ANION GAP 7.8 5 - 15 MMOL/ L 08/07 11:[address] [facility] Not Available Not Available 11/07/2024 15:43:05 08/07/20 24 08/07/2024 Basic metab olic 2000 panel - Serum or Plasm a urea nitrogen/cre atinine [mass ratio] in serum or plasma 37.3 low: 6high: 26 high BUN CREAT ININE RATIO 37.3 (H) 6 - 26 08/07 11:02 AM [employer] ENGINE[employer] [facility] Not Available Not Available 11/07/2024 15:43:05 08/07/20 24 08/07/2024 Basic metab olic 2000 panel - Serum or Plasm a glomerular filtration rate/1.73 sq M.predicted [volume rate/area] in serum, plasma or blood by creatinine-b ased formula (CKD-epi 2020) text: >90 mL/min /1.73 M2 GFR ESTIM ATE >90 >90 ML/MS N/1.7 3 M2 08/07 11:02 AM [employer] ENGINEER [facility] Not Available Not Available 11/07/2024 15:43:05 08/07/20 24 08/07/2024 Basic metab olic 2000 panel - Serum or Plasm a interpretati on and review of laboratory results Abnorm al Not Available Not Available 15:43:05 09/02/20 24 09/04/2024 Bacte sarah ident ified in Wound by Aerob e cultu re specimen source identified HEEL, RIGHT SPEC DESCR IPTIO N HEEL, RIGHT 09/02 11:42 AM [employer] ENGINEER [facility] Not Available Not Available 11/07/2024 15:43:05 09/02/20 24 09/04/2024 Bacte sarah ident ified in Wound by Aerob e cultu re service comment NO SPECIA L REQUES T SPECI AL REQUE STS NO SPECI AL REQUE ST 09/02 11:42 AM [employer] [facility] Not Available Not Available 11/07/2024 15:43:05 09/02/20 24 09/04/2024 Bacte sarah ident ified in Wound by Aerob e cultu re microscopic observation [identifier] in specimen by gram stain MANY WHITE BLOOD CELLS SEEN GRAM STAIN RESUL T MANY WHITE BLOOD CELLS SEEN 09/03 10:46 AM [employer] [facility] Not Available Not Available 11/07/2024 15:43:05 09/02/20 24 09/04/2024 Bacte sarah ident ified in Wound by Aerob e cultu re microscopic observation [identifier] in specimen by gram stain FEW EPITHE LIAL CELLS SEEN GRAM STAIN RESUL T FEW EPITH ELIAL CELLS SEEN 09/03 10:46 AM [employer] ENG[employer] Not Available Not Available 11/07/2024 15:43:05 09/02/20 24 09/04/2024 Bacte sarah ident ified in Wound by Aerob e cultu re microscopic observation [identifier] in specimen by gram stain FEW GRAM POSITI VE COCCI GRAM STAIN RESUL T FEW GRAM POSIT TRACEY COCCI 09/03 10:46 AM [employer] ENGINEER [facility] Not Available Not Available 11/07/2024 15:43:05 09/02/20 24 09/04/2024 Bacte sarah ident ified in Wound by Aerob e cultu re microscopic observation [identifier] in specimen by gram stain RARE GRAM NEGATI VE RODS GRAM STAIN RESUL T RARE GRAM NEGAT TRACEY RODS 09/03 10:46 AM [employer] ENGINEER [facility] Not Available Not Available 11/07/2024 15:43:05 09/02/20 24 09/04/2024 Bacte sarah ident ified in Wound by Aerob e cultu re bacteria identified in specimen by culture SPARSE GROWTH OF PROTEU S MIRABI LIS abnormal CULTU RE RESUL T SPARS E GROWT H OF PROTE US MIRAB ILIS (A) 09/04 7:55 AM [employer] ENGINEER [facility] Not Available Not Available 11/07/2024 15:43:05 09/02/20 24 09/04/2024 Bacte sarah ident ified in Wound by Aerob e cultu re bacteria identified in specimen by culture SPARSE GROWTH OF METHIC ILLIN RESIST ANT STAPHY LOCOCC US AUREUS FOLLOW ISOLAT ION PROTOC OL. critical abnormal CULTU RE RESUL T SPARS E GROWT H OF METHI CILLI N RESIS TANT STAPH YLOCO CCUS AUREU S FOLLO W ISOLA TION RAYNA COL. (AA) 09/04 7:55 AM [employer] ENGINEER [facility] Not Available Not Available 11/07/2024 15:43:05 09/02/20 24 09/04/2024 Bacte sarah ident ified in Wound by Aerob e cultu re interpretati on and review of laboratory results Abnorm al Not Available Not Available 15:43:05 09/26/19 25 09/26/2024 Thyro tropi n [Unit s/vol ume] in Serum or Plasm a thyrotropin [units/volum e] in serum or plasma 1.56 text: 0.358 - 3.74 uIU/mL TSH 1.560 0.358 - 3.74 uIU/M L 09/26 2:33 PM [employer] ENGINEER [facility] Not Available Not Available 11/07/2024 15:43:05 09/26/19 25 09/26/2024 Compr ehens tracey metab olic 2000 panel - Serum or Plasm a glucose [mass/volume ] in serum or plasma 95 text: 70 - 99 mg/dL GLUCO SE 95 70 - 99 MG/DL 09/26 2:33 PM [employer] ENGINEER [facility] Not Available Not Available 11/07/2024 15:43:05 09/26/19 25 09/26/2024 Compr ehens tracey metab olic 2000 panel - Serum or Plasm a urea nitrogen [mass/volume ] in serum or plasma 12 text: 7 - 18 mg/dL BUN 12 7 - 18 MG/DL 09/26 2:[address] [facility] Not Available Not Available 11/07/2024 15:43:05 09/26/19 25 09/26/2024 Compr ehens tracey metab olic 2000 panel - Serum or Plasm a creatinine [mass/volume ] in serum or plasma 0.9 text: 0.7 - 1.3 mg/dL CREAT ININE S/P/B 0.90 0.7 - 1.3 MG/DL 09/26 2:33 PM [employer] ENGINEER [facility] Not Available Not Available 11/07/2024 15:43:05 09/26/19 25 09/26/2024 Compr ehens tracey metab olic 2000 panel - Serum or Plasm a sodium [moles/volum e] in serum or plasma 139 text: 136 - 145 mmol/L SODIU M S/P/B 139 136 - 145 MMOL/ L 09/26 2:[address] [facility] Not Available Not Available 11/07/2024 15:43:05 09/26/19 25 09/26/2024 Compr ehens tracey metab olic 2000 panel - Serum or Plasm a potassium [moles/volum e] in serum or plasma 3.9 text: 3.5 - 5.1 mmol/L POTAS SIUM S/P/B 3.9 3.5 - 5.1 MMOL/ L 09/26 2:[address] [facility] Not Available Not Available 11/07/2024 15:43:05 09/26/19 25 09/26/2024 Compr ehens tracey metab olic 2000 panel - Serum or Plasm a chloride [moles/volum e] in serum or plasma 103 text: 100 - 108 mmol/L CHLOR GUILLE S/P/B 103 100 - 108 MMOL/ L 09/26 2:[address] [facility] Not Available Not Available 11/07/2024 15:43:05 09/26/19 25 09/26/2024 Compr ehens tracey metab olic 2000 panel - Serum or Plasm a carbon dioxide, total [moles/volum e] in serum or plasma 29.6 text: 21 - 32 mmol/L CO2 29.6 21 - 32 MMOL/ L 09/26 2:[address] [facility] Not Available Not Available 11/07/2024 15:43:05 09/26/19 25 09/26/2024 Compr ehens tracey metab olic 2000 panel - Serum or Plasm a calcium [mass/volume ] in serum or plasma 9.5 text: 8.5 - 10.1 mg/dL CALCI UM S/P/B 9.5 8.5 - 10.1 MG/DL 09/26 2:[address] [facility] Not Available Not Available 11/07/2024 15:43:05 09/26/19 25 09/26/2024 Compr ehens tracey metab olic 2000 panel - Serum or Plasm a bilirubin.to manuel [mass/volume ] in serum or plasma 0.2 text: 0.2 - 1.2 mg/dL BILIR UBIN TOTAL S/P/B 0.2 0.2 - 1.2 MG/DL 09/26 2:33 PM [employer] ENGINEER [facility] Not Available Not Available 11/07/2024 15:43:05 09/26/19 25 09/26/2024 Compr ehens tracey metab olic 1999 panel - Serum or Plasm a protein [mass/volume ] in serum or plasma 9.3 text: 6.4 - 8.2 g/dL high TOTAL PROTE IN S/P/B 9.3 (H) 6.4 - 8.2 G/DL 09/26 2:33 PM [employer] ENGINEER [facility] Not Available Not Available 11/07/2024 15:43:05 09/26/19 25 09/26/2024 Compr ehens tracey metab olic 2000 panel - Serum or Plasm a albumin [mass/volume ] in serum or plasma 2.6 text: 3.4 - 5.0 g/dL low ALBUM IN S/P/B 2.6 (L) 3.4 - 5.0 G/DL 09/26 2:33 PM [employer] ENGINEER [facility] Not Available Not Available 11/07/2024 15:43:05 09/26/19 25 09/26/2024 Compr ehens tracey metab olic 2000 panel - Serum or Plasm a aspartate aminotransfe rase [enzymatic activity/vol ume] in serum or plasma 17 U/L low: 15U/Lh igh: 37U/L AST 17 15 - 37 U/L 09/26 2:33 PM [employer] ENGINEER [facility] Not Available Not Available 11/07/2024 15:43:05 09/26/19 25 09/26/2024 Compr ehens tracey metab olic 2000 panel - Serum or Plasm a alanine aminotransfe rase [enzymatic activity/vol ume] in serum or plasma 19 U/L low: 16U/Lh igh: 60U/L ALT 19 16 - 60 U/L 09/26 2:33 PM [employer] ENGINEER [facility] Not Available Not Available 11/07/2024 15:43:05 09/26/19 25 09/26/2024 Compr ehens tracey metab olic 2000 panel - Serum or Plasm a alkaline phosphatase [enzymatic activity/vol ume] in serum or plasma 113 U/L low: 50U/Lh igh: 136U/L ALKAL INE PHOSP HATAS E S/P/B 113 50 - 136 U/L 09/26 2:33 PM [employer] ENGINEER [facility] Not Available Not Available 11/07/2024 15:43:05 09/26/19 25 09/26/2024 Compr ehens tracey metab olic 2000 panel - Serum or Plasm a anion gap in serum or plasma 6.4 text: 5 - 15 mmol/L ANION GAP 6.4 5 - 15 MMOL/ L 09/26 2:33 PM [employer] ENGINEER [facility] Not Available Not Available 11/07/2024 15:43:05 09/26/19 25 09/26/2024 Compr ehens tracey metab olic 2000 panel - Serum or Plasm a urea nitrogen/cre atinine [mass ratio] in serum or plasma 13.3 low: 6high: 26 BUN CREAT ININE RATIO 13.3 6 - 26 09/26 2:33 PM [employer] ENGINEER [facility] Not Available Not Available 11/07/2024 15:43:05 09/26/19 25 09/26/2024 Compr ehens tracey metab olic 2000 panel - Serum or Plasm a albumin/glob ulin [mass ratio] in serum or plasma 0.4 text: 1.0 - 2.0 ratio low A/G RATIO 0.4 (L) 1.0 - 2.0 RATIO 09/26 2:33 PM [employer] ENGINEER [facility] Not Available Not Available 11/07/2024 15:43:05 09/26/19 25 09/26/2024 Compr ehens tracey metab olic 2000 panel - Serum or Plasm a glomerular filtration rate/1.73 sq M.predicted [volume rate/area] in serum, plasma or blood by creatinine-b ased formula (CKD-epi 2020) text: >90 mL/min /1.73 M2 GFR ESTIM ATE >90 >90 ML/MS N/1.7 3 M2 09/26 2:33 PM [employer] ENGINEER [facility] Not Available Not Available 11/07/2024 15:43:05 09/26/19 25 09/26/2024 Compr ehens tracey metab olic 2000 panel - Serum or Plasm a interpretati on and review of laboratory results Abnorm al Not Available Not Available 15:43:05 09/26/19 25 09/26/2024 Lipid 1995 panel - Serum or Plasm a cholesterol [mass/volume ] in serum or plasma 226 text: <200.0 mg/dL high OSBALDO STERO L 226 (H) <200. 0 MG/DL 09/26 2:33 PM [employer] ENGINEER [facility] Not Available Not Available 11/07/2024 15:43:05 09/26/19 25 09/26/2024 Lipid 1995 panel - Serum or Plasm a triglyceride [mass/volume ] in serum or plasma 98 text: <150 mg/dL TRIGL YCERI MARIIA 98 <150 MG/DL 09/26 2:33 PM [employer] ENGINEER [facility] Not Available Not Available 11/07/2024 15:43:05 09/26/19 25 09/26/2024 Lipid 1996 panel - Serum or Plasm a cholesterol in HDL [mass/volume ] in serum or plasma 58 text: >40.0 mg/dL HDL 58 >40.0 MG/DL 09/26 2:33 PM [employer]HALT ENGINEER [facility] Not Available Not Available 11/07/2024 15:43:05 09/26/19 25 09/26/2024 Lipid 1996 panel - Serum or Plasm a cholesterol in LDL [mass/volume ] in serum or plasma by calculation 148 text: <100 mg/dL high LDL (CALC ULATE D) 148 (H) <100 MG/DL 09/26 2:33 PM [employer]HALT ENGINEER [facility] Not Available Not Available 11/07/2024 15:43:05 09/26/19 25 09/26/2024 Lipid 1996 panel - Serum or Plasm a cholesterol non HDL [mass/volume ] in serum or plasma 168 text: <130 mg/dL high NON HDL OSBALDO STERO L 168 (H) <130 MG/DL 09/26 2:33 PM [employer]HALT ENGINEER [facility] Not Available Not Available 11/07/2024 15:43:05 09/26/19 25 09/26/2024 Lipid 1996 panel - Serum or Plasm a cholesterol. total/choles terol in HDL [mass ratio] in serum or plasma 3.9 low: 0high: 4.5 CHOL/ HDL RATIO 3.9 0.0 - 4.5 09/26 2:33 PM [employer]HALT ENGINEER [facility] Not Available Not Available 11/07/2024 15:43:05 09/26/19 25 09/26/2024 Lipid 1996 panel - Serum or Plasm a cholesterol in VLDL [mass/volume ] in serum or plasma by calculation 20 text: 5 - 55 mg/dL VLDL CALCU LATIO N 20 5 - 55 MG/DL 09/26 2:33 PM [employer]HALT ENGINEER [facility] Not Available Not Available 11/07/2024 15:43:05 09/26/19 25 09/26/2024 Lipid 1996 panel - Serum or Plasm a service comment LIPID INTER PRETA TION 09/26 2:33 PM [employer]HALT ENGINEER [facility] Not Available Not Available 11/07/2024 15:43:05 09/26/19 25 09/26/2024 Lipid 1996 panel - Serum or Plasm a interpretati on and review of laboratory results Abnorm al Not Available Not Available 15:43:05 09/26/19 25 09/26/2024 CBC W Auto Diffe renti al panel - Blood leukocytes [#/volume] in blood by automated count 5.33 text: 4.4 - 11.0 x10'3/ uL WBC 5.33 4.4 - 11.0 x10'3 /uL 09/26 2:06 PM [employer] ENGINEER [facility] Not Available Not Available 11/07/2024 15:43:05 09/26/19 25 09/26/2024 CBC W Auto Diffe renti al panel - Blood erythrocytes [#/volume] in blood by automated count 4.44 text: 4.50 - 5.90 x10'6/ uL low RBC 4.44 (L) 4.50 - 5.90 x10'6 /uL 09/26 2:06 PM [employer] ENGINEER [facility] Not Available Not Available 11/07/2024 15:43:05 09/26/19 25 09/26/2024 CBC W Auto Diffe renti al panel - Blood hemoglobin [mass/volume ] in blood 11.4 text: 14.0 - 17.5 g/dL low HGB 11.4 (L) 14.0 - 17.5 G/DL 09/26 2:06 PM [employer] [facility] Not Available Not Available 11/07/2024 15:43:05 09/26/19 25 09/26/2024 CBC W Auto Diffe renti al panel - Blood hematocrit [volume fraction] of blood 35.2 % low: 41.5%h igh: 50.4% low HCT 35.2 (L) 41.5 - 50.4 % 09/26 2:06 PM [employer] Not Available Not Available 11/07/2024 15:43:05 09/26/19 25 09/26/2024 CBC W Auto Diffe renti al panel - Blood MCV [entitic volume] 79.3 text: 80.0 - 96.0 fL low MCV 79.3 (L) 80.0 - 96.0 FL 09/26 2:06 PM [employer] Not Available Not Available 11/07/2024 15:43:05 09/26/19 25 09/26/2024 CBC W Auto Diffe renti al panel - Blood MCH [entitic mass] 25.7 pg low: 26.5pg high: 31.4pg low MCH 25.7 (L) 26.5 - 31.4 PG 09/26 2:06 PM [employer] [facility] Not Available Not Available 11/07/2024 15:43:05 09/26/19 25 09/26/2024 CBC W Auto Diffe renti al panel - Blood MCHC [mass/volume ] 32.4 text: 31.9 - 34.8 g/dL MCHC 32.4 31.9 - 34.8 G/DL 09/26 2:06 PM [employer] [facility] Not Available Not Available 11/07/2024 15:43:05 09/26/19 25 09/26/2024 CBC W Auto Diffe renti al panel - Blood erythrocyte distribution width [entitic volume] by automated count 18.9 % low: 12.3%h igh: 14.3% high RDW 18.9 (H) 12.3 - 14.3 % 09/26 2:06 PM ASPHALT ENGINEER [facility] Not Available Not Available 11/07/2024 15:43:05 09/26/19 25 09/26/2024 CBC W Auto Diffe renti al panel - Blood platelets [#/volume] in blood 262 text: 151 - 353 x10'3/ uL PLT 262 151 - 353 x10'3 /uL 09/26 2:06 PM ASPHALT ENGINEER [facility] Not Available Not Available 11/07/2024 15:43:05 09/26/19 25 09/26/2024 CBC W Auto Diffe renti al panel - Blood platelet mean volume [entitic volume] in blood 9.3 text: 9.7 - 11.9 fL low MPV 9.3 (L) 9.7 - 11.9 FL 09/26 2:06 PM ASPHALT ENGINEER [facility] Not Available Not Available 11/07/2024 15:43:05 09/26/19 25 09/26/2024 CBC W Auto Diffe renti al panel - Blood erythrocytes [morphology] in blood by automated count NORMAL RBC MORPH OLOGY CHECO L 09/26 2:06 PM ASPHALT ENGINEER [facility] Not Available Not Available 11/07/2024 15:43:05 09/26/19 25 09/26/2024 CBC W Auto Diffe renti al panel - Blood platelet morphology finding [identifier] in blood NORMAL PLT MORPH . CHECO L 09/26 2:06 PM ASPHALT ENGINEER [facility] Not Available Not Available 11/07/2024 15:43:05 09/26/19 25 09/26/2024 CBC W Auto Diffe renti al panel - Blood leukocyte morphology finding [identifier] in blood NORMAL WBC MORPH OLOGY CHECO L 09/26 2:06 PM ASPHALT ENGINEER [facility] Not Available Not Available 11/07/2024 15:43:05 09/26/19 25 09/26/2024 CBC W Auto Diffe renti al panel - Blood lymphocytes/ 100 leukocytes in blood by automated count 23.6 % low: 15.8%h igh: 45% LYMPH OCYTE S % 23.6 15.8 - 45.0 % 09/26 2:06 PM ASPHALT ENGINEER [facility] Not Available Not Available 11/07/2024 15:43:05 09/26/19 25 09/26/2024 CBC W Auto Diffe renti al panel - Blood neutrophils/ 100 leukocytes in blood by automated count 57.4 % low: 42.1%h igh: 71.9% NEUTR OPHIL S % 57.4 42.1 - 71.9 % 09/26 2:06 PM ASPHALT ENGINEER [facility] Not Available Not Available 11/07/2024 15:43:05 09/26/19 25 09/26/2024 CBC W Auto Diffe renti al panel - Blood monocytes/10 0 leukocytes in blood by automated count 13.5 % low: 5.7%hi gh: 12.5% high MONOC YTES % 13.5 (H) 5.7 - 12.5 % 09/26 2:06 PM ASPHALT ENGINEER [facility] Not Available Not Available 11/07/2024 15:43:05 09/26/19 25 09/26/2024 CBC W Auto Diffe renti al panel - Blood eosinophils/ 100 leukocytes in blood by automated count 4.7 % low: 0%high : 5.6% EOSIN OPHIL S 4.7 0.0 - 5.6 % 09/26 2:[address] [facility] Not Available Not Available 11/07/2024 15:43:05 09/26/19 25 09/26/2024 CBC W Auto Diffe renti al panel - Blood basophils/10 0 leukocytes in blood by automated count 0.4 % low: 0%high : 1.3% BASOP HILS 0.4 0.0 - 1.3 % 09/26 2:[address] [facility] () [facility] Not Available Not Available 11/07/2024 15:43:05 09/26/19 25 09/26/2024 CBC W Auto Diffe renti al panel - Blood neutrophils [#/volume] in blood 3.06 text: 1.40 - 6.00 x10'3/ uL ABS. NEUTR OPHIL S 3.06 1.40 - 6.00 x10'3 /uL 09/26 2:06 PM ASPHALT ENGINEER [facility] Not Available Not Available 11/07/2024 15:43:05 09/26/19 25 09/26/2024 CBC W Auto Diffe renti al panel - Blood immature granulocytes /100 leukocytes in blood by automated count 0.4 % low: 0%high : 0.5% IMMAT URE GRANS % 0.4 0.0 - 0.5 % 09/26 2:06 PM ASPHALT ENGINEER [facility] () [facility] Not Available Not Available 11/07/2024 15:43:05 09/26/19 25 09/26/2024 CBC W Auto Diffe renti al panel - Blood lymphocytes [#/volume] in blood 1.26 text: 0.80 - 4.70 x10'3/ uL ABS. LYMPH OCYTE S 1.26 0.80 - 4.70 x10'3 /uL 09/26 2:06 PM ASPHALT ENGINEER [facility] () [facility] Not Available Not Available 11/07/2024 15:43:05 09/26/19 25 09/26/2024 CBC W Auto Diffe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
--- OUTSIDE RECORDS SUMMARY | 2024-11-16 04:41 | XMS_ITS | Encounter Summary ---
Author Organization [facility] Address [facility] [place] [address] Care Team Providers Care Car Racer Name Role Phone Lisa Ramírez [facility] Primary Care Provider + Jorje Ayala MD Unavailable Leroy Meraz DO Primary Care Provider + Encounter Details Date Type Department Care Team (Latest Contact Info) Description 09/02/[address] [facility] [address] [place] [address] Lisa Ramírez, [facility] [address] [place] [address] Prescription for prosthetic form Social [...] Sex Assigned at Male 10/10/2024 12:08 PM PROTECTION SPECIALIST Legal Sex Male 5:44 PM CDT Gender Identity Male 11/11/2024 10:55 AM PROTECTION SPECIALIST Sexual Orientation Not on file COVID-19 Exposure Response Date Recorded In the last 10 days, have janet celestin been in contact with someone who was confirmed or suspected to have Coronavirus/COVID-19? No / Unsure 08/31/2022 10:37 AM PROTECTION SPECIALIST documented as of this encounter Functional Status [...] MDR Other Comment:Added from external Infection- [facility] Collection Source- Urine 2020 06/25/2024 MDR-REFERENCE TEST CLERK - Carbapenemase-Prod ucing Organisms Comment:Added from external infection. Source: [facility]. Collection Source-Urine 08/04/2021 COVID-19 Rule Out 03/23/2024 03/23/2024 03/23/2024 1:17 PM CDT Assessment Noted Time PHQ-9 Depression Total Score: 0 12/04/19 1:13 PM PROTECTION SPECIALIST documented as of this encounter Care Teams Car Racer Relationship Specialty Start Date End Date Lisa Ramírez FNP- [address] [place] [address] PCP - General NURSE PRACTITIONER 09/05/22 07/07/24 Leroy Meraz DO [address] [place] [address] PCP - General FAMILY PRACTICE 07/08/24 [place] [address] [address] Surgeon SURGERY 11/03/23 documented as of this encounter
--- OUTSIDE RECORDS SUMMARY | 2024-11-16 04:41 | XMS_ITS | Encounter Summary ---
Author Organization [facility] Address [facility] [place] [address] Care Team Providers Care Rug Hooker Name Role Phone Lisa Ramírez [facility] Primary Care Provider + Jorje Ayala MD Unavailable Leroy Meraz DO Primary Care Provider + Encounter Details Date Type Department Care Team (Late st Contact Info) Description 09/29/2022 EBDSoft Message [facility] [address] [place] [address] [employer], [facility] Provider Braces Social History Tobacco Use Types Packs/Day Years Used Date Smoking Tobacco: Never Smokeless Tobacco: Never Alcohol Use Standard Drinks/Week Comments Not Currently 0 (1 standard drink = 0.6 oz pur e alcohol) PHQ-2 Answer Date Recorded Patient Health Questionnaire-2 Score 0 09/07/2022 Sex and Gender Information Value Date Recorded Sex Assigned at Male 10/10/2024 12:08 PM RUG HOOKER Legal Sex Male 5:44 PM CDT Gender Identity Male 11/11/2024 10:55 AM RUG HOOKER Sexual Orientation Not on file COVID-19 Exposure Response Date Recorded In the last 10 days, have yo u been in contact with someone who was confirmed or suspected to have Coronavirus/COVID-19? No / Unsure 09/28/2022 11:02 AM RUG HOOKER documented as of this encounter Functional Status [...] 09/02/2024 MDR Other Comment:Added from external Infection- [facility] Health Collection Source- Urine 2020 06/25/2024 MDR-GERMAN PROFESSOR - Carbapenemase-Prod ucing Organisms Comment:Added from external infection. Source: [facility]. Collection Source-Urine 08/04/2021 COVID-19 Rule Out 03/23/2024 03/23/2024 03/23/2024 1:17 PM CDT Assessment Noted Time PHQ-9 Depression Total Score: 0 12/04/19 1:13 PM RUG HOOKER documented as of this encounter Care Teams Rug Hooker Relationship Specialty Start Date End Date Lisa Ramírez, TAX TECHNICIAN- [address] [place] [address] PCP - General NURSE PRACTITIONER 09/05/22 07/07/24 Leroy Meraz DO [address] [place] [address] PCP - General FAMILY PRACTICE 07/08/24 [place] [address] [address] Surgeon SURGERY 11/03/23 documented as of this encounter
--- OUTSIDE RECORDS SUMMARY | 2024-11-16 04:41 | XMS_ITS | Encounter Summary ---
Author Organization [facility] Address [facility], [facility] [place] [address] Care Team Providers Care Parking Control Officer Name Role Phone Sherman Cartagena MD Primary Care Provider Angella Mary Guidry NP Primary Care Provider [phone] Lisa Ramírez [facility] Primary Care Provider + Lisa Ramírez [facility] Primary Care Provider + Jorje Ayala MD Unavailable Leroy Meraz DO Primary Care Provider + Encounter Details Date Type Department Care Team (Late st Contact Info) Description 05/20/2021 Jeds [employer] Brewt Message [facility] [address] [place] [address] Sherman Cartagena MD RE: Other Social [...] Sex Assigned at Male 10/10/2024 12:08 PM RIG OPERATOR Legal Sex Male 5:44 PM CDT Gender Identity Male 11/11/2024 10:55 AM RIG OPERATOR Sexual Orientation Not on file COVID-19 [...] Assessment Author Status No 11/26/2020 1:38 PM RIG OPERATOR Activ e * RETIRED Are you blind or do you have serious difficulty seeing, even when wearing glasses? Answer Date of Assessment Author Status No 11/26/2020 1:38 PM RIG OPERATOR Activ e * Do you have [...] 09/02/2024 MDR Other Comment:Added from external Infection- [facility] Collection Source- Urine 2020 06/25/2024 MDR-SHOE PULLER - Carbapenemase-Prod ucing Organisms Comment:Added from external infection. Source: [facility] Collection Source-Urine 08/04/2021 COVID-19 Rule Out 09/28/2021 09/28/2021 10/05/2021 12:34 AM RIG OPERATOR COVID-19 Rule Out 03/23/2024 03/23/2024 03/23/2024 1:17 PM CDT Assessment Noted Time PHQ-9 Depression Total Score: 0 04/22/20 21 2:39 PM CDT documented as of this encounter Care Teams Parking Control Officer Relationship Specialty Start Date End Date Sherman Cartagena MD PCP - General FAMILY PRACTICE 08/25/20 11/29/21 Mary Marcus NP [address] [place] [address] PCP - General NURSE PRACTITIONER 11/30/21 08/28/22 Lisa Ramírez FNP- [address] [place] [address] PCP - General NURSE PRACTITIONER 08/29/22 09/01/22 Lisa Ramírez, LASER PRINT OPERATOR- [address] [place] [address] PCP - General NURSE PRACTITIONER 09/05/22 07/07/24 Leroy Meraz DO [address] [place] [address] [id number] PCP - General FAMILY PRACTICE 07/08/24 [place] [address] [address] Surgeon SURGERY 11/03/23 documented as of this encounter
--- OUTSIDE RECORDS SUMMARY | 2024-11-16 04:41 | XMS_ITS | Encounter Summary ---
Author Organization [facility] Address [facility] [place] [address] Care Team Providers Care Supervisor Finish End Name Role Phone Sherman Cartagena MD Primary Care Provider Angella Mary Guidry NP Primary Care Provider Lisa Ramírez [facility] Primary Care Provider + Lisa Ramírez [facility] Primary Care Provider + Jorje Ayala MD Unavailable Leroy Meraz DO Primary Care Provider + Encounter Details Date Type Department Care Team (Late st Contact Info) Description 06/01/2021 Onco[employer] Diagnosticst Message [address] [address] Sherman Cartagena MD RE: Other [...] Sex Assigned at Male 10/10/2024 12:08 PM MANAGER FILM Legal Sex Male 5:44 PM CDT Gender Identity Male 11/11/2024 10:55 AM MANAGER FILM Sexual Orientation Not on file COVID-19 Exposure [...] Assessment Author Status No 11/26/2020 1:38 PM MANAGER FILM Activ e * RETIRED Are you blind or do you have serious difficulty seeing, even when wearing glasses? Answer Date of Assessment Author Status No 11/26/2020 1:38 PM MANAGER FILM Activ e * Do you have serious [...] 09/02/2024 MDR Other Comment:Added from external Infection- [facility] Health Collection Source- Urine 2020 06/25/2024 MDR-SCRATCHER TENDER - Carbapenemase-Prod ucing Organisms Comment:Added from external infection. Source: [facility] [employer]. Collection Source-Urine 08/04/2021 COVID-19 Rule Out 09/28/2021 09/28/2021 10/05/2021 12:34 AM MANAGER FILM COVID-19 Rule Out 03/23/2024 03/23/2024 03/23/2024 1:17 PM CDT Assessment Noted Time PHQ-9 Depression Total Score: 0 04/22/20 21 2:39 PM CDT documented as of this encounter Care Teams Supervisor Finish End Relationship Specialty Start Date End Date Sherman Cartagena MD PCP - General FAMILY PRACTICE 08/25/20 11/29/21 Mary Marcus, HEALTH LEAD [address] [place] [address] PCP - General NURSE PRACTITIONER 11/30/21 08/28/22 Lisa Ramírez FNP- [address] [place] [address] PCP - General NURSE PRACTITIONER 08/29/22 09/01/22 Lisa Ramírez FNP- [address] [place] [address] PCP - General NURSE PRACTITIONER 09/05/22 07/07/24 Leroy Meraz DO [facility] [place] [address] PCP - General FAMILY PRACTICE 07/08/24 [place] [address] [address] Surgeon SURGERY 11/03/23 documented as of this encounter
--- OUTSIDE RECORDS SUMMARY | 2024-11-16 04:41 | XMS_ITS | Encounter Summary ---
Author Organization [facility] Address [facility] [place] [address] Care Team Providers Care Team Cdl Driver Name Role Phone Lisa Ramírez [facility] Primary Care Provider + Jorje Ayala MD Unavailable Leroy Meraz DO Primary Care Provider + Encounter Details Date Type Department Care Team (Latest Contact Info) Description 02/26/[address] [facility] [address] [place] [address] Lisa Ramírez, [facility] [address] [place] [address] can you right a prescription Social History Tobacco Use Types Packs/Day Years Used Date Smoking Tobacco: Never Smokeless Tobacco: Never Alcohol Use Standard Drinks/Week Comments Not Currently 0 (1 standard drink = 0.6 oz pur e alcohol) PHQ-2 Answer Date Recorded Patient Health Questionnaire-2 Score 0 09/07/2022 Sex and Gender Information Value Date Recorded Sex Assigned at Male 10/10/2024 12:08 PM TIPPLE MECHANIC Legal Sex Male 5:44 PM CDT Gender Identity Male 11/11/2024 10:55 AM TIPPLE MECHANIC Sexual Orientation Not on file COVID-19 Exposure [...] 09/02/2024 MDR Other Comment:Added from external Infection- [facility] Collection Source- Urine 2020 06/25/2024 MDR-COPY HOLDER - Carbapenemase-Prod ucing Organisms Comment:Added from external infection. Source: [facility] [employer]. Collection Source-Urine 08/04/2021 COVID-19 Rule Out 03/23/2024 03/23/2024 03/23/2024 1:17 PM CDT Assessment Noted Time PHQ-9 Depression Total Score: 0 12/04/19 1:13 PM TIPPLE MECHANIC documented as of this encounter Care Teams Team Cdl Driver Relationship Specialty Start Date End Date Lisa Ramírez, SLIDE FORMING MACHINE OPERATOR- [address] [place] [address] PCP - General NURSE PRACTITIONER 09/05/22 07/07/24 Leroy Meraz DO [address] [place] [address] [id number] PCP - General FAMILY PRACTICE 07/08/24 [place] [address] [address] Surgeon SURGERY 11/03/23 documented as of this encounter
--- OUTSIDE RECORDS SUMMARY | 2024-11-16 04:41 | XMS_ITS | Encounter Summary ---
Author Organization [facility] Address [facility] [place] [address] Care Team Providers Care Thoracic Medicine Physician Name Role Phone Lisa Ramírez [facility] Primary Care Provider + Jorje Ayala MD Unavailable Leroy Meraz DO Primary Care Provider + Encounter Details Date Type Department Care Team (Late st Contact Info) Description 03/02/2023 Therapy Plan [facility] [address] [place] [address] Jermain Fuentes MD [address] [facility] [address] [place] [address] Social History Tobacco Use Types Packs/Day Years Used Date Smoking Tobacco: Never Smokeless Tobacco: Never Alcohol Use Standard Drinks/Week Comments Not Currently 0 (1 standard drink = 0.6 oz pur e alcohol) PHQ-2 Answer Date Recorded Patient Health Questionnaire-2 Score 0 09/07/2022 Sex and Gender Information Value Date Recorded Sex Assigned at Male 10/10/2024 12:08 PM STENCIL MACHINE OPERATOR Legal Sex Male 5:44 PM CDT Gender Identity Male 11/11/2024 10:55 AM STENCIL MACHINE OPERATOR Sexual Orientation Not on file [...] bladder- Primary Neurogenic bladder, NOS Suprapubic catheter ([facility] Other cystostomy status 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 ([facility]) documented in this encounter Additional Health Concerns [...] 09/02/2024 MDR Other Comment:Added from external Infection- [facility] Health Collection Source- Urine 2020 06/25/2024 MDR-FOOD OPERATIONS MANAGER - Carbapenemase-Prod ucing Organisms Comment:Added from external infection. Source: [facility]. Collection Source-Urine 08/04/2021 COVID-19 Rule Out 03/23/2024 03/23/2024 03/23/2024 1:17 PM CDT Assessment Noted Time PHQ-9 Depression Total Score: 0 12/04/19 1:13 PM STENCIL MACHINE OPERATOR documented as of this encounter Care Teams Thoracic Medicine Physician Relationship Specialty Start Date End Date Lisa Ramírez, BIOINFORMATICS SUPPORT SPECIALIST- [address] [place] [address] PCP - General NURSE PRACTITIONER 09/05/22 07/07/24 Leroy Meraz DO [address] [place] [address] PCP - General FAMILY PRACTICE 07/08/24 [place] [address] [address] Surgeon SURGERY 11/03/23 documented as of this encounter
--- OUTSIDE RECORDS SUMMARY | 2024-11-16 04:41 | XMS_ITS | Encounter Summary ---
Author Organization [facility] Address [facility] [place] [address] Care Team Providers Care Lockstitch Machine Operator Name Role Phone Jorje Ayala MD Unavailable Leroy Meraz DO Primary Care Provider + Reason for Visit * Reason Onset Date Comments Advise 11/08/2024 Encounter Details Date Type Department Care Team (Late st Contact Info) Description 11/08/2024 Telephone [facility] Home Care [address] [place] [address] [place] [address] Leroy Meraz DO [facility] [place] [address] Advise Social History Tobacco Use Types Packs/Day Years [...] doctor or pharmacy? Never 06/24/2024 [facility] Utilities Answer Date Recorded In the past 12 months has th e [employer], gas, oil, or water Dip[employer] threatened to shut off services in your [...] Never 06/28/2024 How often do you attend muslim or samaritan serv ices? Never 06/28/2024 Do you belong to any clubs o r organizations such as muslim groups, unions, fraternal or athletic groups, or [...] Recorded Patient Health Questionnaire-2 Score 0 11/11/2024 [facility] Occupat ional Health - Occupational Stress [...] any time in the past 12 m [facility], were you homeless or living in a senior living (including now)? No 06/28/2024 Sex and Gender Information Value Date Recorded Sex Assigned at Male 10/10/2024 12:08 PM ELECTRICAL CONTROLS TECHNICIAN Legal Sex Male 5:44 PM CDT Gender Identity Male 11/11/2024 10:55 AM ELECTRICAL CONTROLS TECHNICIAN Sexual Orientation Not on file documented as of this encounter Functional Status * Are you deaf or do you have serious difficulty hearing Answer Date of Assessment Author Status No 06/28/2024 5:50 PM CDT Erica Hughes I, R N Active * Are you blind or do you have serious difficulty seeing, even when wearing glasses? Answer Date of Assessment Author Status No 06/28/2024 5:50 PM CDT EllenErica shane I, R N Active * Do you have serious difficulty walking or climbing stairs? Answer Date of Assessment Author Status Yes 06/28/2024 5:50 PM CDT Erica Hughes I, R N Active * Do you have difficulty dressing or bathing? Answer Date of Assessment Author Status Yes 06/28/2024 5:50 PM CDT Erica Hughes I, R N Active * Because of a physical, mental, or emotional condition, do you have difficulty doing errands alone such as visiting a doctor's office or shopping? Answer Date of Assessment Author Status Yes 06/28/2024 5:50 PM CDT Erica Hughes I, R N Active documented as of this encounter Mental Status * Because of a physical, mental, or emotional condition, do you have serious difficulty concentrating, remembering, or making decisions? Answer Entry Date Author Status No 06/28/2024 5:50 PM CDT Erica Hughes I, R N Active documented in this encounter Progress Notes * Prabha Moser RN - 11/08/2024 11:31 AM CST This nurse was told by the referral department that if [facility] does not except the patient insurance that they will work on finding one that does. Is that correct? Also, he has medicaid of [place] for his secondary. Dose [facility] home health not except that? LL-11/08/24 TRICAL CONTROLS TECHNICIAN * Stormy Mclaughlin CNA - 11/08/2024 10:33 AM CST [facility] home care received the referral on [facility] unfortunately we are unable to accept due towe are not in contract with patients insurance. Patient will need to be referred to another [facility]. Thanks [facility] Picking Machine Operator TRICAL CONTROLS TECHNICIAN documented in this encounter Plan of Treatment [...] MDR Other Comment:Added from external Infection- [facility] [employer] Collection Source- Urine 2020 06/25/2024 MDR-GLASS HANDLER - Carbapenemase-Prod ucing Organisms Comment:Added from external infection. Source: [facility] [employer]. Collection Source-Urine 08/04/2021 Assessment Noted Time PHQ-9 Depression Total Score: 0 12/04/19 22 1:13 PM ELECTRICAL CONTROLS TECHNICIAN documented as of this encounter Care Teams Lockstitch Machine Operator Relationship Specialty Start Date End Date Leroy Meraz DO [address] [place] [address] PCP - General FAMILY PRACTICE 07/08/24 [place] [address] [address] Surgeon SURGERY 11/03/23 documented as of this encounter
--- OUTSIDE RECORDS SUMMARY | 2024-11-16 04:41 | XMS_ITS | Encounter Summary ---
Author Organization [facility] Address [facility] [place] [address] Care Team Providers Care Roller Inspector And Mender Name Role Phone Sherman Cartagena MD Primary Care Provider Angella Mary Guidry NP Primary Care Provider [phone] Lisa Ramírez [facility] Primary Care Provider + Lisa Ramírez [facility] Primary Care Provider + Jorje Ayala MD Unavailable Leroy Meraz DO Primary Care Provider + Encounter Details Date Type Department Care Team (Late st Contact Info) Description 06/04/2021 Xyleme Message Enc [facility] Wound Care [address] [place] [address] [place] [address] [facility] [address] [place] [address] Follow Up/Update Social History Tobacco [...] Sex Assigned at Male 10/10/2024 12:08 PM AGRICULTURE PROFESSOR Legal Sex Male 5:44 PM CDT Gender Identity Male 11/11/2024 10:55 AM AGRICULTURE PROFESSOR Sexual Orientation Not on file COVID-19 Exposure [...] Assessment Author Status No 11/26/2020 1:38 PM AGRICULTURE PROFESSOR Activ e * RETIRED Are you blind or do you have serious difficulty seeing, even when wearing glasses? Answer Date of Assessment Author Status No 11/26/2020 1:38 PM AGRICULTURE PROFESSOR Activ e * Do you have serious difficulty walking or climbing stairs? Answer Date of Assessment Author Status Yes 11/26/2020 1:38 PM AGRICULTURE PROFESSOR Yoly Larson RN Active * Do you have difficulty dressing or bathing? Answer Date of Assessment Author Status Yes 11/26/2020 1:38 PM AGRICULTURE PROFESSOR Yoly Larson RN Active * Because of [...] Other Comment:Added from external Infection- [facility] Collection Source- Urine 2020 06/25/2024 MDR-IMAGING SERVICES DIRECTOR - Carbapenemase-Prod ucing Organisms Comment:Added from external infection. Source: [facility]. Collection Source-Urine 08/04/2021 COVID-19 Rule Out 09/28/2021 09/28/2021 10/05/2021 12:34 AM AGRICULTURE PROFESSOR COVID-19 Rule Out 03/23/2024 03/23/2024 03/23/2024 1:17 PM CDT Assessment Noted Time PHQ-9 Depression Total Score: 0 04/22/20 2:39 PM CDT documented as of this encounter Care Teams Roller Inspector And Mender Relationship Specialty Start Date End Date Sherman Cartagena MD PCP - General FAMILY PRACTICE 08/25/20 11/29/21 Mary Marcus, POTATO PEELER [address] [place] [address] PCP - General NURSE PRACTITIONER 11/30/21 08/28/22 Lisa Ramírez FNP-BC [address] [place], [place] [id number] PCP - General NURSE PRACTITIONER 08/29/22 09/01/22 Lisa Ramírez BEATER LEAD-BC [address] [place], [place] [id number] PCP - General NURSE PRACTITIONER 09/05/22 07/07/24 Leroy Meraz DO [address] [place] [address] PCP - General FAMILY PRACTICE 07/08/24 [place] [address] [address] Surgeon SURGERY 11/03/23 documented as of this encounter
--- OUTSIDE RECORDS SUMMARY | 2024-11-16 04:41 | XMS_ITS | Encounter Summary ---
Author Organization [facility] Address [facility] [place] [address] Care Team Providers Care Lab Clerk Name Role Phone Sherman Cartagena MD Primary Care Provider Angella Mary Guidry NP Primary Care Provider [phone] Lisa Ramírez [facility] Primary Care Provider + Lisa Ramírez [facility] Primary Care Provider + Jorje Ayala MD Unavailable Leroy Meraz DO Primary Care Provider + Encounter Details Date Type Department Care Team (Late st Contact Info) Description 05/15/2021 [facility] Message [address] [address] Sherman Cartagena MD RE: Other [...] Assigned at Male 10/10/2024 12:08 PM MANAGER CREATIVE Legal Sex Male 5:44 PM CDT Gender Identity Male 11/11/2024 10:55 AM MANAGER CREATIVE Sexual Orientation Not on file COVID-19 Exposure [...] Author Status No 11/26/2020 1:38 PM MANAGER CREATIVE Activ e * RETIRED Are you blind or do you have serious difficulty seeing, even when wearing glasses? Answer Date of Assessment Author Status No 11/26/2020 1:38 PM MANAGER CREATIVE Activ e * Do you have serious [...] MDR Other Comment:Added from external Infection- [facility] [employer] Collection Source- Urine 2020 06/25/2024 MDR-AIRPORT OPERATIONS CREW MEMBER - Carbapenemase-Prod ucing Organisms Comment:Added from external infection. Source: [facility] [employer]. Collection Source-Urine 08/04/2021 COVID-19 Rule Out 09/28/2021 09/28/2021 10/05/2021 12:34 AM MANAGER CREATIVE COVID-19 Rule Out 03/23/2024 03/23/2024 03/23/2024 1:17 PM CDT Assessment Noted Time PHQ-9 Depression Total Score: 0 04/22/20 2:39 PM CDT documented as of this encounter Care Teams Lab Clerk Relationship Specialty Start Date End Date Sherman Cartagena MD PCP - General FAMILY PRACTICE 08/25/20 11/29/21 Mary Marcus NP [address] [place] [address] PCP - General NURSE PRACTITIONER 11/30/21 08/28/22 Lisa Ramírez [facility] [address] [place] [address] PCP - General NURSE PRACTITIONER 08/29/22 09/01/22 Lisa Ramírez, AGRICULTURAL LENDER- [address] [place] [address] PCP - General NURSE PRACTITIONER 09/05/22 07/07/24 Leroy Meraz DO [address] [place] [address] PCP - General FAMILY PRACTICE 07/08/24 [place] [address] [address] Surgeon SURGERY 11/03/23 documented as of this encounter
--- OUTSIDE RECORDS SUMMARY | 2024-11-16 04:41 | XMS_ITS | Encounter Summary ---
Author Organization [facility] Address [facility] [place] [address] Care Team Providers Care Microcomputer Technician Name Role Phone [facility] Primary Care Provider + Jorje Ayala MD Unavailable Leroy Meraz DO Primary Care Provider + Encounter Details Date Type Department Care Team (Late st Contact Info) Description 12/23/2022 Flo [facility] Message [facility] [address] [place] [phone] Mary, [facility] Provider results Social History Tobacco Use Types Packs/Day Years Used Date Smoking Tobacco: Never Smokeless Tobacco: Never Alcohol Use Standard Drinks/Week Comments Not Currently 0 (1 standard drink = 0.6 oz pur e alcohol) PHQ-2 Answer Date Recorded Patient Health Questionnaire-2 Score 0 09/07/2022 Sex and Gender Information Value Date Recorded Sex Assigned at Male 10/10/2024 12:08 PM ALUMINIZER Legal Sex Male 5:44 PM CDT Gender Identity Male 11/11/2024 10:55 AM ALUMINIZER Sexual Orientation Not on file COVID-19 Exposure [...] 09/02/2024 MDR Other Comment:Added from external Infection- [facility] Health Collection Source- Urine 2020 06/25/2024 MDR-LONG CHAIN DYEING MACHINE OPERATOR - Carbapenemase-Prod ucing Organisms Comment:Added from external infection. Source: [facility]. Collection Source-Urine 08/04/2021 COVID-19 Rule Out 03/23/2024 03/23/2024 03/23/2024 1:17 PM CDT Assessment Noted Time PHQ-9 Depression Total Score: 0 12/04/19 1:13 PM ALUMINIZER documented as of this encounter Care Teams Microcomputer Technician Relationship Specialty Start Date End Date Lisa Ramírez, [employer]- [address] [place] [address] PCP - General NURSE PRACTITIONER 09/05/22 07/07/24 Leroy Meraz DO [address] [place] [address] PCP - General FAMILY PRACTICE 07/08/24 [place] [address] [address] Surgeon SURGERY 11/03/23 documented as of this encounter
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
--- OUTSIDE RECORDS SUMMARY | 2024-11-16 04:42 | XMS_ITS | Encounter Summary ---
Author Organization [facility] Address [facility] [place] [address] Care Team Providers Care Branch Specialist Name Role Phone Lisa Ramírez [facility] Primary Care Provider + Jorje Ayala MD Unavailable Leroy Meraz DO Primary Care Provider + Encounter Details Date Type Department Care Team (Late st Contact Info) Description 03/02/2023 Prep for Procedure [facility] Services [address] [place], [place] [id number] Jermain Fuentes MD [address] [facility] [address] [place] [address] Social History Tobacco Use Types Packs/Day Years Used Date Smoking Tobacco: Never Smokeless Tobacco: Never Alcohol Use Standard Drinks/Week Comments Not Currently 0 (1 standard drink = 0.6 oz pur e alcohol) PHQ-2 Answer Date Recorded Patient Health Questionnaire-2 Score 0 09/07/2022 Sex and Gender Information Value Date Recorded Sex Assigned at Male 10/10/2024 12:[address] LAB TECHNICIAN Legal Sex Male 5:44 PM CDT Gender Identity Male 11/11/2024 10:[address] LAB TECHNICIAN Sexual Orientation Not on file COVID-19 Exposure [...] PM MENAT Juliana Lewis RN Active documented as of [...] 09/02/2024 MDR Other Comment:Added from external Infection- [facility] Health Collection Source- Urine 2020 06/25/2024 MDR-GUARDIAN FAMILY MEMBER - Carbapenemase-Prod ucing Organisms Comment:Added from external infection. Source: [facility]. Collection Source-Urine 08/04/2021 COVID-19 Rule Out 03/23/2024 03/23/2024 03/23/2024 1:17 PM CDT Assessment Noted Time PHQ-9 Depression Total Score: 0 12/04/19 1:[address] LAB TECHNICIAN documented as of this encounter Care Teams Branch Specialist Relationship Specialty Start Date End Date Lisa Ramírez, NEERAJ- [address] [place] [address] PCP - General NURSE PRACTITIONER 09/05/22 07/07/24 Leroy Meraz DO [address] [place] [address] PCP - General FAMILY PRACTICE 07/08/24 [place] [address] [address] Surgeon SURGERY 11/03/23 documented as of this encounter
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
--- OUTSIDE RECORDS SUMMARY | 2024-11-16 08:36 | XMS_ITS | Referral Summary ---
Author Organization [facility] Address [address] [place] [address] Care Team Providers Care Mechanic Assistant Name Role Phone Lisa Ramírez JOSE-SPORTS BOOKMAKER Primary Care Provider Source Comments [facility],non-owned Affiliates and Associated Physician Practices is amultiple site organization consisting of ambulatory clinics and hospital sitesin [place], [place], [place] and [place]. This disclosure is being madepursuant to the Care Everywhere program and may not contain all information available regarding this patient. Last updated 18.[facility] Allergies Active Allergy Reactions Criticality Noted Date [...] 4:22 AM 12/27/2020 2:34 PM Care Teams Mechanic Assistant Relationship Specialty Start Date End Date Lisa Ramírez, AGENT TELEGRAPHER-SPORTS BOOKMAKER [address] [place] [address] PCP - General Housekeeping Room Inspector 10/07/22
--- OUTSIDE RECORDS SUMMARY | 2024-11-16 08:36 | XMS_ITS | Patient Health Summary ---
Author Organization [facility] Address [address] [place] [address] Care Team Providers Care Plans Examiner Name Role Phone Lisa Ramírez ATHLETICS TEACHER-PROGRAM MANAGEMENT MANAGER Primary Care Provider Note from [facility],non-owned Affiliates and Associated Physician Practices is amultiple site organization consisting of ambulatory clinics and hospital sitesin [place], [place], [place] and [place]. This disclosure is being madepursuant to the Care Everywhere program and may not contain all information available regarding this patient. Last updated 18.[facility] Allergies * Diphenhydramine(Unknown) * Ciprofloxacin(Itching) * Diazepam(Unknown) [...] Yellow, Dark Yellow 12/29/2022 4:00 PM CDT [facility] Clarity UA Slt Cloudy(A) Clear 12/29/2022 4:00 PM CDT [facility] Glucose UA Negative Negative 12/29/2022 4:00 PM CDT [facility] Bilirubin UA Negative Negative 12/29/2022 4:00 PM CDT [facility] Ketone UA 1+(A) Negative 12/29/2022 4:00 PM CDT [facility] Specific [place] UA 1.014 1.005 - 1.030 12/29/2022 4:00 PM CDT [facility] Blood UA 2+(A) Negative 12/29/2022 4:00 PM CDT [facility] pH UA 6.0 5.0 - 8.0 pH 12/29/2022 4:00 PM CDT [facility] Protein UA 2+(A) Negative 12/29/2022 4:00 PM CDT [facility] Urobilinogen UA Negative Negative mg/dL 12/29/2022 4:00 PM CDT [facility] Nitrite UA Positive(A) Negative 12/29/2022 4:00 PM CDT [facility] Leukocyte UA 3+(A) Negative 12/29/2022 4:00 PM CDT [facility] Urine Microscopy Urine microscopy to follow 12/29/2022 4:00 PM CDT [facility] Urine URINE SPECIMEN COLLECTION, CATHETERIZED / Unknown Collection / Unknown 12/29/2022 3:36 PM CDT 12/29/2022 3:42 PM CDT Narrative [facility] - 12/29/2022 4:00 PM CDT Ascorbic Acid can cause false negative urine strip tests for blood, glucose, nitrite, and bilirubin. Jessica Valles APRN-PROGRAM MANAGEMENT MANAGER LAB - URINALYSIS ORD ERABLES Performing Organization Address [facility]/ZIP Co de Phone Number [facility] [address] * (ABNORMAL) URINE MICROSCOPIC ONLY (12/29/2022 3:36 PM CDT) Pathologist [facility] RBC UA 11-20(A) 0 - 5 # /hpf 12/29/2022 4:00 PM CDT [facility] WBC UA 21-50(A) None Seen, 0-5 # /hpf 12/29/2022 4:00 PM CDT [facility] Budding Yeast Occasional (A) None seen /hpf 12/29/2022 4:00 PM CDT [facility] Hyaline Casts 0-2 None Seen, 0-2 /LPF 12/29/2022 4:00 PM CDT [facility] Bacteria UA 2+(A) None Seen 12/29/2022 4:00 PM CDT [facility] Squamous Epithelial Cells None Seen None Seen, 0-2, 3-5 /hpf 12/29/2022 4:00 PM CDT [facility] Mucus UA 1+ /LPF 12/29/2022 4:00 PM CDT [facility] Urine URINE SPECIMEN COLLECTION, CATHETERIZED / Unknown Collection / Unknown 12/29/2022 3:36 PM CDT 12/29/2022 3:42 PM CDT Narrative [facility] - 12/29/2022 4:00 PM CDT Jessica Valles ATHLETICS TEACHER-PROGRAM MANAGEMENT MANAGER LAB - URINALYSIS ORD ERABLES Performing Organization Address [facility] Co de Phone Number [facility] [address] * CULTURE URINE (12/29/2022 3:36 PM CDT) Only the most recent of5 resultswithin the time period is included. Pathologist [facility] Culture Urine More than 2 organisms seen at >=50,000 CFU/mL. Recollect if clinically indicated. JONAS 12/31/2022 3:09 PM CDT [facility] Urine URINE SPECIMEN OBTAINED BY CLEAN CATCH PROCEDURE / Unknown Collection / Unknown 12/29/2022 3:36 PM CDT 12/29/2022 3:42 PM CDT Narrative [facility] - 12/31/2022 3:09 PM CDT Jessica BIRCH LAB - MICROBIOLOGY O RDERABLES [facility] [address] [place] [address], [facility] [phone] * (ABNORMAL) URINE MICROSCOPIC ONLY REFLEX TO CULTURE (10/07/2022 6:55 PM FEATHER CUTTING MACHINE FEEDER) Only the most recent of4 resultswithin the time period is included. Reflex Status Culture to follow 10/07/2022 7:11 PM FEATHER CUTTING MACHINE FEEDER [facility] RBC UA 11-20(A) 0 - 5 # /hpf 10/07/2022 7:11 PM [facility] WBC UA >100(A) None Seen, 0-5 # /hpf 10/07/2022 7:11 PM [facility] WBC Clumps UA Few(A) None Seen /HPF 10/07/2022 7:11 PM [facility] Bacteria UA 3+(A) None Seen 10/07/2022 7:11 PM [facility] Squamous Epithelial Cells 0-2 None Seen, 0-2, 3-5 /hpf 10/07/2022 7:11 PM [facility] Mucus UA 1+ /LPF 10/07/2022 7:11 PM [facility] Urine SUPRAPUBIC URINE SPECIMEN / Unknown Collection / Unknown 10/07/2022 6:55 PM FEATHER CUTTING MACHINE FEEDER 10/07/2022 7:02 PM FEATHER CUTTING MACHINE FEEDER Narrative [facility] - 10/07/2022 7:11 PM FEATHER CUTTING MACHINE FEEDER Jermain Mcdaniels DO LAB - URINALYSIS ORD ERABLES [facility] [address] [place], [place] [id number] [place] [address] * (ABNORMAL) URINALYSIS REFLEX MICROSCOPIC REFLEX CULTURE (10/07/2022 6:55 PM FEATHER CUTTING MACHINE FEEDER) Only the most recent of4 resultswithin the time period is included. Color UA Yellow Straw, Yellow, Dark Yellow 10/07/2022 7:11 PM [facility] Clarity UA Cloudy(A) Clear 10/07/2022 7:11 PM FEATHER CUTTING MACHINE FEEDER [facility] Glucose UA Negative Negative 10/07/2022 7:11 PM [facility] Bilirubin UA Negative Negative 10/07/2022 7:11 PM [facility] Ketone UA Trace(A) Negative 10/07/2022 7:11 PM [facility] Specific [place] UA 1.014 1.005 - 1.030 10/07/2022 7:11 PM [facility] Blood UA 1+(A) Negative 10/07/2022 7:11 PM [facility] pH UA 6.0 5.0 - 8.0 pH 10/07/2022 7:11 PM [facility] Protein UA 2+(A) Negative 10/07/2022 7:11 PM [facility] Urobilinogen UA Negative Negative mg/dL 10/07/2022 7:11 PM [facility] Nitrite UA Negative Negative 10/07/2022 7:11 PM [facility] Leukocyte UA 3+(A) Negative 10/07/2022 7:11 PM [facility] Urine Microscopy Urine microscopy to follow 10/07/2022 7:11 PM [facility] Urine SUPRAPUBIC URINE SPECIMEN / Unknown Collection / Unknown 10/07/2022 6:55 PM FEATHER CUTTING MACHINE FEEDER 10/07/2022 7:02 PM [facility] Narrative [facility] - 10/07/2022 7:11 PM [facility] Ascorbic Acid can cause false negative urine strip tests for blood, glucose, nitrite, and bilirubin. Jermain Mcdaniels DO LAB - URINALYSIS ORD ERABLES Performing Organization Address City/State/[facility] Co de Phone Number [facility] [address] * CT ABDOMEN AND PELVIS W IV CONTRAST [id number] (08/24/2021 12:00 PM FEATHER CUTTING MACHINE FEEDER) Anatomical Region Laterality Modality Abdomen, Pelvis Computed Tomogra phy 08/24/2021 12:3 7 PM FEATHER CUTTING MACHINE FEEDER Addenda Addendum by Greta Chatterjee MD on 08/24/2021 12:56 PM FEATHER CUTTING MACHINE FEEDER Addendum should read as follows. Please disregard sentence pulmonary embolus. Instead it should read unremarkable adrenal glands. *Addending Radiologist: Greta Chatterjee on 08/24/2021 at 12:53 PM Impressions 08/24/2021 12:39 PM FEATHER CUTTING MACHINE FEEDER As described above *[place] Radiologist: Greta Chatterjee on 08/24/2021 at 12:39 PM Narrative 08/24/2021 12:39 PM FEATHER CUTTING MACHINE FEEDER PROCEDURE: CT ABDOMEN PELVIS W CONTRAST 08/24/2021 [...] (ABNORMAL) CULTURE WOUND+GRAM STAIN (08/24/2021 10:41 AM FEATHER CUTTING MACHINE FEEDER) Culture Heavy Pseudomonas aeruginosa(A) JONAS 08/27/2021 11:11 PM FEATHER CUTTING MACHINE FEEDER [facility] Culture Heavy Pseudomonas aeruginosa(A) JONAS 08/27/2021 11:11 PM [facility] Comment:Strain 2 Culture Heavy Klebsiella pneumoniae(A) JONAS 08/27/2021 11:11 PM [facility] Culture Heavy Corynebacterium species(A) JONAS 08/27/2021 11:11 PM [facility] Culture Moderate Staphylococcus aureus methicillin-resista nt (MRSA)(A) JONAS 08/27/2021 11:11 PM [facility] Comment:Staphylococcus aureu s methicillin-resistant (MRSA) detected by penicillin binding protein immunoassay. Contact precautions required. Conventional antibiotic susceptibility testing to follow. Gram Stain Moderate Polymorphonuclear cells 08/27/2021 11:11 PM [facility] Gram Stain Light Red blood cells 08/27/2021 11:11 PM [facility] Gram Stain Light Squamous epithelial cells 08/27/2021 11:11 PM [facility] Gram Stain Heavy Gram-positive bacilli 08/27/2021 11:11 PM [facility] Gram Stain Light Gram-positive cocci 08/27/2021 11:11 PM [facility] Microbiology ASSESSMENT OF CATHETER ENTRY SITE / Unknown Collection / Unknown 08/24/2021 10:41 AM FEATHER CUTTING MACHINE FEEDER 08/24/2021 10:[address] [facility]CROBI[facility] - 08/27/2021 11:11 PM [facility] Methicillin-resistant Staphylococci (MRSA) are resistant to all [...] please call microbiology lab to request manual [phone]. Staphylococcus aureus methicillin-resistant (MRSA) Clindamycin JONAS 0.25 ug/mL: Susceptible Staphylococcus aureus methicillin-resistant (MRSA) Doxycycline JONAS 1 ug/mL: Susceptible Staphylococcus aureus methicillin-resistant (MRSA) Gentamicin JONAS <=0.5 ug/mL: Susceptible Staphylococcus aureus methicillin-resistant (MRSA) Inducible Clindamycin Resistance OJNAS NEG ug/mL: Neg Staphylococcus aureus methicillin-resistant (MRSA) Linezolid JONAS 2 ug/mL: Susceptible Staphylococcus aureus methicillin-resistant (MRSA) Oxacillin JONAS >=4 ug/mL: Resistant Staphylococcus aureus methicillin-resistant (MRSA) Tetracycline JONAS <=1 ug/mL: Susceptible Staphylococcus aureus methicillin-resistant (MRSA) Trimethoprim-sulfamethox azole JONAS <=10 ug/mL: Susceptible Staphylococcus aureus methicillin-resistant (MRSA) Vancomycin JONAS <=0.5 ug/mL: Susceptible Helena Rosenberg MD LAB - MICROBIOLOGY O RDERABLES [facility] [address] [place], [place] [address] [phone] * CULTURE BLOOD (08/24/2021 10:36 AM FEATHER CUTTING MACHINE FEEDER) Only the most recent of4 resultswithin the time period is included. Culture No growth day 5 JONAS 08/30/2021 12:00 AM FEATHER CUTTING MACHINE FEEDER [facility] Blood PERIPHERAL BLOOD / Unknown Venipuncture / Unknown 08/24/2021 10:36 AM FEATHER CUTTING MACHINE FEEDER 08/24/2021 10:46 AM FEATHER CUTTING MACHINE FEEDER Helena Rosenberg MD LAB - MICROBIOLOGY O RDERABLES [facility] [address] [place] [address], [facility] [phone] * LACTIC ACID BLOOD REFLEX TO REPEAT (08/24/2021 10:31 AM FEATHER CUTTING MACHINE FEEDER) Only the most recent of2 resultswithin the time period is included. Lactic Acid 1.76 0.5 - 2 mmol/L 08/24/2021 11:05 AM FEATHER CUTTING MACHINE FEEDER [facility] Comment:3+ hemolysis Blood BLOOD SPECIMEN / Unknown Venipuncture / Unknown 08/24/2021 10:31 AM FEATHER CUTTING MACHINE FEEDER 08/24/2021 10:46 AM FEATHER CUTTING MACHINE FEEDER Helena Rosenberg MD LAB - CHEMISTRY ORDE [facility] [address] * PROCALCITONIN LEVEL (08/24/2021 10:31 AM FEATHER CUTTING MACHINE FEEDER) Procalcitonin 0.07 <=0.10 ng/mL 08/24/2021 11:32 AM FEATHER CUTTING MACHINE FEEDER [facility] Comment:2+ hemolysis Blood BLOOD SPECIMEN / Unknown Venipuncture / Unknown 08/24/2021 10:31 AM FEATHER CUTTING MACHINE FEEDER 08/24/2021 10:46 AM FEATHER CUTTING MACHINE FEEDER Narrative [facility] - 08/24/2021 11:32 AM FEATHER CUTTING MACHINE FEEDER If baseline PCT is - >2.0 ng/mL: [...] Change in Procalcitonin Calculator is available at [email or web address] If clinical picture has not improved and PCT remains high, reevaluate and consider treatment failure or other causes. Helena Rosenberg MD LAB - CHEMISTRY YANNA BARTLETT [facility] Organization Address City/State/ZIP Co de Phone Number [facility] [address] * (ABNORMAL) CBC W AUTO DIFFERENTIAL (08/24/2021 10:31 AM FEATHER CUTTING MACHINE FEEDER) Only the most recent of4 resultswithin the time period is included. [facility] Signature WBC 7.4 4.0 - 10.0 x10E9/L 08/24/2021 10:50 AM [facility] RBC 3.70(L) 4.40 - 6.10 x10E12/L 08/24/2021 10:50 AM [facility] Hemoglobin 9.6(L) 13.7 - 17.5 gm/dL 08/24/2021 10:50 AM [facility] Hematocrit 29.3(L) 40.1 - 51.0 % 08/24/2021 10:50 AM [facility] MCV 79.2 78.0 - 100.0 fl 08/24/2021 10:50 AM [facility] MCH 25.9 25.6 - 34.0 pg 08/24/2021 10:50 AM [facility] MCHC 32.8 32.3 - 36.5 gm/dL 08/24/2021 10:50 AM [facility] RDW 17.7(H) 11.6 - 14.4 % 08/24/2021 10:50 AM [facility] MPV 9.8 9.4 - 12.4 fl 08/24/2021 10:50 AM [facility] Platelet Count 396(H) 163 - 369 x10E9/L 08/24/2021 10:50 AM [facility] Neutrophils % 66.6 40.0 - 75.0 % 08/24/2021 10:50 AM [facility] Lymphocytes % 14.5(L) 19.3 - 53.1 % 08/24/2021 10:50 AM [facility] Monocytes % 16.5(H) 4.7 - 12.5 % 08/24/2021 10:50 AM [facility] Eosinophils % 1.8 0.7 - 7.0 % 08/24/2021 10:50 AM [facility] Basophils % 0.3 0.1 - 1.2 % 08/24/2021 10:50 AM [facility] Immature Granulocytes 0.3 0 - 0.5 % 08/24/2021 10:50 AM [facility] Neutrophil Absolute 4.94 1.56 - 6.13 x10E9/L 08/24/2021 10:50 AM [facility] Lymphocytes Absolute 1.07(L) 1.18 - 3.74 x10E9/L 08/24/2021 10:50 AM [facility] Monocytes Absolute 1.22(H) 0.24 - 0.86 x10E9/L 08/24/2021 10:50 AM [facility] Eosinophils Absolute 0.13 0.04 - 0.54 x10E9/L 08/24/2021 10:50 AM [facility] Basophils Absolute 0.02 0.01 - 0.08 x10E9/L 08/24/2021 10:50 AM [facility] Immature Granulocytes Absolute 0.02 0 - 0.03 x10E9/L 08/24/2021 10:50 AM [facility] nRBC Auto 0 <=0 /100 WBC 08/24/2021 10:50 AM [facility] nRBC Absolute 0.00 <=0 x10E9/L 08/24/2021 10:50 AM [facility] Blood BLOOD SPECIMEN / Unknown Venipuncture / Unknown 08/24/2021 10:31 AM FEATHER CUTTING MACHINE FEEDER 08/24/2021 10:46 AM [facility] Helena Rosenberg MD LAB - HEMATOLOGY ORD ERABLES Performing Organization Address City/State/[facility] Co de Phone Number [facility] [address] * (ABNORMAL) COMPREHENSIVE METABOLIC PANEL (08/24/2021 10:31 AM [facility]) Only the most recent of3 resultswithin the time period is included. [facility] Signature Glucose 100 70 - 125 mg/dL 08/24/2021 11:13 AM [facility] Sodium 138 136 - 145 mmol/L 08/24/2021 11:13 AM [facility] Potassium 4.0 3.4 - 4.5 mmol/L 08/24/2021 11:13 AM [facility] Comment:2+ hemolysis Chloride 104 98 - 107 mmol/L 08/24/2021 11:13 AM [facility] CO2 23 22 - 29 mmol/L 08/24/2021 11:13 AM [facility] Calcium 9.3 8.4 - 10.2 mg/dL 08/24/2021 11:13 AM [facility] Anion Gap 15 10 - 20 mmol/L 08/24/2021 11:13 AM [facility] BUN 13.1 8.4 - 25.7 mg/dL 08/24/2021 11:13 AM [facility] Creatinine 0.70(L) 0.72 - 1.25 mg/dL 08/24/2021 11:13 AM [facility] eGFR by MDRD >60 >60 mL/min/1.7 3m2 08/24/2021 11:13 AM [facility] eGFR by MDRD >60 >60 mL/min/1.7 3m2 08/24/2021 11:13 AM [facility] Alkaline Phosphatase 107 40 - 150 U/L 08/24/2021 11:13 AM [facility] ALT 14 5 - 55 U/L 08/24/2021 11:13 AM [facility] AST 27 5 - 34 U/L 08/24/2021 11:13 AM [facility] Protein Total 8.5(H) 6.4 - 8.3 gm/dL 08/24/2021 11:13 AM [facility] Albumin 2.1(L) 3.5 - 5.0 gm/dL 08/24/2021 11:13 AM [facility] Globulin Total 6.4(H) 2.6 - 4.0 gm/dL 08/24/2021 11:13 AM [facility] Albumin/Globulin Ratio 0.3(L) 0.9 - 1.6 08/24/2021 11:13 AM [facility] Bilirubin Total 0.2 0.2 - 1.2 mg/dL 08/24/2021 11:13 AM [facility] Blood BLOOD SPECIMEN / Unknown Venipuncture / Unknown 08/24/2021 10:31 AM FEATHER CUTTING MACHINE FEEDER 08/24/2021 10:46 AM [facility] Helena Rosenberg MD LAB - CHEMISTRY KURTISE TRI [facility] Organization Address City/State/[facility] Co de Phone Number [facility] [address] * Critical Care (08/24/2021 9:57 AM FEATHER CUTTING MACHINE FEEDER) Narrative Helena Rosenberg MD - 08/24/2021 9:57 AM FEATHER CUTTING MACHINE FEEDER Helena Rosenberg MD 08/24/2021 1:09 PM Critical Care Performed by: Helena Rosenberg MD Authorized by: Helena Rosenberg MD Critical care provider statement: Critical [...] (Bezet) 418 ms [facility] MUSE Calculated P [place] 49 degrees [facility] MUSE Calculated R [place] 68 degrees [facility] MUSE Calculated T [place] 47 degrees [facility] M[facility] Interpretation EKG NORMAL SINUS RHYTHM NONSPECIFIC T WAVE ABNORMALITY ABNORMAL ECG CONFIRMED BY DR ARITA ON 05/20/2021 Confirmed by KARL ARITA MD ([id number]), order editor FRANKY SHRESTHA ([id number]) on 05/28/2021 9:25:42 AM [facility] MUSE 05/20/2021 8:39 AM CDT 05/28/2021 9:25 AM CDT Rae De La Paz MD ECG ORDERABLES [facility] * (ABNORMAL) SLIDE SCAN HEMATOLOGY (12/27/2020 10:33 AM CDT) [facility] Platelet Estimation Increased( A) Normal, Adequate platelets 12/27/2020 12:14 PM CDT [facility] WBC Morph Normal 12/27/2020 12:14 PM CDT [facility] Anisocytosis 2+(A) None 12/27/2020 12:14 PM CDT [facility] Hypochromia 2+(A) None 12/27/2020 12:14 PM CDT [facility] Large Platelets 1+(A) None 12:14 PM CDT [facility] Blood BLOOD SPECIMEN / Unknown Lab Venipuncture / Unknown 12/27/2020 10:33 AM CDT 12/27/2020 10:36 AM CDT Sushma Brunson MD LAB - HEMATOLOG Y ORDERABLES Performing Organization Address City/[facility] de Phone Number [facility] [address] * BASIC METABOLIC PANEL (CALCIUM TOTAL) (12/27/2020 10:33 AM CDT) [facility] Glucose 87 70 - 125 mg/dL 12/27/2020 10:57 AM CDT [facility] Sodium 139 136 - 145 mmol/L 12/27/2020 10:57 AM CDT [facility] Potassium 3.6 3.4 - 4.5 mmol/L 12/27/2020 10:57 AM CDT [facility] Chloride 106 98 - 107 mmol/L 12/27/2020 10:57 AM CDT [facility] CO2 23 22 - 29 mmol/L 12/27/2020 10:57 AM CDT [facility] Calcium 8.5 8.4 - 10.2 mg/dL 12/27/2020 10:57 AM CDT [facility] Anion Gap 14 10 - 20 mmol/L 12/27/2020 10:57 AM CDT [facility] BUN 9.5 8.4 - 25.7 mg/dL 12/27/2020 10:57 AM CDT [facility] Creatinine 0.79 0.72 - 1.25 mg/dL 12/27/2020 10:57 AM CDT [facility] eGFR by MDRD >60 >60 mL/min/1.7 3m2 12/27/2020 10:57 AM CDT [facility] eGFR by MDRD >60 >60 mL/min/1.7 3m2 12/27/2020 10:57 AM CDT [facility] Blood BLOOD SPECIMEN / Unknown Lab Venipuncture / Unknown 12/27/2020 10:33 AM CDT 12/27/2020 10:36 AM CDT Sushma Brunson MD LAB - CHEMISTRY ORDERABLES Performing Organization Address [facility] Co de Phone Number [facility] [address] * (ABNORMAL) PLATELET COUNT AUTO (12/27/2020 3:21 AM CDT) Platelet Count 568(H) 163 - 369 x10E9/L 12/27/2020 3:53 AM CDT [facility] Blood BLOOD SPECIMEN / Unknown Lab Venipuncture / Unknown 12/27/2020 3:21 AM CDT 12/27/2020 3:49 AM CDT Ayden Arora MD LAB - HEMATOLOGY ORD ERABLES Performing Organization Address [facility] Co de Phone Number [facility] [address] [place] [place] [address] * CREATININE BLOOD (12/27/2020 3:21 AM CDT) Creatinine 0.73 0.72 - 1.25 mg/dL 12/27/2020 4:12 AM CDT [facility] eGFR by MDRD >60 >60 mL/min/1.7 3m2 12/27/2020 4:12 AM CDT [facility] eGFR by MDRD >60 >60 mL/min/1.7 3m2 12/27/2020 4:12 AM CDT [facility] Blood BLOOD SPECIMEN / Unknown Lab Venipuncture / Unknown 12/27/2020 3:21 AM CDT 12/27/2020 3:49 AM CDT Ayden Arora MD LAB - CHEMISTRY ORDE TRI Performing Organization Address [facility] de Phone Number [facility] [address] * (ABNORMAL) IRON + TRANSFERRIN PANEL (12/27/2020 3:21 AM CDT) [facility] Signature Iron 24(L) 65 - 175 ug/dL 12/27/2020 4:12 AM CDT [facility] Transferrin 109(L) 174 - 364 mg/dL 12/27/2020 4:12 AM CDT [facility] TIBC Calculated 136(L) 261 - 497 ug/dL 12/27/2020 4:12 AM CDT [facility] Iron Saturation % 18 11 - 45 % 12/27/2020 4:12 AM CDT [facility] Blood BLOOD SPECIMEN / Unknown Lab Venipuncture / Unknown 12/27/2020 3:21 AM CDT 12/27/2020 3:49 AM CDT Ayden Arora MD LAB - CHEMISTRY YANNA BARTLETT Performing Organization Address [facility] de Phone Number [facility] [address] * XR CHEST 1VW PORTABLE (12/26/2020 [...] - 10.0 x10E9/L 12/25/2020 9:54 PM CDT [facility] Neutrophils % Manual 69 40 - 75 % 12/25/2020 9:54 PM CDT [facility] Lymphocytes % Manual 14(L) 19 - 53 % 12/25/2020 9:54 PM CDT [facility] Monocytes % Manual 14(H) 5 - 13 % 12/25/2020 9:54 PM CDT [facility] Eosinophils % Manual 3 1 - 7 % 12/25/2020 9:54 PM CDT [facility] Neutrophils Absolute Manual 6.7(H) 1.6 - 6.1 x10E3/uL 12/25/2020 9:54 PM CDT [facility] Lymphocytes Absolute Manual 1.4 1.2 - 3.7 x10E3/uL 12/25/2020 9:54 PM CDT [facility] Monocytes Absolute Manual 1.4(H) 0.2 - 0.9 x10E3/uL 12/25/2020 9:54 PM CDT [facility] Eosinophils Absolute Manual 0.3 0.0 - 0.5 x10E3/uL 12/25/2020 9:54 PM CDT [facility] Cells Counted 100 # cells 12/25/2020 9:54 PM CDT [facility] Platelet Estimation Increased( A) Normal, Adequate platelets 12/25/2020 9:54 PM CDT [facility] WBC Morph Normal 12/25/2020 9:54 PM CDT [facility] Anisocytosis 1+(A) None 12/25/2020 9:54 PM CDT [facility] Hypochromia 1+(A) None 12/25/2020 9:54 PM CDT [facility] Microcytosis Occasional (A) None 12/25/2020 9:54 PM CDT [facility] Large Platelets Occasional (A) None 12/25/2020 9:54 PM CDT [facility] Blood BLOOD SPECIMEN / Unknown Venipuncture / Unknown 12/25/2020 8:59 PM CDT 12/25/2020 9:11 PM CDT Jose Wallace Junito DO LAB - HEMATOLOGY ORD ERABLES [facility] [address] * GROSS + MICRO EXAM (11/24/1998 9:17 AM FEATHER CUTTING MACHINE FEEDER) Result CASE NUMBER [id number] Comment: ORDERING [...] areas of hemorrhage and central necrosis. A digital media representative section is submitted in a single cassette. JS/lmj Microscopic Exam The left buttock decubitus ulcer debridement shows soft tissue with ulcer and acute and chronic inflammation and young granulation tissue. No malignancy is identified. Diagnosis I. Left buttock, decubitus ulcer, debridement A. Chronic ulcer. Product Development Specialist bk Pathologist Lele Davies M.D. [place]. 11/25/1998 1544 <1> CPT code 22790/75790 MISCELLANEOUS SAMPLES / Unknown 11/24/1998 9:17 AM FEATHER CUTTING MACHINE FEEDER 11/24/1998 9:17 AM FEATHER CUTTING MACHINE FEEDER Historical Provider LAB - PATHOLOGY/C YTOLOGY ORDERABLES Care Teams Plans Examiner Relationship Specialty Start Date End Date Lisa Ramírez, ATHLETICS TEACHER-PROGRAM MANAGEMENT MANAGER [address] [place] [address] PCP - General Driver'S License Reviewing Officer 10/07/22
--- OUTSIDE RECORDS SUMMARY | 2024-11-16 08:36 | XMS_ITS | Clinical Summary ---
Author Organization [facility] Address [address] [place] [address] Care Team Providers Care Exercise Physiology Professor Name Role Phone Lisa Ramírez JOSE-HOUSE CARPENTER Primary Care Provider Source Comments [facility],non-owned Affiliates and Associated Physician Practices is amultiple site organization consisting of ambulatory clinics and hospital sitesin [place], [place]. This disclosure is being madepursuant to the Care Everywhere program and may not contain all information available regarding this patient. Last updated 18.[facility] [employer] Allergies Active Allergy Reactions Criticality Noted Date [...] 4:22 AM 12/27/2020 2:34 PM Care Teams Exercise Physiology Professor Relationship Specialty Start Date End Date Lisa Ramírez, CCTV TECHNICIAN-HOUSE CARPENTER [address] [place] [address] PCP - General Contact Lens Blocker 10/07/22
[2024-11-16 08:54] LABS: Basophils Percent Auto 0.1 % (0.2-1.2); Eosinophils Percent Auto 0.1 % (0-4.4); Hematocrit 31.9 % (42.0-52.0); Hemoglobin 10.4 g/dL (14.0-18.0); Immature Granulocyte Absolute 0.07 K/mm3 (0.00-0.031); Immature Granulocyte Percent A 0.5 % (0-0.5); Lymphocytes Absolute Auto 0.74 K/mm3 (0.9-3.2); Lymphocytes Percent Auto 5.4 % (18.3-44.2); Mean Corpuscular HGB Conc 32.6 g/dl (32-36); Mean Corpuscular Volume 79.8 fl (80-100); Mean Platelet Volume 9.3 fl (7.4-10.4); Monocytes Absolute Auto 1.9 K/mm3 (0.1-0.6); Neutrophils Percent Auto 79.9 % (45.5-73.1); Platelet Count Result 318 k/mm3 (150-375); Red Cell Distribution Width 17.4 % (11.5-14.5); White Blood Count 13.8 K/mm3 (4.5-10.0)
[2024-11-16 09:00] LABS: Lactic Acid Reflex 1.2 mmol/L (0.7-2.0)
[2024-11-16 09:01] LABS: Alanine Aminotransferase 19 U/L (6-50); Albumin Level 3.6 g/dL (3.5-5.1); Alkaline Phosphatase 105 U/L (38-126); Anion Gap 11 mmol/L (4-12); Aspartate Amino Transferase 21 U/L (17-59); Bilirubin,Total 0.8 mg/dL (0.2-1.3); Blood Urea Nitrogen 12 mg/dL (9-20); Calcium 9.5 mg/dL (8.4-10.2); Carbon Dioxide 24 mmol/L (22-30); Chloride 99 mmol/L (98-107); Estimated CRCL calculation 83 ml/min; Estimated Glomerular Filt Rate > 60; Glucose 106 mg/dL (65-110); Lipase 57 U/L (23-300); Potassium 4.1 mmol/L (3.4-5.0); Sodium 134 mmol/L (137-145)
[2024-11-16 09:11] LABS: INR 1.3; Prothrombin Time 16.5 Seconds (11.1-14.7)
[2024-11-16 09:12] LABS: Partial Thromboplastin Time 33.3 Seconds (22.3-36.8)
[2024-11-16 09:15] LABS: Influenza A QL RT-PCR Negative (Negative); Influenza B QL RT-PCR Negative (Negative); RSV RNA, RT-PCR Negative (Negative); SARS-CoV-2 RNA PCR Negative (Negative)
--- NOTE | 2024-11-16 09:49 | PC.NURSE ---
this RN changed pt hip wound and when doing so, this RN noticed the pt had a sacral wound that was also oozing yellow/brown discharge. pt refused this RN to change sacral dressing
[2024-11-16 10:00] LABS: Add Urine Microscopic? YES; Appearance Urine Turbid (Clear); Bacteria Urine 4+ /hpf; Bilirubin Urine Negative (Negative); Blood Urine 2+ (Negative); Color Urine Yellow (Yellow); Glucose Urine UA Negative (Negative); Ketones Urine 1+ mg/dL (Negative); Leukocyte Esterase Ur 3+ LEU/UL (Negative); Need Manual Microscopic Reviewed; Nitrate Urine Positive (Negative); Non Pathogenic Casts >20; Protein Urine 2+ mg/dL (Negative); Specific Grav Ur 1.014 (1.001-1.035); Squamous Epithelial Cell Urine None Seen /hpf (Few); Urobilinogen Urine 0.2 mg/dL (<2.0); WBC Urine >100 /hpf (0-3)
== END 2024-11-16 14:13 | disposition home or self-care (01) ==
PROVIDERS: Emergency Provider Emergency Medicine; PCP Student in an Organized Health Care Education/Training Program
DX: R07.89 Other chest pain (principal); N39.0 Urinary tract infection, site not specified; Z20.822 Contact with and (suspected) exposure to COVID-19; L98.8 Other specified disorders of the skin and subcutaneous tissue; G82.20 Paraplegia, unspecified; S24.103S Unspecified injury at T7-T10 level of thoracic spinal cord, sequela; X58.XXXS Exposure to other specified factors, sequela; Z99.3 Dependence on wheelchair; Z96.0 Presence of urogenital implants
CPT/HCPCS: 36415; 71045; 80053; 81001; 83605; 83690; 85025; 85610; 85730; 87086; 87186; 87637; 96365; 99284; J0696

== ENCOUNTER 2024-12-17 10:05 | Emergency (ER) | payer MEDICARE, MEDICAID, SELFPAY ==
[2024-12-17 10:19] VITALS: BP 167/83; PULSE 88; RESP 18; TEMP 36.5; O2SAT 100
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
--- OUTSIDE RECORDS SUMMARY | 2024-12-17 11:41 | XMS_ITS | Clinical Summary ---
Author Organization [facility] Address [address] [facility] [place] [address] Care Team Providers Care Despatching And Receiving Clerk Name Role Phone Lisa Ramírez JOSE-MEDIA OPERATOR Primary Care Provider Source Comments [facility],non-owned Affiliates and Associated Physician Practices is amultiple site organization consisting of ambulatory clinics and hospital sitesin [place], [place], [place] and [place]. This disclosure is being madepursuant to the Care Everywhere program and may not contain all information available regarding this patient. Last updated 18.[facility] 2nd Watch Allergies Active Allergy Reactions Criticality Noted Date [...] complete this topic MENINGOCOCCAL (Group B) VACCINE SHARED DECISION-MAKING Aged Out No longer eligible based on patient's age to complete this topic MENINGOCOCCAL GROUPS A/C/Y/W VACCINE Aged Out No longer eligible b [...] 4:22 AM 12/27/2020 2:34 PM Care Teams Despatching And Receiving Clerk Relationship Specialty Start Date End Date Lisa Ramírez, FILTER SCREEN CLEANER-MEDIA OPERATOR [address] [place] [address] PCP - General Nuclear Power Plant Engineer 10/07/22
--- OUTSIDE RECORDS SUMMARY | 2024-12-17 11:42 | XMS_ITS | Data Portability ---
Author Organization [facility] Address [address] [place] [address] Assessment No assessment recorded. Plan of Treatment Reminders Order Date Submit Date Provider Last Modified By Organization Details Last Modified Time Details Appointments None recorded. Lab unlisted lab - urinalysis w/reflex urine cult 2023 024 atatema Teofilo [facility] (Lab), [address] [place], [address], 13:04:47 Referral None recorded. Procedures None recorded. Surgeries None recorded. Imaging None recorded. Medication Orders None recorded. Patient TargetsNo targets recorded. Patient Instructions Encounter Date Encounter Id Patient Instructions Last Modified By Organization Details Last Modified Time 03/06/2024 [id number] davis catheter change* [email or web address] Not available 03/19/2024 10:06:06 09/11/2024 [id number] urinary retention: care instructions Not available 09/11/2024 13:00:07 10/11/2024 [id number] spinal cord injury (paraplegic): care instructions Not available 10/11/2024 13:54:26 Reason for Referral None Reported. Results Created Date Observation Date Name Description Value Unit Range Abnormal Flag Note LastModifiedBy Organization Detail LastModifiedTime 03/06/20 24 03/06/2024 URINA LYSIS AND MICRO SCOPI C color urine YELLOW yellow normal Not Available Deepali bueno [facility] (Lab) [address] [place], [address], 03/06/2024 18:14:56 03/06/20 24 03/06/2024 URINA LYSIS AND MICRO SCOPI C appearance urine SL CLOUDY clear abnormal Not Available Teofilo [facility] (Lab) [address] [place], [address], 03/06/2024 18:14:56 03/06/20 24 03/06/2024 URINA LYSIS AND MICRO SCOPI C pH urine 6.0 5.0 - 7.0 normal Not Available [facility] (Lab) [address] [place], [address], 03/06/2024 18:14:56 03/06/20 24 03/06/2024 URINA LYSIS AND MICRO SCOPI C specific gravity urine 1.020 1.005- 1.030 normal Not Available [facility] (Lab) [address] [place], [address], 03/06/2024 18:14:56 03/06/20 24 03/06/2024 URINA LYSIS AND MICRO SCOPI C protein urine 30 mg/dL neg/tr sky abnormal Not Available [facility] (Lab) [address] [place], [address], 03/06/2024 18:14:56 03/06/20 24 03/06/2024 URINA LYSIS AND MICRO SCOPI C glucose urine UA NEGATI VE mg/dL negati ve normal Not Available [facility] (Lab) [address] [place], [address], 03/06/2024 18:14:56 03/06/20 24 03/06/2024 URINA LYSIS AND MICRO SCOPI C ketones urine NEGATI VE negati ve normal Not Available [facility] (Lab) [address] [place], [address], 03/06/2024 18:14:56 03/06/20 24 03/06/2024 URINA LYSIS AND MICRO SCOPI C occult blood urine MODERA TE taina/u L negati ve abnormal Not Available [facility] (Lab) [address] [place], [address], 03/06/2024 18:14:56 03/06/20 24 03/06/2024 URINA LYSIS AND MICRO SCOPI C nitrite urine POSITI VE negati ve abnormal Not Available [facility] (Lab) [address], [place], [address], 03/06/2024 18:14:56 03/06/20 24 03/06/2024 URINA LYSIS AND MICRO SCOPI C bilirubin urine NEGATI VE negati ve normal Not Available [facility] (Lab) [address] [facility], [place], [address], 03/06/2024 18:14:56 03/06/20 24 03/06/2024 URINA LYSIS AND MICRO SCOPI C urobilinogen urine 0.2 eu/dL 0.2 - 1.0 normal Not Available [facility] (Lab) [address] [facility], [place], [address], 03/06/2024 18:14:56 03/06/20 24 03/06/2024 URINA LYSIS AND MICRO SCOPI C leukocyte esterase urine LARGE negati ve abnormal Not Available [facility] (Lab) [address] [facility], [place], [address], 03/06/2024 18:14:56 03/06/20 24 03/06/2024 URINA LYSIS AND MICRO SCOPI C RBC urine 0-2 /hpf 0-2 normal Not Available [facility] (Lab) [address] [facility], [place], [address], 03/06/2024 18:14:56 03/06/20 24 03/06/2024 URINA LYSIS AND MICRO SCOPI C WBC urine >50 /hpf 0-5 abnormal Not Available [place] [facility] (Lab) [address] [facility], [place], [address], 03/06/2024 18:14:56 03/06/20 24 03/06/2024 URINA LYSIS AND MICRO SCOPI C WBC clumps urine FEW /hpf not estb. Not Available [facility] (Lab) [address] [facility], [place], [address], 03/06/2024 18:14:56 03/06/20 24 03/06/2024 URINA LYSIS AND MICRO SCOPI C squamous epithelial cell urine OCCASI ONAL not estb. Not Available [facility] (Lab) [address] [place], [address], 03/06/2024 18:14:56 03/06/20 24 03/06/2024 URINA LYSIS AND MICRO SCOPI C bacteria urine 1+ none/t race abnormal Not Available [facility] (Lab) [address] [facility], [place], [address], 03/06/2024 18:14:56 03/06/20 24 03/06/2024 URINA LYSIS AND MICRO SCOPI C urine culture indicated? Yes Not Available [facility] (Lab) [address] [facility], [place], [address], 03/06/2024 18:14:56 03/06/20 24 03/12/2024 URINE CULTU RE, ROUTI NE urine culture, routine Great er than 2 organ isms recov ered, none predo minan t. Pleas e submi t anoth er sampl e if clini hasmukh indic ated. Great er than 100,0 00 colon y formi ng units per mL Not appli cable Perfo [place]med at: 01 - [place] [address] Lab Direc tor: Oscar alcala PhD, Phone : [phone] Not Available [facility] (Lab) [address] [facility], [place], [address], 03/12/2024 13:14:56 08/07/20 24 08/07/2024 Basic metab olic 2000 panel - Serum or Plasm a glucose [mass/volume ] in serum or plasma 102 text: 70 - 99 mg/dL high GLUCO SE 102 (H) 70 - 99 MG/DL 08/07 11:02 AM [facility] Not Available Not Available 11/07/2024 15:43:05 08/07/20 24 08/07/2024 Basic metab olic 2000 panel - Serum or Plasm a urea nitrogen [mass/volume ] in serum or plasma 31 text: 7 - 18 mg/dL high BUN 31 (H) 7 - 18 MG/DL 08/07 11:02 AM [facility]ERE[facility]YPE [facility] Not Available Not Available 11/07/2024 15:43:05 08/07/20 24 08/07/2024 Basic metab olic 2000 panel - Serum or Plasm a creatinine [mass/volume ] in serum or plasma 0.83 text: 0.7 - 1.3 mg/dL CREAT ININE S/P/B 0.83 0.7 - 1.3 MG/DL 08/07 11:02 AM [facility]YPE [facility] Not Available Not Available 11/07/2024 15:43:05 08/07/20 24 08/07/2024 Basic metab olic 2000 panel - Serum or Plasm a sodium [moles/volum e] in serum or plasma 141 text: 136 - 145 mmol/L SODIU M S/P/B 141 136 - 145 MMOL/ L 08/07 11:02 AM [facility]EREOTYPE [facility] Not Available Not Available 11/07/2024 15:43:05 08/07/20 24 08/07/2024 Basic metab olic 2000 panel - Serum or Plasm a potassium [moles/volum e] in serum or plasma 3.5 text: 3.5 - 5.1 mmol/L POTAS SIUM S/P/B 3.5 3.5 - 5.1 MMOL/ L 08/07 11:02 AM STEREOTYPE [facility] Not Available Not Available 11/07/2024 15:43:05 08/07/20 24 08/07/2024 Basic metab olic 2000 panel - Serum or Plasm a chloride [moles/volum e] in serum or plasma 105 text: 100 - 108 mmol/L CHLOR GUILLE S/P/B 105 100 - 108 MMOL/ L 08/07 11:02 AM [facility] Not Available Not Available 11/07/2024 15:43:05 08/07/20 24 08/07/2024 Basic metab olic 1999 panel - Serum or Plasm a carbon dioxide, total [moles/volum e] in serum or plasma 28.2 text: 21 - 32 mmol/L CO2 28.2 21 - 32 MMOL/ L 08/07 11:02 AM [facility]YPE [facility] Not Available Not Available 11/07/2024 15:43:05 08/07/20 24 08/07/2024 Basic metab olic 1999 panel - Serum or Plasm a calcium [mass/volume ] in serum or plasma 9.3 text: 8.5 - 10.1 mg/dL CALCI UM S/P/B 9.3 8.5 - 10.1 MG/DL 08/07 11:02 AM [facility] Not Available Not Available 11/07/2024 15:43:05 08/07/20 24 08/07/2024 Basic metab olic 2000 panel - Serum or Plasm a anion gap in serum or plasma 7.8 text: 5 - 15 mmol/L ANION GAP 7.8 5 - 15 MMOL/ L 08/07 11:02 AM [facility] Not Available Not Available 11/07/2024 15:43:05 08/07/20 24 08/07/2024 Basic metab olic 2000 panel - Serum or Plasm a urea nitrogen/cre atinine [mass ratio] in serum or plasma 37.3 low: 6high: 26 high BUN CREAT ININE RATIO 37.3 (H) 6 - 26 08/07 11:02 AM [facility]ERE[facility]YPE [facility] Not Available Not Available 11/07/2024 15:43:05 08/07/20 24 08/07/2024 Basic metab olic 2000 panel - Serum or Plasm a glomerular filtration rate/1.73 sq M.predicted [volume rate/area] in serum, plasma or blood by creatinine-b ased formula (CKD-epi 2020) text: >90 mL/min /1.73 M2 GFR ESTIM ATE >90 >90 ML/OH N/1.7 3 M2 08/07 11:02 AM ST[facility]YPE [facility] Not [...] IPTIO N HEEL, RIGHT 09/02 11:42 AM [facility] Not Available Not Available 11/07/2024 15:43:05 09/02/20 24 09/04/2024 Bacte sarah ident ified in Wound by Aerob e cultu re service comment NO SPECIA L REQUES T SPECI AL REQUE STS NO SPECI AL REQUE ST 09/02 11:42 AM STEREOTYPE [facility] Not Available Not Available 11/07/2024 15:43:05 09/02/20 24 09/04/2024 Bacte sarah ident ified in Wound by Aerob e cultu re microscopic observation [identifier] in specimen by gram stain MANY WHITE BLOOD CELLS SEEN GRAM STAIN RESUL T MANY WHITE BLOOD CELLS SEEN 09/03 10:46 AM [facility] Not Available Not Available 11/07/2024 15:43:05 09/02/20 24 09/04/2024 Bacte sarah ident ified in Wound by Aerob e cultu re microscopic observation [identifier] in specimen by gram stain FEW EPITHE LIAL CELLS SEEN GRAM STAIN RESUL T FEW EPITH ELIAL CELLS SEEN 09/03 10:46 AM [facility] Not Available Not Available 11/07/2024 15:43:05 09/02/20 24 09/04/2024 Bacte sarah ident ified in Wound by Aerob e cultu re microscopic observation [identifier] in specimen by gram stain FEW GRAM POSITI VE COCCI GRAM STAIN RESUL T FEW GRAM POSIT TRACEY COCCI 09/03 10:46 AM [facility] Not Available Not Available 11/07/2024 15:43:05 09/02/20 24 09/04/2024 Bacte sarah ident ified in Wound by Aerob e cultu re microscopic observation [identifier] in specimen by gram stain RARE GRAM NEGATI VE RODS GRAM STAIN RESUL T RARE GRAM NEGAT TRACEY RODS 09/03 10:46 AM [facility] Not Available Not Available 11/07/2024 15:43:05 09/02/20 24 09/04/2024 Bacte sarah ident ified in Wound by Aerob e cultu re bacteria identified in specimen by culture SPARSE GROWTH OF PROTEU S MIRABI LIS abnormal CULTU RE RESUL T SPARS E GROWT H OF PROTE US MIRAB ILIS (A) 09/04 7:55 AM [facility] Not Available Not Available 11/07/2024 [...] TION RAYNA COL. (AA) 09/04 7:55 AM [facility] Not Available Not Available 11/07/2024 [...] - 3.74 uIU/M L 09/26 2:33 PM STEREOTYPE [facility] Not Available Not Available 11/07/2024 15:43:05 09/26/19 25 09/26/2024 Compr ehens tracey metab olic 2000 panel - Serum or Plasm a glucose [mass/volume ] in serum or plasma 95 text: 70 - 99 mg/dL GLUCO SE 95 70 - 99 MG/DL 09/26 2:33 PM STEREOTYPE [facility] Not Available Not Available 11/07/2024 15:43:05 09/26/19 25 09/26/2024 Compr ehens tracey metab olic 2000 panel - Serum or Plasm a urea nitrogen [mass/volume ] in serum or plasma 12 text: 7 - 18 mg/dL BUN 12 7 - 18 MG/DL 09/26 2:33 PM [facility] Not Available Not Available 11/07/2024 15:43:05 09/26/19 25 09/26/2024 Compr ehens tracey metab olic 2000 panel - Serum or Plasm a creatinine [mass/volume ] in serum or plasma 0.9 text: 0.7 - 1.3 mg/dL CREAT ININE S/P/B 0.90 0.7 - 1.3 MG/DL 09/26 2:33 PM [facility] Not Available Not Available 11/07/2024 15:43:05 09/26/19 25 09/26/2024 Compr ehens tracey metab olic 2000 panel - Serum or Plasm a sodium [moles/volum e] in serum or plasma 139 text: 136 - 145 mmol/L SODIU M S/P/B 139 136 - 145 MMOL/ L 09/26 2:33 PM [facility]YPE [facility] Not Available Not Available 11/07/2024 15:43:05 09/26/19 25 09/26/2024 Compr ehens tracey metab olic 2000 panel - Serum or Plasm a potassium [moles/volum e] in serum or plasma 3.9 text: 3.5 - 5.1 mmol/L POTAS SIUM S/P/B 3.9 3.5 - 5.1 MMOL/ L 09/26 2:33 PM [facility] Not Available Not Available 11/07/2024 15:43:05 09/26/19 25 09/26/2024 Compr ehens tracey metab olic 2000 panel - Serum or Plasm a chloride [moles/volum e] in serum or plasma 103 text: 100 - 108 mmol/L CHLOR GUILLE S/P/B 103 100 - 108 MMOL/ L 09/26 2:33 PM [facility] Not Available Not Available 11/07/2024 15:43:05 09/26/19 25 09/26/2024 Compr ehens tracey metab olic 2000 panel - Serum or Plasm a carbon dioxide, total [moles/volum e] in serum or plasma 29.6 text: 21 - 32 mmol/L CO2 29.6 21 - 32 MMOL/ L 09/26 2:33 PM [facility] Not Available Not Available 11/07/2024 15:43:05 09/26/19 25 09/26/2024 Compr ehens tracey metab olic 2000 panel - Serum or Plasm a calcium [mass/volume ] in serum or plasma 9.5 text: 8.5 - 10.1 mg/dL CALCI UM S/P/B 9.5 8.5 - 10.1 MG/DL 09/26 2:33 PM [facility] Not Available Not Available 11/07/2024 15:43:05 09/26/19 25 09/26/2024 Compr ehens tracey metab olic 2000 panel - Serum or Plasm a bilirubin.to manuel [mass/volume ] in serum or plasma 0.2 text: 0.2 - 1.2 mg/dL BILIR UBIN TOTAL S/P/B 0.2 0.2 - 1.2 MG/DL 09/26 2:33 PM [facility] Not Available Not Available 11/07/2024 15:43:05 09/26/19 25 09/26/2024 Compr ehens tracey metab olic 2000 panel - Serum or Plasm a protein [mass/volume ] in serum or plasma 9.3 text: 6.4 - 8.2 g/dL high TOTAL PROTE IN S/P/B 9.3 (H) 6.4 - 8.2 G/DL 09/26 2:33 PM [facility]YPE [facility] Not Available Not Available 11/07/2024 15:43:05 09/26/19 25 09/26/2024 Compr ehens tracey metab olic 2000 panel - Serum or Plasm a albumin [mass/volume ] in serum or plasma 2.6 text: 3.4 - 5.0 g/dL low ALBUM IN S/P/B 2.6 (L) 3.4 - 5.0 G/DL 09/26 2:33 PM [facility]YPE [facility] Not Available Not Available 11/07/2024 15:43:05 09/26/19 25 09/26/2024 Compr ehens tracey metab olic 2000 panel - Serum or Plasm a aspartate aminotransfe rase [enzymatic activity/vol ume] in serum or plasma 17 U/L low: 15U/Lh igh: 37U/L AST 17 15 - 37 U/L 09/26 2:33 PM [facility]YPE [facility] Not Available Not Available 11/07/2024 15:43:05 09/26/19 25 09/26/2024 Compr ehens tracey metab olic 2000 panel - Serum or Plasm a alanine aminotransfe rase [enzymatic activity/vol ume] in serum or plasma 19 U/L low: 16U/Lh igh: 60U/L ALT 19 16 - 60 U/L 09/26 2:33 PM [facility] Not Available Not Available 11/07/2024 15:43:05 09/26/19 25 09/26/2024 [facility] - Serum or Plasm a alkaline phosphatase [enzymatic activity/vol ume] in serum or plasma 113 U/L low: 50U/Lh igh: 136U/L ALKAL INE PHOSP HATAS E S/P/B 113 50 - 136 U/L 09/26 2:33 PM STEREOTYPE [facility]DER [facility] Not Available Not Available 11/07/2024 15:43:05 09/26/19 25 09/26/2024 [facility] 2000 panel - Serum or Plasm a anion gap in serum or plasma 6.4 text: 5 - 15 mmol/L ANION GAP 6.4 5 - 15 MMOL/ L 09/26 2:33 PM STEREOTYPE M[facility]DER [facility] [facility] Not Available Not Available 11/07/2024 15:43:05 09/26/19 25 09/26/2024 [facility] 2000 panel - Serum or Plasm a urea nitrogen/cre atinine [mass ratio] in serum or plasma 13.3 low: 6high: 26 BUN CREAT ININE RATIO 13.3 6 - 26 09/26 2:33 PM [facility]YPE [facility] Not Available Not Available 11/07/2024 15:43:05 09/26/19 25 09/26/2024 [facility]lic 2000 panel - Serum or Plasm a albumin/glob ulin [mass ratio] in serum or plasma 0.4 text: 1.0 - 2.0 ratio low A/G RATIO 0.4 (L) 1.0 - 2.0 RATIO 09/26 2:33 PM STEREOTYPE M[facility]DER [facility] Not Available Not Available 11/07/2024 15:43:05 09/26/19 25 09/26/2024 [facility] 2000 panel - Serum or Plasm a glomerular filtration rate/1.73 sq M.predicted [volume rate/area] in serum, plasma or blood by creatinine-b ased formula (CKD-epi 2020) text: >90 mL/min /1.73 M2 GFR ESTIM ATE >90 >90 ML/OH N/1.7 3 M2 09/26 2:33 PM STEREOTYPE [facility] [...] (H) <200. 0 MG/DL 09/26 2:33 PM [facility] Not Available Not Available 11/07/2024 15:43:05 09/26/19 25 09/26/2024 Lipid 1995 panel - Serum or Plasm a triglyceride [mass/volume ] in serum or plasma 98 text: <150 mg/dL TRIGL YCERI MARIIA 98 <150 MG/DL 09/26 2:33 PM STEREOTYPE M[facility]DER [facility] Not Available Not Available 11/07/2024 15:43:05 09/26/19 25 09/26/2024 Lipid 1996 panel - Serum or Plasm a cholesterol in HDL [mass/volume ] in serum or plasma 58 text: >40.0 mg/dL HDL 58 >40.0 MG/DL 09/26 2:33 PM STEREOTYPE M[facility]DER [facility] Not Available Not Available 11/07/2024 15:43:05 09/26/19 25 09/26/2024 Lipid 1996 panel - Serum or Plasm a cholesterol in LDL [mass/volume ] in serum or plasma by calculation 148 text: <100 mg/dL high LDL (CALC ULATE D) 148 (H) <100 MG/DL 09/26 2:33 PM [facility] Not Available Not Available 11/07/2024 15:43:05 09/26/19 25 09/26/2024 Lipid 1996 panel - Serum or Plasm a cholesterol non HDL [mass/volume ] in serum or plasma 168 text: <130 mg/dL high NON HDL OSBALDO STERO L 168 (H) <130 MG/DL 09/26 2:33 PM STEREOTYPE MOLDER [facility] Not Available Not Available 11/07/2024 15:43:05 09/26/19 25 09/26/2024 Lipid 1996 panel - Serum or Plasm a cholesterol. total/choles terol in HDL [mass ratio] in serum or plasma 3.9 low: 0high: 4.5 CHOL/ HDL RATIO 3.9 0.0 - 4.5 09/26 2:33 PM STEREOTYPE M[facility]DER [facility] Not Available Not Available 11/07/2024 15:43:05 09/26/19 25 09/26/2024 Lipid 1996 panel - Serum or Plasm a cholesterol in VLDL [mass/volume ] in serum or plasma by calculation 20 text: 5 - 55 mg/dL VLDL CALCU LATIO N 20 5 - 55 MG/DL 09/26 2:33 PM STEREOTYPE M[facility]DER [facility] Not Available Not Available 11/07/2024 15:43:05 09/26/19 25 09/26/2024 Lipid 1996 panel - Serum or Plasm a service comment LIPID INTER PRETA TION 09/26 2:33 PM STEREOTYPE M[facility]DER [facility] Not Available Not Available 11/07/2024 [...] - 11.0 x10'3 /uL 09/26 2:06 PM STEREOTYPE M[facility]DER [facility] Not Available Not Available 11/07/2024 15:43:05 09/26/19 25 09/26/2024 CBC W Auto Diffe renti al panel - Blood erythrocytes [#/volume] in blood by automated count 4.44 text: 4.50 - 5.90 x10'6/ uL low RBC 4.44 (L) 4.50 - 5.90 x10'6 /uL 09/26 2:06 PM STEREOTYPE MOLDER [facility] Not Available Not Available 11/07/2024 15:43:05 09/26/19 25 09/26/2024 CBC W Auto Diffe renti al panel - Blood hemoglobin [mass/volume ] in blood 11.4 text: 14.0 - 17.5 g/dL low HGB 11.4 (L) 14.0 - 17.5 G/DL 09/26 2:06 PM STEREOTYPE M[facility]DER [facility] Not Available Not Available 11/07/2024 15:43:05 09/26/19 25 09/26/2024 CBC W Auto Diffe renti al panel - Blood hematocrit [volume fraction] of blood 35.2 % low: 41.5%h igh: 50.4% low HCT 35.2 (L) 41.5 - 50.4 % 09/26 2:06 PM STEREOTYPE M[facility]DER [facility] Not Available Not Available 11/07/2024 15:43:05 09/26/19 25 09/26/2024 CBC W Auto Diffe renti al panel - Blood MCV [entitic volume] 79.3 text: 80.0 - 96.0 fL low MCV 79.3 (L) 80.0 - 96.0 FL 09/26 2:06 PM [facility]OTYPE M[facility]DER [facility] Not Available Not Available 11/07/2024 15:43:05 09/26/19 25 09/26/2024 CBC W Auto Diffe renti al panel - Blood MCH [entitic mass] 25.7 pg low: 26.5pg high: 31.4pg low MCH 25.7 (L) 26.5 - 31.4 PG 09/26 2:06 PM [facility] Not Available Not Available 11/07/2024 15:43:05 09/26/19 25 09/26/2024 CBC W Auto Diffe renti al panel - Blood MCHC [mass/volume ] 32.4 text: 31.9 - 34.8 g/dL MCHC 32.4 31.9 - 34.8 G/DL 09/26 2:06 PM [facility] Not Available Not Available 11/07/2024 15:43:05 09/26/19 25 09/26/2024 CBC W Auto Diffe renti al panel - Blood erythrocyte distribution width [entitic volume] by automated count 18.9 % low: 12.3%h igh: 14.3% high RDW 18.9 (H) 12.3 - 14.3 % 09/26 2:06 PM STEREOTYPE [facility] Not Available Not Available 11/07/2024 15:43:05 09/26/19 25 09/26/2024 CBC W Auto Diffe renti al panel - Blood platelets [#/volume] in blood 262 text: 151 - 353 x10'3/ uL PLT 262 151 - 353 x10'3 /uL 09/26 2:06 PM STEREOTYPE [facility] Not Available Not Available 11/07/2024 15:43:05 09/26/19 25 09/26/2024 CBC W Auto Diffe renti al panel - Blood platelet mean volume [entitic volume] in blood 9.3 text: 9.7 - 11.9 fL low MPV 9.3 (L) 9.7 - 11.9 FL 09/26 2:06 PM STEREOTYPE [facility] Not Available Not Available 11/07/2024 15:43:05 09/26/19 25 09/26/2024 CBC W Auto Diffe renti al panel - Blood erythrocytes [morphology] in blood by automated count NORMAL RBC MORPH OLOGY CHECO L 09/26 2:06 PM STEREOTYPE [facility] Not Available Not Available 11/07/2024 15:43:05 09/26/19 25 09/26/2024 CBC W Auto Diffe renti al panel - Blood platelet morphology finding [identifier] in blood NORMAL PLT MORPH . CHECO L 09/26 2:06 PM STEREOTYPE [facility] Not Available Not Available 11/07/2024 15:43:05 09/26/19 25 09/26/2024 CBC W Auto Diffe renti al panel - Blood leukocyte morphology finding [identifier] in blood NORMAL WBC MORPH OLOGY CHECO L 09/26 2:06 PM STEREOTYPE [facility] Not Available Not Available 11/07/2024 15:43:05 09/26/19 25 09/26/2024 CBC W Auto Diffe renti al panel - Blood lymphocytes/ 100 leukocytes in blood by automated count 23.6 % low: 15.8%h igh: 45% LYMPH OCYTE S % 23.6 15.8 - 45.0 % 09/26 2:06 PM STEREOTYPE MOLDER [facility] Not Available Not Available 11/07/2024 15:43:05 09/26/19 25 09/26/2024 CBC W Auto Diffe renti al panel - Blood neutrophils/ 100 leukocytes in blood by automated count 57.4 % low: 42.1%h igh: 71.9% NEUTR OPHIL S % 57.4 42.1 - 71.9 % 09/26 2:06 PM STEREOTYPE [facility] ([facility] Not Available Not Available 11/07/2024 15:43:05 09/26/19 25 09/26/2024 CBC W Auto Diffe renti al panel - Blood monocytes/10 0 leukocytes in blood by automated count 13.5 % low: 5.7%hi gh: 12.5% high MONOC YTES % 13.5 (H) 5.7 - 12.5 % 09/26 2:06 PM STEREOTYPE MOLDER [facility] () [facility] Not Available Not Available 11/07/2024 15:43:05 09/26/19 25 09/26/2024 CBC W Auto Diffe renti al panel - Blood eosinophils/ 100 leukocytes in blood by automated count 4.7 % low: 0%high : 5.6% EOSIN OPHIL S 4.7 0.0 - 5.6 % 09/26 2:06 PM [facility] Not Available Not Available 11/07/2024 15:43:05 09/26/19 25 09/26/2024 CBC W Auto Diffe renti al panel - Blood basophils/10 0 leukocytes in blood by automated count 0.4 % low: 0%high : 1.3% BASOP HILS 0.4 0.0 - 1.3 % 09/26 2:06 PM STEREOTYPE MOLDER [facility] () [facility] Not Available Not Available 11/07/2024 15:43:05 09/26/19 25 09/26/2024 CBC W Auto Diffe renti al panel - Blood neutrophils [#/volume] in blood 3.06 text: 1.40 - 6.00 x10'3/ uL ABS. NEUTR OPHIL S 3.06 1.40 - 6.00 x10'3 /uL 09/26 2:06 PM STEREOTYPE MOLDER [facility] () [facility] Not Available Not Available 11/07/2024 15:43:05 09/26/19 25 09/26/2024 CBC W Auto Diffe renti al panel - Blood immature granulocytes /100 leukocytes in blood by automated count 0.4 % low: 0%high : 0.5% IMMAT URE GRANS % 0.4 0.0 - 0.5 % 09/26 2:06 PM STEREOTYPE MOLDER [facility] Not Available Not Available 11/07/2024 15:43:05 09/26/19 25 09/26/2024 CBC W Auto Diffe renti al panel - Blood lymphocytes [#/volume] in blood 1.26 text: 0.80 - 4.70 x10'3/ uL ABS. LYMPH OCYTE S 1.26 0.80 - 4.70 x10'3 /uL 09/26 2:06 PM STEREOTYPE MOLDER [facility] Not Available Not Available 11/07/2024 [...] 30 - 100 NG/ML 09/26 2:45 PM STEREOTYPE MOLDER [facility] Not Available Not Available 11/07/2024 [...] Address Organization Details Recorded Time Spinal injury 107765459 Active 2023 Sheridan Sheets LPN null, [place] - [facility] 4 10:16:23 Paraplegia 96652333 Active 2023 Sheridan Sheets LPN null, [place] - [facility] 4 10:16:58 Catheterizatio n of urinary bladder [...] Not Available Not Available No t Available [facility] COVID-19 Vaccine (PF) 30 mcg/0.3 mL IM susp (purple) PHARMACY ADMINISTERE D active Not Available Not Available No t Available Vitals Date Recorded Body weight Heart rate Body temperature Pain severity - 0-10 verbal numeric rating [Score] - Reported Body mass index (BMI) Body height Systolic blood pressure Diastolic blood pressure Provider Name and Address Organization Details Last Updated DateTime 4 42151.8 6 g 103 /min 98.2 [degF] 2 22.2 kg/m2 175.26 cm 119 mm[Hg] 68 mm[Hg] Jenny Jeronimo MA [facility] 4 11:40:16 Date Recorded Body height Heart rate Body temperature Pain severity - 0-10 verbal numeric rating [Score] - Reported Body mass index (BMI) Body weight Systolic blood pressure Diastolic blood pressure Provider Name and Address Organization Details Last Updated DateTime 4 175.26 cm 69 /min 97.8 [degF] 0 22.2 kg/m2 47651.8 6 g 148 mm[Hg] 66 mm[Hg] Jenny Jeronimo MA [facility] SI 4 10:08:46 Date Recorded Body height Body mass index (BMI) Body weight Heart rate Body temperature Pain severity - 0-10 verbal numeric rating [Score] - Reported Systolic blood pressure Diastolic blood pressure Provider Name and Address Organization Details Last Updated DateTime 5 175.26 cm 22.2 kg/m2 53851.8 6 g 89 /min 97.8 [degF] 0 142 mm[Hg] 71 mm[Hg] Karan Michael MA [facility] 5 12:55:45 Social History None recorded. Functional Status None recorded. Mental Status None recorded. Family History Nothing Reported. Medical History No medical history recorded. 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
--- OUTSIDE RECORDS SUMMARY | 2024-12-17 12:03 | XMS_ITS | Encounter Summary ---
Author Organization [facility] Address [facility] [place] [address] Care Team Providers Care Hardness Inspector Name Role Phone Lisa Ramírez [facility] Primary Care Provider + Jorje Ayala MD Unavailable Leroy Meraz DO Primary Care Provider + Encounter Details Date Type Department Care Team (Late st Contact Info) Description 06/04/2024 [employer] Message Enc [facility] [address] [place] [address] [place] [address] [facility] [address] [place] [address] WHEELCHAIR Social History Tobacco Use [...] Sex Assigned at Male 10/10/2024 12:08 PM JIG INSPECTOR Legal Sex Male 5:44 PM CDT Gender Identity Male 11/11/2024 10:55 AM JIG INSPECTOR Sexual Orientation Not on file documented as [...] 09/02/2024 MDR Other Comment:Added from external Infection- [facility] Collection Source- Urine 2020 06/25/2024 MDR-LINE CONTROLLER - Carbapenemase-Prod ucing Organisms Comment:Added from external infection. Source: [facility] [employer]. Collection Source-Urine 08/04/2021 Assessment Noted Time PHQ-9 Depression Total Score: 0 12/04/19 1:13 PM JIG INSPECTOR documented as of this encounter Care Teams Hardness Inspector Relationship Specialty Start Date End Date Lisa Ramírez, [facility]- [address] [place] [address] PCP - General NURSE PRACTITIONER 09/05/22 07/07/24 Leroy Meraz DO [address] [place] [id number] PCP - General FAMILY PRACTICE 07/08/24 [place] [address] [address] Surgeon SURGERY 11/03/23 documented as of this encounter
--- OUTSIDE RECORDS SUMMARY | 2024-12-17 12:03 | XMS_ITS | Clinical Summary ---
Author Organization [facility] Address [address] [place] [address] Care Team Providers Care Mock Up Builder Name Role Phone Lisa Ramírez JOSE-TEMPLE MEAT CUTTER Primary Care Provider Source Comments [facility],non-owned Affiliates and Associated Physician Practices is amultiple site organization consisting of ambulatory clinics and hospital sitesin [place], [place], [place] and [place]. This disclosure is being madepursuant to the Care Everywhere program and may not contain all information available regarding this patient. Last updated 18.[facility] [email or web address] Allergies Active Allergy Reactions Criticality Noted Date [...] 4:22 AM 12/27/2020 2:34 PM Care Teams Mock Up Builder Relationship Specialty Start Date End Date Lisa Ramírez, BILLING SPEC-TEMPLE MEAT CUTTER [address] [place] [address] PCP - General Cardiovascular Operating Room Nurse 10/07/22
--- OUTSIDE RECORDS SUMMARY | 2024-12-17 12:03 | XMS_ITS | Encounter Summary ---
Author Organization [facility] Address [facility] [place] [address] Care Team Providers Care Fire Battalion Chief Name Role Phone None, Provider Primary Care Provider Unavaila Sherman Calderon MD Primary Care Provider Angella Mary Guidry NP Primary Care Provider [phone] Lisa Ramírez [facility] Primary Care Provider + Lisa Ramírez [facility] Primary Care Provider + Jorje Ayala MD Unavailable Leroy Meraz DO Primary Care Provider + Encounter Details Date Type Department Care Team (Late st Contact Info) Description 04/26/[address] [facility] Conversion , Generic Conversion, Social History Tobacco Use Types Packs/Day Years Used Date Smoking Tobacco: Never Assessed Sex and Gender Information Value Date Recorded Sex Assigned at Male 10/10/2024 12:08 PM TECHNICAL CONSULTANT Legal Sex Male 5:44 PM CDT Gender Identity Male 11/11/2024 10:55 AM TECHNICAL CONSULTANT Sexual Orientation Not on file documented as [...] Rule Out 10/06/2020 10/06/2020 10/07/2020 11:13 AM TECHNICAL CONSULTANT COVID-19 Rule Out 11/21/2020 11/21/2020 11/21/2020 6:39 PM TECHNICAL CONSULTANT COVID-19 Rule Out 11/21/2020 11/21/2020 11/21/2020 7:35 PM TECHNICAL CONSULTANT MDR Other Comment:Added from external Infection- [facility] Collection Source- Urine 2020 06/25/2024 MDR-GOLF CART REPAIRER - Carbapenemase-Prod ucing Organisms Comment:Added from external infection. Source: [facility]. Collection Source-Urine 08/04/2021 COVID-19 Rule Out 09/28/2021 09/28/2021 10/05/2021 12:34 AM TECHNICAL CONSULTANT COVID-19 Rule Out 03/23/2024 03/23/2024 03/23/2024 1:17 PM CDT documented as of this encounter Care Teams Fire Battalion Chief Relationship Specialty Start Date End Date None, Provider, PCP - General 08/21/20 08/24/20 Sherman Cartagena MD PCP - General FAMILY PRACTICE 08/25/20 11/29/21 Mary Marcus NP [address] [place] [address] PCP - General NURSE PRACTITIONER 11/30/21 08/28/22 Lisa Ramírez, DRILLER HELPER- [address] [place] [address] PCP - General NURSE PRACTITIONER 08/29/22 09/01/22 Lisa Ramírez, DRILLER HELPER- [address] [place] [address] PCP - General NURSE PRACTITIONER 09/05/22 07/07/24 Leroy Meraz DO [address] [place] [id number] PCP - General FAMILY PRACTICE 07/08/24 [place] [address] [address] Surgeon SURGERY 11/03/23 documented as of this encounter
--- OUTSIDE RECORDS SUMMARY | 2024-12-17 12:03 | XMS_ITS | Clinical Summary ---
Author Organization [facility] Address [address] [place] [address] Care Team Providers Care Computer Systems Designer Name Role Phone Jorje Ayala MD Unavailable Leroy Meraz DO Primary Care Provider + Allergies Active Allergy Reactions Criticality Noted Date Comments Tape Redness 06/25/2024 Plastic tape Diphenhydramine Rash Low 08/18/2020 Ciprofloxacin Itching 06/13/2022 Diazepam Rash,Hives Low 08/18/2020 Zinc Acetate Rash Low 08/18/2020 Only pink zinc he is allergic to. Zinc Oxide Itching 08/17/2019 Medications multi vitamin/minerals tabletIndications :Nutritional Support Take 1 tablet by mouth daily. Indications: Nutritional Support 022 Active Ostomy PowderIndications :Tracheostomy Care Apply as directed as needed. 25 g 021 Active Misc. Devices (WALKER) MiscIndications:P araplegia at T9 level (CMS/HCC HHS/HCC) 1 Device by Does not apply route continuous prn. Height 6'6 1 each 022 Active KNEE BRACE MISC, DME,Indications:O steomyelitis, pelvis (CMS/HCC HHS/HCC),Parapleg ia at T9 level (CMS/HCC HHS/HCC) Apply 1 Device topically daily. B KAFO custom braces with locking knee joints 2 Device 022 Active Ostomy Supplies Pouch MiscIndications:C olostomy in place ([facility]) 33/24 Jurgen 2in 51 mm one-piece colostomy bag. Patient would like 2 boxes. 2 each 3 023 Active Misc. Devices (TRANSFER BOARD) MiscIndications:P araplegia at T9 level ([facility]) 1 Device by Does not apply route continuous prn. Slide board for transfer from wheelchair to bed and back. 1 each 023 Active Ostomy Supplies (PREMIER COLOSTOMY/ILEOSTO MY) KitIndications:Co lostomy in place ([facility]),Parapleg ic immobility syndrome 2 boxes of 30 #[id number] Premier One - Piece Closed End Transparent Colostomy pouch 2 kit 1 024 Active Misc. Devices MiscIndications:C olostomy in place ([facility]),Parapleg ic immobility syndrome Safe and Simple Barrier ARC, 2 boxes. #[id number] 60 each 1 024 Active GLOVES LATEX EXAM MISC, DME,Indications:C olostomy in place ([facility]),Parapleg ic immobility syndrome 1 Package by Does not apply route as needed. 2 Package 1 024 Active DRESSING GAUZE 4 X4 PADS, DME,Indications:C olostomy in place ([facility]),Parapleg ic immobility syndrome Apply 1 Package topically as needed. Use as needed for cleaning 2 Package 1 024 Active Diapers & Supplies MiscIndications:C olostomy in place ([facility]),Parapleg ic immobility syndrome Adult Diapers- briefs with straps size Large qty 90 90 each 1 024 Active acetaminophen (TYLENOL) 500 MG tablet Take 1 tablet (500 mg total) by mouth every 6 (six) hours as needed for Pain. Active ferrous sulfate EC 324 (65 Fe) MG tablet Take 1 tablet (324 mg total) by mouth daily with breakfast. Active vitamin D3 (CHOLECALCIFEROL) 25 mcg tablet Take 1 tablet (1,000 Units total) by mouth daily. 30 tablet 024 Active HYDROcodone-aceta minophen (NORCO) 5-325 MG tabletIndications :Acute Pain < 7 Day Supply Take 1 tablet by mouth every 4 (four) hours as needed. Indications: Acute Pain < 7 Day Supply 15 tablet 024 Active hydrocortisone (CORTIZONE) 1 % cream Apply topically 2 (two) times daily as needed (itching). 1.5 g 024 Active nystatin (MYCOSTATIN) powder Apply topically 3 (three) times daily. 15 g 024 Active Senna (SENOKOT) 8.6 MG tablet Take 1 tablet (8.6 mg total) by mouth daily as needed for Constipation. 024 Active gentamicin (GARAMYCIN) 0.1 % ointmentIndicatio ns:Infection of wound due to methicillin resistant Staphylococcus aureus (MRSA) Apply topically daily. 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 Air mattress 1 Device 025 Active lactulose (CONSTULOSE) 10 GM/15ML solutionIndicatio ns:Constipation Indications: Constipation TAKE 15 ML BY MOUTH 2-3 TIMES DAILY NEEDED FOR CONSTIPATION 3784 mL 1 025 Active potassium chloride CR (K-TAB) 20 MEQ tabletIndications :Hypokalemia Take 1 tablet by mouth twice daily 180 tablet 025 Active amLODIPine (NORVASC) 10 MG tabletIndications :Essential hypertension Take 1 tablet (10 mg total) by mouth daily. 30 tablet 025 Active metoprolol succinate ER (TOPROL-XL) 25 MG 24 hr tabletIndications :Essential hypertension Take 2 tablets (50 mg total) by mouth daily. 180 tablet 025 Active lactulose (CONSTULOSE) 10 GM/15ML solutionIndicatio ns:Constipation Indications: Constipation TAKE 15 ML BY MOUTH 2-3 TIMES DAILY NEEDED FOR CONSTIPATION 3784 mL 1 024 2024 Discontinued(R eorder) metoprolol succinate ER (TOPROL-XL) 25 MG 24 hr tabletIndications :Essential hypertension Take 2 tablets (50 mg total) by mouth daily. 180 tablet 024 2024 Discontinued(R eorder) potassium chloride CR (K-TAB) 20 MEQ tabletIndications :Hypokalemia Take 1 tablet by mouth twice daily 180 tablet 024 2024 Discontinued(R eorder) amLODIPine (NORVASC) 10 MG tabletIndications :Essential hypertension Take 1 tablet (10 mg total) by mouth daily. 30 tablet 1 024 2024 Discontinued amLODIPine (NORVASC) 10 MG tabletIndications :Essential hypertension Take 1 tablet by mouth once daily 30 tablet 025 2024 Discontinued(R eorder) lactulose (CONSTULOSE) 10 GM/15ML solutionIndicatio ns:Constipation Indications: Constipation TAKE 15 ML BY MOUTH 2-3 TIMES DAILY NEEDED FOR CONSTIPATION 3784 mL 1 025 2024 Discontinued Active Problems Problem Noted Date Diagnosed Date Atherosclerosis of artery of both lower extremit ies 07/08/2024 Physical deconditioning 06/29/2024 Osteomyelitis of left femur ([facility]) 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, buttock and hip, stage 4 12/23/2022 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 [address] ([facility]) 09/07/2022 Suprapubic catheter ([facility]) 09/07/2022 Moderate protein-calorie malnutrition ([facility]) 12/18/2020 Anemia 09/04/2020 Essential hypertension 09/01/2020 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 ([facility]) 020 Osteomyelitis, pelvis ([facility]) 10/02/19 20 Neurogenic bladder 08/27/2019 Sacral decubitus ulcer Resolved Problems Problem Noted Date Diagnosed Date Resolved Date MRSA bacteremia 01/21/2022 09/07/2022 Sepsis ([facility]) 01/16/2022 Lack of follow-up after hospitalization 12/18/2020 12/18/2020 Sacral wound 11/19/2020 09/07/2022 Wound infection 10/02/2020 09/07/2022 Screening for malignant neoplasm 09/24/2020 09/07/2022 Overview (09/24/2020): Added automatically from request for surgery [id number] Bacteremia due to Escherichia coli 08/10/2019 09/07/2022 Encounters Date Type Department Care Team Description 12/11/2024 Telephone [facility] Internal [address] [place] [address] Leroy Meraz, DO Refill Request 12/11/[address] [address] Leroy Meraz, DO Medication Request 12/09/[address] [address] Leroy Meraz, DO Information; Advice 12/05/2024 Telephone [address] [place] [address] Leroy Meraz, DO Information 12/04/2024 Scan HEALTH INFO SRVCS Scanned, [facility] 11/29/2024 Telephone [address] [place] [address] Leroy Meraz, DO Information 11/26/2024 Scan MG HEALTH INFO SRVCS Scanned, [facility] 11/26/2024 Telephone [address] [place] [address] Leroy Meraz, DO Referral 11/21/2024 Telephone [address] [place] [address] Leroy Meraz, DO Information; Advice 11/18/2024 Scan MG HEALTH INFO SRVCS Scanned, [facility] 11/16/2024 Scan [facility] HE[facility] INFO SRVCS Scanned, [facility] Lab (SCAN) 11/16/2024 Scan [facility] HEALTH INFO SRVCS Scanned, [facility] Lab (SCAN); Image (SCAN) 11/15/2024 Scan [facility] INFO [facility] Scanned, [facility] Procedure (SCAN) 11/15/[address] [address] Leroy Meraz P, DO Information 11/13/[address] [address] Leroy Meraz, DO Information 11/11/2024 10:40 AM CLEARANCE REPRESENTATIVE Telemedicine [address] [address] Leroy Meraz, DO Catheter (The patient is needing davis changes and is unable to get HH to help. ) 11/11/2024 Scan [facility] INFO [facility] Scanned, [facility] 11/11/[address] [address] Leroy Meraz, DO Information 11/11/2024 Travel 11/08/[address] [place], [place] [phone] Leroy Meraz, DO Advise; Advice; Information 11/06/[address] [address] Leroy Meraz, DO Information 10/24/2024 2:39 PM CLEARANCE REPRESENTATIVE - 10/24/2024 11:59 PM CLEARANCE REPRESENTATIVE Hospital Encounter [facility] [address] [place] [address] Alma Ernst, PT Leroy Meraz, DO Balance Problem Discharge Disposition: Home or Self Care (Routine Discharge) 10/24/2024 Scan [facility] HEALTH INFO SRVCS Scanned, [facility] 10/24/2024 Travel 10/18/2024 Scan MG HEALTH INFO SRVCS Scanned, [facility] 10/18/2024 Telephone [facility] Internal [address] [address] Leroy Meraz, Urine (Medical supply in) 10/15/2024 8:33 AM CLEARANCE REPRESENTATIVE - 10/15/2024 11:59 PM CLEARANCE REPRESENTATIVE Hospital Encounter [facility] [address] [place] [address] Jorje Ayala MD Discharge Disposition: Home or Self Care (Routine Discharge) 10/15/2024 Travel 10/14/[address] [address] Leroy Meraz, DO Information 10/10/2024 12:08 PM CLEARANCE REPRESENTATIVE - 10/10/2024 11:59 PM CLEARANCE REPRESENTATIVE Hospital Encounter [facility] [address] [place] [address] Jazlyn Jackson FNP-JUAN MANUEL Discharge Disposition: Home or Self Care (Routine Discharge) 10/10/2024 Travel 10/07/2024 1:00 PM CLEARANCE REPRESENTATIVE - 10/07/2024 11:59 PM CLEARANCE REPRESENTATIVE Hospital Encounter [facility] [address] [place] [address] Jorje Ayala MD Discharge Disposition: Home or Self Care (Routine Discharge) 10/07/2024 Travel 10/04/2024 Scan MG HEALTH INFO SRVCS Scanned, [facility] 10/03/2024 12:53 PM CLEARANCE REPRESENTATIVE - 10/03/2024 11:59 PM CLEARANCE REPRESENTATIVE Hospital Encounter [facility] [address] [place] [address] Jazlyn Jackson FNP-JUAN MANUEL Discharge Disposition: Home or Self Care (Routine Discharge) 10/03/2024 Travel 10/02/2024 Telephone [facility] Internal [address] [address] Leroy Meraz, DO Referral 10/01/2024 11:00 AM CLEARANCE REPRESENTATIVE - 10/01/2024 11:59 PM CLEARANCE REPRESENTATIVE Hospital Encounter [facility] [address] [place] [address] Jorje Ayala MD Discharge Disposition: Home or Self Care (Routine Discharge) 10/01/2024 Travel 09/26/2024 1:32 PM CLEARANCE REPRESENTATIVE - 09/26/2024 11:59 PM CLEARANCE REPRESENTATIVE Hospital Encounter [address] [address] Leroy Meraz, DO Discharge Disposition: Home or Self Care (Routine Discharge) 09/26/2024 12:45 PM CLEARANCE REPRESENTATIVE - 09/26/2024 1:31 PM CLEARANCE REPRESENTATIVE Hospital Encounter [facility] [address] [place] [address] Jazlyn Jackson, [facility]- Discharge Disposition: Home or Self Care (Routine Discharge) 09/26/2024 Travel 09/24/2024 Telephone [facility] Internal [address] [address] Leroy Merza, DO Referral 09/24/2024 Telephone [facility] Internal [address] [address] Leroy Meraz, DO Referral 09/23/2024 11:15 AM CLEARANCE REPRESENTATIVE - 09/23/2024 11:59 PM CLEARANCE REPRESENTATIVE Hospital Encounter [facility] [address] [place] [address] Jorje Ayala MD Discharge Disposition: Home or Self Care (Routine Discharge) 09/23/2024 Telephone [facility] Internal [address] [address] Leroy Meraz, DO Information; Lab Order 09/23/2024 Travel 09/19/2024 12:52 PM CLEARANCE REPRESENTATIVE - 09/19/2024 11:59 PM CLEARANCE REPRESENTATIVE Hospital Encounter [facility] [address] [place] [address] Jazlyn Jackson, [facility]- Discharge Disposition: Home or Self Care (Routine Discharge) 09/19/2024 Travel from Last 3 Months Immunizations Name Administration Dates Next Due Fluzone (IIV3, Trivalent, 0. 5 ML Prefilled Syringe) 08/09/2024,07/06/2024(Deferred: - give at discharge),06/26/2024(Deferred: Other - wait until discharge) Influenza Adult (Generic) 08/23/2022,10/08/2021 MODERNA COVID-19 (AS400 ADMINISTRATOR LEXA MELQUIADES), MRNA, LNP-S, PF, 50 MCG/ [...] from your doctor or pharmacy? Never 06/24/2024 [facility] Utilities Answer Date Recorded In the past 12 months has th e MD.Voice, gas, oil, or water company threatened to [...] Never 06/28/2024 How often do you attend latter day or baptist serv ices? Never 06/28/2024 Do you belong to any clubs o r organizations such as latter day groups, unions, fraternal or athletic groups, or [...] Recorded Patient Health Questionnaire-2 Score 0 11/11/2024 [facility] Occupational Stress Questionnaire Answer Date [...] any time in the past 12 m [facility], were you homeless or living in a chcf (including now)? No 06/28/2024 Sex and Gender Information Value Date Recorded Sex Assigned at Male 10/10/2024 12:08 PM CLEARANCE REPRESENTATIVE Legal Sex Male 5:44 PM CDT Gender Identity Male 11/11/2024 10:55 AM CLEARANCE REPRESENTATIVE Sexual Orientation Not on file Last Filed Vital Signs Vital Sign Reading Time Taken Comments Blood Pressure 145/75 08/23/2024 12:20 PM CLEARANCE REPRESENTATIVE Pulse 76 08/23/2024 12:20 PM CLEARANCE REPRESENTATIVE Temperature 36.7 C (98 F) 08/23/2024 12:20 PM CLEARANCE REPRESENTATIVE Respiratory Rate 18 08/23/2024 12:20 PM CLEARANCE REPRESENTATIVE Oxygen Saturation 99% 08/23/2024 12:20 PM CLEARANCE REPRESENTATIVE Inhaled Oxygen Concentration - - Weight 72.6 kg (160 lb) 08/23/2024 11:21 AM CLEARANCE REPRESENTATIVE Height 198.1 cm (6' 6 ) 08/23/2024 11:21 AM CLEARANCE REPRESENTATIVE Body Mass Index 18.49 08/23/2024 11:21 AM CLEARANCE REPRESENTATIVE Plan of Treatment Health Maintenance Due Date Last Done Comments ASCVD Statin 1968 Colorectal Cancer Screening Colonoscopy (10 Years) 1968 Hepatitis B Vaccines (1 of 3 - 19+ 3-dose series) 12/21/1987 Zoster Vaccines (1 of 2) 2018 Annual Physical 03/09/2024 03/09/2023 COVID-19 Vaccine ( season) 2024 08/23/2022, 04/20/2022, 10/08/2021, Additional history exists DTaP, Tdap and Td Vaccines (1 - Tdap) 12/31/2024 Postponed from 12/21/1987 (Future Appointment) Colorectal Cancer Screening FIT/FOBT (1 Year) Discontinued 09/03/2020 Pneumococcal Vaccine: Pediatrics (0 to 5 Years) and At-Risk Patients (6 to 64 Years) Aged Out 10/08/2021 No longer eligible based on patient's age to complete this topic Hepatitis C Completed 03/09/2023 Influenza Adult Completed 08/09/2024, 1105/2022, 10/08/2021 PHQ-2 (Physician [place]) Completed 11/11/2024 Meningococcal B Vaccine Aged Out [...] Procedure Name Priority Date/Time Associated Diagnosis Comments OUTSIDE LAB (SCAN ORDER) Routine 11/16/2024 OUTSIDE LAB (SCAN ORDER) 11/16/2024 OUTSIDE LAB (SCAN ORDER) 11/16/2024 OUTSIDE LAB (SCAN ORDER) 11/16/2024 OUTSIDE LAB (SCAN ORDER) 11/16/2024 OUTSIDE PT/INR (SCAN ORDER) 11/16/2024 IMAGE GENERIC 11/16/2024 PROCEDURE GENERIC (SCAN ORDER) 11/15/2024 VITAMIN D, 25 OH Routine 09/26/2024 1:37 PM CLEARANCE REPRESENTATIVE Essential hypertension Vitamin D deficiency LIPID PANEL Routine 09/26/2024 1:37 PM CLEARANCE REPRESENTATIVE Essential hypertension TSH W/REFLEX Routine 09/26/2024 1:37 PM CLEARANCE REPRESENTATIVE Essential hypertension COMPREHENSIVE METABOLIC PANEL Routine 09/26/2024 1:37 PM CLEARANCE REPRESENTATIVE Essential hypertension CBC W/DIFF AUTOMATED Routine 09/26/2024 1:37 PM CLEARANCE REPRESENTATIVE Essential hypertension HEPATITIS C ANTIBODY Routine 03/09/2023 11:44 AM CDT Need for hepatitis C screening test OCCULT BLOOD, FECES STAT 09/03/2020 7 :10 PM CLEARANCE REPRESENTATIVE from Last 3 Months or Most Recently Relevant to Health Maintenance Results * OUTSIDE PT/INR (SCAN ORDER) (11/16/2024) 11/16/2024 [facility] Scanned SCANNING Final Resu lt * OUTSIDE LAB (11/16/2024) Only the most recent of5 resultswithin the time period is included. CORONAVIRUS SARS COV 2 PCR (RESP) NOT DETECTED NOT DETECTED [facility] ONBASE 11/16/2024 Result [facility] Fire[facility] Scanned SCANNING Final Resu lt Performing Organization Address [facility] Co de Phone Number [facility] ONBASE * IMAGE GENERIC (11/16/2024) Anatomical Region Laterality Modality Other 11/16/2024 Result [facility] Scanned SCANNING Final Resu lt * PROCEDURE GENERIC (SCAN ORDER) (11/15/2024) 11/15/2024 Result [facility] Scanned SCANNING Final Resu lt * TSH W/REFLEX (09/26/2024 1:37 PM CLEARANCE REPRESENTATIVE) TSH 1.560 0.358 - 3.74 uIU/ML 09/26/2024 2:[address] [facility] Comment: HIGH DOSES OF BIOTIN MAY INTERFERE WITH THIS TEST RESULT. CORRELATION TO CLINICAL HISTORY AND PRESENTATION RECOMMENDED. FREE T4 NOT INDICATED 09/26/2024 1:37 PM CLEARANCE REPRESENTATIVE Result [facility] Leroy Meraz DO LABORATORY Final Re sult Performing Organization Address City/[facility]/ZIP Co de Phone Number [facility] [address] [place] [address], [place] [phone] * (ABNORMAL) COMPREHENSIVE METABOLIC PANEL (09/26/2024 1:37 PM CLEARANCE REPRESENTATIVE) GLUCOSE 95 70 - 99 MG/DL 09/26/2024 2:[address] [facility] BUN 12 7 - 18 MG/DL 09/26/2024 2:33 [address] [facility] CREATININE S/P/B 0.90 0.7 - 1.3 MG/DL 09/26/2024 2:33 PM [facility] SODIUM S/P/B 139 136 - 145 MMOL/L 09/26/2024 2:33 PM [facility] POTASSIUM S/P/B 3.9 3.5 - 5.1 MMOL/L 09/26/2024 2:33 PM [facility] CHLORIDE S/P/B 103 100 - 108 MMOL/L 09/26/2024 2:33 PM [facility] CO2 29.6 21 - 32 MMOL/L 09/26/2024 2:33 PM [facility] CALCIUM S/P/B 9.5 8.5 - 10.1 MG/DL 09/26/2024 2:33 PM [facility] BILIRUBIN TOTAL S/P/B 0.2 0.2 - 1.2 MG/DL 09/26/2024 2:33 PM [facility] TOTAL PROTEIN S/P/B 9.3(H) 6.4 - 8.2 G/DL 09/26/2024 2:33 PM [facility] ALBUMIN S/P/B 2.6(L) 3.4 - 5.0 G/DL 09/26/2024 2:33 PM [facility] AST 17 15 - 37 U/L 09/26/2024 2:33 PM [facility] ALT 19 16 - 60 U/L 09/26/2024 2:33 PM [facility] ALKALINE PHOSPHATASE S/P/B 113 50 - 136 U/L 09/26/2024 2:33 PM [facility] ANION GAP 6.4 5 - 15 MMOL/L 09/26/2024 2:33 PM [facility] BUN CREATININE RATIO 13.3 6 - 26 09/26/2024 2:33 PM [facility] A/G RATIO 0.4(L) 1.0 - 2.0 RATIO 09/26/2024 2:33 PM [facility] GFR ESTIMATE >90 >90 ML/MIN/1.7 3 M2 09/26/2024 2:33 PM [facility] Comment: NOTE: eGFR is not calculated for patients <18 years of age. This is an estimated GFR calculation using the new CKD EPI creatinine equation without race and so does not require a correction factor for race. This estimated GFR should not be used for calculating drug doses. 09/26/2024 1:37 PM CLEARANCE REPRESENTATIVE Leroy Meraz DO LABORATORY Final Re sult [facility] [address] [place] [phone], * (ABNORMAL) LIPID PANEL (09/26/2024 1:37 PM CLEARANCE REPRESENTATIVE) CHOLESTEROL 226(H) <200.0 MG/DL 09/26/2024 2:33 PM [facility] TRIGLYCERIDES 98 <150 MG/DL 09/26/2024 2:33 PM [facility] HDL 58 >40.0 MG/DL 09/26/2024 2:33 PM [facility] LDL (CALCULATED) 148(H) <100 MG/DL 09/26/2024 2:33 PM [facility] NON HDL CHOLESTEROL 168(H) <130 MG/DL 09/26/2024 2:33 PM [facility] CHOL/HDL RATIO 3.9 0.0 - 4.5 09/26/2024 2:33 PM [facility] VLDL CALCULATION 20 5 - 55 MG/DL 09/26/2024 2:33 [address]IVE [facility] LIPID INTERPRETATION 09/26/2024 2:33 PM [facility] Comment: [facility] CONCENSUS REPORT RECOMMENDATIONS: ADULT CHILD LOW RISK: CHOLESTEROL <200 <170 TRIGLYCERIDE <150 --- HDL >=60 --- LDL <100 <110 BORDERLINE: CHOLESTEROL 200-239 170-199 TRIGLYCERIDE 150-199 --- HDL 40-59 --- LDL 100-159 110-129 HIGH RISK: CHOLESTEROL >=240 >=200 TRIGLYCERIDE >=200 --- HDL <40 --- LDL >=160 >=130 09/26/2024 1:37 PM CLEARANCE REPRESENTATIVE Leroy Meraz DO LABORATORY Final Re sult [facility] [address] [place] [address], * (ABNORMAL) CBC W/DIFF AUTOMATED (09/26/2024 1:37 PM CLEARANCE REPRESENTATIVE) WBC 5.33 4.4 - 11.0 x10'3/uL 09/26/2024 2:06 PM [facility] RBC 4.44(L) 4.50 - 5.90 x10'6/uL 09/26/2024 2:06 PM [facility] HGB 11.4(L) 14.0 - 17.5 G/DL 09/26/2024 2:06 PM [facility] HCT 35.2(L) 41.5 - 50.4 % 09/26/2024 2:06 PM [facility] MCV 79.3(L) 80.0 - 96.0 FL 09/26/2024 2:06 PM [facility] MCH 25.7(L) 26.5 - 31.4 PG 09/26/2024 2:06 PM [facility] MCHC 32.4 31.9 - 34.8 G/DL 09/26/2024 2:06 PM [facility] RDW 18.9(H) 12.3 - 14.3 % 09/26/2024 2:06 PM [facility] PLT 262 151 - 353 x10'3/uL 09/26/2024 2:06 PM [facility] MPV 9.3(L) 9.7 - 11.9 FL 09/26/2024 2:06 PM [facility] RBC MORPHOLOGY NORMAL 09/26/2024 2:06 PM [facility] PLT MORPH. NORMAL 09/26/2024 2:06 PM [facility] WBC MORPHOLOGY NORMAL 09/26/2024 2:06 PM [facility] LYMPHOCYTES % 23.6 15.8 - 45.0 % 09/26/2024 2:06 PM [facility] NEUTROPHILS % 57.4 42.1 - 71.9 % 09/26/2024 2:06 PM [facility] MONOCYTES % 13.5(H) 5.7 - 12.5 % 09/26/2024 2:06 PM [facility] EOSINOPHILS 4.7 0.0 - 5.6 % 09/26/2024 2:06 PM [facility] BASOPHILS 0.4 0.0 - 1.3 % 09/26/2024 2:06 PM [facility] ABS. NEUTROPHILS 3.06 1.40 - 6.00 x10'3/uL 09/26/2024 2:06 PM [facility] IMMATURE GRANS % 0.4 0.0 - 0.5 % 09/26/2024 2:06 PM [facility] ABS. LYMPHOCYTES 1.26 0.80 - 4.70 x10'3/uL 09/26/2024 2:06 [address] [facility] 09/26/2024 1:37 PM CLEARANCE REPRESENTATIVE Leroy Meraz LABORATORY Final Re sult Performing Organization Address [facility]/ZIP Co de Phone Number [facility] [address] [place] [address], [place] [phone] * (ABNORMAL) VITAMIN D, 25 OH (09/26/2024 1:37 PM CLEARANCE REPRESENTATIVE) VITAMIN D 25 HYDROXY S/P/B 20(L) 30 - 100 NG/ML 09/26/2024 2:45 [address] [facility] Comment: INTERPRETATION DEFICIENT <20 INSUFFICIENT 20-29 SUFFICIENT 30-100 09/26/2024 1:37 PM CLEARANCE REPRESENTATIVE Leroy Meraz DO LABORATORY Final Re sult Performing Organization Address [facility] Co de Phone Number [facility] [address] [place] [address], [place] [phone] * HEPATITIS C AB ([facility] ONLY) (03/09/2023 11:44 AM CDT) HEPATITIS C AB NON-REACTI VE NON-REACTI VE 03/09/2023 7:30 PM CDT [facility] 03/09/2023 11:4 4 AM CDT Lisa Ramírez [facility] Final Re sult Performing Organization Address City/[facility]/ZIP Co de Phone Number [facility] [address] [place] [address], [place] [phone] * (ABNORMAL) OCCULT BLOOD, FECES (09/03/2020 7:10 PM CLEARANCE REPRESENTATIVE) OCCULT BLOOD FECAL POSITIVE(A ) NEGATIVE 09/03/2020 7:50 PM CLEARANCE REPRESENTATIVE [facility] () [facility] STOOL SPECIMEN / Unknown 09/03/2020 7:10 PM CLEARANCE REPRESENTATIVE Hilton Aggarwal MD BODY FLUIDS AND STOOLS ORDERABLES Final Result [facility] ([facility] [address] [place] [address], from Last 3 Months or Most Recently [...] 09/02/2024 MDR Other Comment:Added from external Infection- [facility] Health Collection Source- Urine 2020 06/25/2024 MDR-SEED CORE OPERATOR - Carbapenemase-Prod ucing Organisms Comment:Added from external infection. Source: [facility] [employer]. Collection Source-Urine 08/04/2021 Insurance MEDICAID [facility] Advance Directives * Full Code (Latest Code [...] 8:38 PM 11/30/2022 2:56 PM Care Teams Computer Systems Designer Relationship Specialty Start Date End Date Leroy Meraz DO [address] [place] [address] PCP - General FAMILY PRACTICE 07/08/24 [place] [address] [facility] [address] [place] [address] Surgeon SURGERY 11/03/23
--- OUTSIDE RECORDS SUMMARY | 2024-12-17 12:03 | XMS_ITS | Encounter Summary ---
Author Organization [facility] Address [facility] [place] [address] Care Team Providers Care Paste Up Worker Name Role Phone Lisa Ramírez [facility] Primary Care Provider + Jorje Ayala MD Unavailable Leroy Meraz DO Primary Care Provider + Encounter Details Date Type Department Care Team (Late st Contact Info) Description 12/25/[address] [facility] [address] [place] [address] Lisa Ramírez, [facility] [address] [place] [address] referral Social History Tobacco Use [...] Sex Assigned at Male 10/10/2024 12:08 PM ASSEMBLER SKYLIGHTS Legal Sex Male 5:44 PM CDT Gender Identity Male 11/11/2024 10:55 AM ASSEMBLER SKYLIGHTS Sexual Orientation Not on file documented as [...] 09/02/2024 MDR Other Comment:Added from external Infection- [facility] Collection Source- Urine 2020 06/25/2024 MDR-DIMENSIONAL INSPECTOR - Carbapenemase-Prod ucing Organisms Comment:Added from external infection. Source: [facility] [employer] Collection Source-Urine 08/04/2021 COVID-19 Rule Out 03/23/2024 03/23/2024 03/23/2024 1:17 PM CDT Assessment Noted Time PHQ-9 Depression Total Score: 0 12/04/19 1:13 PM ASSEMBLER SKYLIGHTS documented as of this encounter Care Teams Paste Up Worker Relationship Specialty Start Date End Date Lisa Ramírez, FLIGHT LINE MECHANIC- [address] [place] [address] PCP - General NURSE PRACTITIONER 09/05/22 07/07/24 Leroy Meraz DO [address] [place] [address] PCP - General FAMILY PRACTICE 07/08/24 [place] [address] [address] Surgeon SURGERY 11/03/23 documented as of this encounter
--- OUTSIDE RECORDS SUMMARY | 2024-12-17 12:03 | XMS_ITS | Encounter Summary ---
Author Organization [facility] Address Critical access hospital6 [place] [address] Care Team Providers Care Entry Specialists Name Role Phone Lisa Ramírez [facility] Primary Care Provider + Jorje Ayala MD Unavailable Leroy Meraz DO Primary Care Provider + Encounter Details Date Type Department Care Team (Late st Contact Info) Description 11/14/2023 Therapy Plan [facility] [id number] [place] [address] [place] [address] [facility] [address] [place] [address] Social History Tobacco Use Types [...] Sex Assigned at Male 10/10/2024 12:08 PM ANDROID IOS DEVELOPER Legal Sex Male 5:44 PM CDT Gender Identity Male 11/11/2024 10:55 AM ANDROID IOS DEVELOPER Sexual Orientation Not on file documented as [...] Visit Diagnoses Diagnosis 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 ([facility])- Primary Neurogenic bladder Neurogenic bladder, NOS Suprapubic catheter ([facility]) Other cystostomy status documented in this encounter [...] MDR Other Comment:Added from external Infection- [facility] Health Collection Source- Urine 2020 06/25/2024 MDR-POWER LINEMAN - Carbapenemase-Prod ucing Organisms Comment:Added from external infection. Source: [facility] [employer]. Collection Source-Urine 08/04/2021 COVID-19 Rule Out 03/23/2024 03/23/2024 03/23/2024 1:17 PM CDT Assessment Noted Time PHQ-9 Depression Total Score: 0 12/04/19 1:13 PM ANDROID IOS DEVELOPER documented as of this encounter Care Teams Entry Specialists Relationship Specialty Start Date End Date Lisa Ramírez, REVISING CLERK- [address] [place] [address] PCP - General NURSE PRACTITIONER 09/05/22 07/07/24 Leroy Meraz DO [address] [place] [address] PCP - General FAMILY PRACTICE 07/08/24 [place] [address] [address] Surgeon SURGERY 11/03/23 documented as of this encounter
--- OUTSIDE RECORDS SUMMARY | 2024-12-17 12:03 | XMS_ITS | Encounter Summary ---
Author Organization [facility] Address [facility]6 [place] [address] Care Team Providers Care Financial Adviser Name Role Phone Lisa Ramírez [facility] Primary Care Provider + Jorje Ayala MD Unavailable Leroy Meraz DO Primary Care Provider + Encounter Details Date Type Department Care Team (Late st Contact Info) Description 08/30/2023 Bypass Mobile Message [facility] [address] [place] [address] [employer], [facility] Provider results Social History Tobacco Use [...] Sex Assigned at Male 10/10/2024 12:08 PM HEARING THERAPY DIRECTOR Legal Sex Male 5:44 PM CDT Gender Identity Male 11/11/2024 10:55 AM HEARING THERAPY DIRECTOR Sexual Orientation Not on file documented as [...] MDR Other Comment:Added from external Infection- [facility] Health Collection Source- Urine 2020 06/25/2024 MDR-FUEL EFFICIENT AUTOMOBILE DESIGNER - Carbapenemase-Prod ucing Organisms Comment:Added from external infection. Source: [facility]. Collection Source-Urine 08/04/2021 COVID-19 Rule Out 03/23/2024 03/23/2024 03/23/2024 1:17 PM CDT Assessment Noted Time PHQ-9 Depression Total Score: 0 12/04/19 1:13 PM HEARING THERAPY DIRECTOR documented as of this encounter Care Teams Financial Adviser Relationship Specialty Start Date End Date Lisa Ramírez, ELECTRON GUN ASSEMBLER- [address] [place] [address] PCP - General NURSE PRACTITIONER 09/05/22 07/07/24 Leroy Meraz DO [address] [place] [address] PCP - General FAMILY PRACTICE 07/08/24 [place] [address] [address] Surgeon SURGERY 11/03/23 documented as of this encounter
--- OUTSIDE RECORDS SUMMARY | 2024-12-17 12:03 | XMS_ITS | Encounter Summary ---
Author Organization [facility] Address [facility] [place] [address] Care Team Providers Care Paint Maker Name Role Phone Mary Marcus NP Primary Care Provider [phone] Lisa Ramírez [facility] Primary Care Provider + Lisa Ramírez [facility] Primary Care Provider + Jorje Ayala MD Unavailable Leroy Meraz DO Primary Care Provider + Encounter Details Date Type Department Care Team (Late st Contact Info) Description 05/31/2022 Mommy Nearest Message [facility] [address] [place] [address] Mary Marcus FIRE MARSHAL REFINERY [address] [place] [address] ASKING FOR ANOTHER URINE CULTURE [...] Sex Assigned at Male 10/10/2024 12:08 PM RIVETER AUTOMOBILE BRAKES Legal Sex Male 5:44 PM CDT Gender Identity Male 11/11/2024 10:55 AM RIVETER AUTOMOBILE BRAKES Sexual Orientation Not on file COVID-19 Exposure [...] 09/02/2024 MDR Other Comment:Added from external Infection- [facility] Collection Source- Urine 2020 06/25/2024 MDR-ROD POINTER - Carbapenemase-Prod ucing Organisms Comment:Added from external infection. Source: [facility]. Collection Source-Urine 08/04/2021 COVID-19 Rule Out 03/23/2024 03/23/2024 03/23/2024 1:17 PM CDT Assessment Noted Time PHQ-9 Depression Total Score: 0 12/04/19 1:13 PM RIVETER AUTOMOBILE BRAKES documented as of this encounter Care Teams Paint Maker Relationship Specialty Start Date End Date Mary Marcus NP [address] [place] [address] PCP - General NURSE PRACTITIONER 11/30/21 08/28/22 Lisa Ramírez, [facility] [address] [place] [address] PCP - General NURSE PRACTITIONER 08/29/22 09/01/22 Lisa Ramírez, [facility]- [address] [place] [address] PCP - General NURSE PRACTITIONER 09/05/22 07/07/24 Leroy Meraz DO [address] [place] [address] [id number] PCP - General FAMILY PRACTICE 07/08/24 [place] [address] [place] [address] Surgeon SURGERY 11/03/23 documented as of this encounter
--- OUTSIDE RECORDS SUMMARY | 2024-12-17 12:04 | XMS_ITS | Encounter Summary ---
Author Organization [facility] Address [facility] [place] [address] Care Team Providers Care Associate Professor Of Library Media Name Role Phone Jorje Ayala MD Unavailable Leroy Meraz DO Primary Care Provider + Reason for Visit * Reason Onset Date Comments Advise 11/08/2024 Advice 11/08/2024 Information 11/08/2024 Encounter Details Date Type Department Care Team (Late st Contact Info) Description 11/08/2024 Telephone [facility] Home Care [address] [place] [address] [place] [address] Leroy Meraz DO [address] [place] [address] Advise; Advice; Information Social History Tobacco Use Types Packs/Day [...] from your doctor or pharmacy? Never 06/24/2024 [facility] Utilities Answer Date Recorded In [...] Never 06/28/2024 How often do you attend judaism or adventism serv ices? Never 06/28/2024 Do you belong to any clubs o r organizations such as judaism groups, unions, fraternal or athletic groups, or [...] Recorded Patient Health Questionnaire-2 Score 0 11/11/2024 [facility] - Occupational Stress Questionnaire Answer Date Recorded [...] any time in the past 12 m [facility], were you homeless or living in a jail (including now)? No 06/28/2024 Sex and Gender Information Value Date Recorded Sex Assigned at Male 10/10/2024 12:08 PM PUBLIC ADDRESS SYSTEM INSTALLER Legal Sex Male 5:44 PM CDT Gender Identity Male 11/11/2024 10:55 AM PUBLIC ADDRESS SYSTEM INSTALLER Sexual Orientation Not on file documented as [...] told by the referral department that if [facility] does not except the patient insurance that they will work on finding one that does. Is that correct? Also, he has medicaid of [place] for his secondary. Dose [facility] home health not except that? LL-11/08/24 IC ADDRESS SYSTEM INSTALLER * Stormy Mclaughlin CNA - 11/08/2024 10:33 AM CST [facility] home care received the referral on [facility] unfortunately we are unable to accept due damian are not in contract with patients insurance. Patient will need to be referred to another [employer] SCHOOL PROFESSIONAL. Thanks Stormy Compact Assembler IC ADDRESS SYSTEM INSTALLER documented in this encounter Plan of Treatment [...] Other Comment:Added from external Infection- [facility] Health Collection Source- Urine 2020 06/25/2024 MDR-SERVICE STATION ATTENDANT - Carbapenemase-Prod ucing Organisms Comment:Added from external infection. Source: [facility] [employer] Collection Source-Urine 08/04/2021 Assessment Noted Time PHQ-9 Depression Total Score: 0 12/04/19 22 1:13 PM PUBLIC ADDRESS SYSTEM INSTALLER documented as of this encounter Care Teams Associate Professor Of Library Media Relationship Specialty Start Date End Date Leroy Meraz DO [address] [place] [address] PCP - General FAMILY PRACTICE 07/08/24 [place] [address] [address] Surgeon SURGERY 11/03/23 documented as of this encounter
--- OUTSIDE RECORDS SUMMARY | 2024-12-17 12:04 | XMS_ITS | Encounter Summary ---
Author Organization [facility] Address [facility] [place] [address] Care Team Providers Care Quality Controller Name Role Phone Lisa Ramírez [facility] Primary Care Provider + Jorje Ayala MD Unavailable Leroy Meraz DO Primary Care Provider + Encounter Details Date Type Department Care Team (Latest Contact Info) Description 02/26/2023 Loop88 Message [facility] [address] [place] [address] Lisa Ramírez, [facility] [address] [place] [address] can you right a prescription Social History Tobacco Use Types Packs/Day Years Used Date Smoking Tobacco: Never Smokeless Tobacco: Never Alcohol Use Standard Drinks/Week Comments Not Currently 0 (1 standard drink = 0.6 oz pur e alcohol) PHQ-2 Answer Date Recorded Patient Health Questionnaire-2 Score 0 09/07/2022 Sex and Gender Information Value Date Recorded Sex Assigned at Male 10/10/2024 12:08 PM PAD ASSEMBLER Legal Sex Male 5:44 PM CDT Gender Identity Male 11/11/2024 10:55 AM PAD ASSEMBLER Sexual Orientation Not on file COVID-19 Exposure [...] 09/02/2024 MDR Other Comment:Added from external Infection- [facility] Collection Source- Urine 2020 06/25/2024 MDR-JACQUARD TWINE POLISHER OPERATOR - Carbapenemase-Prod ucing Organisms Comment:Added from external infection. Source: [facility]. Collection Source-Urine 08/04/2021 COVID-19 Rule Out 03/23/2024 03/23/2024 03/23/2024 1:17 PM CDT Assessment Noted Time PHQ-9 Depression Total Score: 0 12/04/19 1:13 PM PAD ASSEMBLER documented as of this encounter Care Teams Quality Controller Relationship Specialty Start Date End Date Lisa Ramírez, SYSTEM SOFTWARE PROGRAMMER- [address] [place] [address] PCP - General NURSE PRACTITIONER 09/05/22 07/07/24 Leroy Meraz DO [address] [place] [address] [id number] PCP - General FAMILY PRACTICE 07/08/24 [place] [address] [address] Surgeon SURGERY 11/03/23 documented as of this encounter
--- OUTSIDE RECORDS SUMMARY | 2024-12-17 12:04 | XMS_ITS | Encounter Summary ---
Author Organization [facility] Address [facility] [place] [address] Care Team Providers Care Regional Education Manager Name Role Phone Lisa Ramírez [facility] Primary Care Provider + Jorje Ayala MD Unavailable Leroy Meraz DO Primary Care Provider + Encounter Details Date Type Department Care Team (Latest Contact Info) Description 09/02/2022 Cartagenia Message [facility] [address] [place] [address] Lisa Ramírez, [facility] [address] [place] [address] Prescription for prosthetic form Social [...] Sex Assigned at Male 10/10/2024 12:08 PM PIECE DYEING MACHINE TENDER Legal Sex Male 5:44 PM CDT Gender Identity Male 11/11/2024 10:55 AM PIECE DYEING MACHINE TENDER Sexual Orientation Not on file COVID-19 Exposure Response Date Recorded In the last 10 days, have janet celestin been in contact with someone who was confirmed or suspected to have Coronavirus/COVID-19? No / Unsure 08/31/2022 10:37 AM PIECE DYEING MACHINE TENDER documented as of this encounter Functional Status [...] MDR Other Comment:Added from external Infection- [facility] Health Collection Source- Urine 2020 06/25/2024 MDR-EVENT SALES ASSISTANT - Carbapenemase-Prod ucing Organisms Comment:Added from external infection. Source: [facility]. Collection Source-Urine 08/04/2021 COVID-19 Rule Out 03/23/2024 03/23/2024 03/23/2024 1:17 PM CDT Assessment Noted Time PHQ-9 Depression Total Score: 0 12/04/19 1:13 PM PIECE DYEING MACHINE TENDER documented as of this encounter Care Teams Regional Education Manager Relationship Specialty Start Date End Date Lisa Ramírez FNP- [address] [place] [address] PCP - General NURSE PRACTITIONER 09/05/22 07/07/24 Leroy Meraz DO [address] [place] [address] PCP - General FAMILY PRACTICE 07/08/24 [place] [address] [address] Surgeon SURGERY 11/03/23 documented as of this encounter
--- OUTSIDE RECORDS SUMMARY | 2024-12-17 12:04 | XMS_ITS | Encounter Summary ---
Author Organization [facility] Address [facility] [place] [address] Care Team Providers Care Investment Director Name Role Phone [facility] Primary Care Provider + Jorje Ayala MD Unavailable Leroy Meraz DO Primary Care Provider + Encounter Details Date Type Department Care Team (Late st Contact Info) Description 12/23/2022 [employer] Fre[employer] Exchange Message [facility] [address] [place] [address] Mary, [facility] Provider results Social History Tobacco Use Types Packs/Day Years Used Date Smoking Tobacco: Never Smokeless Tobacco: Never Alcohol Use Standard Drinks/Week Comments Not Currently 0 (1 standard drink = 0.6 oz pur e alcohol) PHQ-2 Answer Date Recorded Patient Health Questionnaire-2 Score 0 09/07/2022 Sex and Gender Information Value Date Recorded Sex Assigned at Male 10/10/2024 12:08 PM REAL ESTATE RECRUITER Legal Sex Male 5:44 PM CDT Gender Identity Male 11/11/2024 10:55 AM REAL ESTATE RECRUITER Sexual Orientation Not on file COVID-19 Exposure [...] MDR Other Comment:Added from external Infection- [facility] Health Collection Source- Urine 2020 06/25/2024 MDR-BUCK SWAMPER - Carbapenemase-Prod ucing Organisms Comment:Added from external infection. Source: [facility]. Collection Source-Urine 08/04/2021 COVID-19 Rule Out 03/23/2024 03/23/2024 03/23/2024 1:17 PM CDT Assessment Noted Time PHQ-9 Depression Total Score: 0 12/04/19 1:13 PM REAL ESTATE RECRUITER documented as of this encounter Care Teams Investment Director Relationship Specialty Start Date End Date Lisa Ramírez, DOMESTIC TECHNICIAN- [address] [place] [address] PCP - General NURSE PRACTITIONER 09/05/22 07/07/24 Leroy Meraz DO [address] [place] [address] PCP - General FAMILY PRACTICE 07/08/24 [place] [address] [address] Surgeon SURGERY 11/03/23 documented as of this encounter
--- OUTSIDE RECORDS SUMMARY | 2024-12-17 12:04 | XMS_ITS | Encounter Summary ---
Author Organization [facility] Address [facility] [place] [address] Care Team Providers Care Territory Service Representative Name Role Phone Sherman Cartagena MD Primary Care Provider Angella Mary Guidry NP Primary Care Provider [phone] Lisa Ramírez [facility] Primary Care Provider + Lisa Ramírez [facility] Primary Care Provider + Jorje Ayala MD Unavailable Leroy Meraz DO Primary Care Provider + Encounter Details Date Type Department Care Team (Late st Contact Info) Description 04/26/2021 Hello! Messengert Message [address] [address] Sherman Cartagena MD RE: Other [...] Sex Assigned at Male 10/10/2024 12:08 PM TREE CUTTER Legal Sex Male 5:44 PM CDT Gender Identity Male 11/11/2024 10:55 AM TREE CUTTER Sexual Orientation Not on file COVID-19 Exposure [...] Assessment Author Status No 11/26/2020 1:38 PM TREE CUTTER Activ e * RETIRED Are you blind or do you have serious difficulty seeing, even when wearing glasses? Answer Date of Assessment Author Status No 11/26/2020 1:38 PM TREE CUTTER Activ e * Do you have serious [...] HOSPITAL Health Collection Source- Urine 2020 06/25/2024 MDR-CASTING MACHINE SERVICE OPERATOR - Carbapenemase-Prod ucing Organisms Comment:Added from external infection. Source: [facility]. Collection Source-Urine 08/04/2021 COVID-19 Rule Out 09/28/2021 09/28/2021 10/05/2021 12:34 AM TREE CUTTER COVID-19 Rule Out 03/23/2024 03/23/2024 03/23/2024 1:17 PM CDT Assessment Noted Time PHQ-9 Depression Total Score: 0 04/22/20 21 2:39 PM CDT documented as of this encounter Care Teams Territory Service Representative Relationship Specialty Start Date End Date Sherman Cartagena MD PCP - General FAMILY PRACTICE 08/25/20 11/29/21 Mary Marcus NP [address] [place] [address] PCP - General NURSE PRACTITIONER 11/30/21 08/28/22 Lisa Ramírez [facility]- [address] [place] [address] PCP - General NURSE PRACTITIONER 08/29/22 09/01/22 Lisa Ramírez [facility]- [address] [place] [address] PCP - General NURSE PRACTITIONER 09/05/22 07/07/24 Leroy Meraz DO [facility] [place] [address] PCP - General FAMILY PRACTICE 07/08/24 [place] [address] [id number] Surgeon SURGERY 11/03/23 documented as of this encounter
--- OUTSIDE RECORDS SUMMARY | 2024-12-17 12:04 | XMS_ITS | Encounter Summary ---
Author Organization [facility] Address [facility] [place] [address] Care Team Providers Care Nutrition Specialist Name Role Phone Sherman Cartagena MD Primary Care Provider Angella Mary Guidry NP Primary Care Provider [phone] Lisa Ramírez [facility] Primary Care Provider + Lisa Ramírez [facility] Primary Care Provider + Jorje Ayala MD Unavailable Leroy Meraz DO Primary Care Provider + Encounter Details Date Type Department Care Team (Late st Contact Info) Description 06/04/2021 [place]ispay Message [address] [address] Sherman Cartagena MD RE: Other [...] Sex Assigned at Male 10/10/2024 12:08 PM FINAL CLEANER Legal Sex Male 5:44 PM CDT Gender Identity Male 11/11/2024 10:55 AM FINAL CLEANER Sexual Orientation Not on file COVID-19 [...] Assessment Author Status No 11/26/2020 1:38 PM FINAL CLEANER Activ e * RETIRED Are you blind or do you have serious difficulty seeing, even when wearing glasses? Answer Date of Assessment Author Status No 11/26/2020 1:38 PM FINAL CLEANER Activ e * Do you have serious difficulty walking or climbing stairs? Answer Date of Assessment Author Status Yes 11/26/2020 1:38 PM FINAL CLEANER Yoly Larson RN Active * Do you have difficulty dressing or bathing? Answer Date of Assessment Author Status Yes 11/26/2020 1:38 PM FINAL CLEANER Yoly Larson RN Active * Because of a physical, mental, or emotional condition, do you have difficulty doing errands alone such as visiting a doctor's office or shopping? Answer Date of Assessment Author Status Yes 11/26/2020 1:38 PM FINAL CLEANER Yoly Larson RN Active documented as of this encounter Mental Status * Because of a physical, mental, or emotional condition, do you have serious difficulty concentrating, remembering, or making decisions? Answer Entry Date Author Status No 11/26/2020 1:38 PM FINAL CLEANER Yoly Larson RN Active documented in this [...] 09/02/2024 MDR Other Comment:Added from external Infection- [facility] Health Collection Source- Urine 2020 06/25/2024 MDR-SUPERVISOR COOK ROOM - Carbapenemase-Prod ucing Organisms Comment:Added from external infection. Source: [facility] [employer] Collection Source-Urine 08/04/2021 COVID-19 Rule Out 09/28/2021 09/28/2021 10/05/2021 12:34 AM FINAL CLEANER COVID-19 Rule Out 03/23/2024 03/23/2024 03/23/2024 1:17 PM CDT Assessment Noted Time PHQ-9 Depression Total Score: 0 04/22/20 21 2:39 PM CDT documented as of this encounter Care Teams Nutrition Specialist Relationship Specialty Start Date End Date Sherman Cartagena MD PCP - General FAMILY PRACTICE 08/25/20 11/29/21 Mary Marcus NP [address] [place] [address] PCP - General NURSE PRACTITIONER 11/30/21 08/28/22 Lisa Ramírez, [facility] [address] [place] [address] PCP - General NURSE PRACTITIONER 08/29/22 09/01/22 Lisa Ramírez [facility] [address] [place] [address] PCP - General NURSE PRACTITIONER 09/05/22 07/07/24 Leroy Meraz DO [address] [place] [address] PCP - General FAMILY PRACTICE 07/08/24 [place] [address] [address] Surgeon SURGERY 11/03/23 documented as of this encounter
--- OUTSIDE RECORDS SUMMARY | 2024-12-17 12:04 | XMS_ITS | Encounter Summary ---
Author Organization [facility] Address [facility] [place] [address] Care Team Providers Care Outpatient Interviewing Clerk Name Role Phone Sherman Cartagena MD Primary Care Provider Angella Mary Guidry NP Primary Care Provider [phone] Lisa Ramírez [facility] Primary Care Provider + Lisa Ramírez [facility] Primary Care Provider + Jorje Ayala MD Unavailable Leroy Meraz DO Primary Care Provider + Encounter Details Date Type Department Care Team (Late st Contact Info) Description 05/15/2021 [employer] Message [facility] [address] [place] [phone] Sherman Cartagena MD Other Social History [...] Sex Assigned at Male 10/10/2024 12:08 PM BAGGAGE INSPECTOR Legal Sex Male 5:44 PM CDT Gender Identity Male 11/11/2024 10:55 AM BAGGAGE INSPECTOR Sexual Orientation Not on file COVID-19 Exposure [...] Assessment Author Status No 11/26/2020 1:38 PM BAGGAGE INSPECTOR Activ e * RETIRED Are you blind or do you have serious difficulty seeing, even when wearing glasses? Answer Date of Assessment Author Status No 11/26/2020 1:38 PM BAGGAGE INSPECTOR Activ e * Do you have serious [...] 09/02/2024 MDR Other Comment:Added from external Infection- [facility] Health Collection Source- Urine 2020 06/25/2024 MDR-GAS FLOW REGULATOR - Carbapenemase-Prod ucing Organisms Comment:Added from external infection. Source: [facility]. Collection Source-Urine 08/04/2021 COVID-19 Rule Out 09/28/2021 09/28/2021 10/05/2021 12:34 AM BAGGAGE INSPECTOR COVID-19 Rule Out 03/23/2024 03/23/2024 03/23/2024 1:17 PM CDT Assessment Noted Time PHQ-9 Depression Total Score: 0 04/22/20 21 2:39 PM CDT documented as of this encounter Care Teams Outpatient Interviewing Clerk Relationship Specialty Start Date End Date Sherman Cartagena MD PCP - General FAMILY PRACTICE 08/25/20 11/29/21 Mary Marcus NP [address] [place] [address] PCP - General NURSE PRACTITIONER 11/30/21 08/28/22 Lisa Ramírez [facility]- [address] [place] [address] PCP - General NURSE PRACTITIONER 08/29/22 09/01/22 Lisa Ramírez [facility]- [address] [place] [address] PCP - General NURSE PRACTITIONER 09/05/22 07/07/24 Leroy Meraz DO [address] [place] [address] PCP - General FAMILY PRACTICE 07/08/24 [place] [id number] [address] Surgeon SURGERY 11/03/23 documented as of this encounter
--- OUTSIDE RECORDS SUMMARY | 2024-12-17 12:04 | XMS_ITS | Encounter Summary ---
Author Organization [facility] Address [facility] [place] [address] Care Team Providers Care Net Lead Developer Name Role Phone Sherman Cartagena MD Primary Care Provider Angella Mary Guidry NP Primary Care Provider [phone] Lisa Ramírez [facility] Primary Care Provider + Lisa Ramírez [facility] Primary Care Provider + Jorje Ayala MD Unavailable Leroy Meraz DO Primary Care Provider + Encounter Details Date Type Department Care Team (Late st Contact Info) Description 06/04/2021 Ubimo Message Enc [facility] [address] [place] [address] [place] [address] [facility] [address] [place] [address] Follow Up/Update Social History Tobacco [...] Sex Assigned at Male 10/10/2024 12:08 PM ELECTRONIC WARFARE TECHNICIAN Legal Sex Male 5:44 PM CDT Gender Identity Male 11/11/2024 10:55 AM ELECTRONIC WARFARE TECHNICIAN Sexual Orientation Not on file COVID-19 [...] Assessment Author Status No 11/26/2020 1:38 PM ELECTRONIC WARFARE TECHNICIAN Activ e * RETIRED Are you blind or do you have serious difficulty seeing, even when wearing glasses? Answer Date of Assessment Author Status No 11/26/2020 1:38 PM ELECTRONIC WARFARE TECHNICIAN Activ e * Do you have serious difficulty walking or climbing stairs? Answer Date of Assessment Author Status Yes 11/26/2020 1:38 PM ELECTRONIC WARFARE TECHNICIAN Yoly Larson RN Active * Do you have difficulty dressing or bathing? Answer Date of Assessment Author Status Yes 11/26/2020 1:38 PM ELECTRONIC WARFARE TECHNICIAN Yoly Larson RN Active * Because of [...] Comment:Added from external Infection- [facility] Collection Source- Urine 2020 06/25/2024 MDR-MASSAGE COORDINATOR - Carbapenemase-Prod ucing Organisms Comment:Added from external infection. Source: [facility]. Collection Source-Urine 08/04/2021 COVID-19 Rule Out 09/28/2021 09/28/2021 10/05/2021 12:34 AM ELECTRONIC WARFARE TECHNICIAN COVID-19 Rule Out 03/23/2024 03/23/2024 03/23/2024 1:17 PM CDT Assessment Noted Time PHQ-9 Depression Total Score: 0 04/22/20 2:39 PM CDT documented as of this encounter Care Teams Net Lead Developer Relationship Specialty Start Date End Date Sherman Cartagena MD PCP - General FAMILY PRACTICE 08/25/20 11/29/21 Mary Marcus, ENVIRONMENTAL COMPLIANCE MANAGER [address] [place] [address] PCP - General NURSE PRACTITIONER 11/30/21 08/28/22 Lisa Ramírez FNP-BC [address] [place], [place] [address] PCP - General NURSE PRACTITIONER 08/29/22 09/01/22 Lisa Ramírez PATHOLOGY TEACHER-BC [address] [place], [place] [id number] PCP - General NURSE PRACTITIONER 09/05/22 07/07/24 Leroy Meraz DO [address] [place] [address] PCP - General FAMILY PRACTICE 07/08/24 [place] [address] [place] [address] [address] Surgeon SURGERY 11/03/23 documented as of this encounter
--- OUTSIDE RECORDS SUMMARY | 2024-12-17 12:04 | XMS_ITS | Encounter Summary ---
Author Organization [facility] Address [facility] [place] [address] Care Team Providers Care Kiln Operator Name Role Phone Sherman Cartagena MD Primary Care Provider Angella Mary Guidry NP Primary Care Provider [phone] Lisa Ramírez [facility] Primary Care Provider + Lisa Ramírez [facility] Primary Care Provider + Jorje Ayala MD Unavailable Leroy Meraz DO Primary Care Provider + Encounter Details Date Type Department Care Team (Late st Contact Info) Description 10/01/[address] [facility] [address] [place] [address] [place] [address] [place] [address] Social History Tobacco Use Types Packs/Day Years Used Date Smoking Tobacco: Never Smokeless Tobacco: Never Alcohol Use Standard Drinks/Week Comments Not Currently 0 (1 standard drink = 0.6 oz pur e alcohol) PHQ-2 Answer Date Recorded PHQ-2 Score 0 09/01/2020 Sex and Gender Information Value Date Recorded Sex Assigned at Male 10/10/2024 12:08 PM BUSINESS SYSTEMS TECHNICIAN Legal Sex Male 5:44 PM CDT Gender Identity Male 11/11/2024 10:55 AM BUSINESS SYSTEMS TECHNICIAN Sexual Orientation Not on file COVID-19 Exposure Response Date Recorded In the last month, have you been in contact with someone who was confirmed or suspected to have Coronavirus / COVID-19? No / Unsure 10/04/2020 12:29 PM BUSINESS SYSTEMS TECHNICIAN documented as of this encounter Functional Status * Question Answer Date of Assessment Author Status Do you have serious difficulty walking or climbing stairs? Yes 10/02/2020 3:45 PM BUSINESS SYSTEMS TECHNICIAN Yoly Larson RN A ctive * Question Answer Date of Assessment Author Status Do you have difficulty dressing or bathing? Yes 10/02/2020 3:45 PM BUSINESS SYSTEMS TECHNICIAN Yoly Larson R N Active Because of a physical, mental, or emotional condition, do you have difficulty doing errands alone such as visiting a doctor's office or shopping? No 10/02/2020 3:45 PM Yoly Isaac RN Act luz marina * RETIRED Are you deaf or do you have serious difficulty hearing Answer Date of Assessment Author Status No 09/04/2020 1:15 AM BUSINESS SYSTEMS TECHNICIAN Activ e * RETIRED Are you blind or do you have serious difficulty seeing, even when wearing glasses? Answer Date of Assessment Author Status No 09/04/2020 1:15 AM BUSINESS SYSTEMS TECHNICIAN Activ e * Do you have serious difficulty walking or climbing stairs? Answer Date of Assessment Author Status Yes 09/04/2020 1:15 AM Soledad Gage CA SE CONTENT PRODUCTION SPECIALIST Active * Do you have difficulty dressing or bathing? Answer Date of Assessment Author Status Yes 09/04/2020 1:15 AM Soledad Gage CA SE CONTENT PRODUCTION SPECIALIST Active * Because of a physical, mental, or emotional condition, do you have difficulty doing errands alone such as visiting a doctor's office or shopping? Answer Date of Assessment Author Status Yes 09/04/2020 1:15 AM Soledad Gage CA SE CONTENT PRODUCTION SPECIALIST Active documented as of this encounter Mental [...] Date Author Status No 09/04/2020 1:15 AM BUSINESS SYSTEMS TECHNICIAN Soledad Bryan CA SE CONTENT PRODUCTION SPECIALIST Active documented in this encounter Plan of [...] Rule Out 10/06/2020 10/06/2020 10/07/2020 11:13 AM BUSINESS SYSTEMS TECHNICIAN COVID-19 Rule Out 11/21/2020 11/21/2020 11/21/2020 6:39 PM BUSINESS SYSTEMS TECHNICIAN COVID-19 Rule Out 11/21/2020 11/21/2020 11/21/2020 7:35 PM BUSINESS SYSTEMS TECHNICIAN MDR Other Comment:Added from external Infection- [facility] Collection Source- Urine 2020 06/25/2024 MDR-GUEST SERVICES COORDINATOR - Carbapenemase-Prod ucing Organisms Comment:Added from external infection. Source: [facility]. Collection Source-Urine 08/04/2021 COVID-19 Rule Out 09/28/2021 09/28/2021 10/05/2021 12:34 AM BUSINESS SYSTEMS TECHNICIAN COVID-19 Rule Out 03/23/2024 03/23/2024 03/23/2024 1:17 PM CDT documented as of this encounter Care Teams Kiln Operator Relationship Specialty Start Date End Date Sherman Cartagena MD PCP - General FAMILY PRACTICE 08/25/20 11/29/21 Mary Marcus, SWATCH FOLDER [address] [place] [address] PCP - General NURSE PRACTITIONER 11/30/21 08/28/22 Lisa Ramírez, [facility] [address] [place] [address] PCP - General NURSE PRACTITIONER 08/29/22 09/01/22 iLsa Ramírez, [facility] [address] [place] [address] PCP - General NURSE PRACTITIONER 09/05/22 07/07/24 Leroy Meraz DO [address] [place] [address] PCP - General FAMILY PRACTICE 07/08/24 [place] [address] [id number] Surgeon SURGERY 11/03/23 documented as of this encounter
--- OUTSIDE RECORDS SUMMARY | 2024-12-17 12:04 | XMS_ITS | Encounter Summary ---
Author Organization [facility] Address [facility] [place] [address] Care Team Providers Care Bat Carrier Name Role Phone Sherman Cartagena MD Primary Care Provider Angella Mary Guidry NP Primary Care Provider [phone] Lisa Ramírez [facility] Primary Care Provider + Lisa Ramírez [facility] Primary Care Provider + Jorje Ayala MD Unavailable Leroy Meraz DO Primary Care Provider + Encounter Details Date Type Department Care Team (Late st Contact Info) Description 05/20/2021 [employer] Message [facility] [address] [place] [phone] Sherman Cartagena MD RE: Other Social [...] Sex Assigned at Male 10/10/2024 12:08 PM SALES CLERK Legal Sex Male 5:44 PM CDT Gender Identity Male 11/11/2024 10:55 AM SALES CLERK Sexual Orientation Not on file COVID-19 Exposure [...] Assessment Author Status No 11/26/2020 1:38 PM SALES CLERK Activ e * RETIRED Are you blind or do you have serious difficulty seeing, even when wearing glasses? Answer Date of Assessment Author Status No 11/26/2020 1:38 PM SALES CLERK Activ e * Do you have serious [...] Comment:Added from external Infection- [facility] Collection Source- Urine 2020 06/25/2024 MDR-HEAD OF GLOBAL STRATEGIC PARTNERSHIPS - Carbapenemase-Prod ucing Organisms Comment:Added from external infection. Source: [facility]. Collection Source-Urine 08/04/2021 COVID-19 Rule Out 09/28/2021 09/28/2021 10/05/2021 12:34 AM SALES CLERK COVID-19 Rule Out 03/23/2024 03/23/2024 03/23/2024 1:17 PM CDT Assessment Noted Time PHQ-9 Depression Total Score: 0 04/22/20 21 2:39 PM CDT documented as of this encounter Care Teams Bat Carrier Relationship Specialty Start Date End Date Sherman Cartagena MD PCP - General FAMILY PRACTICE 08/25/20 11/29/21 Mary Marcus NP [address] [place] [address] PCP - General NURSE PRACTITIONER 11/30/21 08/28/22 Lisa Ramírez FNP- [address] [place] [address] PCP - General NURSE PRACTITIONER 08/29/22 09/01/22 Lisa Ramírez, HONING MACHINE OPERATOR TOOL- [address] [place] [address] PCP - General NURSE PRACTITIONER 09/05/22 07/07/24 Leroy Meraz DO [address] [place] [id number] PCP - General FAMILY PRACTICE 07/08/24 [place] [address] [address] Surgeon SURGERY 11/03/23 documented as of this encounter
--- OUTSIDE RECORDS SUMMARY | 2024-12-17 12:04 | XMS_ITS | Encounter Summary ---
Author Organization [facility] Address [facility]6 [place] [address] Care Team Providers Care Director Search Marketing Strategies Name Role Phone Sherman Cartagena MD Primary Care Provider Angella Mary Guidry NP Primary Care Provider [phone] [facility] Primary Care Provider + Lisa Ramírez [facility] Primary Care Provider + Jorje Ayala MD Unavailable Leroy Meraz DO Primary Care Provider + Encounter Details Date Type Department Care Team (Late st Contact Info) Description 05/15/2021 [employer] Message [address] [address] Sherman Cartagena MD RE: Other [...] Sex Assigned at Male 10/10/2024 12:08 PM BLANKET BINDER Legal Sex Male 5:44 PM CDT Gender Identity Male 11/11/2024 10:55 AM BLANKET BINDER Sexual Orientation Not on file COVID-19 Exposure [...] Assessment Author Status No 11/26/2020 1:38 PM BLANKET BINDER Activ e * RETIRED Are you blind or do you have serious difficulty seeing, even when wearing glasses? Answer Date of Assessment Author Status No 11/26/2020 1:38 PM BLANKET BINDER Activ e * Do you have serious difficulty walking or climbing stairs? Answer Date of Assessment Author Status Yes 11/26/2020 1:38 PM BLANKET BINDER Yloy Larson RN Active * Do you have [...] I would have him ask his legal event sales representative to helphim in this regard. [...] 09/02/2024 MDR Other Comment:Added from external Infection- [facility] Health Collection Source- Urine 2020 06/25/2024 MDR-EXPERT MEDICAL WRITER - Carbapenemase-Prod ucing Organisms Comment:Added from external infection. Source: [facility] [employer]. Collection Source-Urine 08/04/2021 COVID-19 Rule Out 09/28/2021 09/28/2021 10/05/2021 12:34 AM BLANKET BINDER COVID-19 Rule Out 03/23/2024 03/23/2024 03/23/2024 1:17 PM CDT Assessment Noted Time PHQ-9 Depression Total Score: 0 04/22/20 21 2:39 PM CDT documented as of this encounter Care Teams Director Search Marketing Strategies Relationship Specialty Start Date End Date Sherman Cartagena MD PCP - General FAMILY PRACTICE 08/25/20 11/29/21 Mary Marcus NP [address] [place] [address] PCP - General NURSE PRACTITIONER 11/30/21 08/28/22 Lisa Ramírez, WARP SCOURING VAT TENDER- [address] [place] [address] PCP - General NURSE PRACTITIONER 08/29/22 09/01/22 Lisa Ramírez, [facility]- [address] [place] [address] PCP - General NURSE PRACTITIONER 09/05/22 07/07/24 Leroy Meraz DO [facility] [place] [address] PCP - General FAMILY PRACTICE 07/08/24 [place] [address] [address] Surgeon SURGERY 11/03/23 documented as of this encounter
--- OUTSIDE RECORDS SUMMARY | 2024-12-17 12:04 | XMS_ITS | Encounter Summary ---
Author Organization [facility] Address [facility] [place] [address] Care Team Providers Care Director Of Student Financial Aid Name Role Phone Lisa Ramírez [facility] Primary Care Provider + Jorje Ayala MD Unavailable Leroy Meraz DO Primary Care Provider + Encounter Details Date Type Department Care Team (Late st Contact Info) Description 02/24/2023 On Networks Message Enc [address] [address] [place], [facility] Provider arrival time Social History Tobacco Use Types Packs/Day Years Used Date Smoking Tobacco: Never Smokeless Tobacco: Never Alcohol Use Standard Drinks/Week Comments Not Currently 0 (1 standard drink = 0.6 oz pur e alcohol) PHQ-2 Answer Date Recorded Patient Health Questionnaire-2 Score 0 09/07/2022 Sex and Gender Information Value Date Recorded Sex Assigned at Male 10/10/2024 12:08 PM EXTRACORPOREAL TECHNICIAN Legal Sex Male 5:44 PM CDT Gender Identity Male 11/11/2024 10:55 AM EXTRACORPOREAL TECHNICIAN Sexual Orientation Not on file COVID-19 [...] 09/02/2024 MDR Other Comment:Added from external Infection- [facility] Health Collection Source- Urine 2020 06/25/2024 MDR-PEST CONTROL WORKER - Carbapenemase-Prod ucing Organisms Comment:Added from external infection. Source: [facility]. Collection Source-Urine 08/04/2021 COVID-19 Rule Out 03/23/2024 03/23/2024 03/23/2024 1:17 PM CDT Assessment Noted Time PHQ-9 Depression Total Score: 0 12/04/19 1:13 PM EXTRACORPOREAL TECHNICIAN documented as of this encounter Care Teams Director Of Student Financial Aid Relationship Specialty Start Date End Date Lisa Ramírez, LABOR DELIVERY RN- [address] [place] [address] PCP - General NURSE PRACTITIONER 09/05/22 07/07/24 Leroy Meraz DO [address] [place] [address] PCP - General FAMILY PRACTICE 07/08/24 [place] [address] [address] Surgeon SURGERY 11/03/23 documented as of this encounter
--- OUTSIDE RECORDS SUMMARY | 2024-12-17 12:04 | XMS_ITS | Encounter Summary ---
Author Organization [facility] Address [facility]6 [place] [address] Care Team Providers Care Lubrication Equipment Servicer Name Role Phone Lisa Ramírez [facility] Primary Care Provider + Jorje Ayala MD Unavailable Leroy Meraz DO Primary Care Provider + Encounter Details Date Type Department Care Team (Late st Contact Info) Description 03/23/2023 [employer] Message [facility] [address] [place] [address] Lisa Ramírez, [facility] [address] [place] [address] Potassium Social History Tobacco Use Types Packs/Day Years Used Date Smoking Tobacco: Never Smokeless Tobacco: Never Comments:never smoke Alcohol Use Standard Drinks/Week Comments Not Currently 0 (1 standard drink = 0.6 oz pur e alcohol) PHQ-2 Answer Date Recorded Patient Health Questionnaire-2 Score 0 03/09/2023 Sex and Gender Information Value Date Recorded Sex Assigned at Male 10/10/2024 12:08 PM OVEN DUMPER Legal Sex Male 5:44 PM CDT Gender Identity Male 11/11/2024 10:55 AM OVEN DUMPER Sexual Orientation Not on file COVID-19 Exposure [...] 09/02/2024 MDR Other Comment:Added from external Infection- [facility] Collection Source- Urine 2020 06/25/2024 MDR-TELEPRINTER INSTALLER - Carbapenemase-Prod ucing Organisms Comment:Added from external infection. Source: [facility] [employer]. Collection Source-Urine 08/04/2021 COVID-19 Rule Out 03/23/2024 03/23/2024 03/23/2024 1:17 PM CDT Assessment Noted Time PHQ-9 Depression Total Score: 0 12/04/19 1:13 PM OVEN DUMPER documented as of this encounter Care Teams Lubrication Equipment Servicer Relationship Specialty Start Date End Date iLsa Ramírez, WOVEN PAPER HAT MENDER- [address] [place] [address] PCP - General NURSE PRACTITIONER 09/05/22 07/07/24 Leroy Meraz DO [address] [place] [id number] PCP - General FAMILY PRACTICE 07/08/24 [place] [address] [address] Surgeon SURGERY 11/03/23 documented as of this encounter
--- OUTSIDE RECORDS SUMMARY | 2024-12-17 12:04 | XMS_ITS | Encounter Summary ---
Author Organization [facility] Address [facility]6 [place] [address] Care Team Providers Care Engineering Lecturer Name Role Phone Sherman Cartagena MD Primary Care Provider Angella Mary Guidry NP Primary Care Provider [phone] Lisa Ramírez [facility] Primary Care Provider + Lisa Ramírez [facility] Primary Care Provider + Jorje Ayala MD Unavailable Leroy Meraz DO Primary Care Provider + Encounter Details Date Type Department Care Team (Late st Contact Info) Description 06/04/2021 [employer] Message [address] [address] Sherman Cartagena MD Other Social [...] Sex Assigned at Male 10/10/2024 12:08 PM BAG SEWER Legal Sex Male 5:44 PM CDT Gender Identity Male 11/11/2024 10:55 AM BAG SEWER Sexual Orientation Not on file COVID-19 Exposure [...] Assessment Author Status No 11/26/2020 1:38 PM BAG SEWER Activ e * RETIRED Are you blind or do you have serious difficulty seeing, even when wearing glasses? Answer Date of Assessment Author Status No 11/26/2020 1:38 PM BAG SEWER Activ e * Do you have serious [...] 09/02/2024 MDR Other Comment:Added from external Infection- [facility] Health Collection Source- Urine 2020 06/25/2024 MDR-THOROUGHBRED HORSE FARM MANAGER - Carbapenemase-Prod ucing Organisms Comment:Added from external infection. Source: [facility] [employer]. Collection Source-Urine 08/04/2021 COVID-19 Rule Out 09/28/2021 09/28/2021 10/05/2021 12:34 AM BAG SEWER COVID-19 Rule Out 03/23/2024 03/23/2024 03/23/2024 1:17 PM CDT Assessment Noted Time PHQ-9 Depression Total Score: 0 04/22/20 21 2:39 PM CDT documented as of this encounter Care Teams Engineering Lecturer Relationship Specialty Start Date End Date Sherman Cartagena MD PCP - General FAMILY PRACTICE 08/25/20 11/29/21 Mary Marcus, DONTE [address] [place] [address] PCP - General NURSE PRACTITIONER 11/30/21 08/28/22 Lisa Ramírez FNP- [address] [place] [address] PCP - General NURSE PRACTITIONER 08/29/22 09/01/22 Lisa Ramírez CLEANING MAID- [address] [place] [address] PCP - General NURSE PRACTITIONER 09/05/22 07/07/24 Leroy Meraz DO [address] [place], [place] [id number] PCP - General FAMILY PRACTICE 07/08/24 [place] [address] [id number] Surgeon SURGERY 11/03/23 documented as of this encounter
--- OUTSIDE RECORDS SUMMARY | 2024-12-17 12:04 | XMS_ITS | Encounter Summary ---
Author Organization [facility] Address [facility] [place] [address] Care Team Providers Care Hospitality Housekeeper Name Role Phone Sherman Cartagena MD Primary Care Provider Angella Mary Guidry NP Primary Care Provider [phone] Lisa Ramírez [facility] Primary Care Provider + Lisa Ramírez [facility] Primary Care Provider + Jorje Ayala MD Unavailable Leroy Meraz DO Primary Care Provider + Encounter Details Date Type Department Care Team (Late st Contact Info) Description 05/15/2021 CSRt Message [address] [address] Sherman Cartagena MD RE: Other [...] Sex Assigned at Male 10/10/2024 12:08 PM INSEMINATOR Legal Sex Male 5:44 PM CDT Gender Identity Male 11/11/2024 10:55 AM INSEMINATOR Sexual Orientation Not on file COVID-19 Exposure [...] Assessment Author Status No 11/26/2020 1:38 PM INSEMINATOR Activ e * RETIRED Are you blind or do you have serious difficulty seeing, even when wearing glasses? Answer Date of Assessment Author Status No 11/26/2020 1:38 PM INSEMINATOR Activ e * Do you have serious [...] 09/02/2024 MDR Other Comment:Added from external Infection- [facility] [email or web address] Collection Source- Urine 2020 06/25/2024 MDR-POLICY SPECIALIST - Carbapenemase-Prod ucing Organisms Comment:Added from external infection. Source: [facility] [email or web address]. Collection Source-Urine 08/04/2021 COVID-19 Rule Out 09/28/2021 09/28/2021 10/05/2021 12:34 AM INSEMINATOR COVID-19 Rule Out 03/23/2024 03/23/2024 03/23/2024 1:17 PM CDT Assessment Noted Time PHQ-9 Depression Total Score: 0 04/22/20 2:39 PM CDT documented as of this encounter Care Teams Hospitality Housekeeper Relationship Specialty Start Date End Date Sherman Cartagena MD PCP - General FAMILY PRACTICE 08/25/20 11/29/21 Mary Marcus NP [address] [place] [address] PCP - General NURSE PRACTITIONER 11/30/21 08/28/22 Lisa Ramírez [facility] [address] [place] [address] PCP - General NURSE PRACTITIONER 08/29/22 09/01/22 Lisa Ramírez, CHEF TEACHER- [address] [place] [address] PCP - General NURSE PRACTITIONER 09/05/22 07/07/24 Leroy Meraz DO [address] [place] [address] PCP - General FAMILY PRACTICE 07/08/24 [place] [id number] [address] Surgeon SURGERY 11/03/23 documented as of this encounter
--- OUTSIDE RECORDS SUMMARY | 2024-12-17 12:04 | XMS_ITS | Encounter Summary ---
Author Organization [facility] Address [facility] [place] [address] Care Team Providers Care Voip Engineer Name Role Phone Sherman Cartagena MD Primary Care Provider Angella Mary Guidry NP Primary Care Provider [phone] [facility] Primary Care Provider + Lisa Ramírez [facility] Primary Care Provider + Jorje Ayala MD Unavailable Leroy Meraz DO Primary Care Provider + Encounter Details Date Type Department Care Team (Late st Contact Info) Description 06/01/2021 LucidMediat Message [address] [address] Sherman Cartagena MD RE: Other [...] Assigned at Male 10/10/2024 12:08 PM DIE MECHANIC Legal Sex Male 5:44 PM CDT Gender Identity Male 11/11/2024 10:55 AM DIE MECHANIC Sexual Orientation Not on file COVID-19 [...] Assessment Author Status No 11/26/2020 1:38 PM DIE MECHANIC Activ e * RETIRED Are you blind or do you have serious difficulty seeing, even when wearing glasses? Answer Date of Assessment Author Status No 11/26/2020 1:38 PM DIE MECHANIC Activ e * Do you have serious [...] 09/02/2024 MDR Other Comment:Added from external Infection- [facility] Health Collection Source- Urine 2020 06/25/2024 MDR-DIRECTOR OF STRATEGIC ALLIANCES - Carbapenemase-Prod ucing Organisms Comment:Added from external infection. Source: [facility] [employer] Collection Source-Urine 08/04/2021 COVID-19 Rule Out 09/28/2021 09/28/2021 10/05/2021 12:34 AM DIE MECHANIC COVID-19 Rule Out 03/23/2024 03/23/2024 03/23/2024 1:17 PM CDT Assessment Noted Time PHQ-9 Depression Total Score: 0 04/22/20 21 2:39 PM CDT documented as of this encounter Care Teams Voip Engineer Relationship Specialty Start Date End Date Sherman Cartagena MD PCP - General FAMILY PRACTICE 08/25/20 11/29/21 Mary Marcus, DIESEL LOCOMOTIVE ENGINEER [address] [place] [address] PCP - General NURSE PRACTITIONER 11/30/21 08/28/22 Lisa Ramírez FNP- [address] [place] [address] PCP - General NURSE PRACTITIONER 08/29/22 09/01/22 Lisa Ramírez FNP- [address] [place] [address] PCP - General NURSE PRACTITIONER 09/05/22 07/07/24 Leroy Meraz DO [facility] [place] [address] PCP - General FAMILY PRACTICE 07/08/24 [place] [address] [address] Surgeon SURGERY 11/03/23 documented as of this encounter
--- OUTSIDE RECORDS SUMMARY | 2024-12-17 12:04 | XMS_ITS | Encounter Summary ---
Author Organization [facility] Address [facility]6 [place] [address] Care Team Providers Care Airline Mechanic Name Role Phone Sherman Cartagena MD Primary Care Provider Angella Mary Guidry NP Primary Care Provider [phone] Lisa Ramírez [facility] Primary Care Provider + Lisa Ramírez [facility] Primary Care Provider + Jorje Ayala MD Unavailable Leroy Meraz DO Primary Care Provider + Encounter Details Date Type Department Care Team (Late st Contact Info) Description 08/03/2021 Vidlyt Message [facility] [address] [place] [address] Sherman Cartagena MD Other Social History [...] Sex Assigned at Male 10/10/2024 12:08 PM SCIENTIFIC INVESTIGATOR Legal Sex Male 5:44 PM CDT Gender Identity Male 11/11/2024 10:55 AM SCIENTIFIC INVESTIGATOR Sexual Orientation Not on file COVID-19 Exposure Response Date Recorded In the last month, have you been in contact with someone who was confirmed or suspected to have Coronavirus / COVID-19? No / Unsure 08/04/2021 8:26 AM SCIENTIFIC INVESTIGATOR documented as of this encounter Functional Status * RETIRED Are you deaf or do you have serious difficulty hearing Answer Date of Assessment Author Status No 11/26/2020 1:38 PM SCIENTIFIC INVESTIGATOR Activ e * RETIRED Are you blind or do you have serious difficulty seeing, even when wearing glasses? Answer Date of Assessment Author Status No 11/26/2020 1:38 PM SCIENTIFIC INVESTIGATOR Activ e * Do you have serious difficulty walking or climbing stairs? Answer Date of Assessment Author Status Yes 11/26/2020 1:38 PM SCIENTIFIC INVESTIGATOR Yoly Larson RN Active * Do you have difficulty dressing or bathing? Answer Date of Assessment Author Status Yes 11/26/2020 1:38 PM SCIENTIFIC INVESTIGATOR Yoly Larson RN Active * Because of a physical, mental, or emotional condition, do you have difficulty doing errands alone such as visiting a doctor's office or shopping? Answer Date of Assessment Author Status Yes 11/26/2020 1:38 PM SCIENTIFIC INVESTIGATOR Yoly Larson RN Active documented as of this encounter Mental Status * Because of a physical, mental, or emotional condition, do you have serious difficulty concentrating, remembering, or making decisions? Answer Entry Date Author Status No 11/26/2020 1:38 PM SCIENTIFIC INVESTIGATOR Yoly Larson RN Active documented in this encounter Progress Notes * Keny Jung MD - 08/04/2021 10:47 AM CST Contact the person he is talking about. I've never met him and would have nothing that I could tellher. Also send Dr. Cartagena letter in his chart to her . NTIFIC INVESTIGATOR * Keny Jung MD - 08/04/2021 8:08 AM CST Not sure I an answer this issue. Please see what the real issue is and send someone this letter of necessity he is talking about. NTIFIC INVESTIGATOR documented in this encounter Plan of Treatment [...] 09/02/2024 MDR Other Comment:Added from external Infection- [facility] [employer] Collection Source- Urine 2020 06/25/2024 MDR-SQUARING SHEAR OPERATOR - Carbapenemase-Prod ucing Organisms Comment:Added from external infection. Source: [facility] [employer] Collection Source-Urine 08/04/2021 COVID-19 Rule Out 09/28/2021 09/28/2021 10/05/2021 12:34 AM SCIENTIFIC INVESTIGATOR COVID-19 Rule Out 03/23/2024 03/23/2024 03/23/2024 1:17 PM CDT Assessment Noted Time PHQ-9 Depression Total Score: 0 04/22/20 21 2:39 PM CDT documented as of this encounter Care Teams Airline Mechanic Relationship Specialty Start Date End Date Sherman Cartagena MD PCP - General FAMILY PRACTICE 08/25/20 11/29/21 Mary Marcus, LINING VAMPER [address] [place] [address] PCP - General NURSE PRACTITIONER 11/30/21 08/28/22 Lisa Ramírez, [facility] [address] [place] [address] PCP - General NURSE PRACTITIONER 08/29/22 09/01/22 Lisa Ramírez, [facility] [address] [place] [address] PCP - General NURSE PRACTITIONER 09/05/22 07/07/24 Leroy Meraz DO [facility] [place] [address] PCP - General FAMILY PRACTICE 07/08/24 [place] [address] [address] Surgeon SURGERY 11/03/23 documented as of this encounter
--- OUTSIDE RECORDS SUMMARY | 2024-12-17 12:04 | XMS_ITS | Encounter Summary ---
Author Organization [facility] Address [address] [place] [address] Care Team Providers Care Wood Sash And Frame Carpenter Name Role Phone Mary Marcus NP Primary Care Provider [phone] Lisa Ramírez [facility] Primary Care Provider + Lisa Ramírez [facility] Primary Care Provider + Jorje Ayala MD Unavailable Leroy Meraz DO Primary Care Provider + Encounter Details Date Type Department Care Team (Late st Contact Info) Description 01/03/2022 [place] [address] [facility] [address] [place] [address] Mary Marcus IMPORTER OR EXPORTER [address] [place] [address] the antibiotics Social History Tobacco [...] Assigned at Male 10/10/2024 12:08 PM BUSINESS LAW INSTRUCTOR Legal Sex Male 5:44 PM CDT Gender Identity Male 11/11/2024 10:55 AM BUSINESS LAW INSTRUCTOR Sexual Orientation Not on file COVID-19 Exposure Response Date Recorded In the last 10 days, have yo sabi been in contact with someone who was confirmed or suspected to have Coronavirus/COVID-19? No / Unsure 01/05/2022 10:49 AM CDT documented as of this encounter Functional Status * RETIRED Are you deaf or do you have serious difficulty hearing Answer Date of Assessment Author Status No 11/26/2020 1:38 PM BUSINESS LAW INSTRUCTOR Activ e * RETIRED Are you blind or do you have serious difficulty seeing, even when wearing glasses? Answer Date of Assessment Author Status No 11/26/2020 1:38 PM BUSINESS LAW INSTRUCTOR Activ e * Do you have serious [...] MDR Other Comment:Added from external Infection- [facility] Collection Source- Urine 2020 06/25/2024 MDR-CLOTH GRADER SUPERVISOR - Carbapenemase-Prod ucing Organisms Comment:Added from external infection. Source: [facility]. Collection Source-Urine 08/04/2021 COVID-19 Rule Out 03/23/2024 03/23/2024 03/23/2024 1:17 PM CDT Assessment Noted Time PHQ-9 Depression Total Score: 0 12/04/19 1:13 PM BUSINESS LAW INSTRUCTOR documented as of this encounter Care Teams Wood Sash And Frame Carpenter Relationship Specialty Start Date End Date Mary Marcus, IMPORTER OR EXPORTER [address] [place] [address] PCP - General NURSE PRACTITIONER 11/30/21 08/28/22 Lisa Ramírez, [facility] [address] [place] [address] PCP - General NURSE PRACTITIONER 08/29/22 09/01/22 Lisa Ramírez, [facility] [address] [place] [address] PCP - General NURSE PRACTITIONER 09/05/22 07/07/24 Leroy Meraz DO [address] [place] [address] PCP - General FAMILY PRACTICE 07/08/24 [place] [address] [place] [address] Surgeon SURGERY 11/03/23 documented as of this encounter
--- OUTSIDE RECORDS SUMMARY | 2024-12-17 12:04 | XMS_ITS | Encounter Summary ---
Author Organization [facility] Address [facility] [place] [address] Care Team Providers Care Cardiovascular Surgeon Name Role Phone Mary Marcus NP Primary Care Provider [phone] Lisa Ramírez [facility] Primary Care Provider + Lisa Ramírez [facility] Primary Care Provider + Jorje [...] [facility] General [facility] [place] [address], [address] [place] [address] Phone: tel: fax: Referral ID Status Reason Start Date Expiration Date Visits Re quested Visits Authorized [id number] Closed 01/17/2022 02/16/2023 1 1 Encounter Details Date Type Department Care Team (Late st Contact Info) Description 01/17/2022 Prep for Procedure [facility] General [facility] - [place] [address], [address] [place] [address] [place] [address] [place] [address] Social History Tobacco Use Types Packs/Day Years [...] Sex Assigned at Male 10/10/2024 12:08 PM HOUSE DIRECTOR Legal Sex Male 5:44 PM CDT Gender Identity Male 11/11/2024 10:55 AM HOUSE DIRECTOR Sexual Orientation Not on file COVID-19 [...] 09/02/2024 MDR Other Comment:Added from external Infection- [facility] Health Collection Source- Urine 2020 06/25/2024 MDR-ELECTRICAL INSTALLATION INSPECTOR - Carbapenemase-Prod ucing Organisms Comment:Added from external infection. Source: [facility] [employer]. Collection Source-Urine 08/04/2021 COVID-19 Rule Out 03/23/2024 03/23/2024 03/23/2024 1:17 PM CDT Assessment Noted Time PHQ-9 Depression Total Score: 0 12/04/19 1:13 PM HOUSE DIRECTOR documented as of this encounter Care Teams Cardiovascular Surgeon Relationship Specialty Start Date End Date Mary Marcus, SENIOR ACCOUNTING ASSOCIATE [address] [place] [address] PCP - General NURSE PRACTITIONER 11/30/21 08/28/22 Lisa Ramírez [facility] [address] [place] [address] PCP - General NURSE PRACTITIONER 08/29/22 09/01/22 Lisa Ramírez [facility] [address] [place] [address] PCP - General NURSE PRACTITIONER 09/05/22 07/07/24 Leroy Meraz DO [address] [place] [address] PCP - General FAMILY PRACTICE 07/08/24 [place] [address] [address] Surgeon SURGERY 11/03/23 documented as of this encounter
--- OUTSIDE RECORDS SUMMARY | 2024-12-17 12:04 | XMS_ITS | Encounter Summary ---
Author Organization [facility] Address Critical access hospital[address] [place] [address] Care Team Providers Care Gusset Stitcher Name Role Phone Lisa Ramírez [facility] Primary Care Provider + Jorje Ayala MD Unavailable Leroy Meraz DO Primary Care Provider + Encounter Details Date Type Department Care Team (Late st Contact Info) Description 03/02/2023 Prep for Procedure [facility] [address] [place], [place] [id number] Jermain Fuentes MD [address] [facility] [address] [place] [address] Social History Tobacco Use Types Packs/Day Years Used Date Smoking Tobacco: Never Smokeless Tobacco: Never Alcohol Use Standard Drinks/Week Comments Not Currently 0 (1 standard drink = 0.6 oz pur e alcohol) PHQ-2 Answer Date Recorded Patient Health Questionnaire-2 Score 0 09/07/2022 Sex and Gender Information Value Date Recorded Sex Assigned at Male 10/10/2024 12:08 PM TUBULAR RIVETER Legal Sex Male 5:44 PM CDT Gender Identity Male 11/11/2024 10:55 AM TUBULAR RIVETER Sexual Orientation Not on file COVID-19 Exposure [...] 09/02/2024 MDR Other Comment:Added from external Infection- [facility] Health Collection Source- Urine 2020 06/25/2024 MDR-SEAT COVER MAKER - Carbapenemase-Prod ucing Organisms Comment:Added from external infection. Source: [facility]. Collection Source-Urine 08/04/2021 COVID-19 Rule Out 03/23/2024 03/23/2024 03/23/2024 1:17 PM CDT Assessment Noted Time PHQ-9 Depression Total Score: 0 12/04/19 1:13 PM TUBULAR RIVETER documented as of this encounter Care Teams Gusset Stitcher Relationship Specialty Start Date End Date Lisa Ramírez, NEERAJ- [address] [place] [address] PCP - General NURSE PRACTITIONER 09/05/22 07/07/24 Leroy Merza DO [address] [place] [address] PCP - General FAMILY PRACTICE 07/08/24 [place] [address] [address] Surgeon SURGERY 11/03/23 documented as of this encounter
--- OUTSIDE RECORDS SUMMARY | 2024-12-17 12:04 | XMS_ITS | Encounter Summary ---
Author Organization [facility] Address Critical access hospital6 [place] [address] Care Team Providers Care Title Clerk Name Role Phone Lisa Ramírez [facility] Primary Care Provider + Jorje Ayala MD Unavailable Leroy Meraz DO Primary Care Provider + Encounter Details Date Type Department Care Team (Late st Contact Info) Description 03/02/2023 Therapy Plan [facility] [address] [place] [address] Jermain Fuentes MD 3 [facility] [address] [place] [address] Social History Tobacco Use Types Packs/Day Years Used Date Smoking Tobacco: Never Smokeless Tobacco: Never Alcohol Use Standard Drinks/Week Comments Not Currently 0 (1 standard drink = 0.6 oz pur e alcohol) PHQ-2 Answer Date Recorded Patient Health Questionnaire-2 Score 0 09/07/2022 Sex and Gender Information Value Date Recorded Sex Assigned at Male 10/10/2024 12:08 PM DYE WINCH OPERATOR Legal Sex Male 5:44 PM CDT Gender Identity Male 11/11/2024 10:55 AM DYE WINCH OPERATOR Sexual Orientation Not on file COVID-19 [...] the need for SNF placement General Emilia Marical RN Note: Pt will actively be involved in safe discharge destination plan. documented as of this encounter Visit Diagnoses Diagnosis Neurogenic bladder- Primary Neurogenic bladder, NOS Suprapubic catheter (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) documented in this encounter Additional Health Concerns [...] MDR Other Comment:Added from external Infection- [facility] Health Collection Source- Urine 2020 06/25/2024 MDR-BIG DATA ENGINEER - Carbapenemase-Prod ucing Organisms Comment:Added from external infection. Source: [facility]. Collection Source-Urine 08/04/2021 COVID-19 Rule Out 03/23/2024 03/23/2024 03/23/2024 1:17 PM CDT Assessment Noted Time PHQ-9 Depression Total Score: 0 12/04/19 1:13 PM DYE WINCH OPERATOR documented as of this encounter Care Teams Title Clerk Relationship Specialty Start Date End Date Lisa Ramírez, BOILING HOUSE HAND- [address] [place] [address] PCP - General NURSE PRACTITIONER 09/05/22 07/07/24 Leroy Meraz DO [address] [place] [address] PCP - General FAMILY PRACTICE 07/08/24 [place] [address] [address] Surgeon SURGERY 11/03/23 documented as of this encounter
--- OUTSIDE RECORDS SUMMARY | 2024-12-17 12:04 | XMS_ITS | Encounter Summary ---
Author Organization [facility] Address [facility]6 [place] [address] Care Team Providers Care Network Security Architect Name Role Phone Sherman Cartagena MD Primary Care Provider Angella Mary Guidry NP Primary Care Provider [phone] Lisa Ramírez [facility] Primary Care Provider + Lisa Ramírez [facility] Primary Care Provider + Jorje Ayala MD Unavailable Leroy Meraz DO Primary Care Provider + Encounter Details Date Type Department Care Team (Late st Contact Info) Description 10/08/2021 Treatert Message [facility] [address] [place] [address] Sherman Cartagena MD Pneumonia shot Social [...] Assigned at Male 10/10/2024 12:08 PM SALES AUDIT CLERK Legal Sex Male 5:44 PM CDT Gender Identity Male 11/11/2024 10:55 AM SALES AUDIT CLERK Sexual Orientation Not on file COVID-19 Exposure Response Date Recorded In the last month, have you been in contact with someone who was confirmed or suspected to have Coronavirus / COVID-19? No / Unsure 10/11/2021 10:23 AM SALES AUDIT CLERK documented as of this encounter Functional Status * RETIRED Are you deaf or do you have serious difficulty hearing Answer Date of Assessment Author Status No 11/26/2020 1:38 PM SALES AUDIT CLERK Activ e * RETIRED Are you blind or do you have serious difficulty seeing, even when wearing glasses? Answer Date of Assessment Author Status No 11/26/2020 1:38 PM SALES AUDIT CLERK Activ e * Do you have serious difficulty walking or climbing stairs? Answer Date of Assessment Author Status Yes 11/26/2020 1:38 PM SALES AUDIT CLERK Yoly Larson RN Active * Do you have difficulty dressing or bathing? Answer Date of Assessment Author Status Yes 11/26/2020 1:38 PM SALES AUDIT CLERK Yoly Larson RN Active * Because of a physical, mental, or emotional condition, do you have difficulty doing errands alone such as visiting a doctor's office or shopping? Answer Date of Assessment Author Status Yes 11/26/2020 1:38 PM SALES AUDIT CLERK Yoly Larson RN Active documented as of this encounter Mental Status * Because of a physical, mental, or emotional condition, do you have serious difficulty concentrating, remembering, or making decisions? Answer Entry Date Author Status No 11/26/2020 1:38 PM SALES AUDIT CLERK Yoly Larson RN Active documented in this encounter Progress Notes * Emilia Peralta RN - 10/08/2021 11:49 AM CST Spoke with patient who states he already got Flu, Covid booster, and pneumonia pneumovax. S AUDIT CLERK documented in this encounter Plan of Treatment [...] MDR Other Comment:Added from external Infection- [facility] [email or web address] Collection Source- Urine 2020 06/25/2024 MDR-GEOTECHNICAL ENGINEER - Carbapenemase-Prod ucing Organisms Comment:Added from external infection. Source: [facility] [email or web address]. Collection Source-Urine 08/04/2021 COVID-19 Rule Out 03/23/2024 03/23/2024 03/23/2024 1:17 PM CDT Assessment Noted Time PHQ-9 Depression Total Score: 0 04/22/20 2:39 PM CDT documented as of this encounter Care Teams Network Security Architect Relationship Specialty Start Date End Date Sherman Cartagena MD PCP - General FAMILY PRACTICE 08/25/20 11/29/21 Mary Marcus DIRECTOR [facility] [address] [place] [address] PCP - General NURSE PRACTITIONER 11/30/21 08/28/22 Lisa Ramírez FNP- [address] [place] [address] PCP - General NURSE PRACTITIONER 08/29/22 09/01/22 Lisa Ramírez, LOC[employer] COMPANY REFRIGERATED TRUCK DRIVER- [address] [place] [address] PCP - General NURSE PRACTITIONER 09/05/22 07/07/24 Leroy Meraz DO [address] [place] [address] PCP - General FAMILY PRACTICE 07/08/24 [place] [address] [address] Surgeon SURGERY 11/03/23 documented as of this encounter
--- OUTSIDE RECORDS SUMMARY | 2024-12-17 12:04 | XMS_ITS | Encounter Summary ---
Author Organization [facility] Address Formerly [facility] [place] [address] Care Team Providers Care Concrete Laborer Name Role Phone Sherman Cartagena MD Primary Care Provider Angella Mary Guidry NP Primary Care Provider [phone] Lisa Ramírez [facility] Primary Care Provider + Lisa Ramírez [facility] Primary Care Provider + Jorje Ayala MD Unavailable Leroy Meraz DO Primary Care Provider + Encounter Details Date Type Department Care Team (Late st Contact Info) Description 08/03/2021 [facility] Message [facility] [address] [place] [id number] Sherman Cartagena MD Other Social History [...] Sex Assigned at Male 10/10/2024 12:08 PM PRODUCT ENGINEERING MANAGER Legal Sex Male 5:44 PM CDT Gender Identity Male 11/11/2024 10:55 AM PRODUCT ENGINEERING MANAGER Sexual Orientation Not on file COVID-19 Exposure Response Date Recorded In the last month, have you been in contact with someone who was confirmed or suspected to have Coronavirus / COVID-19? No / Unsure 08/04/2021 8:26 AM PRODUCT ENGINEERING MANAGER documented as of this encounter Functional Status * RETIRED Are you deaf or do you have serious difficulty hearing Answer Date of Assessment Author Status No 11/26/2020 1:38 PM PRODUCT ENGINEERING MANAGER Activ e * RETIRED Are you blind or do you have serious difficulty seeing, even when wearing glasses? Answer Date of Assessment Author Status No 11/26/2020 1:38 PM PRODUCT ENGINEERING MANAGER Activ e * Do you have serious difficulty walking or climbing stairs? Answer Date of Assessment Author Status Yes 11/26/2020 1:38 PM Yoly Isaac RN Active * Do you have difficulty dressing or bathing? Answer Date of Assessment Author Status Yes 11/26/2020 1:38 PM Yoly Isaca RN Active * Because of a physical, [...] 09/02/2024 MDR Other Comment:Added from external Infection- [facility] Health Collection Source- Urine 2020 06/25/2024 MDR-SHINGLES ROOFER HELPER - Carbapenemase-Prod ucing Organisms Comment:Added from external infection. Source: [facility]. Collection Source-Urine 08/04/2021 COVID-19 Rule Out 09/28/2021 09/28/2021 10/05/2021 12:34 AM PRODUCT ENGINEERING MANAGER COVID-19 Rule Out 03/23/2024 03/23/2024 03/23/2024 1:17 PM CDT Assessment Noted Time PHQ-9 Depression Total Score: 0 04/22/20 21 2:39 PM CDT documented as of this encounter Care Teams Concrete Laborer Relationship Specialty Start Date End Date Sherman Cartagena MD PCP - General FAMILY PRACTICE 08/25/20 11/29/21 Mary Marcus NP [address] [place] [address] PCP - General NURSE PRACTITIONER 11/30/21 08/28/22 Lisa Ramírez [facility] [address] [place] [address] PCP - General NURSE PRACTITIONER 08/29/22 09/01/22 Lisa Ram[facility]rez [facility] [address] [place] [address] PCP - General NURSE PRACTITIONER 09/05/22 07/07/24 Leroy Meraz DO [address] [place] [address] PCP - General FAMILY PRACTICE 07/08/24 [place] [id number] [address] Surgeon SURGERY 11/03/23 documented as of this encounter
--- OUTSIDE RECORDS SUMMARY | 2024-12-17 12:04 | XMS_ITS | Encounter Summary ---
Author Organization [facility] Address [facility] [place] [address] Care Team Providers Care Mortgage Assistant Name Role Phone Lisa Ramírez [facility] Primary Care Provider + Jorje Ayala MD Unavailable Leroy Meraz DO Primary Care Provider + Encounter Details Date Type Department Care Team (Late st Contact Info) Description 09/29/2022 [place] Message [facility] [address] [place] [phone] [facility], [facility] Provider Braces Social History Tobacco Use Types Packs/Day Years Used Date Smoking Tobacco: Never Smokeless Tobacco: Never Alcohol Use Standard Drinks/Week Comments Not Currently 0 (1 standard drink = 0.6 oz pur e alcohol) PHQ-2 Answer Date Recorded Patient Health Questionnaire-2 Score 0 09/07/2022 Sex and Gender Information Value Date Recorded Sex Assigned at Male 10/10/2024 12:08 PM MEDICAL ACCOUNTS RECEIVABLE SPECIALIST Legal Sex Male 5:44 PM CDT Gender Identity Male 11/11/2024 10:55 AM MEDICAL ACCOUNTS RECEIVABLE SPECIALIST Sexual Orientation Not on file COVID-19 Exposure Response Date Recorded In the last 10 days, have yo u been in contact with someone who was confirmed or suspected to have Coronavirus/COVID-19? No / Unsure 09/28/2022 11:02 AM MEDICAL ACCOUNTS RECEIVABLE SPECIALIST documented as of this encounter Functional [...] MDR Other Comment:Added from external Infection- [facility] Health Collection Source- Urine 2020 06/25/2024 MDR-BOX INSPECTOR - Carbapenemase-Prod ucing Organisms Comment:Added from external infection. Source: [facility]. Collection Source-Urine 08/04/2021 COVID-19 Rule Out 03/23/2024 03/23/2024 03/23/2024 1:17 PM CDT Assessment Noted Time PHQ-9 Depression Total Score: 0 12/04/19 1:13 PM MEDICAL ACCOUNTS RECEIVABLE SPECIALIST documented as of this encounter Care Teams Mortgage Assistant Relationship Specialty Start Date End Date Lisa Ramírez, [employer]- [address] [place] [address] PCP - General NURSE PRACTITIONER 09/05/22 07/07/24 Leroy Meraz DO [address] [place] [id number] PCP - General FAMILY PRACTICE 07/08/24 [place] [address] [address] Surgeon SURGERY 11/03/23 documented as of this encounter
[2024-12-17 12:16] LABS: Add Urine Microscopic? YES; Appearance Urine Turbid (Clear); Bacteria Urine 2+ /hpf; Bilirubin Urine Negative (Negative); Blood Urine 3+ (Negative); Color Urine Yellow (Yellow); Glucose Urine UA Negative (Negative); Ketones Urine Negative (Negative); Leukocyte Esterase Ur 3+ LEU/UL (Negative); Mucus Urine Present /lpf; Need Manual Microscopic Reviewed; Nitrate Urine Negative (Negative); Non Pathogenic Casts >20; Protein Urine 2+ mg/dL (Negative); RBC Urine 51-100 /hpf (0-2); Specific Grav Ur 1.015 (1.001-1.035); Squamous Epithelial Cell Urine Occasional /hpf (Few); Urobilinogen Urine 0.2 mg/dL (<2.0); WBC Urine >100 /hpf (0-3)
[2024-12-17 12:30] VITALS: BP 150/84; PULSE 80; RESP 18; TEMP 36.6; O2SAT 99
== END 2024-12-17 12:12 | disposition home or self-care (01) ==
PROVIDERS: Emergency Provider Student in an Organized Health Care Education/Training Program; PCP Student in an Organized Health Care Education/Training Program
DX: Z43.5 Encounter for attention to cystostomy (principal); Z46.6 Encounter for fitting and adjustment of urinary device; G82.20 Paraplegia, unspecified; S24.103S Unspecified injury at T7-T10 level of thoracic spinal cord, sequela; Z99.3 Dependence on wheelchair; X58.XXXS Exposure to other specified factors, sequela
CPT/HCPCS: 51705; 81001; 87077; 87086; 87186; 99283

== ENCOUNTER 2025-01-15 08:39 | Emergency (ER) | payer MEDICARE, MEDICAID, SELFPAY ==
--- OUTSIDE RECORDS SUMMARY | 2025-01-15 09:04 | XMS_ITS | Clinical Summary ---
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 This disclosure is being madepursuant to the Care Everywhere program and may not contain all information available regarding this patient. Last updated 18.[facility]Activa Allergies Active Allergy Reactions Criticality Noted Date Comments Diphenhydramine Unknown 12/25/2020 Ciprofloxacin Itching 06/13/2022 Diazepam Unknown 12/25/2020 Zinc Unknown 12/25/2020 Medications * Be aware that medications may not be up to date on this document. Alwaysverify current medications with the patient. ferrous sulfate 325 (65 FE) MG tablet Take 1 (one) tablet by mouth 2 times daily Active Potassium 99 MG tablet Take 1 (one) tablet by mouth every evening Active multivitamin daily tablet Take 1 (one) tablet by mouth daily with food Active amLODIPine (NORVASC) 5 MG tablet Take 1 (one) tablet by mouth once daily 1 Active metoprolol succinate XL 24hr (TOPROL XL) 25 MG tablet Take 2 (two) tablets by mouth once daily 1 Active fluocinonide (Lidex) 0.05 % cream Use as directed 3 Active lactulose (Chronulac) 10 GM/15ML solution TAKE 15 ML BY MOUTH ONCE DAILY NEEDED FOR CONSTIPATION 3 Active biotin 300 MCG tablet Take 1 (one) tablet by mouth at bedtime 2 Active Active Problems Problem Noted Date Diagnosed [...] you are drinking? Patient does not drink 3 Q3: How often do you have si x or more drinks on one occasion? 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 Gender Identity Not on file Sexual Orientation [...] 2023-2 5 season) 2024 10/08/2021, 11/16/2020, 10/26/2020 DEPRESSION SCREENING 09/25/2024 MEDICARE AWV CALENDAR YEAR 2024 INFLUENZA VACCINE (Season Ended) 2025 08/23/2022, 10/08/2021 HIB VACCINE Aged Out No longer eligi [...] cath site 08/24/21; Urine 10/07/22; 08/24/2021 10/07/2022 Insurance [place] - [place] [facility] MANAGED MEDICARE ADV [facility] MANAGED MEDICARE ADV MEDICAID - OUT OF STATE Advance Directives * Full Code (Latest Code Status on File) Date Activated Date Inactivated Comments 12/26/2020 4:22 AM 12/27/2020 2:[address] 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
--- OUTSIDE RECORDS SUMMARY | 2025-01-15 09:05 | XMS_ITS | Data Portability ---
Author Organization [facility] Address [address] [place] [address] Assessment No assessment recorded. Plan of Treatment Reminders Order Date Submit Date Provider Last Modified By Organization Details Last Modified Time Details Appointments None recorded. Lab unlisted lab - urinalysis w/reflex urine cult 2023 024 atatema Teofilo [facility] (Lab), [address] [place], [address], 13:04:47 Referral None recorded. Procedures None recorded. Surgeries None recorded. Imaging None recorded. Medication Orders None recorded. Patient TargetsNo targets recorded. Patient Instructions Encounter Date Encounter Id Patient Instructions Last Modified By Organization Details Last Modified Time 03/06/2024 [id number] dvais catheter change* [email or web address] Not available 03/19/2024 10:06:06 09/11/2024 [id number] urinary retention: care instructions Not available 09/11/2024 13:00:07 10/11/2024 [id number] spinal cord injury (paraplegic): care instructions Not available 10/11/2024 13:54:26 Reason for Referral None Reported. Results Created Date Observation Date Name Description Value Unit Range Abnormal Flag Note LastModifiedBy Organization Detail LastModifiedTime 03/06/20 24 03/06/2024 URINA LYSIS AND MICRO SCOPI C color urine YELLOW yellow normal Not Available Deepali bueno [facility] (Lab) [address] [place], [address], 03/06/2024 18:14:56 03/06/20 24 03/06/2024 URINA LYSIS AND MICRO SCOPI C appearance urine SL CLOUDY clear abnormal Not Available Teofilo [facility] (Lab) [address] [place], [address], 03/06/2024 18:14:56 03/06/20 24 03/06/2024 URINA LYSIS AND MICRO SCOPI C pH urine 6.0 5.0 - 7.0 normal Not Available [facility] (Lab) [address] [place], [address], 03/06/2024 18:14:56 03/06/20 24 03/06/2024 URINA LYSIS AND MICRO SCOPI C specific gravity urine 1.020 1.005- 1.030 normal Not Available [facility] (Lab) [address] [place], [address], 03/06/2024 18:14:56 03/06/20 24 03/06/2024 URINA LYSIS AND MICRO SCOPI C protein urine 30 mg/dL neg/tr sky abnormal Not Available [facility] (Lab) [address] [place], [address], 03/06/2024 18:14:56 03/06/20 24 03/06/2024 URINA LYSIS AND MICRO SCOPI C glucose urine UA NEGATI VE mg/dL negati ve normal Not Available [facility] (Lab) [address] [place], [address], 03/06/2024 18:14:56 03/06/20 24 03/06/2024 URINA LYSIS AND MICRO SCOPI C ketones urine NEGATI VE negati ve normal Not Available [facility] (Lab) [address] [place], [address], 03/06/2024 18:14:56 03/06/20 24 03/06/2024 URINA LYSIS AND MICRO SCOPI C occult blood urine MODERA TE tiana/u L negati ve abnormal Not Available [facility] (Lab) [address] [place], [address], 03/06/2024 18:14:56 03/06/20 24 03/06/2024 URINA LYSIS AND MICRO SCOPI C nitrite urine POSITI VE negati ve abnormal Not Available [facility] (Lab) [address], [place], [address], 03/06/2024 18:14:56 03/06/20 24 03/06/2024 URINA LYSIS AND MICRO SCOPI C bilirubin urine NEGATI VE negati ve normal Not Available [facility] (Lab) [address] [facility], [place], [address], 03/06/2024 18:14:56 03/06/20 24 03/06/2024 URINA LYSIS AND MICRO SCOPI C urobilinogen urine 0.2 eu/dL 0.2 - 1.0 normal Not Available [facility] (Lab) [address] [facility], [place], [address], 03/06/2024 18:14:56 03/06/20 24 03/06/2024 URINA LYSIS AND MICRO SCOPI C leukocyte esterase urine LARGE negati ve abnormal Not Available [facility] (Lab) [address] [facility], [place], [address], 03/06/2024 18:14:56 03/06/20 24 03/06/2024 URINA LYSIS AND MICRO SCOPI C RBC urine 0-2 /hpf 0-2 normal Not Available [facility] (Lab) [address] [facility], [place], [address], 03/06/2024 18:14:56 03/06/20 24 03/06/2024 URINA LYSIS AND MICRO SCOPI C WBC urine >50 /hpf 0-5 abnormal Not Available [place] [facility] (Lab) [address] [facility], [place], [address], 03/06/2024 18:14:56 03/06/20 24 03/06/2024 URINA LYSIS AND MICRO SCOPI C WBC clumps urine FEW /hpf not estb. Not Available [facility] (Lab) [address] [facility], [place], [address], 03/06/2024 18:14:56 03/06/20 24 03/06/2024 URINA LYSIS AND MICRO SCOPI C squamous epithelial cell urine OCCASI ONAL not estb. Not Available [facility] (Lab) [address] [place], [address], 03/06/2024 18:14:56 03/06/20 24 03/06/2024 URINA LYSIS AND MICRO SCOPI C bacteria urine 1+ none/t race abnormal Not Available [facility] (Lab) [address] [facility], [place], [address], 03/06/2024 18:14:56 03/06/20 24 03/06/2024 URINA LYSIS AND MICRO SCOPI C urine culture indicated? Yes Not Available [facility] (Lab) [address] [facility], [place], [address], 03/06/2024 18:14:56 03/06/20 24 03/12/2024 URINE CULTU RE, ROUTI NE urine culture, routine Great er than 2 organ isms recov ered, none predo minan t. Pleas e submi t anoth er sampl e if clini hasmukh indic ated. Great er than 100,0 00 colon y formi ng units per mL Not appli cable Perfo [place]med at: 01 - [place] [address] Lab Direc tor: Oscar alcala PhD, Phone : [phone] Not Available [facility] (Lab) [address] [facility], [place], [address], 03/12/2024 13:14:56 08/07/20 24 08/07/2024 Basic metab olic 2000 panel - Serum or Plasm a glucose [mass/volume ] in serum or plasma 102 text: 70 - 99 mg/dL high GLUCO SE 102 (H) 70 - 99 MG/DL 08/07 11:02 AM TELEGRAPHIC TYPEWRITER MECHANIC [facility] Not Available Not Available 11/07/2024 15:43:05 08/07/20 24 08/07/2024 Basic metab olic 2000 panel - Serum or Plasm a urea nitrogen [mass/volume ] in serum or plasma 31 text: 7 - 18 mg/dL high BUN 31 (H) 7 - 18 MG/DL 08/07 11:02 AM TELEGRAPHIC TYPEWRITER MECHANIC [facility] Not Available Not Available 11/07/2024 15:43:05 08/07/20 24 08/07/2024 Basic metab olic 2000 panel - Serum or Plasm a creatinine [mass/volume ] in serum or plasma 0.83 text: 0.7 - 1.3 mg/dL CREAT ININE S/P/B 0.83 0.7 - 1.3 MG/DL 08/07 11:02 AM TELEGRAPHIC TYPEWRITER MECHANIC [facility] Not Available Not Available 11/07/2024 15:43:05 08/07/20 24 08/07/2024 Basic metab olic 2000 panel - Serum or Plasm a sodium [moles/volum e] in serum or plasma 141 text: 136 - 145 mmol/L SODIU M S/P/B 141 136 - 145 MMOL/ L 08/07 11:02 AM TELEGRAPHIC TYPEWRITER MECHANIC [facility] Not Available Not Available 11/07/2024 15:43:05 08/07/20 24 08/07/2024 Basic metab olic 2000 panel - Serum or Plasm a potassium [moles/volum e] in serum or plasma 3.5 text: 3.5 - 5.1 mmol/L POTAS SIUM S/P/B 3.5 3.5 - 5.1 MMOL/ L 08/07 11:02 AM TELEGRAPHIC TYPEWRITER MECHANIC [facility] Not Available Not Available 11/07/2024 15:43:05 08/07/20 24 08/07/2024 Basic metab olic 2000 panel - Serum or Plasm a chloride [moles/volum e] in serum or plasma 105 text: 100 - 108 mmol/L CHLOR GUILLE S/P/B 105 100 - 108 MMOL/ L 08/07 11:02 AM TELEGRAPHIC TYPEWRITER MECHANIC [facility] Not Available Not Available 11/07/2024 15:43:05 08/07/20 24 08/07/2024 Basic metab olic 1999 panel - Serum or Plasm a carbon dioxide, total [moles/volum e] in serum or plasma 28.2 text: 21 - 32 mmol/L CO2 28.2 21 - 32 MMOL/ L 08/07 11:02 AM TELEGRAPHIC TYPEWRITER MECHANIC [facility] Not Available Not Available 11/07/2024 15:43:05 08/07/20 24 08/07/2024 Basic metab olic 1999 panel - Serum or Plasm a calcium [mass/volume ] in serum or plasma 9.3 text: 8.5 - 10.1 mg/dL CALCI UM S/P/B 9.3 8.5 - 10.1 MG/DL 08/07 11:02 AM [facility] Not Available Not Available 11/07/2024 15:43:05 08/07/20 24 08/07/2024 Basic metab olic 2000 panel - Serum or Plasm a anion gap in serum or plasma 7.8 text: 5 - 15 mmol/L ANION GAP 7.8 5 - 15 MMOL/ L 08/07 11:02 AM [facility] Not Available Not Available 11/07/2024 15:43:05 08/07/20 24 08/07/2024 Basic metab olic 2000 panel - Serum or Plasm a urea nitrogen/cre atinine [mass ratio] in serum or plasma 37.3 low: 6high: 26 high BUN CREAT ININE RATIO 37.3 (H) 6 - 26 08/07 11:02 AM TELEGRAPHIC TYPEWRITER MECHANIC [facility] Not Available Not Available 11/07/2024 15:43:05 08/07/20 24 08/07/2024 Basic metab olic 2000 panel - Serum or Plasm a glomerular filtration rate/1.73 sq M.predicted [volume rate/area] in serum, plasma or blood by creatinine-b ased formula (CKD-epi 2020) text: >90 mL/min /1.73 M2 GFR ESTIM ATE >90 >90 ML/SC N/1.7 3 M2 08/07 11:02 AM TELEGRAPHIC TYPEWRITER MECHANIC [facility] Not [...] IPTIO N HEEL, RIGHT 09/02 11:42 AM [facility] Not Available Not Available 11/07/2024 15:43:05 09/02/20 24 09/04/2024 Bacte sarah ident ified in Wound by Aerob e cultu re service comment NO SPECIA L REQUES T SPECI AL REQUE STS NO SPECI AL REQUE ST 09/02 11:42 AM TELEGRAPHIC TYPEWRITER MECHANIC [facility] Not Available Not Available 11/07/2024 15:43:05 09/02/20 24 09/04/2024 Bacte sarah ident ified in Wound by Aerob e cultu re microscopic observation [identifier] in specimen by gram stain MANY WHITE BLOOD CELLS SEEN GRAM STAIN RESUL T MANY WHITE BLOOD CELLS SEEN 09/03 10:46 AM [facility] Not Available Not Available 11/07/2024 15:43:05 09/02/20 24 09/04/2024 Bacte sarha ident ified in Wound by Aerob e cultu re microscopic observation [identifier] in specimen by gram stain FEW EPITHE LIAL CELLS SEEN GRAM STAIN RESUL T FEW EPITH ELIAL CELLS SEEN 09/03 10:46 AM TELEGRAPHIC TYPEWRITER MECHANIC [facility] Not Available Not Available 11/07/2024 15:43:05 09/02/20 24 09/04/2024 Bacte sarah ident ified in Wound by Aerob e cultu re microscopic observation [identifier] in specimen by gram stain FEW GRAM POSITI VE COCCI GRAM STAIN RESUL T FEW GRAM POSIT TRACEY COCCI 09/03 10:46 AM [facility] Not Available Not Available 11/07/2024 15:43:05 09/02/20 24 09/04/2024 Bacte sarah ident ified in Wound by Aerob e cultu re microscopic observation [identifier] in specimen by gram stain RARE GRAM NEGATI VE RODS GRAM STAIN RESUL T RARE GRAM NEGAT TRACEY RODS 09/03 10:46 AM [facility] Not Available Not Available 11/07/2024 15:43:05 09/02/20 24 09/04/2024 Bacte sarah ident ified in Wound by Aerob e cultu re bacteria identified in specimen by culture SPARSE GROWTH OF PROTEU S MIRABI LIS abnormal CULTU RE RESUL T SPARS E GROWT H OF PROTE US MIRAB ILIS (A) 09/04 7:55 AM [facility] Not Available Not Available 11/07/2024 [...] TION RAYNA COL. (AA) 09/04 7:55 AM [facility] Not Available Not Available 11/07/2024 [...] - 3.74 uIU/M L 09/26 2:33 PM TELEGRAPHIC TYPEWRITER MECHANIC [facility] Not Available Not Available 11/07/2024 15:43:05 09/26/19 25 09/26/2024 Compr ehens tracey metab olic 2000 panel - Serum or Plasm a glucose [mass/volume ] in serum or plasma 95 text: 70 - 99 mg/dL GLUCO SE 95 70 - 99 MG/DL 09/26 2:33 PM TELEGRAPHIC TYPEWRITER MECHANIC [facility] Not Available Not Available 11/07/2024 15:43:05 09/26/19 25 09/26/2024 Compr ehens tracey metab olic 2000 panel - Serum or Plasm a urea nitrogen [mass/volume ] in serum or plasma 12 text: 7 - 18 mg/dL BUN 12 7 - 18 MG/DL 09/26 2:33 PM [facility] Not Available Not Available 11/07/2024 15:43:05 09/26/19 25 09/26/2024 Compr ehens tracey metab olic 2000 panel - Serum or Plasm a creatinine [mass/volume ] in serum or plasma 0.9 text: 0.7 - 1.3 mg/dL CREAT ININE S/P/B 0.90 0.7 - 1.3 MG/DL 09/26 2:33 PM [facility] Not Available Not Available 11/07/2024 15:43:05 09/26/19 25 09/26/2024 Compr ehens tracey metab olic 2000 panel - Serum or Plasm a sodium [moles/volum e] in serum or plasma 139 text: 136 - 145 mmol/L SODIU M S/P/B 139 136 - 145 MMOL/ L 09/26 2:33 PM TELEGRAPHIC TYPEWRITER MECHANIC [facility] Not Available Not Available 11/07/2024 15:43:05 09/26/19 25 09/26/2024 Compr ehens tracey metab olic 2000 panel - Serum or Plasm a potassium [moles/volum e] in serum or plasma 3.9 text: 3.5 - 5.1 mmol/L POTAS SIUM S/P/B 3.9 3.5 - 5.1 MMOL/ L 09/26 2:33 PM [facility] Not Available Not Available 11/07/2024 15:43:05 09/26/19 25 09/26/2024 Compr ehens tracey metab olic 2000 panel - Serum or Plasm a chloride [moles/volum e] in serum or plasma 103 text: 100 - 108 mmol/L CHLOR GUILLE S/P/B 103 100 - 108 MMOL/ L 09/26 2:33 PM [facility] Not Available Not Available 11/07/2024 15:43:05 09/26/19 25 09/26/2024 Compr ehens tracey metab olic 2000 panel - Serum or Plasm a carbon dioxide, total [moles/volum e] in serum or plasma 29.6 text: 21 - 32 mmol/L CO2 29.6 21 - 32 MMOL/ L 09/26 2:33 PM [facility] Not Available Not Available 11/07/2024 15:43:05 09/26/19 25 09/26/2024 Compr ehens tracey metab olic 2000 panel - Serum or Plasm a calcium [mass/volume ] in serum or plasma 9.5 text: 8.5 - 10.1 mg/dL CALCI UM S/P/B 9.5 8.5 - 10.1 MG/DL 09/26 2:33 PM [facility] Not Available Not Available 11/07/2024 15:43:05 09/26/19 25 09/26/2024 Compr ehens tracey metab olic 2000 panel - Serum or Plasm a bilirubin.to manuel [mass/volume ] in serum or plasma 0.2 text: 0.2 - 1.2 mg/dL BILIR UBIN TOTAL S/P/B 0.2 0.2 - 1.2 MG/DL 09/26 2:33 PM TELEGRAPHIC TYPEWRITER MECHANIC [facility] Not Available Not Available 11/07/2024 15:43:05 09/26/19 25 09/26/2024 Compr ehens tracey metab olic 2000 panel - Serum or Plasm a protein [mass/volume ] in serum or plasma 9.3 text: 6.4 - 8.2 g/dL high TOTAL PROTE IN S/P/B 9.3 (H) 6.4 - 8.2 G/DL 09/26 2:33 PM TELEGRAPHIC TYPEWRITER MECHANIC [facility] Not Available Not Available 11/07/2024 15:43:05 09/26/19 25 09/26/2024 Compr ehens tracey metab olic 2000 panel - Serum or Plasm a albumin [mass/volume ] in serum or plasma 2.6 text: 3.4 - 5.0 g/dL low ALBUM IN S/P/B 2.6 (L) 3.4 - 5.0 G/DL 09/26 2:33 PM TELEGRAPHIC TYPEWRITER MECHANIC [facility] Not Available Not Available 11/07/2024 15:43:05 09/26/19 25 09/26/2024 Compr ehens tracey metab olic 2000 panel - Serum or Plasm a aspartate aminotransfe rase [enzymatic activity/vol ume] in serum or plasma 17 U/L low: 15U/Lh igh: 37U/L AST 17 15 - 37 U/L 09/26 2:33 PM TELEGRAPHIC TYPEWRITER MECHANIC [facility] Not Available Not Available 11/07/2024 15:43:05 09/26/19 25 09/26/2024 Compr ehens tracey metab olic 2000 panel - Serum or Plasm a alanine aminotransfe rase [enzymatic activity/vol ume] in serum or plasma 19 U/L low: 16U/Lh igh: 60U/L ALT 19 16 - 60 U/L 09/26 2:33 PM TELEGRAPHIC TYPEWRITER MECHANIC [facility] Not Available Not Available 11/07/2024 15:43:05 09/26/19 25 09/26/2024 [facility] - Serum or Plasm a alkaline phosphatase [enzymatic activity/vol ume] in serum or plasma 113 U/L low: 50U/Lh igh: 136U/L ALKAL INE PHOSP HATAS E S/P/B 113 50 - 136 U/L 09/26 2:33 PM TELEGRAPHIC TYPEWRITER MECHANIC [facility] [employer] [facility] Not Available Not Available 11/07/2024 15:43:05 09/26/19 25 09/26/2024 [facility] 2000 panel - Serum or Plasm a anion gap in serum or plasma 6.4 text: 5 - 15 mmol/L ANION GAP 6.4 5 - 15 MMOL/ L 09/26 2:33 PM TELEGRAPHIC TYPEWRITER MECHANIC [facility] [employer] [facility] Not Available Not Available 11/07/2024 15:43:05 09/26/19 25 09/26/2024 [facility]lic 2000 panel - Serum or Plasm a urea nitrogen/cre atinine [mass ratio] in serum or plasma 13.3 low: 6high: 26 BUN CREAT ININE RATIO 13.3 6 - 26 09/26 2:33 PM TELEGRAPHIC TYPEWRITER MECHANIC [facility] [place] [employer] [facility] ([facility] Not Available Not Available 11/07/2024 15:43:05 09/26/19 25 09/26/2024 [facility] 2000 panel - Serum or Plasm a albumin/glob ulin [mass ratio] in serum or plasma 0.4 text: 1.0 - 2.0 ratio low A/G RATIO 0.4 (L) 1.0 - 2.0 RATIO 09/26 2:33 PM TELEGRAPHIC TYPEWRITER MECHANIC [facility] [place] [employer] [facility] ([facility]) [facility] Not Available Not Available 11/07/2024 15:43:05 09/26/19 25 09/26/2024 [facility] 2000 panel - Serum or Plasm a glomerular filtration rate/1.73 sq M.predicted [volume rate/area] in serum, plasma or blood by creatinine-b ased formula (CKD-epi 2020) text: >90 mL/min /1.73 M2 GFR ESTIM ATE >90 >90 ML/SC N/1.7 3 M2 09/26 2:33 PM TELEGRAPHIC TYPEWRITER MECHANIC [facility] [...] (H) <200. 0 MG/DL 09/26 2:33 PM TELEGRAPHIC TYPEWRITER MECHANIC [facility] Not Available Not Available 11/07/2024 15:43:05 09/26/19 25 09/26/2024 Lipid 1995 panel - Serum or Plasm a triglyceride [mass/volume ] in serum or plasma 98 text: <150 mg/dL TRIGL YCERI MARIIA 98 <150 MG/DL 09/26 2:33 PM TELEGRAPHIC TYPEWRITER MECHANIC [facility] Not Available Not Available 11/07/2024 15:43:05 09/26/19 25 09/26/2024 Lipid 1996 panel - Serum or Plasm a cholesterol in HDL [mass/volume ] in serum or plasma 58 text: >40.0 mg/dL HDL 58 >40.0 MG/DL 09/26 2:33 PM TELEGRAPHIC TYPEWRITER MECHANIC [facility] Not Available Not Available 11/07/2024 15:43:05 09/26/19 25 09/26/2024 Lipid 1996 panel - Serum or Plasm a cholesterol in LDL [mass/volume ] in serum or plasma by calculation 148 text: <100 mg/dL high LDL (CALC ULATE D) 148 (H) <100 MG/DL 09/26 2:33 PM TELEGRAPHIC TYPEWRITER MECHANIC [facility] Not Available Not Available 11/07/2024 15:43:05 09/26/19 25 09/26/2024 Lipid 1996 panel - Serum or Plasm a cholesterol non HDL [mass/volume ] in serum or plasma 168 text: <130 mg/dL high NON HDL OSBALDO STERO L 168 (H) <130 MG/DL 09/26 2:33 PM TELEGRAPHIC TYPEWRITER MECHANIC [facility] Not Available Not Available 11/07/2024 15:43:05 09/26/19 25 09/26/2024 Lipid 1996 panel - Serum or Plasm a cholesterol. total/choles terol in HDL [mass ratio] in serum or plasma 3.9 low: 0high: 4.5 CHOL/ HDL RATIO 3.9 0.0 - 4.5 09/26 2:33 PM TELEGRAPHIC TYPEWRITER MECHANIC [facility] Not Available Not Available 11/07/2024 15:43:05 09/26/19 25 09/26/2024 Lipid 1996 panel - Serum or Plasm a cholesterol in VLDL [mass/volume ] in serum or plasma by calculation 20 text: 5 - 55 mg/dL VLDL CALCU LATIO N 20 5 - 55 MG/DL 09/26 2:33 PM TELEGRAPHIC TYPEWRITER MECHANIC [facility] Not Available Not Available 11/07/2024 15:43:05 09/26/19 25 09/26/2024 Lipid 1996 panel - Serum or Plasm a service comment LIPID INTER PRETA TION 09/26 2:33 PM TELEGRAPHIC TYPEWRITER MECHANIC [facility] Not Available Not Available [...] - 11.0 x10'3 /uL 09/26 2:06 PM TELEGRAPHIC TYPEWRITER MECHANIC [facility] Not Available Not Available 11/07/2024 15:43:05 09/26/19 25 09/26/2024 CBC W Auto Diffe renti al panel - Blood erythrocytes [#/volume] in blood by automated count 4.44 text: 4.50 - 5.90 x10'6/ uL low RBC 4.44 (L) 4.50 - 5.90 x10'6 /uL 09/26 2:06 PM TELEGRAPHIC TYPEWRITER MECHANIC [facility] Not Available Not Available 11/07/2024 15:43:05 09/26/19 25 09/26/2024 CBC W Auto Diffe renti al panel - Blood hemoglobin [mass/volume ] in blood 11.4 text: 14.0 - 17.5 g/dL low HGB 11.4 (L) 14.0 - 17.5 G/DL 09/26 2:06 PM TELEGRAPHIC TYPEWRITER MECHANIC [facility] Not Available Not Available 11/07/2024 15:43:05 09/26/19 25 09/26/2024 CBC W Auto Diffe renti al panel - Blood hematocrit [volume fraction] of blood 35.2 % low: 41.5%h igh: 50.4% low HCT 35.2 (L) 41.5 - 50.4 % 09/26 2:06 PM TELEGRAPHIC TYPEWRITER MECHANIC [facility] Not Available Not Available 11/07/2024 15:43:05 09/26/19 25 09/26/2024 CBC W Auto Diffe renti al panel - Blood MCV [entitic volume] 79.3 text: 80.0 - 96.0 fL low MCV 79.3 (L) 80.0 - 96.0 FL 09/26 2:06 PM TELEGRAPHIC TYPEWRITER MECHANIC [facility] Not Available Not Available 11/07/2024 15:43:05 09/26/19 25 09/26/2024 CBC W Auto Diffe renti al panel - Blood MCH [entitic mass] 25.7 pg low: 26.5pg high: 31.4pg low MCH 25.7 (L) 26.5 - 31.4 PG 09/26 2:06 PM [facility] [place] [facility] Not Available Not Available 11/07/2024 15:43:05 09/26/19 25 09/26/2024 CBC W Auto Diffe renti al panel - Blood MCHC [mass/volume ] 32.4 text: 31.9 - 34.8 g/dL MCHC 32.4 31.9 - 34.8 G/DL 09/26 2:06 PM [facility] [place] [facility] Not Available Not Available 11/07/2024 15:43:05 09/26/19 25 09/26/2024 CBC W Auto Diffe renti al panel - Blood erythrocyte distribution width [entitic volume] by automated count 18.9 % low: 12.3%h igh: 14.3% high RDW 18.9 (H) 12.3 - 14.3 % 09/26 2:06 PM TELEGRAPHIC TYPEWRITER MECHANIC [facility] [place] [facility] Not Available Not Available 11/07/2024 15:43:05 09/26/19 25 09/26/2024 CBC W Auto Diffe renti al panel - Blood platelets [#/volume] in blood 262 text: 151 - 353 x10'3/ uL PLT 262 151 - 353 x10'3 /uL 09/26 2:06 PM TELEGRAPHIC TYPEWRITER MECHANIC [facility] [place] [facility] Not Available Not Available 11/07/2024 15:43:05 09/26/19 25 09/26/2024 CBC W Auto Diffe renti al panel - Blood platelet mean volume [entitic volume] in blood 9.3 text: 9.7 - 11.9 fL low MPV 9.3 (L) 9.7 - 11.9 FL 09/26 2:06 PM TELEGRAPHIC TYPEWRITER MECHANIC [facility] [place] [facility] Not Available Not Available 11/07/2024 15:43:05 09/26/19 25 09/26/2024 CBC W Auto Diffe renti al panel - Blood erythrocytes [morphology] in blood by automated count NORMAL RBC MORPH OLOGY CHECO L 09/26 2:06 PM TELEGRAPHIC TYPEWRITER MECHANIC [facility] Not Available Not Available 11/07/2024 15:43:05 09/26/19 25 09/26/2024 CBC W Auto Diffe renti al panel - Blood platelet morphology finding [identifier] in blood NORMAL PLT MORPH . CHECO L 09/26 2:06 PM TELEGRAPHIC TYPEWRITER MECHANIC [facility] Not Available Not Available 11/07/2024 15:43:05 09/26/19 25 09/26/2024 CBC W Auto Diffe renti al panel - Blood leukocyte morphology finding [identifier] in blood NORMAL WBC MORPH OLOGY CHECO L 09/26 2:06 PM TELEGRAPHIC TYPEWRITER MECHANIC [facility] Not Available Not Available 11/07/2024 15:43:05 09/26/19 25 09/26/2024 CBC W Auto Diffe renti al panel - Blood lymphocytes/ 100 leukocytes in blood by automated count 23.6 % low: 15.8%h igh: 45% LYMPH OCYTE S % 23.6 15.8 - 45.0 % 09/26 2:06 PM TELEGRAPHIC TYPEWRITER MECHANIC [facility] Not Available Not Available 11/07/2024 15:43:05 09/26/19 25 09/26/2024 CBC W Auto Diffe renti al panel - Blood neutrophils/ 100 leukocytes in blood by automated count 57.4 % low: 42.1%h igh: 71.9% NEUTR OPHIL S % 57.4 42.1 - 71.9 % 09/26 2:06 PM TELEGRAPHIC TYPEWRITER MECHANIC [facility] Not Available Not Available 11/07/2024 15:43:05 09/26/19 25 09/26/2024 CBC W Auto Diffe renti al panel - Blood monocytes/10 0 leukocytes in blood by automated count 13.5 % low: 5.7%hi gh: 12.5% high MONOC YTES % 13.5 (H) 5.7 - 12.5 % 09/26 2:06 PM TELEGRAPHIC TYPEWRITER MECHANIC [facility] Not Available Not Available 11/07/2024 15:43:05 09/26/19 25 09/26/2024 CBC W Auto Diffe renti al panel - Blood eosinophils/ 100 leukocytes in blood by automated count 4.7 % low: 0%high : 5.6% EOSIN OPHIL S 4.7 0.0 - 5.6 % 09/26 2:06 PM [facility] Not Available Not Available 11/07/2024 15:43:05 09/26/19 25 09/26/2024 CBC W Auto Diffe renti al panel - Blood basophils/10 0 leukocytes in blood by automated count 0.4 % low: 0%high : 1.3% BASOP HILS 0.4 0.0 - 1.3 % 09/26 2:06 PM TELEGRAPHIC TYPEWRITER MECHANIC [facility] () [facility] Not Available Not Available 11/07/2024 15:43:05 09/26/19 25 09/26/2024 CBC W Auto Diffe renti al panel - Blood neutrophils [#/volume] in blood 3.06 text: 1.40 - 6.00 x10'3/ uL ABS. 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 LYMPH OCYTE S 1.26 0.80 - 4.70 x10'3 /uL 09/26 2:06 PM TELEGRAPHIC TYPEWRITER MECHANIC [facility] (H[facility] Not Available Not Available [...] 30 - 100 NG/ML 09/26 2:45 PM TELEGRAPHIC TYPEWRITER MECHANIC [facility] (H[facility] Not Available Not Available [...] Address Organization Details Recorded Time Spinal injury 569606597 Active 2023 Sheridan Sheets LPN null, [place] - [facility] 4 10:16:23 Paraplegia 44770818 Active 2023 Sheridan Sheets LPN [place], [place] [...] Not Available Not Available No t Available [facility] Vaccine (PF) 30 mcg/0.3 mL IM susp (purple) PHARMACY ADMINISTERE D active Not Available Not Available No t Available Vitals Date Recorded Body weight Heart rate Body temperature Pain severity - 0-10 verbal numeric rating [Score] - Reported Body mass index (BMI) Body height Systolic blood pressure Diastolic blood pressure Provider Name and Address Organization Details Last Updated DateTime 4 97511.8 6 g 103 /min 98.2 [degF] 2 22.2 kg/m2 175.26 cm 119 mm[Hg] 68 mm[Hg] Jenny Jeronimo MA [facility] 4 11:40:16 Date Recorded Body height Heart rate Body temperature Pain severity - 0-10 verbal numeric rating [Score] - Reported Body mass index (BMI) Body weight Systolic blood pressure Diastolic blood pressure Provider Name and

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
--- OUTSIDE RECORDS SUMMARY | 2025-01-15 10:46 | XMS_ITS | Clinical Summary ---
Author Organization [facility] Address [address] [place] [address] Care Team Providers Care Process Helper Name Role Phone Lisa Ramírez JOSE-ASSOCIATE PROFESSOR COMPUTER SCIENCE Primary Care Provider Source Comments [facility],non-owned Affiliates and Associated Physician Practices is amultiple site organization consisting of ambulatory clinics and hospital sitesin [place], [place], [place] and [place]. This disclosure is being madepursuant to the Care Everywhere program and may not contain all information available regarding this patient. 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
[2025-01-15 10:52] VITALS: BP 139/79; PULSE 100; RESP 16; TEMP 36.2; O2SAT 100
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
[2025-01-15 11:15] VITALS: BP 134/79; PULSE 73; RESP 23; O2SAT 99
== END 2025-01-15 11:16 | disposition home or self-care (01) ==
PROVIDERS: Emergency Provider Physician Assistant; PCP Student in an Organized Health Care Education/Training Program
DX: Z43.5 Encounter for attention to cystostomy (principal); G82.20 Paraplegia, unspecified; Z99.3 Dependence on wheelchair
CPT/HCPCS: 51705; 99283

== ENCOUNTER 2025-02-11 08:37 | Emergency (ER) | payer MEDICARE, MEDICAID, SELFPAY ==
[2025-02-11 08:45] VITALS: BP 148/76; PULSE 85; RESP 15; TEMP 36.4; O2SAT 100
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
--- OUTSIDE RECORDS SUMMARY | 2025-02-11 08:47 | XMS_ITS | Clinical Summary ---
Author Organization [facility] Address [address] [address] Care Team Providers Care Shellfish Grower Name Role Phone Lisa Ramírez JOSE-CREDIT DEPARTMENT MANAGER Primary Care Provider Source Comments [facility],non-owned Affiliates and Associated Physician Practices is amultiple site organization consisting of ambulatory clinics and hospital sitesin [place], [place], [place] and [place]. This disclosure is being madepursuant to the Care Everywhere program and may not contain all information available regarding this patient. 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 Gender Identity Not on file Sexual Orientation [...] 08/24/2021 10/07/2022 Insurance MEDICARE MEDICAID - [place] [facility] MANAGED MEDICARE ADV [facility] MANAGED MEDICARE ADV MEDICAID - OUT OF STATE [id number] MANAGED MEDICARE FORMERLY [facility], [facility] Advance Directives * Full Code (Latest Code Status on File) Date Activated Date Inactivated Comments 12/26/2020 4:22 AM 12/27/2020 2:34 PM Care Teams Shellfish Grower Relationship Specialty Start Date End Date Lisa Ramírez, CHOPPER GUN OPERATOR-CREDIT DEPARTMENT MANAGER [address] [place] [address] PCP - General Firefighter [employer] 10/07/22
--- OUTSIDE RECORDS SUMMARY | 2025-02-11 08:48 | XMS_ITS | Data Portability ---
Author Organization [facility] VANCETorres [facility] Address [address] [place] [address] Assessment No assessment recorded. Plan of Treatment Reminders Order Date Submit Date Provider Last Modified By Organization Details Last Modified Time Details Appointments None recorded. Lab unlisted lab - urinalysis w/reflex urine cult 2023 024 atatema Teofilo [facility] (Lab), [address] [place], [address], 13:04:47 Referral None recorded. Procedures None recorded. Surgeries None recorded. Imaging None recorded. Medication Orders None recorded. Patient TargetsNo targets recorded. Patient Instructions Encounter Date Encounter Id Patient Instructions Last Modified By Organization Details Last Modified Time 03/06/2024 [id number] davis catheter change* [email or web address] Not available 03/19/2024 10:06:06 09/11/2024 [id number] urinary retention: care instructions Not available 09/11/2024 13:00:07 10/11/2024 [id number] spinal cord injury (paraplegic): care instructions Not available 10/11/2024 13:54:26 Reason for Referral None Reported. Results Created Date Observation Date Name Description Value Unit Range Abnormal Flag Note LastModifiedBy Organization Detail LastModifiedTime 03/06/20 24 03/06/2024 URINA LYSIS AND MICRO SCOPI C color urine YELLOW yellow normal Not Available Deepali bueno [facility] (Lab) [address] [place], [address], 03/06/2024 18:14:56 03/06/20 24 03/06/2024 URINA LYSIS AND MICRO SCOPI C appearance urine SL CLOUDY clear abnormal Not Available Teofilo [facility] (Lab) [address] [place], [address], 03/06/2024 18:14:56 03/06/20 24 03/06/2024 URINA LYSIS AND MICRO SCOPI C pH urine 6.0 5.0 - 7.0 normal Not Available [facility] (Lab) [address] [place], [address], 03/06/2024 18:14:56 03/06/20 24 03/06/2024 URINA LYSIS AND MICRO SCOPI C specific gravity urine 1.020 1.005- 1.030 normal Not Available [facility] (Lab) [address] [place], [address], 03/06/2024 18:14:56 03/06/20 24 03/06/2024 URINA LYSIS AND MICRO SCOPI C protein urine 30 mg/dL neg/tr sky abnormal Not Available [facility] (Lab) [address] [place], [address], 03/06/2024 18:14:56 03/06/20 24 03/06/2024 URINA LYSIS AND MICRO SCOPI C glucose urine UA NEGATI VE mg/dL negati ve normal Not Available [facility] (Lab) [address] [place], [address], 03/06/2024 18:14:56 03/06/20 24 03/06/2024 URINA LYSIS AND MICRO SCOPI C ketones urine NEGATI VE negati ve normal Not Available [facility] (Lab) [address] [place], [address], 03/06/2024 18:14:56 03/06/20 24 03/06/2024 URINA LYSIS AND MICRO SCOPI C occult blood urine MODERA TE tiana/u L negati ve abnormal Not Available [facility] (Lab) [address] [place], [address], 03/06/2024 18:14:56 03/06/20 24 03/06/2024 URINA LYSIS AND MICRO SCOPI C nitrite urine POSITI VE negati ve abnormal Not Available [facility] (Lab) [address], [place], [address], 03/06/2024 18:14:56 03/06/20 24 03/06/2024 URINA LYSIS AND MICRO SCOPI C bilirubin urine NEGATI VE negati ve normal Not Available [facility] (Lab) [address], [place], [address], 03/06/2024 18:14:56 03/06/20 24 03/06/2024 URINA LYSIS AND MICRO SCOPI C urobilinogen urine 0.2 eu/dL 0.2 - 1.0 normal Not Available [facility] (Lab) [address], [place], [address], 03/06/2024 18:14:56 03/06/20 24 03/06/2024 URINA LYSIS AND MICRO SCOPI C leukocyte esterase urine LARGE negati ve abnormal Not Available [facility] (Lab) [address], [place], [address], 03/06/2024 18:14:56 03/06/20 24 03/06/2024 URINA LYSIS AND MICRO SCOPI C RBC urine 0-2 /hpf 0-2 normal Not Available [facility] (Lab) [address], [place], [address], 03/06/2024 18:14:56 03/06/20 24 03/06/2024 URINA LYSIS AND MICRO SCOPI C WBC urine >50 /hpf 0-5 abnormal Not Available [place] [facility] (Lab) [address], [place], [address], 03/06/2024 18:14:56 03/06/20 24 03/06/2024 URINA LYSIS AND MICRO SCOPI C WBC clumps urine FEW /hpf not estb. Not Available [facility] (Lab) [address], [place], [address], 03/06/2024 18:14:56 03/06/20 24 03/06/2024 URINA LYSIS AND MICRO SCOPI C squamous epithelial cell urine OCCASI ONAL not estb. Not Available [facility] (Lab) [address] [place], [address], 03/06/2024 18:14:56 03/06/20 24 03/06/2024 URINA LYSIS AND MICRO SCOPI C bacteria urine 1+ none/t race abnormal Not Available [facility] (Lab) [address] [facility] [facility], [place], [address], 03/06/2024 18:14:56 03/06/20 24 03/06/2024 URINA LYSIS AND MICRO SCOPI C urine culture indicated? Yes Not Available [facility] (Lab) [address], [place], [address], 03/06/2024 18:14:56 03/06/20 24 03/12/2024 URINE CULTU RE, ROUTI NE urine culture, routine Great er than 2 organ isms recov ered, none predo minan t. Pleas e submi t anoth er sampl e if clini hasmukh indic ated. Great er than 100,0 00 colon y formi ng units per mL Not appli cable Perfo [place]med at: 01 - [place] [address] Lab Direc tor: Oscar alcala PhD, Phone : [phone] Not Available [facility] (Lab) [address], [place], [address], 03/12/2024 13:14:56 08/07/20 24 08/07/2024 Basic metab olic 2000 panel - Serum or Plasm a glucose [mass/volume ] in serum or plasma 102 text: 70 - 99 mg/dL high GLUCO SE 102 (H) 70 - 99 MG/DL 08/07 11:02 AM [employer] [facility] Not Available Not Available 11/07/2024 15:43:05 08/07/20 24 08/07/2024 Basic metab olic 2000 panel - Serum or Plasm a urea nitrogen [mass/volume ] in serum or plasma 31 text: 7 - 18 mg/dL high BUN 31 (H) 7 - 18 MG/DL 08/07 11:02 AM [employer] [facility] Not Available Not Available 11/07/2024 15:43:05 08/07/20 24 08/07/2024 Basic metab olic 2000 panel - Serum or Plasm a creatinine [mass/volume ] in serum or plasma 0.83 text: 0.7 - 1.3 mg/dL CREAT ININE S/P/B 0.83 0.7 - 1.3 MG/DL 08/07 11:02 AM [employer] [facility] Not Available Not Available 11/07/2024 15:43:05 08/07/20 24 08/07/2024 Basic metab olic 2000 panel - Serum or Plasm a sodium [moles/volum e] in serum or plasma 141 text: 136 - 145 mmol/L SODIU M S/P/B 141 136 - 145 MMOL/ L 08/07 11:02 AM [employer] [facility] Not Available Not Available 11/07/2024 15:43:05 08/07/20 24 08/07/2024 Basic metab olic 2000 panel - Serum or Plasm a potassium [moles/volum e] in serum or plasma 3.5 text: 3.5 - 5.1 mmol/L POTAS SIUM S/P/B 3.5 3.5 - 5.1 MMOL/ L 08/07 11:02 AM [employer] [facility] Not Available Not Available 11/07/2024 15:43:05 08/07/20 24 08/07/2024 Basic metab olic 2000 panel - Serum or Plasm a chloride [moles/volum e] in serum or plasma 105 text: 100 - 108 mmol/L CHLOR GUILLE S/P/B 105 100 - 108 MMOL/ L 08/07 11:02 AM [employer] [facility] Not Available Not Available 11/07/2024 15:43:05 08/07/20 24 08/07/2024 Basic metab olic 1999 panel - Serum or Plasm a carbon dioxide, total [moles/volum e] in serum or plasma 28.2 text: 21 - 32 mmol/L CO2 28.2 21 - 32 MMOL/ L 08/07 11:02 AM [employer] [facility] Not Available Not Available 11/07/2024 15:43:05 08/07/20 24 08/07/2024 Basic metab olic 1999 panel - Serum or Plasm a calcium [mass/volume ] in serum or plasma 9.3 text: 8.5 - 10.1 mg/dL CALCI UM S/P/B 9.3 8.5 - 10.1 MG/DL 08/07 11:02 AM [facility] Not Available Not Available 11/07/2024 15:43:05 08/07/20 24 08/07/2024 Basic metab olic 2000 panel - Serum or Plasm a anion gap in serum or plasma 7.8 text: 5 - 15 mmol/L ANION GAP 7.8 5 - 15 MMOL/ L 08/07 11:02 AM [facility] Not Available Not Available 11/07/2024 15:43:05 08/07/20 24 08/07/2024 Basic metab olic 2000 panel - Serum or Plasm a urea nitrogen/cre atinine [mass ratio] in serum or plasma 37.3 low: 6high: 26 high BUN CREAT ININE RATIO 37.3 (H) 6 - 26 08/07 11:02 AM [employer] [facility] Not Available Not Available 11/07/2024 15:43:05 08/07/20 24 08/07/2024 Basic metab olic 2000 panel - Serum or Plasm a glomerular filtration rate/1.73 sq M.predicted [volume rate/area] in serum, plasma or blood by creatinine-b ased formula (CKD-epi 2020) text: >90 mL/min /1.73 M2 GFR ESTIM ATE >90 >90 ML/OR N/1.7 3 M2 08/07 11:02 AM [employer] [...] IPTIO N HEEL, RIGHT 09/02 11:42 AM [facility] Not Available Not Available 11/07/2024 15:43:05 09/02/20 24 09/04/2024 Bacte sarah ident ified in Wound by Aerob e cultu re service comment NO SPECIA L REQUES T SPECI AL REQUE STS NO SPECI AL REQUE ST 09/02 11:42 AM [employer] [facility] Not Available Not Available 11/07/2024 15:43:05 09/02/20 24 09/04/2024 Bacte sarah ident ified in Wound by Aerob e cultu re microscopic observation [identifier] in specimen by gram stain MANY WHITE BLOOD CELLS SEEN GRAM STAIN RESUL T MANY WHITE BLOOD CELLS SEEN 09/03 10:46 AM [facility] Not Available Not Available 11/07/2024 15:43:05 09/02/20 24 09/04/2024 Bacte sarah ident ified in Wound by Aerob e cultu re microscopic observation [identifier] in specimen by gram stain FEW EPITHE LIAL CELLS SEEN GRAM STAIN RESUL T FEW EPITH ELIAL CELLS SEEN 09/03 10:46 AM [facility] [facility] Not Available Not Available 11/07/2024 15:43:05 09/02/20 24 09/04/2024 Bacte sarah ident ified in Wound by Aerob e cultu re microscopic observation [identifier] in specimen by gram stain FEW GRAM POSITI VE COCCI GRAM STAIN RESUL T FEW GRAM POSIT TRACEY COCCI 09/03 10:46 AM [facility] Not Available Not Available 11/07/2024 15:43:05 09/02/20 24 09/04/2024 Bacte sarah ident ified in Wound by Aerob e cultu re microscopic observation [identifier] in specimen by gram stain RARE GRAM NEGATI VE RODS GRAM STAIN RESUL T RARE GRAM NEGAT TRACEY RODS 09/03 10:46 AM [facility] Not Available Not Available 11/07/2024 15:43:05 09/02/20 24 09/04/2024 Bacte sarah ident ified in Wound by Aerob e cultu re bacteria identified in specimen by culture SPARSE GROWTH OF PROTEU S MIRABI LIS abnormal CULTU RE RESUL T SPARS E GROWT H OF PROTE US MIRAB ILIS (A) 09/04 7:55 AM [facility] Not Available Not Available 11/07/2024 [...] TION RAYNA COL. (AA) 09/04 7:55 AM [facility] Not Available Not Available 11/07/2024 [...] - 3.74 uIU/M L 09/26 2:33 PM [employer] [facility] Not Available Not Available 11/07/2024 15:43:05 09/26/19 25 09/26/2024 Compr ehens tracey metab olic 2000 panel - Serum or Plasm a glucose [mass/volume ] in serum or plasma 95 text: 70 - 99 mg/dL GLUCO SE 95 70 - 99 MG/DL 09/26 2:33 PM [employer] [facility] Not Available Not Available 11/07/2024 15:43:05 09/26/19 25 09/26/2024 Compr ehens tracey metab olic 2000 panel - Serum or Plasm a urea nitrogen [mass/volume ] in serum or plasma 12 text: 7 - 18 mg/dL BUN 12 7 - 18 MG/DL 09/26 2:33 PM [facility] Not Available Not Available 11/07/2024 15:43:05 09/26/19 25 09/26/2024 Compr ehens tracey metab olic 2000 panel - Serum or Plasm a creatinine [mass/volume ] in serum or plasma 0.9 text: 0.7 - 1.3 mg/dL CREAT ININE S/P/B 0.90 0.7 - 1.3 MG/DL 09/26 2:33 PM [facility] Not Available Not Available 11/07/2024 15:43:05 09/26/19 25 09/26/2024 Compr ehens tracey metab olic 2000 panel - Serum or Plasm a sodium [moles/volum e] in serum or plasma 139 text: 136 - 145 mmol/L SODIU M S/P/B 139 136 - 145 MMOL/ L 09/26 2:33 PM [employer] [facility] Not Available Not Available 11/07/2024 15:43:05 09/26/19 25 09/26/2024 Compr ehens tracey metab olic 2000 panel - Serum or Plasm a potassium [moles/volum e] in serum or plasma 3.9 text: 3.5 - 5.1 mmol/L POTAS SIUM S/P/B 3.9 3.5 - 5.1 MMOL/ L 09/26 2:33 PM [facility] Not Available Not Available 11/07/2024 15:43:05 09/26/19 25 09/26/2024 Compr ehens tracey metab olic 2000 panel - Serum or Plasm a chloride [moles/volum e] in serum or plasma 103 text: 100 - 108 mmol/L CHLOR GUILLE S/P/B 103 100 - 108 MMOL/ L 09/26 2:33 PM [facility] Not Available Not Available 11/07/2024 15:43:05 09/26/19 25 09/26/2024 Compr ehens tracey metab olic 2000 panel - Serum or Plasm a carbon dioxide, total [moles/volum e] in serum or plasma 29.6 text: 21 - 32 mmol/L CO2 29.6 21 - 32 MMOL/ L 09/26 2:33 PM [facility] Not Available Not Available 11/07/2024 15:43:05 09/26/19 25 09/26/2024 Compr ehens tracey metab olic 2000 panel - Serum or Plasm a calcium [mass/volume ] in serum or plasma 9.5 text: 8.5 - 10.1 mg/dL CALCI UM S/P/B 9.5 8.5 - 10.1 MG/DL 09/26 2:33 PM [facility] Not Available Not Available 11/07/2024 15:43:05 09/26/19 25 09/26/2024 Compr ehens tracey metab olic 2000 panel - Serum or Plasm a bilirubin.to manuel [mass/volume ] in serum or plasma 0.2 text: 0.2 - 1.2 mg/dL BILIR UBIN TOTAL S/P/B 0.2 0.2 - 1.2 MG/DL 09/26 2:33 PM [facility] [facility] Not Available Not Available 11/07/2024 15:43:05 09/26/19 25 09/26/2024 Compr ehens tracey metab olic 2000 panel - Serum or Plasm a protein [mass/volume ] in serum or plasma 9.3 text: 6.4 - 8.2 g/dL high TOTAL PROTE IN S/P/B 9.3 (H) 6.4 - 8.2 G/DL 09/26 2:33 PM [employer] [facility] Not Available Not Available 11/07/2024 15:43:05 09/26/19 25 09/26/2024 Compr ehens tracey metab olic 2000 panel - Serum or Plasm a albumin [mass/volume ] in serum or plasma 2.6 text: 3.4 - 5.0 g/dL low ALBUM IN S/P/B 2.6 (L) 3.4 - 5.0 G/DL 09/26 2:33 PM [employer] [facility] Not Available Not Available 11/07/2024 15:43:05 09/26/19 25 09/26/2024 Compr ehens tracey metab olic 2000 panel - Serum or Plasm a aspartate aminotransfe rase [enzymatic activity/vol ume] in serum or plasma 17 U/L low: 15U/Lh igh: 37U/L AST 17 15 - 37 U/L 09/26 2:33 PM [employer] [facility] Not Available Not Available 11/07/2024 15:43:05 09/26/19 25 09/26/2024 Compr ehens tracey metab olic 2000 panel - Serum or Plasm a alanine aminotransfe rase [enzymatic activity/vol ume] in serum or plasma 19 U/L low: 16U/Lh igh: 60U/L ALT 19 16 - 60 U/L 09/26 2:33 PM [employer] [facility] Not Available Not Available 11/07/2024 15:43:05 09/26/19 25 09/26/2024 [facility] - Serum or Plasm a alkaline phosphatase [enzymatic activity/vol ume] in serum or plasma 113 U/L low: 50U/Lh igh: 136U/L ALKAL INE PHOSP HATAS E S/P/B 113 50 - 136 U/L 09/26 2:33 PM [employer] [facility] [employer] [employer] [facility] Not Available Not Available 11/07/2024 15:43:05 09/26/19 25 09/26/2024 [facility] 2000 panel - Serum or Plasm a anion gap in serum or plasma 6.4 text: 5 - 15 mmol/L ANION GAP 6.4 5 - 15 MMOL/ L 09/26 2:33 PM [employer] [facility] () [facility] Not Available Not Available 11/07/2024 15:43:05 09/26/19 25 09/26/2024 [facility] 2000 panel - Serum or Plasm a urea nitrogen/cre atinine [mass ratio] in serum or plasma 13.3 low: 6high: 26 BUN CREAT ININE RATIO 13.3 6 - 26 09/26 2:33 PM [employer] [facility] [employer] Not Available Not Available 11/07/2024 15:43:05 09/26/19 25 09/26/2024 [facility] 2000 panel - Serum or Plasm a albumin/glob ulin [mass ratio] in serum or plasma 0.4 text: 1.0 - 2.0 ratio low A/G RATIO 0.4 (L) 1.0 - 2.0 RATIO 09/26 2:33 PM [employer] [facility] [employer] Not Available Not Available 11/07/2024 15:43:05 09/26/19 25 09/26/2024 [facility] panel - Serum or Plasm a glomerular filtration rate/1.73 sq M.predicted [volume rate/area] in serum, plasma or blood by creatinine-b ased formula (CKD-epi 2020) text: >90 mL/min /1.73 M2 GFR ESTIM ATE >90 >90 ML/OR N/1.7 3 M2 09/26 2:33 PM [employer] [facility] (H) HOSPI [...] (H) <200. 0 MG/DL 09/26 2:33 PM [employer] [facility] Not Available Not Available 11/07/2024 15:43:05 09/26/19 25 09/26/2024 Lipid 1995 panel - Serum or Plasm a triglyceride [mass/volume ] in serum or plasma 98 text: <150 mg/dL TRIGL YCERI MARIIA 98 <150 MG/DL 09/26 2:33 PM [employer] [facility] Not Available Not Available 11/07/2024 15:43:05 09/26/19 25 09/26/2024 Lipid 1996 panel - Serum or Plasm a cholesterol in HDL [mass/volume ] in serum or plasma 58 text: >40.0 mg/dL HDL 58 >40.0 MG/DL 09/26 2:33 PM [employer] [facility] Not Available Not Available 11/07/2024 15:43:05 09/26/19 25 09/26/2024 Lipid 1996 panel - Serum or Plasm a cholesterol in LDL [mass/volume ] in serum or plasma by calculation 148 text: <100 mg/dL high LDL (CALC ULATE D) 148 (H) <100 MG/DL 09/26 2:33 PM [employer] [facility] Not Available Not Available 11/07/2024 15:43:05 09/26/19 25 09/26/2024 Lipid 1996 panel - Serum or Plasm a cholesterol non HDL [mass/volume ] in serum or plasma 168 text: <130 mg/dL high NON HDL OSBALDO STERO L 168 (H) <130 MG/DL 09/26 2:33 PM [employer] [facility] Not Available Not Available 11/07/2024 15:43:05 09/26/19 25 09/26/2024 Lipid 1996 panel - Serum or Plasm a cholesterol. total/choles terol in HDL [mass ratio] in serum or plasma 3.9 low: 0high: 4.5 CHOL/ HDL RATIO 3.9 0.0 - 4.5 09/26 2:33 PM [employer] [facility] ([facility]) [facility] Not Available Not Available 11/07/2024 15:43:05 09/26/19 25 09/26/2024 Lipid 1996 panel - Serum or Plasm a cholesterol in VLDL [mass/volume ] in serum or plasma by calculation 20 text: 5 - 55 mg/dL VLDL CALCU LATIO N 20 5 - 55 MG/DL 09/26 2:33 PM [employer] [facility] ([facility]) [facility] Not Available Not Available 11/07/2024 15:43:05 09/26/19 25 09/26/2024 Lipid 1996 panel - Serum or Plasm a service comment LIPID INTER PRETA TION 09/26 2:33 PM [employer] [facility] ([facility]) [facility] Not Available Not Available 11/07/2024 [...] - 11.0 x10'3 /uL 09/26 2:06 PM [employer] [facility] Not Available Not Available 11/07/2024 15:43:05 09/26/19 25 09/26/2024 CBC W Auto Diffe renti al panel - Blood erythrocytes [#/volume] in blood by automated count 4.44 text: 4.50 - 5.90 x10'6/ uL low RBC 4.44 (L) 4.50 - 5.90 x10'6 /uL 09/26 2:06 PM [employer] [facility] Not Available Not Available 11/07/2024 15:43:05 09/26/19 25 09/26/2024 CBC W Auto Diffe renti al panel - Blood hemoglobin [mass/volume ] in blood 11.4 text: 14.0 - 17.5 g/dL low HGB 11.4 (L) 14.0 - 17.5 G/DL 09/26 2:06 PM [employer] [facility] Not Available Not Available 11/07/2024 15:43:05 09/26/19 25 09/26/2024 CBC W Auto Diffe renti al panel - Blood hematocrit [volume fraction] of blood 35.2 % low: 41.5%h igh: 50.4% low HCT 35.2 (L) 41.5 - 50.4 % 09/26 2:06 PM [employer] [facility] Not Available Not Available 11/07/2024 15:43:05 09/26/19 25 09/26/2024 CBC W Auto Diffe renti al panel - Blood MCV [entitic volume] 79.3 text: 80.0 - 96.0 fL low MCV 79.3 (L) 80.0 - 96.0 FL 09/26 2:06 PM [employer] [facility] Not Available Not Available 11/07/2024 15:43:05 09/26/19 25 09/26/2024 CBC W Auto Diffe renti al panel - Blood MCH [entitic mass] 25.7 pg low: 26.5pg high: 31.4pg low MCH 25.7 (L) 26.5 - 31.4 PG 09/26 2:06 PM [facility] Not Available Not Available 11/07/2024 15:43:05 09/26/19 25 09/26/2024 CBC W Auto Diffe renti al panel - Blood MCHC [mass/volume ] 32.4 text: 31.9 - 34.8 g/dL MCHC 32.4 31.9 - 34.8 G/DL 09/26 2:06 PM [facility] Not Available Not Available 11/07/2024 15:43:05 09/26/19 25 09/26/2024 CBC W Auto Diffe renti al panel - Blood erythrocyte distribution width [entitic volume] by automated count 18.9 % low: 12.3%h igh: 14.3% high RDW 18.9 (H) 12.3 - 14.3 % 09/26 2:06 PM [employer] [facility] [facility] Not Available Not Available 11/07/2024 15:43:05 09/26/19 25 09/26/2024 CBC W Auto Diffe renti al panel - Blood platelets [#/volume] in blood 262 text: 151 - 353 x10'3/ uL PLT 262 151 - 353 x10'3 /uL 09/26 2:06 PM [employer] [facility] Not Available Not Available 11/07/2024 15:43:05 09/26/19 25 09/26/2024 CBC W Auto Diffe renti al panel - Blood platelet mean volume [entitic volume] in blood 9.3 text: 9.7 - 11.9 fL low MPV 9.3 (L) 9.7 - 11.9 FL 09/26 2:06 PM [employer] [facility] Not Available Not Available 11/07/2024 15:43:05 09/26/19 25 09/26/2024 CBC W Auto Diffe renti al panel - Blood erythrocytes [morphology] in blood by automated count NORMAL RBC MORPH OLOGY CHECO L 09/26 2:06 PM [employer] [facility] Not Available Not Available 11/07/2024 15:43:05 09/26/19 25 09/26/2024 CBC W Auto Diffe renti al panel - Blood platelet morphology finding [identifier] in blood NORMAL PLT MORPH . CHECO L 09/26 2:06 PM [employer] [facility] Not Available Not Available 11/07/2024 15:43:05 09/26/19 25 09/26/2024 CBC W Auto Diffe renti al panel - Blood leukocyte morphology finding [identifier] in blood NORMAL WBC MORPH OLOGY CHECO L 09/26 2:06 PM [employer] [facility] Not Available Not Available 11/07/2024 15:43:05 09/26/19 25 09/26/2024 CBC W Auto Diffe renti al panel - Blood lymphocytes/ 100 leukocytes in blood by automated count 23.6 % low: 15.8%h igh: 45% LYMPH OCYTE S % 23.6 15.8 - 45.0 % 09/26 2:06 PM [employer] [facility] Not Available Not Available 11/07/2024 15:43:05 09/26/19 25 09/26/2024 CBC W Auto Diffe renti al panel - Blood neutrophils/ 100 leukocytes in blood by automated count 57.4 % low: 42.1%h igh: 71.9% NEUTR OPHIL S % 57.4 42.1 - 71.9 % 09/26 2:06 PM [employer] [facility] Not Available Not Available 11/07/2024 15:43:05 09/26/19 25 09/26/2024 CBC W Auto Diffe renti al panel - Blood monocytes/10 0 leukocytes in blood by automated count 13.5 % low: 5.7%hi gh: 12.5% high MONOC YTES % 13.5 (H) 5.7 - 12.5 % 09/26 2:06 PM [employer] [facility] Not Available Not Available 11/07/2024 15:43:05 09/26/19 25 09/26/2024 CBC W Auto Diffe renti al panel - Blood eosinophils/ 100 leukocytes in blood by automated count 4.7 % low: 0%high : 5.6% EOSIN OPHIL S 4.7 0.0 - 5.6 % 09/26 2:06 PM [facility] Not Available Not Available 11/07/2024 15:43:05 09/26/19 25 09/26/2024 CBC W Auto Diffe renti al panel - Blood basophils/10 0 leukocytes in blood by automated count 0.4 % low: 0%high : 1.3% BASOP HILS 0.4 0.0 - 1.3 % 09/26 2:06 PM [employer] [facility] () [facility] Not Available Not Available 11/07/2024 15:43:05 09/26/19 25 09/26/2024 CBC W Auto Diffe renti al panel - Blood neutrophils [#/volume] in blood 3.06 text: 1.40 - 6.00 x10'3/ uL ABS. NEUTR OPHIL S 3.06 1.40 - 6.00 x10'3 /uL 09/26 2:06 PM [employer] [facility] Not Available Not Available 11/07/2024 15:43:05 09/26/19 25 09/26/2024 CBC W Auto Diffe renti al panel - Blood immature granulocytes /100 leukocytes in blood by automated count 0.4 % low: 0%high : 0.5% IMMAT URE GRANS % 0.4 0.0 - 0.5 % 09/26 2:06 PM [employer] [facility] Not Available Not Available 11/07/2024 15:43:05 09/26/19 25 09/26/2024 CBC W Auto Diffe renti al panel - Blood lymphocytes [#/volume] in blood 1.26 text: 0.80 - 4.70 x10'3/ uL ABS. 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 [facility] [...] Address Organization Details Recorded Time Spinal injury 537925093 Active 2023 Sheridan Sheets LPN null, [place] - [facility] 4 10:16:23 Paraplegia 93902550 Active 2023 Sheridan Sheets LPN [place], [place] [...] Not Available Not Available No t Available [facility] COVID-19 Vaccine (PF) 30 mcg/0.3 mL IM susp (purple) PHARMACY ADMINISTERE D active Not Available Not Available No t Available Vitals Date Recorded Body weight Heart rate Body temperature Body mass index (BMI) Body height Systolic blood pressure Diastolic blood pressure Provider Name and Address Organization Details Last Updated DateTime 4 11320.8 6 g 103 /min 98.2 [degF] 22.2 kg/m2 175.26 cm 119 mm[Hg] 68 mm[Hg] Jenny Jeronimo MA [facility] 4 11:40:16 Date Recorded Body height Heart rate Body temperature Body mass index (BMI) Body weight Systolic blood pressure Diastolic blood pressure Provider Name and Address Organization Details Last Updated DateTime 4 175.26 cm 69 /min 97.8 [degF] 22.2 kg/m2 62556.8 6 g 148 mm[Hg] 66 mm[Hg] Jenny Jeronimo MA [facility] 4 10:08:46 Date Recorded Body height Body mass index (BMI) Body weight Heart rate Body temperature Systolic blood pressure Diastolic blood pressure Provider Name and Address Organization Details Last Updated DateTime 5 175.26 cm 22.2 kg/m2 56666.8 6 g 89 /min 97.8 [degF] 142 mm[Hg] 71 mm[Hg] Karan Michael MA [facility] 5 12:55:45 Social History None recorded. Functional Status None recorded. Mental Status None recorded. Family History Nothing Reported. Medical History No medical history recorded. 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 7157386333 104 Z96.0 [id number] Meño Mills MD [facility] [address] [place] [address] 09/11/2024 09:58:05 09/12/2024 14:38:22 Retention of urine 025947576 R33.9 [id number] Meño Mills MD [facility] [address] [place] [address] 10/11/2024 12:49:04 10/21/2024 08:34:03 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 530379297 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 Health [...] MEDICARE OR

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
--- OUTSIDE RECORDS SUMMARY | 2025-02-11 09:58 | XMS_ITS | Clinical Summary ---
Author Organization [facility] Address [address] [place] [address] Care Team Providers Care Carbonator Name Role Phone Lisa Ramírez JOSE-NURSE INFORMATICIST Primary Care Provider Source Comments [facility],non-owned Affiliates and Associated Physician Practices is amultiple site organization consisting of ambulatory clinics and hospital sitesin [place], [place], [place] and [place]. This disclosure is being madepursuant to the Care Everywhere program and may not contain all information available regarding this patient. 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
[2025-02-11 10:19] VITALS: BP 140/72; PULSE 69; RESP 14; O2SAT 100
--- NOTE | 2025-02-11 10:19 | PC.NURSE ---
EDP Dr. Sung changed pt suprapubic catheter
[2025-02-11 10:47] VITALS: BP 145/72; PULSE 75; RESP 17; O2SAT 100
== END 2025-02-11 11:01 | disposition home or self-care (01) ==
PROVIDERS: Emergency Provider Student in an Organized Health Care Education/Training Program; PCP Student in an Organized Health Care Education/Training Program
DX: Z43.5 Encounter for attention to cystostomy (principal); G82.20 Paraplegia, unspecified; S24.103S Unspecified injury at T7-T10 level of thoracic spinal cord, sequela; Z99.3 Dependence on wheelchair; X58.XXXS Exposure to other specified factors, sequela; Z79.899 Other long term (current) drug therapy
CPT/HCPCS: 51702; 51705; 99283

== ENCOUNTER 2025-03-03 08:20 | Emergency (ER) | payer MEDICARE, MEDICAID, SELFPAY ==
--- NOTE | ~2025-03-03 | CT_ITS ---
CT of the Abdomen and Pelvis: Indication: Sepsis, decubitus wound Technique: 2.5 mm axial scans were obtained through the abdomen and pelvis following intravenous adm inistration of 100 cc of Omnipaque 350. Dose reduction technique was used on this scan by utilizing a utomated exposure control and iterative reconstruction technique. The dose-length product (DLP) was 7 22.77 mGy-cm. Findings: Scans through the lung bases are unremarkable. The liver, spleen, pancreas, gallbladder, adrenals and kidneys are within normal limits. There are at herosclerotic calcifications of the aorta. No lymphadenopathy. No bowel obstruction or bowel wall thickening. Status post partial colectomy with double barrel ostom y present. Images through the pelvis were performed. Suprapubic catheter in place. No pelvic mass evident. No as cites. There is probable extensive sacral decubitus ulcer. There is probable extensive chronic osteomyelitis involving the left hip and acetabulum with extensive destructive change of the left femoral head and probable chronic dislocation of the left hip. There is severe chronic degenerative change and hypero stosis about the right hip joint with bridging osseous material across the right femoral head region and right acetabulum, which could also be related to prior and/or current chronic osteomyelitis. Ther e is chronic destruction of this coccyx. Impression: Extensive sacral decubitus ulcer with probable chronic osteitis and chronic dislocation involving the left hip/acetabulum. Probable additional chronic osteoarthritic changes or other chronic changes inv olving the right hip joint. Chronic destructive change of the coccyx. No other acute findings in the abdomen or pelvis. Reviewed, dictated and finalized at [facility]. Impression: Extensive sacral decubitus ulcer with probable chronic osteitis and chronic dis location involving the left hip/acetabulum. Probable additional chronic osteoar thritic changes or other chronic changes involving the right hip joint. Chronic destructive change of the coccyx. No other acute findings in the abdomen or pelvis.
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
[2025-03-03 08:27] VITALS: BP 148/72; PULSE 118; RESP 18; TEMP 36.4; O2SAT 97
--- OUTSIDE RECORDS SUMMARY | 2025-03-03 08:38 | XMS_ITS | Data Portability ---
Author Organization [facility] [address] Address [address] [place] [address] Assessment No assessment recorded. Plan of Treatment Reminders Order Date Submit Date Provider Last Modified By Organization Details Last Modified Time Details Appointments None recorded. Lab unlisted lab - urinalysis w/reflex urine cult 2023 024 atatema Teofilo [facility]ly [facility] (Lab), [address] [place], [address], 13:04:47 Referral None recorded. Procedures None recorded. Surgeries None recorded. Imaging None recorded. Medication Orders None recorded. Patient TargetsNo targets recorded. Patient Instructions Encounter Date Encounter Id Patient Instructions Last Modified By Organization Details Last Modified Time 03/06/2024 [id number] davis catheter change* [email or web address] Not available 03/19/2024 10:06:06 09/11/2024 [id number] urinary retention: care instructions Not available 09/11/2024 13:00:07 10/11/2024 [id number] spinal cord injury (paraplegic): care instructions Not available 10/11/2024 13:54:26 Reason for Referral None Reported. Results Created Date Observation Date Name Description Value Unit Range Abnormal Flag Note LastModifiedBy Organization Detail LastModifiedTime 03/06/20 24 03/06/2024 URINA LYSIS AND MICRO SCOPI C color urine YELLOW yellow normal Not Available Deepali bueno [facility] (Lab) [address] [place], [address], 03/06/2024 18:14:56 03/06/20 24 03/06/2024 URINA LYSIS AND MICRO SCOPI C appearance urine SL CLOUDY clear abnormal Not Available Teofilo [facility] (Lab) [address] [place], [address], 03/06/2024 18:14:56 03/06/20 24 03/06/2024 URINA LYSIS AND MICRO SCOPI C pH urine 6.0 5.0 - 7.0 normal Not Available [facility] (Lab) [address] [place], [address], 03/06/2024 18:14:56 03/06/20 24 03/06/2024 URINA LYSIS AND MICRO SCOPI C specific gravity urine 1.020 1.005- 1.030 normal Not Available [facility] (Lab) [address] [place], [address], 03/06/2024 18:14:56 03/06/20 24 03/06/2024 URINA LYSIS AND MICRO SCOPI C protein urine 30 mg/dL neg/tr sky abnormal Not Available [facility] (Lab) [address] [place], [address], 03/06/2024 18:14:56 03/06/20 24 03/06/2024 URINA LYSIS AND MICRO SCOPI C glucose urine UA NEGATI VE mg/dL negati ve normal Not Available [facility] (Lab) [address] [place], [address], 03/06/2024 18:14:56 03/06/20 24 03/06/2024 URINA LYSIS AND MICRO SCOPI C ketones urine NEGATI VE negati ve normal Not Available [facility] (Lab) [address] [place], [address], 03/06/2024 18:14:56 03/06/20 24 03/06/2024 URINA LYSIS AND MICRO SCOPI C occult blood urine MODERA TE tiana/u L negati ve abnormal Not Available [facility] (Lab) [address] [place], [address], 03/06/2024 18:14:56 03/06/20 24 03/06/2024 URINA LYSIS AND MICRO SCOPI C nitrite urine POSITI VE negati ve abnormal Not Available [facility] (Lab) [address], [place], [address], 03/06/2024 18:14:56 03/06/20 24 03/06/2024 URINA LYSIS AND MICRO SCOPI C bilirubin urine NEGATI VE negati ve normal Not Available [facility] (Lab) [address] [facility], [place], [address], 03/06/2024 18:14:56 03/06/20 24 03/06/2024 URINA LYSIS AND MICRO SCOPI C urobilinogen urine 0.2 eu/dL 0.2 - 1.0 normal Not Available [facility] (Lab) [address] [facility], [place], [address], 03/06/2024 18:14:56 03/06/20 24 03/06/2024 URINA LYSIS AND MICRO SCOPI C leukocyte esterase urine LARGE negati ve abnormal Not Available [facility] (Lab) [address] [facility], [place], [address], 03/06/2024 18:14:56 03/06/20 24 03/06/2024 URINA LYSIS AND MICRO SCOPI C RBC urine 0-2 /hpf 0-2 normal Not Available [facility] (Lab) [address] [facility], [place], [address], 03/06/2024 18:14:56 03/06/20 24 03/06/2024 URINA LYSIS AND MICRO SCOPI C WBC urine >50 /hpf 0-5 abnormal Not Available [place] [facility] (Lab) [address] [facility], [place], [address], 03/06/2024 18:14:56 03/06/20 24 03/06/2024 URINA LYSIS AND MICRO SCOPI C WBC clumps urine FEW /hpf not estb. Not Available [facility] (Lab) [address] [facility], [place], [address], 03/06/2024 18:14:56 03/06/20 24 03/06/2024 URINA LYSIS AND MICRO SCOPI C squamous epithelial cell urine OCCASI ONAL not estb. Not Available [facility] (Lab) [address] [place], [address], 03/06/2024 18:14:56 03/06/20 24 03/06/2024 URINA LYSIS AND MICRO SCOPI C bacteria urine 1+ none/t race abnormal Not Available [facility] (Lab) [address] [facility], [place], [address], 03/06/2024 18:14:56 03/06/20 24 03/06/2024 URINA LYSIS AND MICRO SCOPI C urine culture indicated? Yes Not Available [facility] (Lab) [address] [facility], [place], [address], 03/06/2024 18:14:56 03/06/20 24 03/12/2024 URINE CULTU RE, ROUTI NE urine culture, routine Great er than 2 organ isms recov ered, none predo minan t. Pleas e submi t anoth er sampl e if clini hasmukh indic ated. Great er than 100,0 00 colon y formi ng units per mL Not appli cable Perfo rmed at: 01 - [place] [address] Lab Direc tor: Oscar alcala PhD, Phone : [phone] Not Available [facility] (Lab) [address] [facility], [place], [address], 03/12/2024 13:14:56 08/07/20 24 08/07/2024 Basic metab olic 2000 panel - Serum or Plasm a glucose [mass/volume ] in serum or plasma 102 text: 70 - 99 mg/dL high GLUCO SE 102 (H) 70 - 99 MG/DL 08/07 11:02 AM [facility] Not Available Not Available 11/07/2024 15:43:05 08/07/20 24 08/07/2024 Basic metab olic 2000 panel - Serum or Plasm a urea nitrogen [mass/volume ] in serum or plasma 31 text: 7 - 18 mg/dL high BUN 31 (H) 7 - 18 MG/DL 08/07 11:02 AM [facility]HAVIOR CLINICIAN [facility] Not Available Not Available 11/07/2024 15:43:05 08/07/20 24 08/07/2024 Basic metab olic 2000 panel - Serum or Plasm a creatinine [mass/volume ] in serum or plasma 0.83 text: 0.7 - 1.3 mg/dL CREAT ININE S/P/B 0.83 0.7 - 1.3 MG/DL 08/07 11:02 AM [facility] CLINIC[facility] Not [facility] Not Available 11/07/2024 15:43:05 08/07/20 24 08/07/2024 Basic metab olic 2000 panel - Serum or Plasm a sodium [moles/volum e] in serum or plasma 141 text: 136 - 145 mmol/L SODIU M S/P/B 141 136 - 145 MMOL/ L 08/07 11:02 AM [facility] CLINIC[facility] Not Available Not Available 11/07/2024 15:43:05 08/07/20 24 08/07/2024 Basic metab olic 2000 panel - Serum or Plasm a potassium [moles/volum e] in serum or plasma 3.5 text: 3.5 - 5.1 mmol/L POTAS SIUM S/P/B 3.5 3.5 - 5.1 MMOL/ L 08/07 11:02 AM [facility] CLINICIAN [facility] Not Available Not Available 11/07/2024 15:43:05 08/07/20 24 08/07/2024 Basic metab olic 2000 panel - Serum or Plasm a chloride [moles/volum e] in serum or plasma 105 text: 100 - 108 mmol/L CHLOR GUILLE S/P/B 105 100 - 108 MMOL/ L 08/07 11:02 AM [facility] Not Available Not Available 11/07/2024 15:43:05 08/07/20 24 08/07/2024 Basic metab olic 1999 panel - Serum or Plasm a carbon dioxide, total [moles/volum e] in serum or plasma 28.2 text: 21 - 32 mmol/L CO2 28.2 21 - 32 MMOL/ L 08/07 11:02 AM [facility] CLINIC[facility] Not Available Not Available 11/07/2024 15:43:05 08/07/20 24 08/07/2024 Basic metab olic 1999 panel - Serum or Plasm a calcium [mass/volume ] in serum or plasma 9.3 text: 8.5 - 10.1 mg/dL CALCI UM S/P/B 9.3 8.5 - 10.1 MG/DL 08/07 11:02 AM [facility] Not Available Not Available 11/07/2024 15:43:05 08/07/20 24 08/07/2024 Basic metab olic 2000 panel - Serum or Plasm a anion gap in serum or plasma 7.8 text: 5 - 15 mmol/L ANION GAP 7.8 5 - 15 MMOL/ L 08/07 11:02 AM [facility] Not Available Not Available 11/07/2024 15:43:05 08/07/20 24 08/07/2024 Basic metab olic 2000 panel - Serum or Plasm a urea nitrogen/cre atinine [mass ratio] in serum or plasma 37.3 low: 6high: 26 high BUN CREAT ININE RATIO 37.3 (H) 6 - 26 08/07 11:02 AM [facility] CLINICIAN [facility] Not Available Not Available 11/07/2024 15:43:05 08/07/20 24 08/07/2024 Basic metab olic 2000 panel - Serum or Plasm a glomerular filtration rate/1.73 sq M.predicted [volume rate/area] in serum, plasma or blood by creatinine-b ased formula (CKD-epi 2020) text: >90 mL/min /1.73 M2 GFR ESTIM ATE >90 >90 ML/MO N/1.7 3 M2 08/07 11:02 AM BEHAVIOR CLINICIAN [facility] Not [...] IPTIO N HEEL, RIGHT 09/02 11:42 AM [facility] Not Available Not Available 11/07/2024 15:43:05 09/02/20 24 09/04/2024 Bacte sarah ident ified in Wound by Aerob e cultu re service comment NO SPECIA L REQUES T SPECI AL REQUE STS NO SPECI AL REQUE ST 09/02 11:42 AM BEHAV[facility] CLINICIAN [facility] Not Available Not Available 11/07/2024 15:43:05 09/02/20 24 09/04/2024 Bacte sarah ident ified in Wound by Aerob e cultu re microscopic observation [identifier] in specimen by gram stain MANY WHITE BLOOD CELLS SEEN GRAM STAIN RESUL T MANY WHITE BLOOD CELLS SEEN 09/03 10:46 AM [facility] Not Available Not Available 11/07/2024 15:43:05 09/02/20 24 09/04/2024 Bacte sarah ident ified in Wound by Aerob e cultu re microscopic observation [identifier] in specimen by gram stain FEW EPITHE LIAL CELLS SEEN GRAM STAIN RESUL T FEW EPITH ELIAL CELLS SEEN 09/03 10:46 AM [facility] CLINIC[facility] Not Available Not Available 11/07/2024 15:43:05 09/02/20 24 09/04/2024 Bacte sarah ident ified in Wound by Aerob e cultu re microscopic observation [identifier] in specimen by gram stain FEW GRAM POSITI VE COCCI GRAM STAIN RESUL T FEW GRAM POSIT TRACEY COCCI 09/03 10:46 AM [facility] Not Available Not Available 11/07/2024 15:43:05 09/02/20 24 09/04/2024 Bacte sarah ident ified in Wound by Aerob e cultu re microscopic observation [identifier] in specimen by gram stain RARE GRAM NEGATI VE RODS GRAM STAIN RESUL T RARE GRAM NEGAT TRACEY RODS 09/03 10:46 AM [facility] Not Available Not Available 11/07/2024 15:43:05 09/02/20 24 09/04/2024 Bacte sarah ident ified in Wound by Aerob e cultu re bacteria identified in specimen by culture SPARSE GROWTH OF PROTEU S MIRABI LIS abnormal CULTU RE RESUL T SPARS E GROWT H OF PROTE US MIRAB ILIS (A) 09/04 7:55 AM [facility] Not Available Not Available 11/07/2024 [...] TION RAYNA COL. (AA) 09/04 7:55 AM [facility] Not Available Not Available 11/07/2024 [...] - 3.74 uIU/M L 09/26 2:33 PM [facility]HAV[facility] CLINICIAN [facility] Not Available Not Available 11/07/2024 15:43:05 09/26/19 25 09/26/2024 Compr ehens tracey metab olic 2000 panel - Serum or Plasm a glucose [mass/volume ] in serum or plasma 95 text: 70 - 99 mg/dL GLUCO SE 95 70 - 99 MG/DL 09/26 2:33 PM [facility] CLINICIAN [facility] Not Available Not Available 11/07/2024 15:43:05 09/26/19 25 09/26/2024 Compr ehens tracey metab olic 2000 panel - Serum or Plasm a urea nitrogen [mass/volume ] in serum or plasma 12 text: 7 - 18 mg/dL BUN 12 7 - 18 MG/DL 09/26 2:33 PM [facility] Not Available Not Available 11/07/2024 15:43:05 09/26/19 25 09/26/2024 Compr ehens tracey metab olic 2000 panel - Serum or Plasm a creatinine [mass/volume ] in serum or plasma 0.9 text: 0.7 - 1.3 mg/dL CREAT ININE S/P/B 0.90 0.7 - 1.3 MG/DL 09/26 2:33 PM [facility] Not Available Not Available 11/07/2024 15:43:05 09/26/19 25 09/26/2024 Compr ehens tracey metab olic 2000 panel - Serum or Plasm a sodium [moles/volum e] in serum or plasma 139 text: 136 - 145 mmol/L SODIU M S/P/B 139 136 - 145 MMOL/ L 09/26 2:33 PM [facility] CLINICIAN [facility] Not Available Not Available 11/07/2024 15:43:05 09/26/19 25 09/26/2024 Compr ehens tracey metab olic 2000 panel - Serum or Plasm a potassium [moles/volum e] in serum or plasma 3.9 text: 3.5 - 5.1 mmol/L POTAS SIUM S/P/B 3.9 3.5 - 5.1 MMOL/ L 09/26 2:33 PM [facility] Not Available Not Available 11/07/2024 15:43:05 09/26/19 25 09/26/2024 Compr ehens tracey metab olic 2000 panel - Serum or Plasm a chloride [moles/volum e] in serum or plasma 103 text: 100 - 108 mmol/L CHLOR GUILLE S/P/B 103 100 - 108 MMOL/ L 09/26 2:33 PM [facility] Not Available Not Available 11/07/2024 15:43:05 09/26/19 25 09/26/2024 Compr ehens tracey metab olic 2000 panel - Serum or Plasm a carbon dioxide, total [moles/volum e] in serum or plasma 29.6 text: 21 - 32 mmol/L CO2 29.6 21 - 32 MMOL/ L 09/26 2:33 PM [facility] Not Available Not Available 11/07/2024 15:43:05 09/26/19 25 09/26/2024 Compr ehens tracey metab olic 2000 panel - Serum or Plasm a calcium [mass/volume ] in serum or plasma 9.5 text: 8.5 - 10.1 mg/dL CALCI UM S/P/B 9.5 8.5 - 10.1 MG/DL 09/26 2:33 PM [facility] Not Available Not Available 11/07/2024 15:43:05 09/26/19 25 09/26/2024 Compr ehens tracey metab olic 2000 panel - Serum or Plasm a bilirubin.to manuel [mass/volume ] in serum or plasma 0.2 text: 0.2 - 1.2 mg/dL BILIR UBIN TOTAL S/P/B 0.2 0.2 - 1.2 MG/DL 09/26 2:33 PM [facility] Not Available Not Available 11/07/2024 15:43:05 09/26/19 25 09/26/2024 Compr ehens tracey metab olic 2000 panel - Serum or Plasm a protein [mass/volume ] in serum or plasma 9.3 text: 6.4 - 8.2 g/dL high TOTAL PROTE IN S/P/B 9.3 (H) 6.4 - 8.2 G/DL 09/26 2:33 PM [facility] CLINICIAN [facility] Not Available Not Available 11/07/2024 15:43:05 09/26/19 25 09/26/2024 Compr ehens tracey metab olic 2000 panel - Serum or Plasm a albumin [mass/volume ] in serum or plasma 2.6 text: 3.4 - 5.0 g/dL low ALBUM IN S/P/B 2.6 (L) 3.4 - 5.0 G/DL 09/26 2:33 PM [facility] CLINICIAN [facility] Not Available Not Available 11/07/2024 15:43:05 09/26/19 25 09/26/2024 Compr ehens tracey metab olic 2000 panel - Serum or Plasm a aspartate aminotransfe rase [enzymatic activity/vol ume] in serum or plasma 17 U/L low: 15U/Lh igh: 37U/L AST 17 15 - 37 U/L 09/26 2:33 PM BEHAV[facility] CLINICIAN [facility] Not Available Not Available 11/07/2024 15:43:05 09/26/19 25 09/26/2024 Compr ehens tracey metab olic 2000 panel - Serum or Plasm a alanine aminotransfe rase [enzymatic activity/vol ume] in serum or plasma 19 U/L low: 16U/Lh igh: 60U/L ALT 19 16 - 60 U/L 09/26 2:33 PM [facility] Not Available Not Available 11/07/2024 15:43:05 09/26/19 25 09/26/2024 [facility] - Serum or Plasm a alkaline phosphatase [enzymatic activity/vol ume] in serum or plasma 113 U/L low: 50U/Lh igh: 136U/L ALKAL INE PHOSP HATAS E S/P/B 113 50 - 136 U/L 09/26 2:33 PM [facility] CLINICIAN [facility] Not Available Not Available 11/07/2024 15:43:05 09/26/19 25 09/26/2024 [facility] panel - Serum or Plasm a anion gap in serum or plasma 6.4 text: 5 - 15 mmol/L ANION GAP 6.4 5 - 15 MMOL/ L 09/26 2:33 PM [facility]HAVIOR CLINICIAN [facility] [facility] Not Available Not Available 11/07/2024 15:43:05 09/26/19 25 09/26/2024 [facility] 2000 panel - Serum or Plasm a urea nitrogen/cre atinine [mass ratio] in serum or plasma 13.3 low: 6high: 26 BUN CREAT ININE RATIO 13.3 6 - 26 09/26 2:33 PM [facility]HAV[facility] CLINICIAN [facility] ([facility] Not Available Not Available 11/07/2024 15:43:05 09/26/19 25 09/26/2024 [facility] 2000 panel - Serum or Plasm a albumin/glob ulin [mass ratio] in serum or plasma 0.4 text: 1.0 - 2.0 ratio low A/G RATIO 0.4 (L) 1.0 - 2.0 RATIO 09/26 2:33 PM [facility]HAV[facility] CLINICIAN [facility] ([facility]) [facility] Not Available Not Available 11/07/2024 15:43:05 09/26/19 25 09/26/2024 [facility] 2000 panel - Serum or Plasm a glomerular filtration rate/1.73 sq M.predicted [volume rate/area] in serum, plasma or blood by creatinine-b ased formula (CKD-epi 2020) text: >90 mL/min /1.73 M2 GFR ESTIM ATE >90 >90 ML/MO N/1.7 3 M2 09/26 2:33 PM BEHAVIOR CLINICIAN [facility] [...] (H) <200. 0 MG/DL 09/26 2:33 PM [facility]IN[facility] Not Available Not Available 11/07/2024 15:43:05 09/26/19 25 09/26/2024 Lipid 1995 panel - Serum or Plasm a triglyceride [mass/volume ] in serum or plasma 98 text: <150 mg/dL TRIGL YCERI MARIIA 98 <150 MG/DL 09/26 2:33 PM [facility] CLINICIAN [facility] Not Available Not Available 11/07/2024 15:43:05 09/26/19 25 09/26/2024 Lipid 1996 panel - Serum or Plasm a cholesterol in HDL [mass/volume ] in serum or plasma 58 text: >40.0 mg/dL HDL 58 >40.0 MG/DL 09/26 2:33 PM [facility] CLINICIAN [facility] Not Available Not Available 11/07/2024 15:43:05 09/26/19 25 09/26/2024 Lipid 1996 panel - Serum or Plasm a cholesterol in LDL [mass/volume ] in serum or plasma by calculation 148 text: <100 mg/dL high LDL (CALC ULATE D) 148 (H) <100 MG/DL 09/26 2:33 PM [facility] Not Available Not Available 11/07/2024 15:43:05 09/26/19 25 09/26/2024 Lipid 1996 panel - Serum or Plasm a cholesterol non HDL [mass/volume ] in serum or plasma 168 text: <130 mg/dL high NON HDL OSBALDO STERO L 168 (H) <130 MG/DL 09/26 2:33 PM [facility] CLINIC[facility] Not Available Not Available 11/07/2024 15:43:05 09/26/19 25 09/26/2024 Lipid 1996 panel - Serum or Plasm a cholesterol. total/choles terol in HDL [mass ratio] in serum or plasma 3.9 low: 0high: 4.5 CHOL/ HDL RATIO 3.9 0.0 - 4.5 09/26 2:33 PM BEHAV[facility] CLINICIAN [facility] Not Available Not Available 11/07/2024 15:43:05 09/26/19 25 09/26/2024 Lipid 1996 panel - Serum or Plasm a cholesterol in VLDL [mass/volume ] in serum or plasma by calculation 20 text: 5 - 55 mg/dL VLDL CALCU LATIO N 20 5 - 55 MG/DL 09/26 2:33 PM [facility] CLINICIAN [facility] Not Available Not Available 11/07/2024 15:43:05 09/26/19 25 09/26/2024 Lipid 1996 panel - Serum or Plasm a service comment LIPID INTER PRETA TION 09/26 2:33 PM BEHAV[facility] CLINICIAN [facility] [...] - 11.0 x10'3 /uL 09/26 2:06 PM [facility] CLINICIAN [facility] Not Available Not Available 11/07/2024 15:43:05 09/26/19 25 09/26/2024 CBC W Auto Diffe renti al panel - Blood erythrocytes [#/volume] in blood by automated count 4.44 text: 4.50 - 5.90 x10'6/ uL low RBC 4.44 (L) 4.50 - 5.90 x10'6 /uL 09/26 2:06 PM [facility] CLINICIAN [facility] Not Available Not Available 11/07/2024 15:43:05 09/26/19 25 09/26/2024 CBC W Auto Diffe renti al panel - Blood hemoglobin [mass/volume ] in blood 11.4 text: 14.0 - 17.5 g/dL low HGB 11.4 (L) 14.0 - 17.5 G/DL 09/26 2:06 PM BEHAVIOR CLINICIAN [facility] Not Available Not Available 11/07/2024 15:43:05 09/26/19 25 09/26/2024 CBC W Auto Diffe renti al panel - Blood hematocrit [volume fraction] of blood 35.2 % low: 41.5%h igh: 50.4% low HCT 35.2 (L) 41.5 - 50.4 % 09/26 2:06 PM [facility] CLINICIAN [facility] Not Available Not Available 11/07/2024 15:43:05 09/26/19 25 09/26/2024 CBC W Auto Diffe renti al panel - Blood MCV [entitic volume] 79.3 text: 80.0 - 96.0 fL low MCV 79.3 (L) 80.0 - 96.0 FL 09/26 2:06 PM [facility] CLINICIAN [facility] Not Available Not Available 11/07/2024 15:43:05 09/26/19 25 09/26/2024 CBC W Auto Diffe renti al panel - Blood MCH [entitic mass] 25.7 pg low: 26.5pg high: 31.4pg low MCH 25.7 (L) 26.5 - 31.4 PG 09/26 2:06 PM [facility] Not Available Not Available 11/07/2024 15:43:05 09/26/19 25 09/26/2024 CBC W Auto Diffe renti al panel - Blood MCHC [mass/volume ] 32.4 text: 31.9 - 34.8 g/dL MCHC 32.4 31.9 - 34.8 G/DL 09/26 2:06 PM [facility] Not Available Not Available 11/07/2024 15:43:05 09/26/19 25 09/26/2024 CBC W Auto Diffe renti al panel - Blood erythrocyte distribution width [entitic volume] by automated count 18.9 % low: 12.3%h igh: 14.3% high RDW 18.9 (H) 12.3 - 14.3 % 09/26 2:06 PM [facility] Not Available Not Available 11/07/2024 15:43:05 09/26/19 25 09/26/2024 CBC W Auto Diffe renti al panel - Blood platelets [#/volume] in blood 262 text: 151 - 353 x10'3/ uL PLT 262 151 - 353 x10'3 /uL 09/26 2:06 PM [facility] Not Available Not Available 11/07/2024 15:43:05 09/26/19 25 09/26/2024 CBC W Auto Diffe renti al panel - Blood platelet mean volume [entitic volume] in blood 9.3 text: 9.7 - 11.9 fL low MPV 9.3 (L) 9.7 - 11.9 FL 09/26 2:06 PM [facility] CLINICIAN [facility] Not Available Not Available 11/07/2024 15:43:05 09/26/19 25 09/26/2024 CBC W Auto Diffe renti al panel - Blood erythrocytes [morphology] in blood by automated count NORMAL RBC MORPH OLOGY CHECO L 09/26 2:06 PM [facility] Not Available Not Available 11/07/2024 15:43:05 09/26/19 25 09/26/2024 CBC W Auto Diffe renti al panel - Blood platelet morphology finding [identifier] in blood NORMAL PLT MORPH . CHECO L 09/26 2:06 PM [facility] Not Available Not Available 11/07/2024 15:43:05 09/26/19 25 09/26/2024 CBC W Auto Diffe renti al panel - Blood leukocyte morphology finding [identifier] in blood NORMAL WBC MORPH OLOGY CHECO L 09/26 2:06 PM [facility] [facility] Not Available Not Available 11/07/2024 15:43:05 09/26/19 25 09/26/2024 CBC W Auto Diffe renti al panel - Blood lymphocytes/ 100 leukocytes in blood by automated count 23.6 % low: 15.8%h igh: 45% LYMPH OCYTE S % 23.6 15.8 - 45.0 % 09/26 2:06 PM BEHAVIOR CLINICIAN [facility] Not Available Not Available 11/07/2024 15:43:05 09/26/19 25 09/26/2024 CBC W Auto Diffe renti al panel - Blood neutrophils/ 100 leukocytes in blood by automated count 57.4 % low: 42.1%h igh: 71.9% NEUTR OPHIL S % 57.4 42.1 - 71.9 % 09/26 2:06 PM BEHAVIOR CLINICIAN [facility] Not Available Not Available 11/07/2024 15:43:05 09/26/19 25 09/26/2024 CBC W Auto Diffe renti al panel - Blood monocytes/10 0 leukocytes in blood by automated count 13.5 % low: 5.7%hi gh: 12.5% high MONOC YTES % 13.5 (H) 5.7 - 12.5 % 09/26 2:06 PM BEHAVIOR CLINICIAN [facility] Not Available Not Available 11/07/2024 15:43:05 09/26/19 25 09/26/2024 CBC W Auto Diffe renti al panel - Blood eosinophils/ 100 leukocytes in blood by automated count 4.7 % low: 0%high : 5.6% EOSIN OPHIL S 4.7 0.0 - 5.6 % 09/26 2:06 PM [facility] Not Available Not Available 11/07/2024 15:43:05 09/26/19 25 09/26/2024 CBC W Auto Diffe renti al panel - Blood basophils/10 0 leukocytes in blood by automated count 0.4 % low: 0%high : 1.3% BASOP HILS 0.4 0.0 - 1.3 % 09/26 2:06 PM BEHAVIOR CLINICIAN [facility] () [facility] Not Available Not Available 11/07/2024 15:43:05 09/26/19 25 09/26/2024 CBC W Auto Diffe renti al panel - Blood neutrophils [#/volume] in blood 3.06 text: 1.40 - 6.00 x10'3/ uL ABS. NEUTR OPHIL S 3.06 1.40 - 6.00 x10'3 /uL 09/26 2:06 PM BEHAVIOR CLINICIAN [facility] Not Available Not Available 11/07/2024 15:43:05 09/26/19 25 09/26/2024 CBC W Auto Diffe renti al panel - Blood immature granulocytes /100 leukocytes in blood by automated count 0.4 % low: 0%high : 0.5% IMMAT URE GRANS % 0.4 0.0 - 0.5 % 09/26 2:06 PM BEHAVIOR CLINICIAN [facility] Not Available Not Available 11/07/2024 15:43:05 09/26/19 25 09/26/2024 CBC W Auto Diffe renti al panel - Blood lymphocytes [#/volume] in blood 1.26 text: 0.80 - 4.70 x10'3/ uL ABS. LYMPH OCYTE S 1.26 0.80 - 4.70 x10'3 /uL 09/26 2:06 PM BEHAVIOR CLINICIAN [facility] Not Available Not Available [...] 30 - 100 NG/ML 09/26 2:45 PM BEHAVIOR CLINICIAN [facility] Not Available Not Available [...] Address Organization Details Recorded Time Spinal injury 902569993 Active 2023 Sheridan Sheets LPN null, [place] - [facility] 4 10:16:23 Paraplegia 10894781 Active 2023 Sheridan Sheets LPN [place], [place] [...] Not Available Not Available No t Available [employer] COVID-19 Vaccine (PF) 30 mcg/0.3 mL IM susp (purple) PHARMACY ADMINISTERE D active Not Available Not Available No t Available Vitals Date Recorded Body height Body mass index (BMI) Body weight Heart rate Body temperature Systolic blood pressure Diastolic blood pressure Provider Name and Address Organization Details Last Updated DateTime 5 175.26 cm 22.2 kg/m2 68941.8 6 g 89 /min 97.8 [degF] 142 mm[Hg] 71 mm[Hg] Karan Michael MA [place] - [facility] 5 12:55:45 Date Recorded Body weight Heart rate Body temperature Body mass index (BMI) Body height Systolic blood pressure Diastolic blood pressure Provider Name and Address Organization Details Last Updated DateTime 4 74864.8 6 g 103 /min 98.2 [degF] 22.2 kg/m2 175.26 cm 119 mm[Hg] 68 mm[Hg] Jenny Jeronimo MA [facility] 4 11:40:16 Date Recorded Body height Heart rate Body temperature Body mass index (BMI) Body weight Systolic blood pressure Diastolic blood pressure Provider Name and Address Organization Details Last Updated DateTime 4 175.26 cm 69 /min 97.8 [degF] 22.2 kg/m2 39574.8 6 g 148 mm[Hg] 66 mm[Hg] Jenny Jeronimo MA [place] - [facility] 4 10:08:46 Social History None recorded. Functional Status None recorded. Mental Status None recorded. Family History Nothing Reported. Medical History No medical history recorded. 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
--- NOTE | 2025-03-03 08:51 | ECG_ITS ---
Test Date: 2025-03-03 09:07:39 Measurements Intervals [place] Rate: 104 P: 0 KS: 0 QRS: 76 QRSD: 88 T: 63 QT: 310 QTc: 409 Interpretive Statements SINUS TACHYCARDIA MINIMAL Q WAVES- INF/LAT LEADS BORDERLINE ECG No previous ECG available for comparison Electronically Signed On 03-03-2025 09:24:18 CDT by Robert Malone D.O.
[2025-03-03 09:42] LABS: Basophils Absolute Auto 0.1 K/mm3 (0.0-0.1); Basophils Percent Auto 0.3 % (0.2-1.2); Eosinophils Absolute Auto 0.1 K/mm3 (0-0.3); Eosinophils Percent Auto 0.4 % (0-4.4); Hematocrit 30.5 % (42.0-52.0); Hemoglobin 9.7 g/dL (14.0-18.0); Immature Granulocyte Absolute 0.49 K/mm3 (0.00-0.031); Immature Granulocyte Percent A 3.1 % (0-0.5); Lymphocytes Absolute Auto 1.36 K/mm3 (0.9-3.2); Lymphocytes Percent Auto 8.5 % (18.3-44.2); Mean Corpuscular HGB Conc 31.8 g/dl (32-36); Mean Corpuscular Hemoglobin 24.4 pg (26-34); Mean Corpuscular Volume 76.6 fl (80-100); Mean Platelet Volume 9.9 fl (7.4-10.4); Monocytes Absolute Auto 1.2 K/mm3 (0.1-0.6); Monocytes Percent Auto 7.2 % (2.6-8.5); Neutrophils Absolute Auto 12.9 K/mm3 (1.3-6.7); Neutrophils Percent Auto 80.5 % (45.5-73.1); Platelet Count Result 464 k/mm3 (150-375); Red Blood Count 3.98 M/mm3 (4.6-6.20); Red Cell Distribution Width 18.6 % (11.5-14.5)
[2025-03-03 09:54] LABS: INR 1.3; Partial Thromboplastin Time 30.3 Seconds (22.3-36.8); Prothrombin Time 16.1 Seconds (11.1-14.7)
[2025-03-03 09:57] LABS: Lactic Acid Reflex 2.2 mmol/L (0.7-2.0)
[2025-03-03 10:00] VITALS: BP 135/69; PULSE 111; RESP 17; O2SAT 99
[2025-03-03 10:00] LABS: Alanine Aminotransferase 76 U/L (6-50); Albumin Level 3.8 g/dL (3.5-5.1); Alkaline Phosphatase 157 U/L (38-126); Anion Gap 15 mmol/L (4-12); Aspartate Amino Transferase 84 U/L (17-59); Bilirubin,Total 0.7 mg/dL (0.2-1.3); Blood Urea Nitrogen 15 mg/dL (9-20); Calcium 10.5 mg/dL (8.4-10.2); Carbon Dioxide 19 mmol/L (22-30); Chloride 103 mmol/L (98-107); Estimated CRCL calculation 78 ml/min; Estimated Glomerular Filt Rate > 60; Glucose 132 mg/dL (65-110); Potassium 4.2 mmol/L (3.4-5.0); Sodium 137 mmol/L (137-145); Total Protein 10.4 g/dL (6.3-8.2)
[2025-03-03 10:11] LABS: Anisocytosis 1+; Ovalocytes 1+; Platelet Estimate Increased (Adequate); Schistocytes None Seen
[2025-03-03] MEDS: LACTATED RINGERS 1,000 ML 999 ML IV CONT (10:14)
--- NOTE | 2025-03-03 10:38 | PC.NURSE ---
Patient's bandages on bottom, hip, and right thigh changed with mepalex, telfa and ABD pads.
--- NOTE | 2025-03-03 11:32 | PC.NURSE ---
assumed care of pt from teresa rubalcava. pt verbalized frustration with plan of care, informed we will speak with md and have her come speak with pt. verbalized understanding
--- NOTE | 2025-03-03 11:37 | ED.MALEGU ---
HPI - Male Genitourinary General Chief complaint: Urogenital-Male Stated complaint: davis not working Time Seen by Provider: 03/03/25 08:25 Source: patient, RN notes reviewed and old records reviewed Mode of arrival: wheelchair Limitations: no limitations History of Present Illness HPI Narrative: This is a 54 year old male with paraplegia T9/10, chronic indwelling davis catheter, colostomy who present to get suprapubic catheter changed. He states that he has a home health aid and nurses that come to his home to help him. He has multiple decubitus ulcers that are requiring dressing changes so he has a home health nurse. He states yesterday he has been having leakage of urine surrounding his suprapubic catheter. He has brought a 24 F catheter with him. He denies fever, nausea, vomiting or weakness. Related Data Home Medications ?Medication ?Instructions ?Recorded ?Confirmed ?Last Taken ?Type amlodipine PO 04/16/24 05/28/24 Unknown History ferrous sulfate [Iron (ferrous PO 04/16/24 05/28/24 Unknown History sulfate)] metoprolol succinate PO 04/16/24 05/28/24 Unknown History potassium chloride PO 04/16/24 05/28/24 Unknown History Allergies Allergy/AdvReac Type Severity Reaction Status Date / Time ciprofloxacin (From Cipro) AdvReac Mild Hives Verified 02/11/25 08:48 diazepam (From Valium) AdvReac Mild Hives Verified 02/11/25 08:48 diphenhydramine (From AdvReac Mild Hives Verified 02/11/25 08:48 Benadryl) adhesive tape AdvReac Unknown Verified 02/11/25 08:48 pink zinc AdvReac Mild Hives Uncoded 02/11/25 08:48 PMFSH Past Medical History Medical History (Updated 03/03/25 @ 18:33 by Tianna Mcelroy MD) Colostomy present Suprapubic catheter 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 Wheelchair dependent to ambulate. Smoking status: Never smoker Exam Const: General: no acute distress and alert Nutritional Appearance: well nourished HENMT: Head: normal to inspection Mouth: Yes Normal oral and palatal mucosa present, Yes lip normal and Yes moist mucous membranes Eyes: Pupils: Equal, round and reactive pupils present EOM: EOMs intact bilaterally Resp: Effort & Inspection: normal respiratory effort Auscultation: clear to auscultation bilaterally Cardio: Rate: tachycardic Rhythm: regular rhythm GI: GI Palp: Yes Soft to palpation, No Tenderness to palpation present (GI) and No Guarding due to palpation present (GI) Auscultation: normal bowel sounds Other: suprapubic catheter in place Back/Spine/Pelvis: Back: no CVA tenderness Skin: Wounds: wounds noted (He has healing bilateral ischial decubitus wounds and sacral wounds ) Neuro: General: patient oriented x3 Other: paraplegia Psych: Mental Status: mental status grossly normal Affect: normal affect Attitude: cooperative Course Reevaluation(s) Reevaluation #1: I discussed with patient that I recommend admission due to concern for sepsis. PAtient is stating he does not want to be admitted but he will wait on CT Date: 03/03/25 Time: 11:37 Reevaluation #2: PAtient still be refusing admission. He requested that I change out his suprapubic catheter. Date: 03/03/25 Time: 14:17 Vital Signs Vital signs: Vital Signs Temperature 97.6 F 03/03/25 08:27 Pulse Rate 118 H 03/03/25 08:27 Respiratory Rate 18 03/03/25 08:27 Blood Pressure 148/72 H 03/03/25 08:27 Pulse Oximetry 97 03/03/25 08:27 Oxygen Delivery Room Air 03/03/25 08:27 Temperature 97.6 F 03/03/25 08:27 Pulse Rate 111 H 03/03/25 10:00 Respiratory Rate 17 03/03/25 10:00 Blood Pressure 135/69 03/03/25 10:00 Pulse Oximetry 99 03/03/25 10:00 Oxygen Delivery Room Air 03/03/25 08:27 MDM - Male Genitourinary MDM Narrative Medical decision making narrative: Patient presented for urinary catheter changed but he came in with heart rate elevated to 120 with multiple wounds and chronic davis. I was concerned for infection and sepsis. labs were ordered along with CT abdomen and pelvis. Labs show elevated wbc 16 with anemia. HE had mildly elevated lactic acid of 2.2. Urine is positive for infection. CT shows chronic osteomyelitis. I spoke to patient twice in ER about recommendation for admission for sepsis treatment and IV antibiotics. He declined admission and states he understood. He was given dose of rocephin in er . Patient signed AMA Differential Diagnosis Differential diagnosis: Likely urinary tract infection and inguinal hernia Medical Records Attestation: I reviewed the patient's medical records. Lab Data Attestation: I reviewed the patient's lab results. 03/03/25 09:35 03/03/25 09:35 Labs: Lab Results 03/03/25 03/03/25 03/03/25 Range/Units 09:35 11:51 12:09 WBC 16.0 H (4.5-10.0) K/mm3 RBC 3.98 L (4.6-6.20) M/mm3 Hgb 9.7 L (14.0-18.0) g/dL Hct 30.5 L (42.0-52.0) % MCV 76.6 L (80-100) fl MCH 24.4 L (26-34) pg MCHC 31.8 L (32-36) g/dl RDW 18.6 H (11.5-14.5) % Plt Count 464 H (150-375) k/mm3 MPV 9.9 (7.4-10.4) fl Immature Gran % (Auto) 3.1 H (0-0.5) % Neut % (Auto) 80.5 H (45.5-73.1) % Lymph % (Auto) 8.5 L (18.3-44.2) % Kimball % (Auto) 7.2 (2.6-8.5) % Eos % (Auto) 0.4 (0-4.4) % Baso % (Auto) 0.3 (0.2-1.2) % Lymph # (Auto) 1.36 (0.9-3.2) K/mm3 Kimball # (Auto) 1.2 H (0.1-0.6) K/mm3 Eos # (Auto) 0.1 (0-0.3) K/mm3 Baso # (Auto) 0.1 (0.0-0.1) K/mm3 Abs Immat Gran (auto) 0.49 H (0.00-0.031) K/mm3 Absolute Neuts (auto) 12.9 H (1.3-6.7) K/mm3 Absolute Nucleated RBC 0.000 (0.0-0.012) K/mm3 Band Neutrophils % Not Reportable Nucleated RBC % 0.0 (0.0-0.2) % Platelet Estimate Increased (Adequate) Anisocytosis 1+ Ovalocytes 1+ Schistocytes None seen PT 16.1 H (11.1-14.7) Seconds INR 1.3 APTT 30.3 (22.3-36.8) Seconds Sodium 137 (137-145) mmol/L Potassium 4.2 (3.4-5.0) mmol/L Chloride 103 (98-107) mmol/L Carbon Dioxide 19 L (22-30) mmol/L Anion Gap 15 H (4-12) mmol/L BUN 15 (9-20) mg/dL Creatinine 0.82 (0.7-1.3) mg/dL Estim Creat Clear Calc 78 ml/min Estimated GFR > 60 (59 - ) Glucose 132 H (65-110) mg/dL Lactic Acid 2.2 H 1.8 (0.7-2.0) mmol/L Calcium 10.5 H (8.4-10.2) mg/dL Total Bilirubin 0.7 (0.2-1.3) mg/dL AST 84 H (17-59) U/L ALT 76 H (6-50) U/L Alkaline Phosphatase 157 H (38-126) U/L Total Protein 10.4 H (6.3-8.2) g/dL Albumin 3.8 (3.5-5.1) g/dL Urine Color Yellow (Yellow) Urine Appearance Turbid H (Clear) Urine pH 8.5 (5.0-9.0) Ur Specific [place] 1.022 (1.001-1.035) Urine Protein 1+ H (Negative) mg/dL Urine Glucose (UA) Negative (Negative) mg/dL Urine Ketones Negative (Negative) mg/dL Ur Blood (Man) 2+ H (Negative) Urine Nitrate Negative (Negative) Urine Bilirubin Negative (Negative) Urine Urobilinogen 0.2 (<2.0) mg/dL Add Ur Microanalysis Reviewed Leukocyte Esterase Rfl 3+ H (Negative) GURMEET/UL Urine RBC 6-10 H (0-2) /hpf Urine WBC 51-100 H (0-3) /hpf Ur Squamous Epith Cells Occasional (Few) /hpf Amorphous Sediment Heavy H (None) Urine Bacteria 4+ H /hpf Urine Casts >20 Imaging Data Radiologist's impression: ITS Impressions Chest X-Ray 03/03/25 09:26 IMPRESSION: 1. No acute cardiopulmonary disease. Abdomen/Pelvis CT 03/03/25 11:34 Impression: Extensive sacral decubitus ulcer with probable chronic osteitis and chronic dislocation involving the left hip/acetabulum. Probable additional chronic osteoarthritic changes or other chronic changes involving the right hip joint. Chronic destructive change of the coccyx. No other acute findings in the abdomen or pelvis. ECG Data EKG #1: Attestation: I personally reviewed and interpreted this ECG as follows: ECG completion date: 03/03/25 ECG completion time: 09:07 EKG Interpretation: tachycardia (104), sinus rhythm and NL axis Discharge Plan Discharge Clinical Impression: Sepsis, Chronic suprapubic catheter, Acute UTI Patient Disposition: Left Against Medical Advice Condition: Guarded Prognosis Instructions: Davis Catheter Placement and Care (ED), Sepsis (DC) Additional Instructions: It was recommended that you be admitted for treatment of infection and sepsis. If left untreated you are risking . Please call your primary care and your urologist. Patient Language: Croatian Prescriptions: New cefdinir 300 mg capsule 300 mg PO Q12H Qty: 20 0RF No Action metoprolol succinate PO amlodipine PO ferrous sulfate [Iron (ferrous sulfate)] PO potassium chloride PO ibuprofen 600 mg tablet 600 mg PO TID PRN (Reason: pain) Qty: 20 0RF acetaminophen 500 mg capsule 1,000 mg PO Q6H PRN (Reason: pain) Qty: 20 0RF hydrocodone-acetaminophen 5-325 mg tablet 1 tablet PO Q8H PRN (Reason: pain) Qty: 12 0RF psyllium husk [Metamucil] 0.4 gram capsule 0.4 g PO DAILY PRN (Reason: constipation) Qty: 14 0RF cephalexin 500 mg capsule 500 mg PO Q8H 7 Days Qty: 21 0RF Follow-up/Referrals: Kt,DO Leroy [Primary Care Provider] -
[2025-03-03 11:40] LABS: Reflex Lactic Acid Yes or No Add Lactic
--- NOTE | 2025-03-03 12:11 | PC.NURSE ---
right heel wound dressing changed. saline used to remove old dressing, 2cm x 2cm open wound noted, purulent drainage noted. telfa dressing applied, coban and kerlex applied. pms intact
[2025-03-03 12:20] LABS: Add Urine Microscopic? YES; Appearance Urine Turbid (Clear); Bacteria Urine 4+ /hpf; Bilirubin Urine Negative (Negative); Blood Urine 2+ (Negative); Color Urine Yellow (Yellow); Glucose Urine UA Negative (Negative); Ketones Urine Negative (Negative); Leukocyte Esterase Ur 3+ LEU/UL (Negative); Need Manual Microscopic Reviewed; Nitrate Urine Negative (Negative); Non Pathogenic Casts >20; Protein Urine 1+ mg/dL (Negative); Specific Grav Ur 1.022 (1.001-1.035); Squamous Epithelial Cell Urine Occasional /hpf (Few); Urobilinogen Urine 0.2 mg/dL (<2.0); WBC Urine 51-100 /hpf (0-3); pH Urine 8.5 (5.0-9.0)
[2025-03-03 12:27] LABS: Lactic Acid 1.8 mmol/L (0.7-2.0)
[2025-03-03 12:29] LABS: Amorphous Sediment Urine Heavy
--- NOTE | 2025-03-03 14:23 | PC.NURSE ---
this RN was assisting EDP with changing the suprapubic catheter. sterile technique was performed. no dressing applied yet due to urine still leaking around the catheter
== END 2025-03-03 14:59 | disposition left against medical advice (07) ==
PROVIDERS: Emergency Provider General Practice; PCP Student in an Organized Health Care Education/Training Program
DX: A41.9 Sepsis, unspecified organism (principal); N39.0 Urinary tract infection, site not specified; Z46.6 Encounter for fitting and adjustment of urinary device; R00.0 Tachycardia, unspecified; Z93.3 Colostomy status; G82.20 Paraplegia, unspecified; Z99.3 Dependence on wheelchair; L89.159 Pressure ulcer of sacral region, unspecified stage
CPT/HCPCS: 36415; 71045; 74177; 80053; 81001; 83605; 85025; 85610; 85730; 87040; 87077; 87086; 87186; 93005; 96361; 96365; 99284; J0696; J7120; Q9967

== ENCOUNTER 2025-04-23 09:34 | Emergency (ER) | payer MEDICARE, MEDICAID, SELFPAY ==
[2025-04-23 09:40] VITALS: BP 156/78; PULSE 75; RESP 16; TEMP 36.5; O2SAT 100
--- OUTSIDE RECORDS SUMMARY | 2025-04-23 09:55 | XMS_ITS | Patient Health Record ---
Author Organization [facility] Written Address [address] [facility] [address] [place] [address] Care Team Providers Care Professor Of Environmental Engineering Name Role Phone Tom Forbes Unavailable [phone] Reason For Referral No Information Plan Of Treatment No Information
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
== END 2025-04-23 10:50 | disposition home or self-care (01) ==
PROVIDERS: Emergency Provider Nurse Practitioner Family; PCP Student in an Organized Health Care Education/Training Program
DX: Z43.5 Encounter for attention to cystostomy (principal); G82.20 Paraplegia, unspecified; S24.103S Unspecified injury at T7-T10 level of thoracic spinal cord, sequela; Z99.3 Dependence on wheelchair; X58.XXXS Exposure to other specified factors, sequela
CPT/HCPCS: 51705; 99283

== ENCOUNTER 2025-06-16 08:56 | Emergency (ER) | payer MEDICARE, MEDICAID, SELFPAY ==
[2025-06-16 09:14] VITALS: BP 135/75; PULSE 94; RESP 20; TEMP 36.4; O2SAT 100
--- OUTSIDE RECORDS SUMMARY | 2025-06-16 09:42 | XMS_ITS | Patient Health Record ---
Author Organization [facility] [employer] Address [address] [facility] [address] [place] [address] Care Team Providers Care Valve Repairer Reclamation Name Role Phone Tom Forbes Unavailable [phone] Reason For Referral No Information Plan Of Treatment No Information
--- OUTSIDE RECORDS SUMMARY | 2025-06-16 09:42 | XMS_ITS | Clinical Summary ---
Author Organization [facility] Address [address] [place] [address] Care Team Providers Care Business Solutions Architect Name Role Phone Lisa Ramírez JOSE-VESSEL MANAGER Primary Care Provider Source Comments [facility],non-owned Affiliates and Associated Physician Practices is amultiple site organization consisting of ambulatory clinics and hospital sitesin [place], [place], [place] and [place]. This disclosure is being madepursuant to the Care Everywhere program and may not contain all information available regarding this patient. Last updated 18.[facility] [employer] 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 Gender Identity Not on file Sexual Orientation [...] 3:25 PM CDT Height 198.1 cm (6' 6) 12/29/2022 3:25 PM CDT Body Mass Index [...] 2018 ZOSTER VACCINE (1 of 2) 2018 DEPRESSION SCREENING 09/25/2024 MEDICARE AWV CALENDAR YEAR 2024 COVID-19 VACCINE (4 - 2024-2 6 season) 2025 10/08/2021, 11/16/2020, 10/26/2020 INFLUENZA VACCINE (#1) 2025 , 10/08/2021 HIB VACCINE Aged Out No longer [...] 10/07/2022 [place] [facility] MANAGED MEDICARE ADV [facility] MANAGED MEDICARE ADV MEDICAID - OUT OF STATE Advance Directives * Full Code (Latest Code Status on File) Date Activated Date Inactivated Comments 12/26/2020 4:22 AM 12/27/2020 2:34 PM Care Teams Business Solutions Architect Relationship Specialty Start Date End Date Lisa Ramírez, COUNTER HELPER-VESSEL MANAGER [address] [place] [address] PCP - General Chlorine Operator 10/07/22
--- NOTE | 2025-06-16 09:46 | ED_ITS ---
HPI - Male Genitourinary General Chief complaint: Urogenital-Male Stated complaint: needs davis changed Time Seen by Provider: 06/16/25 09:00 Source: patient and old records reviewed Mode of arrival: ambulatory Limitations: no limitations History of Present Illness HPI Narrative: Patient is a 54-year-old male who presents the ED with report of needing suprapubic catheter changed. Patient has hx of T9/T10 fracture, paraplegia, suprapubic Davis catheter. Requires monthly catheter changes and comes to the ED monthly for this. States he is unable to go to Urology related to transportation/wheelchair issues. Patient denies any concerns related to catheter. States it has been draining normal. Denies abd pain, back/flank pain, N/V, fevers, hematuria. Related Data Home Medications ?Medication ?Instructions ?Recorded ?Confirmed ?Last Taken ?Type amlodipine PO 04/16/24 05/28/24 Unknown History ferrous sulfate [Iron (ferrous PO 04/16/24 05/28/24 Un known History sulfate)] metoprolol succinate PO 04/16/24 05/28/24 Unknown History potassium chloride PO 04/16/24 05/28/24 Unknown History Allergies Allergy/AdvReac Type Severity Reaction Status Date / Time ciprofloxacin (From Cipro) AdvReac Mild Hives Verified 06/16/25 09:18 diazepam (From Valium) AdvReac Mild Hives Verified 06/16/25 09:18 diphenhydramine (From AdvReac Mild Hives Verified 06/16/25 09:18 Benadryl) adhesive tape AdvReac Unknown Verified 06/16/25 09:18 pink zinc AdvReac Mild Hives Uncoded 04/23/25 09:52 Review of Systems Review of Systems: All systems reviewed & are unremarkable except as noted in HPI. 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 Wheelchair dependent to ambulate. Smoking status: Never smoker Exam Narrative: GENERAL: Well appearing, thin, non-toxic, in no acute distress. HEAD: Normocephalic, atraumatic. RESPIRATORY: Airway patent, respirations nonlabored. CARDIOVASCULAR: Regular rate and rhythm without murmurs, rubs, or gallops. ABDOMINAL: Soft, nontender, nondistended. Normoactive BS. Suprapubic catheter site w/o signs of infection/drainage. MUSCULOSKELETAL: Moves all extremities. No gross deformities. SKIN: Warm, dry, normal color. NEURO: A&O X3. Speech clear. No ataxic movements. PSYCHIATRIC: Appropriate mood and affect. Normal interaction. Course Vital Signs Vital signs: Vital Signs Temperature 97.6 F 06/16/25 09:14 Pulse Rate 94 06/16/25 09:14 Respiratory Rate 20 06/16/25 09:14 Blood Pressure 135/75 06/16/25 09:14 Pulse Oximetry 100 06/16/25 09:14 Oxygen Delivery Room Air 06/16/25 09:14 Temperature 97.6 F 06/16/25 09:14 Pulse Rate 94 06/16/25 09:14 Respiratory Rate 20 06/16/25 09:14 Blood Pressure 135/75 06/16/25 09:14 Pulse Oximetry 100 06/16/25 09:14 Oxygen Delivery Room Air 06/16/25 09:14 Procedures Catheter Insertion (Urinary) Urinary Catheter 1: Date of insertion: 06/16/25 Time of insertion: 10:10 Reason for placing: Yes (replacement) Reason for placing indwelling catheter: Prolonged immobilization (paraplegia) Bladder scan/ultrasound used before catheterization: No Antiseptic solution prep: Other (betadine) Topical anesthesia used: No Catheter type/location: Suprapubic Size (Macedonian): 24 Catheter balloon size (mL): 30 Catheter balloon amount: 30 Results: successfully catheterized-immediate flow Procedure performed: without complications MDM - Male Genitourinary MDM Narrative Medical decision making narrative: Patient presented to ED needing suprapubic catheter changed. Patient seen in the ED monthly for this. Has issues going to Urology due to transportation/wheelchair issues that he is currently in discussion with insurance for. Denies any acute complaints or signs of infection. Vital signs are stable. Patient is afebrile here. Requesting suprapubic catheter be changed, urine and sent and cultured. States he will follow-up with his primary care doctor for the culture results to determine need for antibiotics. Davis catheter was successfully changes without issue. Urinalysis here does appear infected. Sent for culture. Given lack of acute symptomatology, feel appropriate to wait for culture results. Patient is very familiar and particular with this process. Denying treatment now. Patient given return precautions. Discharged in stable condition. Medical Records Attestation: I reviewed the patient's medical records. Lab Data Attestation: I reviewed the patient's lab results. Labs: Lab Results 06/16/25 Range/Units 10:16 Urine Color Yellow (Yellow) Urine Appearance Turbid H (Clear) Urine pH 6.0 (5.0-9.0) Ur Specific [place] 1.015 (1.001-1.035) Urine Protein 2+ H (Negative) mg/dL Urine Glucose (UA) Negative (Negative) mg/dL Urine Ketones Negative (Negative) mg/dL Ur Blood (Man) 2+ H (Negative) Urine Nitrate Negative (Negative) Urine Bilirubin Negative (Negative) Urine Urobilinogen 1.0 (<2.0) mg/dL Add Ur Microanalysis Reviewed Leukocyte Esterase Rfl 3+ H (Negative) GURMEET/UL Urine RBC 6-10 H (0-2) /hpf Urine WBC >100 H (0-3) /hpf Ur Squamous Epith Cells Moderate (Few) /hpf Urine Bacteria Rare /hpf Urine Casts >20 Discharge Plan Discharge Clinical Impression: Encounter for suprapubic catheter care Patient Disposition: Home Condition: Stable Instructions: Antibiotic Form, Davis Catheter Placement and Care (ED) Additional Instructions: Follow-up with your primary care doctor for urinalysis and urine culture results. Return for issues with catheter not draining, abdominal pain, fevers, unable to keep down food or drink, or any other symptoms of concern. Patient Language: [place]ine[place] Prescriptions: No Action metoprolol succinate PO amlodipine PO ferrous sulfate [Iron (ferrous sulfate)] PO potassium chloride PO ibuprofen 600 mg tablet 600 mg PO TID PRN (Reason: pain) Qty: 20 0RF acetaminophen 500 mg capsule 1,000 mg PO Q6H PRN (Reason: pain) Qty: 20 0RF hydrocodone-acetaminophen 5-325 mg tablet 1 tablet PO Q8H PRN (Reason: pain) Qty: 12 0RF psyllium husk [Metamucil] 0.4 gram capsule 0.4 g PO DAILY PRN (Reason: constipation) Qty: 14 0RF cephalexin 500 mg capsule 500 mg PO Q8H 7 Days Qty: 21 0RF cefdinir 300 mg capsule 300 mg PO Q12H Qty: 20 0RF Follow-up/Referrals: Kt,DO Leroy [Primary Care Provider] Time of Disposition: 10:15
--- OUTSIDE RECORDS SUMMARY | 2025-06-16 10:08 | XMS_ITS | Clinical Summary ---
Author Organization [facility] Address [address] [place] [address] Care Team Providers Care Train Brake Operator Name Role Phone Lisa Ramírez JOSE-SURVEYOR HELPER ROD Primary Care Provider Source Comments [facility],non-owned Affiliates and Associated Physician Practices is amultiple site organization consisting of ambulatory clinics and hospital sitesin [place], [place], [place] and [place]. This disclosure is being madepursuant to the Care Everywhere program and may not contain all information available regarding this patient. 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 MANAGED MEDICARE ADV [facility] MANAGED MEDICARE ADV MEDICAID - OUT OF STATE Advance Directives * Full Code (Latest Code Status on File) Date Activated Date Inactivated Comments 12/26/2020 4:22 AM 12/27/2020 2:34 PM Care Teams Train Brake Operator Relationship Specialty Start Date End Date Lisa Ramírez, EARLY CHILDHOOD EDUCATION WORKER-SURVEYOR HELPER ROD [address] [place] [address] PCP - General Pure Pak Machine Operator 10/07/22
[2025-06-16] MEDS: WATER, STERILE FOR INJECTION 10 ML VIAL 30 ML XX (10:12)
[2025-06-16 10:32] LABS: Add Urine Microscopic? YES; Appearance Urine Turbid (Clear); Glucose Urine UA Negative (Negative); Leukocyte Esterase Ur 3+ LEU/UL (Negative); Need Manual Microscopic Reviewed; Nitrate Urine Negative (Negative); Non Pathogenic Casts >20; Specific Grav Ur 1.015 (1.001-1.035)
== END 2025-06-16 10:46 | disposition home or self-care (01) ==
PROVIDERS: Emergency Provider Physician Assistant; PCP Student in an Organized Health Care Education/Training Program
DX: Z46.6 Encounter for fitting and adjustment of urinary device (principal); R82.998 Other abnormal findings in urine; Z96.0 Presence of urogenital implants; S24.103S Unspecified injury at T7-T10 level of thoracic spinal cord, sequela; Z99.3 Dependence on wheelchair; X58.XXXS Exposure to other specified factors, sequela
CPT/HCPCS: 51705; 81001; 87077; 87086; 87186; 99283

== ENCOUNTER 2025-07-24 08:40 | Emergency (ER) | payer MEDICARE, MEDICAID, SELFPAY ==
--- OUTSIDE RECORDS SUMMARY | 2025-07-24 08:53 | XMS_ITS | Clinical Summary ---
Author Organization [facility] Address [address] [address] Care Team Providers Care Journeyman Meat Cutter Name Role Phone Lisa Ramírez JOSE-FACTORY HELPER Primary Care Provider Source Comments [facility],non-owned Affiliates and Associated Physician Practices is amultiple site organization consisting of ambulatory clinics and hospital sitesin [place], [place], [place]. This disclosure is being madepursuant to the Care Everywhere program and may not contain all information available regarding this patient. 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
--- OUTSIDE RECORDS SUMMARY | 2025-07-24 08:53 | XMS_ITS | Patient Health Record ---
Author Organization [facility] Address [address] [facility] [address] [place] [address] Care Team Providers Care Loom Inspector Name Role Phone Tom Forbes Unavailable [phone] Reason For Referral No Information Plan Of Treatment No Information
--- NOTE | 2025-07-24 08:56 | ED_ITS ---
HPI - Male Genitourinary General Chief complaint: Urogenital-Male Stated complaint: needs catheter changed Time Seen by Provider: 07/24/25 08:56 Source: patient Mode of arrival: ambulatory Limitations: no limitations History of Present Illness HPI Narrative: Raphael is a 54-year-old male patient presenting to the emergency room today for a suprapubic catheter change. He reports he has to have suprapubic catheter for paraplegia. He has a T9/T10 injury and is paralyzed from the waist down. His PCP is Dr. Harper and his urologist is Dr. Gaspar. States that his urologist will not perform catheters changes in the doctor's office because he does not have an appropriate wheelchair to perform the procedure and recommends he comes to the emergency room for his catheter changes. Related Data Home Medications ?Medication ?Instructions ?Recorded ?Confirmed ?Last Taken ?Type amlodipine PO 04/16/24 05/28/24 Unknown History ferrous sulfate [Iron (ferrous PO 04/16/24 05/28/24 Un known History sulfate)] metoprolol succinate PO 04/16/24 05/28/24 Unknown History potassium chloride PO 04/16/24 05/28/24 Unknown History Allergies Allergy/AdvReac Type Severity Reaction Status Date / Time ciprofloxacin (From Cipro) AdvReac Mild Hives Verified 06/16/25 09:18 diazepam (From Valium) AdvReac Mild Hives Verified 06/16/25 09:18 diphenhydramine (From AdvReac Mild Hives Verified 06/16/25 09:18 Benadryl) adhesive tape AdvReac Unknown Verified 06/16/25 09:18 pink zinc AdvReac Mild Hives Uncoded 04/23/25 09:52 Review of Systems Review of Systems: Pertinent positives per HPI. Patient denies any fever, chills, rash, headache, visual changes, dizziness, cough, runny nose, sore throat, shortness of breath, chest pain, palpitations, nausea, vomiting, diarrhea, constipation, abdominal pain. 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 Wheelchair dependent to ambulate. Smoking status: Never smoker Exam Narrative: General: Well-developed, well nourished, in no apparent distress. Head: Normocephalic, atraumatic. Cardio: Regular rate and rhythm, s1 and s2 normal, no murmur appreciated. Resp: Clear to auscultation bilaterally, no rhonchi, rales, wheezing or rubs. Abdomen: Soft, pliable, bowel sounds present, colostomy in place, non-tender to palpation, no organomegly, no CVAT tenderness. Suprapubic catheter present/in place over the pubis. Course Vital Signs Vital signs: Vital Signs Temperature 36.8 C 07/24/25 09:02 Pulse Rate 98 07/24/25 09:02 Respiratory Rate 14 07/24/25 09:02 Blood Pressure 147/74 H 07/24/25 09:02 Pulse Oximetry 100 07/24/25 09:02 Oxygen Delivery Room Air 07/24/25 09:02 Temperature 36.8 C 07/24/25 09:02 Pulse Rate 98 07/24/25 09:02 Respiratory Rate 14 07/24/25 09:02 Blood Pressure 147/74 H 07/24/25 09:02 Pulse Oximetry 100 07/24/25 09:02 Oxygen Delivery Room Air 07/24/25 09:02 Procedures Catheter Insertion (Urinary) Urinary Catheter 1: Date of insertion: 07/24/25 Time of insertion: 10:00 Reason for placing: Yes Reason for placing indwelling catheter: Unstable thoracic spine Patient has the following: other ([id number] injury) Antiseptic solution prep: Povidone-Iodine Topical anesthesia used: No Catheter type/location: Suprapubic Size (Pashto): 24 Catheter balloon size (mL): 10 Catheter balloon amount: 10 Results: successfully catheterized-immediate flow Procedure performed: without complications MDM - Male Genitourinary MDM Narrative Medical decision making narrative: At the time of visit patient is resting comfortably on the exam table. Patient appears to be nontoxic. Patient presenting to the emergency room today for a suprapubic catheter change. He reports he has to have suprapubic catheter due to paraplegia. He has a T9/T10 injury and is paralyzed from the waist down. He PCP is Dr. Harper and his urologist is Dr. Gaspar. States that his urologist will not perform catheters changes and the doctor's office because he does not have an appropriate wheelchair to perform the procedure and recommends he comes to the emergency room for his catheter changes. Procedure: Verbal consent obtained for catheter change. Old suprapubic cath removed. Area was cleansed with Betadine and sterile technique was used to insert a 24 Pashto catheter. Immediate urine flow was visualized in the tube. Urinalysis obtained and sent to the lab. Patient tolerated well Labs: Urinalysis shows cloudy appearance to urine with 2+ protein, 2+ blood, positive nitrate, 3+ leukocytes, 3-5 red blood cells, greater than 100 white bl ood cells and 2+ bacteria. We will send for culture. Plan: Patient presents for suprapubic cath change. Catheter was changed in the ER. Patient urinalysis shows UTI. Offer to place patient on antibiotics and he would like to wait for the culture to be obtained and start antibiotics at that time as he is not symptomatic. Patient will follow-up with his PCP for results. Supportive measures were discussed with the patient and they voiced understanding discharge instructions and agrees to treatment plan. Return precautions reviewed Differential Diagnosis Differential diagnosis: Likely urinary tract infection and other (Paraplegia- need for suprapubic catheter change) Lab Data Labs: Lab Results 07/24/25 Range/Units 10:53 Urine Color Yellow (Yellow) Urine Appearance Cloudy H (Clear) Urine pH 7.5 (5.0-9.0) Ur Specific [place] 1.013 (1.001-1.035) Urine Protein 2+ H (Negative) mg/dL Urine Glucose (UA) Negative (Negative) mg/dL Urine Ketones Negative (Negative) mg/dL Ur Blood (Man) 2+ H (Negative) Urine Nitrate Positive H (Negative) Urine Bilirubin Negative (Negative) Urine Urobilinogen 1.0 (<2.0) mg/dL Leukocyte Esterase Rfl 3+ H (Negative) GURMEET/UL Urine RBC 3-5 H (0-2) /hpf Urine WBC >100 H (0-3) /hpf Ur Squamous Epith Cells None seen (Few) /hpf Urine Bacteria 2+ H /hpf Urine Casts 11-20 Hyaline Casts Present (None) /lpf Discharge Plan Discharge Clinical Impression: Encounter for care or replacement of suprapubic tube Patient Disposition: Home Condition: Stable Instructions: Antibiotic Form, How to Care for Your Suprapubic Catheter (DC) Additional Instructions: Suprapubic catheter changed in the ER today Urine looks infectious in the ER. We will send urine for culture. Follow-up with your PCP for results of the culture to determine need for antibiotics Patient Language: Arabic Prescriptions: No Action metoprolol succinate PO amlodipine PO ferrous sulfate [Iron (ferrous sulfate)] PO potassium chloride PO ibuprofen 600 mg tablet 600 mg PO TID PRN (Reason: pain) Qty: 20 0RF acetaminophen 500 mg capsule 1,000 mg PO Q6H PRN (Reason: pain) Qty: 20 0RF hydrocodone-acetaminophen 5-325 mg tablet 1 tablet PO Q8H PRN (Reason: pain) Qty: 12 0RF psyllium husk [Metamucil] 0.4 gram capsule 0.4 g PO DAILY PRN (Reason: constipation) Qty: 14 0RF cephalexin 500 mg capsule 500 mg PO Q8H 7 Days Qty: 21 0RF cefdinir 300 mg capsule 300 mg PO Q12H Qty: 20 0RF Follow-up/Referrals: Kt,DO Leroy [Primary Care Provider] Time of Disposition: 11:55
[2025-07-24 09:02] VITALS: BP 147/74; PULSE 98; RESP 14; TEMP 36.8; O2SAT 100
--- OUTSIDE RECORDS SUMMARY | 2025-07-24 09:36 | XMS_ITS | Clinical Summary ---
Author Organization [facility] Address [address] [facility] [place] [address] Care Team Providers Care Paring Machine Operator Name Role Phone Lisa Ramírez JOSE-FOOD PACKER Primary Care Provider Source Comments [facility],non-owned Affiliates and Associated Physician Practices is amultiple site organization consisting of ambulatory clinics and hospital sitesin [place], [place], [place] and [place]. This disclosure is being madepursuant to the Care Everywhere program and may not contain all information available regarding this patient. 

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
[2025-07-24 11:15] LABS: Add Urine Microscopic? YES; Appearance Urine Cloudy (Clear); Glucose Urine UA Negative (Negative); Leukocyte Esterase Ur 3+ LEU/UL (Negative); Nitrate Urine Positive (Negative); Specific Grav Ur 1.013 (1.001-1.035)
[2025-07-24 12:06] VITALS: BP 140/88; PULSE 74; RESP 16; O2SAT 98
== END 2025-07-24 12:09 | disposition home or self-care (01) ==
PROVIDERS: Emergency Provider Nurse Practitioner Family; PCP Student in an Organized Health Care Education/Training Program
DX: Z43.5 Encounter for attention to cystostomy (principal); G82.20 Paraplegia, unspecified; S24.103S Unspecified injury at T7-T10 level of thoracic spinal cord, sequela; Z99.3 Dependence on wheelchair; Z93.3 Colostomy status; X58.XXXS Exposure to other specified factors, sequela
CPT/HCPCS: 51702; 51705; 81001; 87077; 87086; 87186; 99283

== ENCOUNTER 2025-08-06 09:06 | Emergency (ER) | payer MEDICARE, MEDICAID, SELFPAY ==
[2025-08-06 09:21] VITALS: BP 119/69; PULSE 104; RESP 16; TEMP 36.2; O2SAT 100
--- OUTSIDE RECORDS SUMMARY | 2025-08-06 09:46 | XMS_ITS | Clinical Summary ---
Author Organization [facility] Address [address] [facility] [place] [address] Care Team Providers Care Hairspring Cutter Name Role Phone Lisa Ramírez JOSE-HIGH SCHOOL HOME ECONOMICS TEACHER Primary Care Provider Source Comments [facility],non-owned Affiliates and Associated Physician Practices is amultiple site organization consisting of ambulatory clinics and hospital sitesin [place], [place], [place] and [place]. This disclosure is being madepursuant to the Care Everywhere program and may not contain all information available regarding this patient. 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
--- OUTSIDE RECORDS SUMMARY | 2025-08-06 09:46 | XMS_ITS | Patient Health Record ---
Author Organization [facility] Address [address] [facility] [address] [place] [address] Care Team Providers Care Biomedical Scientist Name Role Phone Tom Forbes Unavailable [phone] Reason For Referral No Information Plan Of Treatment No Information
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
--- OUTSIDE RECORDS SUMMARY | 2025-08-06 13:26 | XMS_ITS | Clinical Summary ---
Author Organization [facility] Address [address] [place] [address] Care Team Providers Care Oil Truck Driver Name Role Phone Lisa Ramírez JOSE-JINGLE WRITER Primary Care Provider Source Comments [facility],non-owned Affiliates and Associated Physician Practices is amultiple site organization consisting of ambulatory clinics and hospital sitesin [place], [place], [place]. This disclosure is being madepursuant to the Care Everywhere program and may not contain all information available regarding this patient. Last updated 18.[facility] Allergies Active Allergy Reactions Criticality Noted Date [...] on file Legal Sex Male 5:32 AM [employer] Gender Identity Not on file Sexual Orientation [...] 08/24/2021 10/07/2022 Insurance [place]ICARE [place]ICA[place] - [place] [facility] MANAGED MEDICARE ADV [facility] MANAGED MEDICARE ADV MEDICAID - OUT OF STATE Advance Directives * Full Code (Latest Code Status on File) Date Activated Date Inactivated Comments 12/26/2020 4:22 AM 12/27/2020 2:34 PM Care Teams Oil Truck Driver Relationship Specialty Start Date End Date Lisa Ramírez, ELA TEACHER-JINGLE WRITER [address] [place] [address] PCP - General Orthopedic Podiatrist 10/07/22
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
[2025-08-06 13:44] VITALS: TEMP 36.5
[2025-08-06 13:58] LABS: Alanine Aminotransferase 14 U/L (6-50); Albumin Level 3.8 g/dL (3.5-5.1); Alkaline Phosphatase 119 U/L (38-126); Anion Gap 15 mmol/L (4-12); Aspartate Amino Transferase 25 U/L (17-59); Bilirubin,Total 0.7 mg/dL (0.2-1.3); Blood Urea Nitrogen 16 mg/dL (9-20); Calcium 9.4 mg/dL (8.4-10.2); Carbon Dioxide 16 mmol/L (22-30); Chloride 104 mmol/L (98-107); Estimated CRCL calculation 65 ml/min; Estimated Glomerular Filt Rate > 60; Glucose 100 mg/dL (65-110); Potassium 5.4 mmol/L (3.4-5.0); Sodium 135 mmol/L (137-145); Total Protein 10.9 g/dL (6.3-8.2)
[2025-08-06 14:14] LABS: Hematocrit 28.2 % (42.0-52.0); Hemoglobin 8.4 g/dL (14.0-18.0); Immature Granulocyte Percent A 0.4 % (0-0.5); Lymphocytes Absolute Auto 0.95 K/mm3 (0.9-3.2); Mean Corpuscular HGB Conc 29.8 g/dl (32-36); Mean Corpuscular Hemoglobin 21.0 pg (26-34); Mean Corpuscular Volume 70.5 fl (80-100); Nucleated Red Blood Cells Absolute Auto 0.000 K/mm3 (0.0-0.012); Nucleated Red Blood Cells Perc 0.0 % (0.0-0.2); Platelet Count Result 636 k/mm3 (150-375); Red Blood Count 4.00 M/mm3 (4.6-6.20); White Blood Count 9.2 K/mm3 (4.5-10.0)
[2025-08-06 14:47] LABS: Schistocytes None Seen
[2025-08-06 14:48] LABS: Hypochromasia 1+; Microcytosis 1+ (NORMAL)
[2025-08-06 14:49] LABS: Anisocytosis 2+; Band Neutrophils Percent 0 % (0-6)
[2025-08-06] MEDS: CEFDINIR 300 MG CAPSULE PO (15:51)
--- NOTE | 2025-08-06 16:00 | PC.NURSE ---
EDP Dr. Fang changed pt suprapubic catheter with no difficulties, pt tolerated well. this RN at bedside for assistance
[2025-08-06 16:04] VITALS: BP 136/83; PULSE 89; RESP 16; O2SAT 98
[2025-08-06 16:51] LABS: Add Urine Microscopic? YES; Appearance Urine Turbid (Clear); Glucose Urine UA Negative (Negative); Leukocyte Esterase Ur 3+ LEU/UL (Negative); Need Manual Microscopic Reviewed; Nitrate Urine Positive (Negative); Non Pathogenic Casts >20; Specific Grav Ur 1.018 (1.001-1.035)
== END 2025-08-06 16:06 | disposition home or self-care (01) ==
PROVIDERS: Physician Assistant; Emergency Provider Emergency Medicine; PCP Student in an Organized Health Care Education/Training Program
DX: N39.0 Urinary tract infection, site not specified (principal); T83.510A Infection and inflammatory reaction due to cystostomy catheter, initial encounter; G82.20 Paraplegia, unspecified; Z93.3 Colostomy status
CPT/HCPCS: 36415; 51702; 80053; 81001; 85025; 87077; 87086; 87186; 99283; A9270

== ENCOUNTER 2025-09-19 08:08 | Emergency (ER) | payer MEDICARE, MEDICAID, SELFPAY ==
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
[2025-09-19 09:47] VITALS: BP 105/62; PULSE 101; RESP 16; TEMP 36.8; O2SAT 100
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
--- OUTSIDE RECORDS SUMMARY | 2025-09-19 10:11 | XMS_ITS | Clinical Summary ---
Author Organization [facility] Address [address] [place] [address] Care Team Providers Care Manager Hospitality Name Role Phone Lisa Ramírez Renan ROMON-PROMOTIONS MANAGER Primary Care Provider Source Comments [facility],non-owned Affiliates and Associated Physician Practices is amultiple site organization consisting of ambulatory clinics and hospital sitesin [place], [place], [place] and [place]. This disclosure is being madepursuant to the Care Everywhere program and may not contain all information available regarding this patient. Last updated 18.[facility] Allergies Active Allergy Reactions Criticality Noted Date [...] Diagnosed Date Resolved Date Fever 12/26/2020 12/27/2020 Encounters Date Type Department Care Team Description 09/12/2025 9:20 AM ROTARY DUMP OPERATOR - 09/12/2025 11:34 AM ROTARY DUMP [place]PERATOR [place] [address] Meño Rivas Jr., MD Visit for wound check Discharge Disposition: Home or Self Care 09/12/2025 Travel from Last 3 Months Social History Tobacco Use Types Packs/Day Years [...] on file Legal Sex Male 5:32 AM ROTARY DUMP OPERATOR Gender Identity Not on file Sexual Orientation Not on file Last Filed Vital Signs Vital Sign Reading Time Taken Comments Blood Pressure 103/60 09/12/2025 11:30 AM ROTARY DUMP OPERATOR Pulse 112 09/12/2025 11:31 AM ROTARY DUMP OPERATOR Temperature 37.2 C (98.9 F) 09/12/2025 9:12 AM ROTARY DUMP OPERATOR Respiratory Rate 20 09/12/2025 9:12 AM ROTARY DUMP OPERATOR Oxygen Saturation 100% 09/12/2025 11:31 AM ROTARY DUMP OPERATOR Inhaled Oxygen Concentration - - Weight 68 kg (150 lb) 09/12/2025 9:12 AM ROTARY DUMP OPERATOR Height 198.1 cm (6' 6) 09/12/2025 9:12 AM ROTARY DUMP OPERATOR Body Mass Index 17.33 09/12/2025 9:12 AM ROTARY DUMP OPERATOR Plan of Treatment Health Maintenance Due Date [...] site 08/24/21; Urine 10/07/22; 08/24/2021 10/07/2022 Insurance MEDICAID - [place] [employer] MEDICAID - [facility] MANAGED MEDICARE [place] [id number] Advance Directives * Full Code (Latest Code Status on File) Date Activated Date Inactivated Comments 12/26/2020 4:22 AM 12/27/2020 2:34 PM Care Teams Manager Hospitality Relationship Specialty Start Date End Date Lisa Ramírez, FIELD CAPTAIN-PROMOTIONS MANAGER [address] [place] [address] PCP - General Reclamation Worker 10/07/22
[2025-09-19] MEDS: DOXYCYCLINE HYCLATE 100 MG TABLET PO (11:07)
[2025-09-19 12:06] VITALS: BP 134/76; PULSE 98; RESP 18; O2SAT 99
== END 2025-09-19 12:45 | disposition home or self-care (01) ==
PROVIDERS: Emergency Provider Registered Nurse; PCP Student in an Organized Health Care Education/Training Program
DX: Z48.01 Encounter for change or removal of surgical wound dressing (principal); G82.20 Paraplegia, unspecified
CPT/HCPCS: 99283; A9270